=== PATIENT | male | born 1975 | race Caucasian/White ===

== ENCOUNTER 2021-11-17 19:32 | Emergency (ER) | payer OTHER, SELFPAY ==
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
[2021-11-17 20:00] VITALS: BP 148/87; PULSE 96; RESP 14; TEMP 37.1; O2SAT 97
--- NOTE | 2021-11-17 20:17 | ED.WOUNDLAC ---
HPI - Wound/Laceration General Chief Complaint: Wound/Laceration Stated Complaint: left leg wound Time Seen by Provider: 11/17/21 20:17 History of Present Illness HPI narrative: Patient is a 46-year-old male presenting with concern for wound infection. Patient states that he was playing kickball the other day when he slid into one of the bases. He sustained a large abrasion to the lateral aspect of his left calf. States he is also had some knee pain. Patient states that he has been applying antibiotic ointment to the abrasion but today he developed pain surrounding the abrasion and he felt generally unwell. He is concerned that he is developing an infection. He denies fevers, nausea or vomiting, spreading redness. He denies further complaints or injuries. He is unsure when his last tetanus shot was. Related Data Allergies Allergy/AdvReac Type Severity Reaction Status Date / Time No Known Allergies Allergy Unknown Verified 11/17/21 20:19 Review of Systems Review of Systems: All systems reviewed & are unremarkable except as noted in HPI and below PMFSH Family History Family History Mother Hypertension Other Diabetes mellitus Social History Social History Smoking status: Never smoker Alcohol intake: never Exam Narrative: GENERAL: Well-appearing, well-nourished, and in no acute distress. HEAD: Normocephalic, atraumatic. EYES: PERRLA and EOMI. ENT: Nares clear, no rhinorrhea or epistaxis. Mucous membranes moist. NECK: Supple. CHEST: Clear to auscultation. No respiratory distress. HEART: Regular rate and rhythm. No murmur heard. Normal peripheral pulses. ABDOMEN: Soft, nontender, nondistended, normal active bowel sounds. EXTREMITIES: Normal range of motion. large abrasion to lateral aspect of left lower extremity with small amount of surrounding erythema and warm, no purulence or fluctuance, no crepitus SKIN: Warm, dry, no rash. NEURO: No focal deficits. Alert and oriented x3. PSYCH: Normal mood and affect. Course Course Emergency Course: Patient is a 46-year-old male presenting with concerns for a wound infection of a large abrasion on his left leg. Patient is hypertensive, otherwise vitals are within normal limits. Patient is nontoxic and in no acute distress. Exam is remarkable for the above. We will obtain an x-ray of the left knee and will start antibiotic therapy at this time. X-ray shows no acute osseous abnormalities. Patient received tetanus shot and a dose of antibiotics. Discussed appropriate wound care as well as return precautions. Patient voiced understanding and is agreeable with plan. Discharged in stable condition. Vital Signs Vital signs: Vital Signs Temperature 98.8 F 11/17/21 20:00 Pulse Rate 96 11/17/21 20:00 Respiratory Rate 14 11/17/21 20:00 Blood Pressure 148/87 H 11/17/21 20:00 Pulse Oximetry 97 11/17/21 20:00 Oxygen Delivery Room Air 11/17/21 20:00 Temperature 98.8 F 11/17/21 20:00 Pulse Rate 96 11/17/21 20:00 Respiratory Rate 14 11/17/21 20:00 Blood Pressure 148/87 H 11/17/21 20:00 Pulse Oximetry 97 11/17/21 20:00 Oxygen Delivery Room Air 11/17/21 20:00 Critical Care Time Critical Care Time Critical Care Time: No Discharge Plan Discharge Clinical Impression: Abrasion, Cellulitis Patient Disposition: Home, Self-Care Condition: Stable Instructions: Antibiotic Form, Cellulitis (ED), Abrasion (ED) Additional Instructions: If your symptoms do not improve, redness continues to spread, you develop fevers or vomiting, or other concerning symptoms arise, please return to the ER. Please follow-up with your PCP. Prescriptions: New cephalexin 500 mg capsule 500 mg PO Q6H 7 Days Qty: 28 0RF sulfamethoxazole-trimethoprim [Bactrim DS] 800-160 mg tablet 1 tablet PO Q12H 7 Days Qty: 14 0RF Foll
[2021-11-17] MEDS: SULFAMETHOXAZOLE/TRIMETHOPRIM 800/160 MG DS TABLET 1 TAB PO (21:19)
[2021-11-17] MEDS: CEPHALEXIN 500 MG CAPSULE PO (21:19)
[2021-11-17] MEDS: TETANUS,DIPHTHERIA,AC PERTUSSIS ADULT (0.5 ML) BOOSTRIX IM (21:22)
== END 2021-11-17 21:53 | disposition home or self-care (01) ==
PROVIDERS: Emergency Provider Emergency Medicine; PCP Family Medicine
DX: L03.116 Cellulitis of left lower limb (principal); S80.812A Abrasion, left lower leg, initial encounter; Z23 Encounter for immunization; Y93.6A Activity, physical games generally associated with school recess, summer camp and children; W21.89XA Striking against or struck by other sports equipment, initial encounter
CPT/HCPCS: 73564; 90471; 90715; 99283; A9270

== ENCOUNTER 2023-08-10 03:10 | Emergency (ER) | payer OTHER, SELFPAY ==
[2023-08-10 03:17] VITALS: BP 135/99; PULSE 86; RESP 18; TEMP 37.1; O2SAT 97
--- NOTE | 2023-08-10 04:44 | ED.GENADULT ---
HPI - General Adult General Chief complaint: Unspecified Stated complaint: I dont feel right, I'm all over the place Time Seen by Provider: 08/10/23 03:16 Source: patient Limitations: no limitations History of Present Illness HPI narrative: Patient is a 47-year-old male presents to the emergency department complaining of difficulty sleeping. Patient states 2 days ago he had the same issue and then last night he was able to sleep and then tonight he is not able to sleep. Patient notes that it seems like maximum were refilled again about to fall asleep and then he does not, notes he has a history of sleep apnea has been wearing a CPAP for the most part. Patient admits to being stressed lately with his going through a lot of medical issues. Patient denies any caffeine use outside of his typical. Patient admits to 2 nights ago taking a Sudafed but did not take anything tonight. Patient denies any regular medication use or any recent [id number] supplements. Patient denies chest pain, difficulty breathing, fever, palpitations, diarrhea, vomiting, nausea. Patient denies depression, suicidal ideations, hypersexuality, irritability. Patient admits to history of the past 1 year ago when he was out camping and he saw his primary care physician who told him that he had anxiety. Related Data Allergies Allergy/AdvReac Type Severity Reaction Status Date / Time No Known Allergies Allergy Unknown Verified 11/17/21 20:19 Review of Systems Review of Systems: A 10 system review of systems was completed on the patient and is negative except for what is stated in the HPI. Nursing and ancillary documentation was reviewed. [facility] Family History Family History Mother Hypertension Other Diabetes mellitus Social History Social History Smoking status: Never smoker Alcohol intake: never Comments At time of signature, I have reviewed and agree with nursing past medical, surgical, social and family history unless otherwise noted. Please see the nursing chart for further information. There is no relevant family history pertinent to the presenting complaint. Exam Narrative: CONST: No acute distress. Well nourished. HENMT: Head is normocephalic and atraumatic. Moist mucous membranes. No posterior oropharynx erythema. EYES: No conjunctival icterus, injection, or pallor. PERRL. NECK: No meningeal signs. No palpable thyroid tenderness to palpation or thyromegaly. RESP: Able to speak in full sentences. Normal respiratory effort. CTAB. CARDIO: Regular rate. Regular rhythm. 2+ DP and radial pulses bilaterally. GI: Nondistended. No tenderness to palpation. Soft. : No CVA tenderness to palpation. SKIN: No rashes or lesions noted on exposed skin. NEURO: Oriented x3. Moves all extremities. EXTREM/MSK/BACK: No pedal edema. PSYCH: Normal affect. Course Vital Signs Vital signs: Vital Signs Temperature 98.7 F 08/10/23 03:17 Pulse Rate 86 08/10/23 03:17 Respiratory Rate 18 08/10/23 03:17 Blood Pressure 135/99 H 08/10/23 03:17 Pulse Oximetry 97 08/10/23 03:17 Oxygen Delivery Room Air 08/10/23 03:17 Temperature 98.7 F 08/10/23 03:17 Pulse Rate 86 08/10/23 03:17 Respiratory Rate 18 08/10/23 03:17 Blood Pressure 135/99 H 08/10/23 03:17 Pulse Oximetry 97 08/10/23 03:17 Oxygen Delivery Room Air 08/10/23 03:17 Medical Decision Making MDM Narrative Medical decision making narrative: Patient presents with the above complaint. Initial vitals are remarkable for no significant abnormalities. Physical examination as noted above. Differential diagnosis includes was not limited to: Adverse reaction to testosterone supplementation, anxiety, poor sleep hygiene. Plan discussed: Administer Ativan 1 mg p.o. and provided prescription for 2 more doses to be taken over the next 2
[2023-08-10 05:06] VITALS: BP 123/97; PULSE 87; RESP 14; O2SAT 97
[2023-08-10] MEDS: diphenhydrAMINE HCl CAP 25 MG CAPSULE PO (05:06)
[2023-08-10] MEDS: LORazepam (*CRX) 0.5 MG TABLET PO (05:06)
== END 2023-08-10 05:38 | disposition home or self-care (01) ==
PROVIDERS: Emergency Provider Student in an Organized Health Care Education/Training Program; PCP Family Medicine
DX: G47.00 Insomnia, unspecified (principal)
CPT/HCPCS: 99283; A9270

== ENCOUNTER 2024-08-19 16:18 | Emergency (ER) | payer OTHER, SELFPAY ==
[2024-08-19] VITALS (17 sets, daily range): BP systolic 135–167; BP diastolic 87–99; PULSE 84–92; RESP 15–22; TEMP 36.4–37.2; O2SAT 95–100
--- NOTE | ~2024-08-19 | XR_ITS ---
EXAMINATION: XR chest 2V Exam Date/Time: 08/19/2024 7:55 CDT HISTORY: upper abdominal pain Comparison: None. RESULT: Lines, tubes, and devices: None. Lungs and pleura: Clear. Cardiomediastinal silhouette: Unremarkable. Other: No acute osseous or upper abdominal finding. IMPRESSION: No acute cardiopulmonary process. Reviewed, dictated and finalized at location K.
--- NOTE | ~2024-08-19 | CT_ITS ---
EXAMINATION: CT abdomen pelvis w con DATE: 08/19/2024 18:19 INDICATION: RUQ abd pain TECHNIQUE: Computed tomography (CT) of the abdomen and pelvis was performed with 100 mL Omnipaque-350 intravenous contrast. Automated exposure control and iterative reconstruction technique were employe d. The dose-length product was 1392.78 mGy-cm. COMPARISON: X-ray chest, same date. FINDINGS: Lower thorax: Unremarkable Liver: Normal. Biliary/Gallbladder: Gallbladder is normal. No bile duct dilation. Pancreas: Mild stranding about the pancreatic head. Spleen: Scattered hypodensities, likely representing cysts or hemangiomas. Adrenals:No mass. Kidneys: No suspicious mass, obstructing stone, or hydronephrosis. Subcentimeter hypodensities, too s mall to characterize but most likely represent cysts GI tract: No small or large bowel dilation. Normal appendix. Diverticulosis without diverticulitis. Mesentery/Peritoneum: No ascites, mass, or free air. Mild central mesenteric stranding, with fat halo s surrounding several prominent mesenteric lymph nodes. Retroperitoneum: No mass. Pelvis: Empty urinary bladder. Mild prostatomegaly. Soft Tissues: Small uncomplicated fat-containing umbilical and bilateral inguinal hernias. Bones: No acute osseous finding. IMPRESSION: Mesenteric panniculitis. Mild inflammatory change at the pancreatic head, may represent mild bronchitis versus extension of th e mesenteric panniculitis. Reviewed, dictated and finalized at location K. IMPRESSION: Mesenteric panniculitis. Mild inflammatory change at the pancreatic head, may represent mild bronchitis versus extension of the mesenteric panniculitis.
--- OUTSIDE RECORDS SUMMARY | 2024-08-19 16:21 | XMS_ITS | Clinical Summary ---
Author Organization [facility] [place] [place] Address [address] [place] [address] Phone Care Team Providers Care Button Breaker Name Role Phone Devyn Coronado APRN, CNP Primary Care Pr ovider Medications No known medications Active Problems No known active problems Family History Medical History Relation Name Comments Diabetes Father Asthma Mother Cancer Mother Diabetes Mother Relation Name Status Comments Father Alive Mother Alive Social History Tobacco Use Types Packs/Day Years Used Date Smoking Tobacco: Never Smokeless Tobacco: Never Alcohol Use Standard Drinks/Week Comments Never 0 (1 standard drink = 0.6 oz pur e alcohol) Sex and Gender Information Value Date Recorded Sex Assigned at Not on file Legal Sex Male 3:27 PM CDT Gender Identity Not on file Sexual Orientation Not on file Last Filed Vital Signs Vital Sign Reading Time Taken Comments Blood Pressure 120/88 07/12/2022 2:16 PM CDT Pulse 81 07/12/2022 2:16 PM CDT Temperature 36.7 C (98.1 F) 07/12/2022 2:16 PM CDT Respiratory Rate 18 07/12/2022 2:16 PM CDT Oxygen Saturation 96% 07/12/2022 2:16 PM CDT Inhaled Oxygen Concentration - - Weight 109.4 kg (241 lb 3.2 oz) 07/12/2022 2:16 PM CDT Height 182.9 cm (6') 07/12/2022 2:16 PM CDT Body Mass Index 32.71 07/12/2022 2:16 PM CDT Plan of Treatment Health Maintenance Due Date Last Done Comments Hepatitis C Virus (HCV) Screening 1975 Hepatitis B Immunization (1 of 3 - 19+ 3-dose series) 1992 Cologuard 2018 Colonoscopy 2018 Colorectal Cancer Screening 2018 Immunochemical Fecal Occult Blood 2018 SARS-COV-2 Immunization (3 - 2023- season) 2023 07/20/2020, 06/22/2020 Pneumococcal Immunization (5 0+ years) (1 of 1 - PCV) 10/16/2023 Zoster Immunization (1 of 2) 10/16/2023 Influenza Immunization (#1) 2024 Respiratory Syncytial Virus (RSV) Immunization (Adult) (1 - 1-dose 75+ series) 2048 DTaP/Tdap/Td Immunization Discontinued 11/17/2021 TdaP Immunization Completed 11/17/2021 Human Papillomavirus (HPV) Immunization Aged Out No longer eligible based on patient's age to complete this topic Meningococcal Immunization (ACWY) Aged Out No longer eligible based on patient's age to complete this topic Rotavirus Immunization Aged Out No lo nger eligible based on patient's age to complete this topic Insurance Care Teams Button Breaker Relationship Specialty Start Date End Date Devyn Coronado, CARDIOVASCULAR INVASIVE SPECIALIST, MEDICAL SECRETARY #[address] [address] PCP - General Advanced Practice Nurse 07/12/22
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
--- OUTSIDE RECORDS SUMMARY | 2024-08-19 16:21 | XMS_ITS | Data Portability ---
Author Organization ID - [facility] Patients Know Best [facility] Address [address] [place] [address] Assessment No assessment recorded. Plan of Treatment Reminders Order Date Submit Date Provider Last Modified By Organization Details Last Modified Time Details Appointments None recorded. Lab None recorded. Referral None recorded. Procedures None recorded. Surgeries None recorded. Imaging None recorded. Medication Orders prednisone 10 mg tablet 2024 [employer] [employer] #[id number], [address], [place], [id number], 12:23:26 benzonatate 100 mg capsule 2024 025 [employer] #[id number], [address], [place], [id number], 16:58:56 Patient TargetsNo targets recorded. Patient Instructions Encounter Date Encounter Id Patient Instructions Last Modified By Organization Details Last Modified Time 07/08/2024 [id number] bronchitis: care instructions [email or web address] Not available 07/08/2024 12:23:13 Summary of Today 's Visit: You reached out to us because of a dry, non-productive cough and a little bit of a runny nose, which began after a viral illness about a week and a half ago. You've tried using cough drops, Sudafed, and allergy medication, but symptoms have persisted. We discussed that these symptoms might be due to bronchitis from inflammation following the viral infection. Treatment Plan for Cough and Symptoms: To help manage your symptoms, we'll start you on a prednisone taper pack for five days, which will reduce inflammation. Alongside, we'll prescribe Tessalon pearls to ease your cough. It's important to continue using your allergy medication and to start using nasal sprays to alleviate the runny nose, which could be contributing to the cough as well. Home Care Advice: Please keep drinking warm fluids such as tea, soups, or broths to soothe your throat and support recovery. These simple measures, in combination with the prescribed medications, should help clear up your symptoms. Important Precautions: You should seek immediate medical attention if you experience concerning symptoms like difficulty breathing, coughing up blood, or if your fingertips or lips turn blue. Should your symptoms not improve, or if they persist, a follow-up in-person visit will be necessary to have your lungs checked thoroughly. Medication Pickup: I've sent your prescriptions to the [facility] on [facility] in [place]. You can pick them up there at your convenience. If you have any issues with obtaining the medication, please don't hesitate to reach out for assistance. Not available 07/08/2024 12:23:12 Reason for Referral None Reported. Medical Equipment None Reported. Allergies No known drug allergies Medications Name Sig Start Date Stop Date Status Note LastModified by Organization Details LastModified Time prednisone 10 mg tablet 5 tabs po on day 1, 4 tabs po on day 2, 3 tabs po on day 3, 2 tabs po on day 4, 1 tab po on day 5. 2024 active Not Available Not Available Not Avai lable benzonatate 100 mg capsule Take 1 capsule 3 times a day by oral route as needed, for cough. Maximum 6 capsules in 24 hours.. 2024 active Not Available Not Available Not Avai lable Vitals None Recorded Social History None recorded. Functional Status None recorded. Mental Status None recorded. Family History Nothing Reported. Medical History No medical history recorded. Past Encounters Encounter ID Performer Location Encounter Start Date Encounter Closed Date Diagnosis/Indication Diagnosis SNOMED-CT Code Diagnosis ICD10 Code Diagnosis Note [id number] WYATT Miller [facility] [address] [place] [address] 07/08/2024 12:15:35 07/08/2024 12:26:07 Bronchitis 23098211 J40 Acute bronchitis - supported by the patient's symptoms of a dry cough, runny nose, and the recent viral illness, indicating inflammati on often seen after such illnesses. - Prescribed a prednisone taper pack for five days.- Prescribed Tessalon Perles for cough.- Advised the patient to try nasal sprays, continue allergy medication s, and drink warm fluids like tea, soups, and broths.- Instructed the patient to go to the ER if experienci ng difficulty breathing, coughing up blood, or if fingertips or lips turn blue.- Recommende d follow-up care in person if symptoms do not improve or continue to linger. Health Concerns Section Related Observation LastModified by Organization Detai ls LastModified Time None Recorded Concern Status LastModified by Organization Details LastModified Time None Recorded Advance Directives Directive None Recorded Payers Insurance Date Sequence Insurance Name Policy Number Policy Mojica Covered Member ID Mojica Member ID Guarantor Name 07/08/2024 [facility] Robert Carter [id number] Robert Carter 08/19/2024 1 [employer] - Robert Carter [id number] Robert Carter 07/08/2024 2 *SELF PAY* Robert Carter [id number] Robert Carter 07/08/2024 1 *SELF PAY* Dylan Carter Notes Date Note Type Note Provider Name and Address Organization Details Recorded Time 5 text/html Patient name , location, and phone number confirmed. Limitations of telemedicine evaluations reviewed, all questions answered, and verbal consent obtained to treat via secure video telemedicine interaction.Clinician attests that the clinician is physically located in the following state at the time of the visit: [place] current location is: (home address) [place]Patient consent to AI scribe use CC: Persistent cough HPI: The patient reports experiencing a cough that began over the past day, following an earlier episode of what seemed to be a viral illness experienced about one to ytl-usr-s-half weeks ago. Initially, they reported symptoms resembling the flu, which improved over several days ( to Monday). The cough reappeared yesterday, accompanied by a minor runny nose and slight nasal congestion.Patient has taken cough drops, sudafed, allergy medication Fever > 100.4 (Tmax): NoChills: NoNight Sweats: NoMyalgias: NoFatigue: NoNasal congestion: MildNasal discharge: YesSneezing: NoSinus pressure: NoEye redness/discharge:NoEar pain/pressure: NoSore throat: NoDifficulty swallowing: NoPost nasal drip: NoCough: Yes, dry, non productiveShortness of breath: NoWheezing: NoChest Pain/tightness: NoHeadache: NoDiarrhea: NoNausea/Vomiting: No ( - ) Worsening symptoms after initial improvement of viral symptoms 3 -4 days in duration (double sickness)( - ) Duration of symptoms 10 days without evidence of clinical improvement(- ) Severe symptoms 3- 4 days consecutively, severe symptoms defined as fever >102 F or purulent nasal discharge or severe facial pain WYATT Miller [address] [place] [address] [address] [place], [phone], [facility] 07/08/2024 16:59:45
--- OUTSIDE RECORDS SUMMARY | 2024-08-19 16:21 | XMS_ITS | Referral Summary ---
Author Organization [facility] Address [address] [place] [address] Care Team Providers Care Supervisor Shuttle Fitting Name Role Phone Heena Durant OT Unavailable [phone] Allergies No known active allergies Medications testosterone cypionate (DEPO-TESTOTERO NE) 100 mg/mL injection Inject 1 mL (100 mg total) into the muscle as instructed every 14 (fourteen) days 100mg/0.5ml Active Active Problems Problem Noted Date Diagnosed Date Special screening for malignant neoplasms, colon 05/10/2022 Overview (05/10/2022): Added automatically from request for surgery [id number] Blood clot of left ear 05/04/2022 Psychophysiological [...] 11/17/2021,08/26/2008,08/20/2008 Typhoid Inactivated 02/14/2013,04/03/2001 Yellow Fever 07/24/2013,10/17/2001 Social History Tobacco Use Types Packs/Day Years [...] 05/01/2024 3:04 PM CDT Plan of Treatment Not on file Procedures Procedure Name Priority Date/Time Associated Diagnosis [...] Costa Perkins, - 09/22/2022 7:24 AM CDT [facility] Patient Name: Robert Carter Procedure Date: 09/22/2022 7:24 AM Date of : 1975 Admit Type: Outpatient Age: 46 Gender: Male Attending MD: Costa Perkins D.O. Room: [facility] END[facility] ROOM 05 Note Status: Finalized Procedure: [...] data last revised 21. Testing performed by: [facility], [address] [place] [address]., [id number] Blood 05/16/2022 7:49 AM CDT 05/16/2022 9:52 AM CDT Costa Perkins DO LAB BLOOD ORDERABLES Fin al Result MIKEY JIN [address] [facility] Department [place] [address] from Last 3 Months or Most Recently Relevant to Health Maintenance Insurance [facility] Care Teams Supervisor Shuttle Fitting Relationship Specialty Start Date End Date Heena Durant OT [address] [address] Occupational Therapist Occupational Therapy 07/14/17
--- OUTSIDE RECORDS SUMMARY | 2024-08-19 16:21 | XMS_ITS | Continuity of Care Document ---
Author Name [facility] Organization [facility] Care Team Providers Care Manager Alliance Name Role Phone DOD-[facility] Unavailable Unavailable Problems Combined list of problems from Department of Defense and Veterans Affairs facilities. It does not include entries that were removed or entered in error. Problem Status Onset Date Problem Type Date of Resolution Comments Source Obstructive sleep apnea of adult Active Condition [facility] ANKLE SPRAIN LEFT Active Condition DoD Need For Prophylactic Measure Inactive Condition DoD visit for: services physical pre-deployment Active Condition DoD UPPER RESPIRATORY INFECTION Inactive Condition DoD MAJOR DEPRESSION, SINGLE EPISODE Active Condition DoD Other Physical Therapy Active Condition DoD ANKLE SPRAIN Inactive Condition DoD visit for: routine adult H&P Inactive Condition DoD joint pain, localized in the right shoulder Active Condition DoD KNEE SPRAIN MEDIAL COLLATERAL LIGAMENT RIGHT Inactive Condition [facility] visit for: administrative purpose Inactive Condition DoD visit for: screening exam Active Condition DoD SKIN DISORDER EXANTHEM Active Condition DoD visit for: laboratory Active Condition [facility] Patient Education - Alcohol Active Condition DoD Anticipatory Guidance: Inadequate Physical Activity Active Condition DoD Patient Education - Injury Prevention Active Condition [facility] visit for: services physical Inactive Condition DoD Food Sources For Nutrients Active Condition DoD Tetanus toxoid - need for vaccination Active Condition [facility] visit for: issue medical certificate Inactive Condition [facility] visit for: screening exam pulmonary tuberculosis Active Condition DoD Need For Vaccination Hepatitis B Active Condition [facility] visit for: issue medical certificate fitness Active Condition DoD PHARYNGITIS ACUTE Active Condition pt has infection with tender n[place] parotid and angle of mandible. this could daniel viral infection / paroditis or a bacterial infection. since son with recent strep will ttreat pt with AB and moist heatt to area with instruction to return not improved in 48 hours DoD OTITIS MEDIA ACUTE NONSUPPURATIVE Inactive Condition DoD BENIGN SKIN NEOPLASM Active Condition pt has a few benign appearing lesions, some may be simple subcutaneous fibromas. none have suspicious appearance. I reviewed the ABCDE of skn cancer with pt and advised him to return if any questionable lesions DoD OVERWEIGHT Active Condition diet, exe rcise, smaller portions. DoD BACKACHE Inactive Condition r/o nephrolithiasis , pleuresy. [facility] Patient Education Active Condition [facility] Serum Total Cholesterol Was Elevated Active Condition Pt denies tob, is not >45, has no fhx of CAD, no hx of HTN so LDL goal is <160. no meds indicated at this time. Diet and exercise counselling provided. Healthy diet handout given. [facility] ACUTE LYMPHADENITIS Inactive Condition Motrin or Tylenol OTC for pain PRN. [facility] HAND SPRAIN Inactive Condition No evide nce of fracture on film./ Recommend R.I.C.E. Motrin for pain. RTC in one week if still painful. [facility] PSYCHIATRIC DIAGNOSIS OR CONDITION DEFERRED ON AXIS I Active Condition [facility] Diagnosis: ICD-10-CM M25.572 Pain in left ankle and joints of left foot Active Diagnosis [facility] Diagnosis: ICD-10-CM Z71.9 Counseling, unspecified Active Diagnosis [facility] Diagnosis: ICD-10-CM R20.2 Paresthesia of skin Active Diagnosis [facility] Medications Combined list of outpatient medications from Department of [facility] and [facility] Affairs facilities.Medications provided include 1) outpatient medications from the last 15 months, and 2) patient-reported medications. Medication Details Route Status Patient Instructions Prescription Expires Prescription Number Last Dispense Date Ordering Provider Order Date Order Qty Source DEHYDROEPIA NDROSTERONE (DHEA) CAP/TAB TAKE 1 CAP/TAB BY MOUTH ORAL ACTIVE Rohit GIBBS 2023 [facility] MELATONIN 3MG CAP/TAB TAKE ONE CAP/TAB BY MOUTH AT BEDTIME FOR SLEEP ORAL DISCONT INUED BY PROVIDE R 08/16/2024 [id number] MIMSCHRISTIANO KAYLEE R 2023 60 [facility] TESTOSTERON E CYPIONATE (PA-F) INJ,SOLN INJECT DEEP INTRAMUS CULARLY INTRAM USCULA R ACTIVE ME SHERRI TTISA 2023 [facility] TRAZODONE HCL 100MG TAB TAKE ONE-HALF TABLET BY MOUTH AT BEDTIME FOR INSOMNIA ORAL 11/15/2023 [id number] PRASANNACHRISTIANO KAYLEE R 2023 45 [facility] Allergies, Adverse Reactions, Alerts Combined list of allergies from Department of Defense and Veterans Affairs facilities. It does not include entries that were removed or entered in error. Substance Category Reaction Severity Reaction type Status Date Reported Comments Source NO OUTPUT FOR NCID [id number] Drug allergy (disorder) active 09/24/2007 [facility] Immunizations Combined list of available immunizations from the Department of Defense and Veterans Affairs facilities. Immunization Series Date Given Administered By Site Reaction Lot Number CVX Code Drug Scrap Dealer Status Comments Source TDAP 1 2021 115 complet ed HISTORICA L INFORMATI ON - FROM OTHER [facility] COVID-19 (MODERNA), MRNA, LNP-S, PF, 100 MCG/0.5ML DOSE OR 50 MCG/0.25ML DOSE 2 2020 207 complet ed HISTORICA L INFORMATI ON - [facility] Vaccine Moderna 2020 207 complet ed COVID Vaccine Moderna 07/19/20 Given Ambulat ory Pharmac y COVID-19, mRNA, LNP-S, PF, 100 mcg or 50 mcg dose 2020 [employer] (MOD) Not Given COVID-19, mRNA, LNP-S, PF, 100 mcg or 50 mcg dose DoD COVID Vaccine Moderna 2020 207 complet ed COVID Vaccine Moderna 06/22/20 Given Ambulat ory Pharmac y COVID-19 (MODERNA), MRNA, LNP-S, PF, 100 MCG/0.5ML DOSE OR 50 MCG/0.25ML DOSE 1 2020 207 complet ed HISTORICA L INFORMATI ON - FROM OTHER [facility] COVID-19, mRNA, LNP-S, PF, 100 mcg or 50 mcg dose 2020 [employer] (MOD) Not Given COVID-19, mRNA, LNP-S, PF, 100 mcg or 50 mcg dose DoD influenza, injectable, quadrivalent- pf 2018 [id number] 150 Seqirus complet ed influenza , injectabl e, quadrival ent-pf 01/24/19 Given Ambulat ory Pharmac y tetanus-dipht h toxoids (Td) adult/adol 2018 [id number] sanofi pasteur complet ed tetanus-d iphth toxoids (Td) adult/ado l 01/24/19 Given Ambulat ory Pharmac y tetanus and diphtheria toxoids, adsorbed, preservative free, for adult use (2 Lf of tetanus toxoid and 2 Lf of diphtheria toxoid) 4 2018 [id number] 09 Sanofi Pasteur (PMC) complet ed tetanus and diphtheri a toxoids, adsorbed, preservat meghna free, for adult use (2 Lf of tetanus toxoid and 2 Lf of diphtheri a toxoid) DoD Influenza, injectable, quadrivalent, preservative free 22 2018 [id number] 150 Seqirus (SEQ) complet ed Influenza , injectabl e, quadrival ent, preservat meghna free DoD influenza, injectable, quadrivalent- pf 2017 [id number] 150 Seqirus complet ed influenza , injectabl e, quadrival ent-pf 12/01/17 Given Ambulat ory Pharmac y Influenza, injectable, quadrivalent, preservative free 21 2017 [id number] 150 Seqirus (SEQ) comple t ed Influenza , injectabl e, quadrival ent, preservat meghna free DoD influenza virus vaccine, unspecified 2017 TRANSCR IBED 88 complet ed influenza virus vaccine, unspecifi ed 02/10/17 Given Ambulat ory Pharmac y influenza virus vaccine, unspecified formulation 1 2017 88 Transcribed (TRS) complet ed influenza virus vaccine, unspecifi ed formulati on DoD influenza, seasonal, injectable-pf 2015 [id number] 140 Seqirus complet ed influenza , seasonal, injectabl e-pf 12/22/15 Given Ambulat ory Pharmac y anthrax vaccine 2015 [id number] 24 Emergent Biosolutions complet ed anthrax vaccine 12/22/15 Given Ambulat ory Pharmac y anthrax vaccine 6 2015 [id number] 24 [employer] [place] (MIP) complet ed anthrax vaccine DoD Influenza, seasonal, injectable, preservative free 19 2015 [id number] 140 Seqirus (SEQ) comple t ed Influenza , seasonal, injectabl e, preservat meghna free DoD influenza, live, intranasal,qu adrivalent 2014 [id number] 149 Medimmune Inc comple t ed influenza , live, intranasa l,quadriv alent 12/18/14 Given Ambulat ory Pharmac y influenza, live, intranasal, quadrivalent 18 2014 [id number] 149 MedImmune, Inc. (MED) complet ed influenza , live, intranasa l, quadrival ent DoD influenza, live, intranasal,qu adrivalent 2014 [id number] 149 Medimmune Inc comple t ed influenza , live, intranasa l,quadriv alent 03/05/14 Given Ambulat ory Pharmac y influenza, live, intranasal, quadrivalent 17 2014 [id number] 149 MedImmune, Inc. (MED) complet ed influenza , live, intranasa l, quadrival ent DoD poliovirus vaccine, inactivated 2013 [id number] 10 sanofi pasteur complet ed polioviru s vaccine, inactivat ed 09/17/13 Given Ambulat ory Pharmac y poliovirus vaccine, inactivated 2 2013 [id number] 10 Sanofi Pasteur (PMC) complet ed polioviru s vaccine, inactivat ed DoD yellow fever vaccine 2013 [id number] 37 sanofi pasteur complet ed yellow fever vaccine 07/24/13 Given Ambulat ory Pharmac y yellow fever vaccine 2 2013 [id number] 37 Sanofi Pasteur (PMC) complet ed yellow fever vaccine DoD meningococcal A,C,Y,W-135 (MCV4P) 2013 [id number] 114 sanofi pasteur complet ed meningoco ccal A,C,Y,W-1 35 (MCV4P) 07/19/13 Given Ambulat ory Pharmac y meningococcal polysaccharid e (groups A, C, Y and W-135) diphtheria toxoid conjugate vaccine (MCV4P) 2 2013 [id number] 114 Sanofi Pasteur (PMC) complet ed meningoco ccal polysacch aride (groups A, C, Y and W-135) diphtheri a toxoid conjugate vaccine (MCV4P) DoD vaccinia (smallpox) vaccine 2013 VV04-00 3A 75 [employer] complet ed vaccinia (smallpox ) vaccine 03/05/13 Given Ambulat ory Pharmac y vaccinia (smallpox) vaccine 2 2013 VV04-00 3A 75 [facility]) complet ed vaccinia (smallpox ) vaccine DoD typhoid Vi capsular polysaccharid e vac 2013 [id number] 101 sanofi pasteur complet ed typhoid Vi capsular polysacch aride vac 02/14/13 Given Ambulat ory Pharmac y vaccinia (smallpox) vaccine 2013 VV04-00 3A 75 [employer] complet ed vaccinia (smallpox ) vaccine 02/14/13 Given Ambulat ory Pharmac y anthrax vaccine 2013 [id number] 24 [employer] complet ed anthrax vaccine 02/14/13 Given Ambulat ory Pharmac y measles/mumps /rubella virus vaccine 2013 [id number] 03 [employer] complet ed measles/m umps/rube lla virus vaccine 02/14/13 Given Ambulat ory Pharmac y measles, mumps and rubella virus vaccine 2 2013 [id number] 03 [employer] (MSD) complet ed measles, mumps and rubella virus vaccine DoD anthrax vaccine 5 2013 [id number] 24 [employer] [place] ([facility]) complet ed anthrax vaccine DoD vaccinia (smallpox) vaccine 1 2013 VV04-00 3A 75 [facility] ([facility]) complet ed vaccinia (smallpox ) vaccine DoD typhoid Vi capsular polysaccharid e vaccine 2 2013 [id number] 101 Sanofi Pasteur ([facility]) complet ed typhoid Vi capsular polysacch aride vaccine DoD influenza, live, intranasal,qu adrivalent 2012 [id number] 149 Medimmune Inc comple t ed influenza , live, intranasa l,quadriv alent 11/28/12 Given Ambulat ory Pharmac y influenza, live, intranasal, quadrivalent 16 2012 [id number] 149 [employer] Inc. (MED) complet ed influenza , live, intranasa l, quadrival ent DoD influenza, seasonal, injectable 2011 [id number] 141 sanofi pasteur complet ed influenza , seasonal, injectabl e 11/10/11 Given Ambulat ory Pharmac y Influenza, seasonal, injectable 1 2011 [id number] 141 Sanofi Pasteur (PMC) complet ed Influenza , seasonal, injectabl e DoD influenza, seasonal, injectable-pf 2010 [id number] 140 sanofi pasteur complet ed influenza , seasonal, injectabl e-pf 11/04/10 Given Ambulat ory Pharmac y Influenza, seasonal, injectable, preservative free 14 2010 [id number] 140 Sanofi Pasteur ([facility]) complet ed Influenza , seasonal, injectabl e, preservat meghna free DoD influenza virus vaccine, live 2009 [id number] 111 [employer] Inc comple t ed influenza virus vaccine, live 12/10/09 Given Ambulat ory Pharmac y influenza virus vaccine, live, attenuated, for intranasal use 1 2009 [id number] 111 [employer]St[employer], Inc. (MED) complet ed influenza virus vaccine, live, attenuate d, for intranasa l use DoD Novel influenza-H1N 1-09, injectable 2009 [id number] 1 127 Novartis Pharmaceutica ls complet ed Novel influenza -U5D7-75, injectabl e 02/26/09 Given Ambulat ory Pharmac y Novel influenza-H1N 1-09, injectable 1 2009 [id number] 1 127 Novartis BrandConttica l Haley. (NOV) complet ed Novel influenza -N2Y0-27, injectabl e DoD HepB, Adult 2009 [id number] 2AA 43 GlaxoSmithKli ne complet ed HepB, Adult 02/16/09 Given Ambulat ory Pharmac y hepatitis B vaccine, adult dosage 3 2009 [id number] 2AA 43 [facility] (SKB) complet ed hepatitis B vaccine, adult dosage DoD influenza virus vaccine, live 2008 [id number] 111 [employer] Inc comple t ed influenza virus vaccine, live 11/11/08 Given Ambulat ory Pharmac y influenza virus vaccine, live, attenuated, for intranasal use 1 2008 [id number] 111 [employer], Inc. (MED) complet ed influenza virus vaccine, live, attenuate d, for intranasa l use DoD tetanus, diphtheria, acellular pertu is 2008 Body, whole TRANSCR IBED 115 complet ed tetanus, diphtheri a, acellular pertussis 08/26/08 Given Ambulat ory Pharmac y HepB, Adult 2008 Body, whole TRANSCR IBED 43 complet ed HepB, Adult 08/26/08 Given Ambulat ory Pharmac y hepatitis B vaccine, adult dosage 1 2008 43 Transcribed (TRS) complet ed hepatitis B vaccine, adult dosage DoD tetanus toxoid, reduced diphtheria toxoid, and acellular pertu is vaccine, adsorbed 1 2008 115 Transcribed (TRS) complet ed tetanus toxoid, reduced diphtheri a toxoid, and acellular pertussis vaccine, adsorbed DoD tetanus, diphtheria, acellular pertu is 2008 115 complet ed tetanus, diphtheri a, acellular pertussis 08/20/08 Given Ambulat ory Pharmac y HepB, Adult 2008 43 complet ed HepB, Adult 08/20/08 Given Ambulat ory Pharmac y hepatitis B vaccine, adult dosage 1 2008 43 () complet ed hepatitis B vaccine, adult dosage DoD tetanus toxoid, reduced diphtheria toxoid, and acellular pertu is vaccine, adsorbed 2 2008 115 () complet ed tetanus toxoid, reduced diphtheri a toxoid, and acellular pertussis vaccine, adsorbed DoD tuberculin purified protein derivative 2008 96 sanofi pasteur complet ed Patient Tolerance : Negative Ambulat ory Pharmac y HepB, Adult 2008 43 GlaxoSmithKli ne complet ed HepB, Adult 06/03/08 Given Ambulat ory Pharmac y hepatitis B vaccine, adult dosage 0 2008 43 SmithKline (SKB) complet ed hepatitis B vaccine, adult dosage DoD tuberculin skin test; purified protein derivative solution, intradermal 3 2008 Unknown, Provider 96 Sanofi Pasteur (PMC) complet ed tuberculi n skin test; purified protein derivativ e solution, intraderm al DoD influenza virus vaccine, unspecified 2007 zPeter cazares Arm [id number] 88 Isoflux Inc complet ed influenza virus vaccine, unspecifi ed 01/30/08 Given Ambulat ory Pharmac y influenza virus vaccine, unspecified formulation 1 2007 BARRINGTON GOODMAN [id number] 88 NetStreams, Inc. (MED) complet ed influenza virus vaccine, unspecifi ed formulati on DoD influenza virus vaccine,split 2007 [id number] 15 sanofi pasteur complet ed influenza virus vaccine,s plit 01/21/08 Given Ambulat ory Pharmac y influenza virus vaccine, split virus (incl. purified surface antigen)-reti red CODE 0 2007 [id number] 15 Sanofi Pasteur ([facility]) complet ed influenza virus vaccine, split virus (incl. purified surface antigen)- retired CODE DoD influenza virus vaccine, live 2006 [id number] 111 Isoflux Inc comple t ed influenza virus vaccine, live 12/04/06 Given Ambulat ory Pharmac y influenza virus vaccine, live, attenuated, for intranasal use 0 2006 [id number] 111 [employer], [employer]. (MED) complet ed influenza virus vaccine, live, attenuate d, for intranasa l use DoD varicella virus vaccine 0 2006 21 () Not Given varicella virus vaccine DoD measles/mumps /rubella virus vaccine 2006 [id number] 03 [employer] complet ed measles/m umps/rube lla virus vaccine 09/19/06 Given Ambulat ory Pharmac y measles, mumps and rubella virus vaccine 1 2006 [id number] 03 Merck (MSD) complet ed measles, mumps and rubella virus vaccine DoD influenza virus vaccine, live 2005 [id number] 111 I[employer] Inc comple t ed influenza virus vaccine, live 11/25/05 Given Ambulat ory Pharmac y influenza virus vaccine, live, attenuated, for intranasal use 1 2005 [id number] 111 Moped. (MED) complet ed influenza virus vaccine, live, attenuate d, for intranasa l use [facility] influenza virus vaccine, whole virus 2004 [id number] 16 sanofi pasteur complet ed influenza virus vaccine, whole virus 12/14/04 Given Ambulat ory Pharmac y influenza virus vaccine,split 2004 [id number] 15 sanofi pasteur complet ed influenza virus vaccine,s plit 12/14/04 Given Ambulat ory Pharmac y influenza virus vaccine, split virus (incl. purified surface antigen)-reti red CODE 1 2004 [id number] 15 Sanofi Pasteur ([facility]) complet ed influenza virus vaccine, split virus (incl. purified surface antigen)- retired CODE DoD influenza virus vaccine, whole virus 1 2004 [id number] 16 Sanofi Pasteur ([facility]) complet ed influenza virus vaccine, whole virus DoD influenza virus vaccine, live 2004 [id number] 111 I[employer] Inc comple t ed influenza virus vaccine, live 03/08/04 Given Ambulat ory Pharmac y influenza virus vaccine, live, attenuated, for intranasal use 0 2004 [id number] 111 [employer]Streams, Inc. (MED) complet ed influenza virus vaccine, live, attenuate d, for intranasa l use DoD tuberculin purified protein derivative 2003 zzLef t Arm [id number] 96 sanofi pasteur complet ed Patient Tolerance : Negative Ambulat ory Pharmac y tuberculin skin test; purified protein derivative solution, intradermal 1 2003 Unknown, Provider [id number] 96 Sanofi Pasteur (PMC) complet ed tuberculi n skin test; purified protein derivativ e solution, intraderm al DoD tuberculin purified protein derivative 2003 [id number] 96 sanofi pasteur complet ed tuberculi n purified protein derivativ e 04/08/03 Given Ambulat ory Pharmac y anthrax vaccine 2003 [id number] 24 [employer] complet ed anthrax vaccine 04/08/03 Given Ambulat ory Pharmac y anthrax vaccine 5 2003 [id number] 24 [employer] [place] ([facility]) complet ed anthrax vaccine DoD influenza virus vaccine, whole virus 2002 [id number] 16 Novartis Pharmaceutica ls complet ed influenza virus vaccine, whole virus 11/28/02 Given Ambulat ory Pharmac y influenza virus vaccine, whole virus 0 2002 [id number] 16 PowderJect Pharmaceutica ls (PWJ) complet ed influenza virus vaccine, whole virus DoD anthrax vaccine 2002 [id number] 24 [employer] complet ed anthrax vaccine 07/22/02 Given Ambulat ory Pharmac y anthrax vaccine 4 2002 [id number] 24 [employer] [place] (MIP) complet ed anthrax vaccine DoD anthrax vaccine 2001 [id number] 24 [employer] complet ed anthrax vaccine 12/26/01 Given Ambulat ory Pharmac y anthrax vaccine 3 2001 [id number] 24 [employer] Ailin (MIP) complet ed anthrax vaccine DoD anthrax vaccine 2001 [id number] 24 [employer] complet ed anthrax vaccine 12/12/01 Given Ambulat ory Pharmac y anthrax vaccine 2 2001 [id number] 24 [employer] ([facility]) complet ed anthrax vaccine DoD anthrax vaccine 2001 [id number] 24 [employer] complet ed anthrax vaccine 11/28/01 Given Ambulat ory Pharmac y anthrax vaccine 1 2001 [id number] 24 [employer] ([facility]) complet ed anthrax vaccine DoD influenza virus vaccine, whole virus 2001 [id number] 16 sanofi pasteur complet ed influenza virus vaccine, whole virus 11/16/01 Given Ambulat ory Pharmac y influenza virus vaccine, whole virus 0 2001 [id number] 16 Sanofi Pasteur (PMC) complet ed influenza virus vaccine, whole virus DoD yellow fever vaccine 2001 [id number] 37 GlaxoSmithKli ne complet ed yellow fever vaccine 10/17/01 Given Ambulat ory Pharmac y yellow fever vaccine 0 2001 [id number] 37 Spherixine (SKB) complet ed yellow fever vaccine DoD typhoid Vi capsular polysaccharid e vac 2001 [id number] 101 sanofi pasteur complet ed typhoid Vi capsular polysacch aride vac 04/03/01 Given Ambulat ory Pharmac y tuberculin purified protein derivative 2001 zzLef t Arm [id number] 96 sanofi pasteur complet ed Patient Tolerance : Negative Ambulat ory Pharmac y tuberculin skin test; purified protein derivative solution, intradermal 1 2001 Unknown, Provider [id number] 96 Sanofi Pasteur (PMC) complet ed tuberculi n skin test; purified protein derivativ e solution, intraderm al DoD typhoid Vi capsular polysaccharid e vaccine 0 2001 [id number] 101 Sanofi Pasteur (PMC) complet ed typhoid Vi capsular polysacch aride vaccine DoD influenza virus vaccine, whole virus 2000 [id number] 16 sanofi pasteur complet ed influenza virus vaccine, whole virus 11/27/00 Given Ambulat ory Pharmac y influenza virus vaccine, whole virus 0 2000 [id number] 16 Sanofi Pasteur (PMC) complet ed influenza virus vaccine, whole virus DoD hepatitis A adult vaccine 2000 [id number] 52 Merck & Company Inc complet ed hepatitis A adult vaccine 04/05/00 Given Ambulat ory Pharmac y hepatitis A vaccine, adult dosage 2 2000 [id number] 52 Merck (MSD) complet ed hepatitis A vaccine, adult dosage DoD influenza virus vaccine, whole virus 1999 [id number] 16 [facility] complet ed influenza virus vaccine, whole virus 01/30/00 Given Ambulat ory Pharmac y influenza virus vaccine, whole virus 0 1999 [id number] 16 [facility] ([facility]) complet ed influenza virus vaccine, whole virus DoD influenza virus vaccine, whole virus [id number] 16 [facility] complet ed influenza virus vaccine, whole virus 12/03/98 Given Ambulat ory Pharmac y influenza virus vaccine, whole virus 0 19982398 [id number] 16 [facility] ([facility]) complet ed influenza virus vaccine, whole virus DoD hepatitis A adult vaccine 1998 [id number] 52 [employer] complet ed hepatitis A adult vaccine 07/24/98 Given Ambulat ory Pharmac y poliovirus vaccine, live, oral 1998 [id number] 02 [facility] complet ed polioviru s vaccine, live, oral 07/24/98 Given Ambulat ory Pharmac y trivalent poliovirus vaccine, live, oral 0 1998 [id number] 02 [facility] ([facility]) comple t ed trivalent polioviru s vaccine, live, oral DoD hepatitis A vaccine, adult dosage 1 1998 [id number] 52 Merck (MSD) complet ed hepatitis A vaccine, adult dosage DoD meningococcal polysaccharid e (MPSV4) [id number] 32 [facility] complet ed meningoco ccal polysacch aride (MPSV4) 07/17/98 Given Ambulat ory Pharmac y influenza virus vaccine, whole virus [id number] 16 [facility] complet ed influenza virus vaccine, whole virus 07/17/98 Given Ambulat ory Pharmac y tetanus-dipht h toxoids (Td) adult/adol 1998 [id number] 09 [facility] complet ed tetanus-d iphth toxoids (Td) adult/ado l 07/17/98 Given Ambulat ory Pharmac y tetanus and diphtheria toxoids, adsorbed, preservative free, for adult use (2 Lf of tetanus toxoid and 2 Lf of diphtheria toxoid) 0 1998 [id number] 09 [place] (CON) complet ed tetanus and diphtheri a toxoids, adsorbed, preservat meghna free, for adult use (2 Lf of tetanus toxoid and 2 Lf of diphtheri a toxoid) DoD influenza virus vaccine, whole virus 0 [id number] 16 [employer] (WAL) complet ed influenza virus vaccine, whole virus DoD meningococcal polysaccharid e vaccine (MPSV4) 0 [id number] [id number] [place] (CON) complet ed meningoco ccal polysacch aride vaccine (MPSV4) DoD Results Combined list of recent chemistry, hematology and other laboratory results from Department of Defense and Veterans Affairs, ranging from 15 months to all on record, depending upon the facility. Order Name Results Value Reference Range Date Interpretation Specimen Comments Source COMPREHENS MEGHNA METABOLIC PANEL CREATININE [MASS/VOLUM E] IN SERUM OR PLASMA 1.15 mg/dL 0.7 - 1.3 06/29 Specimen Type: PLASMA Comment: No hemolysis noted. Ordering Provider: KENNETH POLANCO SA Report Released Date/Time: June 30, 2023 01:01 PM Reporting Lab: [facility] [address] [place] [phone] Performing Lab: [facility] [address] [place] [phone] [facility] COMPREHENS MEGHNA METABOLIC PANEL UREA NITROGEN [MASS/VOLUM E] IN SERUM OR PLASMA 18.0 mg/dL 9.0 - 25.0 06/29 Specimen Type: PLASMA Comment: No hemolysis noted. Ordering Provider: KENNETH POLANCO SA Report Released Date/Time: June 30, 2023 01:01 PM Reporting Lab: [facility] [address] [place] [phone] Performing Lab: [facility] [address] [place] [phone] [facility] COMPREHENS MEGHNA METABOLIC PANEL GLUCOSE [MASS/VOLUM E] IN SERUM OR PLASMA 81 mg/dL 72 - 99 06/29 Specimen Type: PLASMA Comment: No hemolysis noted. Ordering Provider: KENNETH POLANCO SA Report Released Date/Time: June 30, 2023 01:01 PM Reporting Lab: [facility] [address] [facility] [phone] Performing Lab: [facility] [address] [facility] [address] [facility] COMPREHENS MEGHNA METABOLIC PANEL SODIUM [MOLES/VOLU ME] IN SERUM OR PLASMA 138 meq/L 136 - 145 06/29 Specimen Type: PLASMA Comment: No hemolysis noted. Ordering Provider: KENNETH POLANCO SA Report Released Date/Time: June 30, 2023 01:01 PM Reporting Lab: [facility] [address] [facility] [address] Performing Lab: [facility] [address] [facility] [address] [facility] COMPREHENS MEGHNA METABOLIC PANEL POTASSIUM [MOLES/VOLU ME] IN SERUM OR PLASMA 3.9 meq/L 3.5 - 5 06/29 Specimen Type: PLASMA Comment: No hemolysis noted. Ordering Provider: KENNETH POLANCO SA Report Released Date/Time: June 30, 2023 01:01 PM Reporting Lab: [facility] [address] [facility] [address] Performing Lab: [facility] [address] [facility] [address] [facility] COMPREHENS MEGHNA METABOLIC PANEL CHLORIDE [MOLES/VOLU ME] IN SERUM OR PLASMA 103 meq/L 98 - 107 06/29 Specimen Type: PLASMA Comment: No hemolysis noted. Ordering Provider: KENNETH POLANCO SA Report Released Date/Time: June 30, 2023 01:01 PM Reporting Lab: [facility] [address] [facility] [address] Performing Lab: [facility] [address] [facility] [address] [facility] COMPREHENS MEGHNA METABOLIC PANEL CARBON DIOXIDE, TOTAL [MOLES/VOLU ME] IN SERUM OR PLASMA 25 meq/L 22 - 31 06/29 Specimen Type: PLASMA Comment: No hemolysis noted. Ordering Provider: KENNETH POLANCO SA Report Released Date/Time: June 30, 2023 01:01 PM Reporting Lab: [facility] [address] [facility] [address] Performing Lab: [facility] [address] [facility] [address] [facility] COMPREHENS MEGHNA METABOLIC PANEL CALCIUM [MASS/VOLUM E] IN SERUM OR PLASMA 9.1 mg/dL 8.4 - 10.4 06/29 Specimen Type: PLASMA Comment: No hemolysis noted. Ordering Provider: KENNETH POLANCO SA Report Released Date/Time: June 30, 2023 01:01 PM Reporting Lab: [facility] [address] [facility] [address] Performing Lab: [facility] [address] [facility] [address] [facility] COMPREHENS MEGHNA METABOLIC PANEL PROTEIN [MASS/VOLUM E] IN SERUM OR PLASMA 7.4 g/dL 6 - 8.6 06/29 Specimen Type: PLASMA Comment: No hemolysis noted. Ordering Provider: KENNETH POLANCO SA Report Released Date/Time: June 30, 2023 01:01 PM Reporting Lab: [facility] [address] [facility] [address] Performing Lab: [facility] [address] [place] [phone] [facility] COMPREHENS MEGHNA METABOLIC PANEL ALBUMIN [MASS/VOLUM E] IN SERUM OR PLASMA 4.4 g/dL 3.4 - 5 06/29 Specimen Type: PLASMA Comment: No hemolysis noted. Ordering Provider: KENNETH POLANCO SA Report Released Date/Time: June 30, 2023 01:01 PM Reporting Lab: [facility] [address] [facility] [address] Performing Lab: [facility] [address] [place] [phone] [facility] COMPREHENS MEGHNA METABOLIC PANEL BILIRUBIN.T OTAL [MASS/VOLUM E] IN SERUM OR PLASMA 0.5 mg/dL 0.2 - 1.2 06/29 Specimen Type: PLASMA Comment: No hemolysis noted. Ordering Provider: KENNETH POLANCO SA Report Released Date/Time: June 30, 2023 01:01 PM Reporting Lab: [place] [address] Performing Lab: [address] [phone] COMPREHENS MEGHNA METABOLIC PANEL ALKALINE PHOSPHATASE [ENZYMATIC ACTIVITY/VO LUME] IN SERUM OR PLASMA 75 U/L 40 - 150 06/29 Specimen Type: PLASMA Comment: No hemolysis noted. Ordering Provider: KENNETH POLANCO SA Report Released Date/Time: June 30, 2023 01:01 PM Reporting Lab: [address] [address] Performing Lab: [address] [phone] [place] [address] COMPREHENS MEGHNA METABOLIC PANEL ASPARTATE AMINOTRANSF ERASE [ENZYMATIC ACTIVITY/VO LUME] IN SERUM OR PLASMA 34 U/L 5 - 34 06/29 Specimen Type: PLASMA Comment: No hemolysis noted. Ordering Provider: KENNETH POLANCO SA Report Released Date/Time: June 30, 2023 01:01 PM Reporting Lab: [address] [address] Performing Lab: [address] [phone] [place] [address] COMPREHENS MEGHNA METABOLIC PANEL ALANINE AMINOTRANSF ERASE [ENZYMATIC ACTIVITY/VO LUME] IN SERUM OR PLASMA 41 U/L 8 - 40 06/29 H Specimen Type: PLASMA Comment: No hemolysis noted. Ordering Provider: KENNETH POLANCO SA Report Released Date/Time: June 30, 2023 01:01 PM Reporting Lab: [facility] [address] [place] [phone] Performing Lab: [facility] [address] [facility] [address] [facility] COMPREHENS MEGHNA METABOLIC PANEL GLOMERULAR FILTRATION RATE/1.73 SQ M.PREDICTED [VOLUME RATE/AREA] IN SERUM, PLASMA OR BLOOD BY CREATININE- BASED FORMULA (CKD-EPI 2020) 78.0 60 06/29 Specimen Type: PLASMA Comment: No hemolysis noted. Ordering Provider: KENNETH POLANCO SA Report Released Date/Time: June 30, 2023 01:01 PM Reporting Lab: [facility] [address] [facility] [address] Performing Lab: [facility] [address] [facility] [address] [facility] LIPID PANEL (STL) CHOLESTEROL [MASS/VOLUM E] IN SERUM OR PLASMA 211 mg/dL 0 - 200 06/29 H Specimen Type: PLASMA Comment: No hemolysis noted. Ordering Provider: KENNETH POLANCO SA Report Released Date/Time: June 30, 2023 01:01 PM Reporting Lab: [facility] [address] [facility] [phone] Performing Lab: [facility] [address] [facility] [address] [facility] LIPID PANEL (STL) TRIGLYCERID E [MASS/VOLUM E] IN SERUM OR PLASMA 192 mg/dL 0 - 150 06/29 H Specimen Type: PLASMA Comment: No hemolysis noted. Ordering Provider: KENNETH POLANCO SA Report Released Date/Time: June 30, 2023 01:01 PM Reporting Lab: [facility] [address] [facility] [address] Performing Lab: [facility] [address] [place] [phone] [facility] LIPID PANEL (STL) CHOLESTEROL IN LDL [MASS/VOLUM E] IN SERUM OR PLASMA BY CALCULATION 135 mg/dL 06/29 Specimen Type: PLASMA Comment: No hemolysis noted. Ordering Provider: KENNETH POLANCO SA Report Released Date/Time: June 30, 2023 01:01 PM Reporting Lab: [address] [address] Performing Lab: [address] [address] [facility] LIPID PANEL (STL) CHOLESTEROL IN HDL [MASS/VOLUM E] IN SERUM OR PLASMA 38 mg/dL 40 06/29 L Specimen Type: PLASMA Comment: No hemolysis noted. Ordering Provider: KENNETH POLANCO SA Report Released Date/Time: June 30, 2023 01:01 PM Reporting Lab: [address] [address] Performing Lab: [address] [phone] [place] [address] CBC LEUKOCYTES [#/VOLUME] IN BLOOD BY AUTOMATED COUNT 8.0 10*3/u L 3.6 - 11.2 06/29 Specimen Type: BLOOD No comment entered. Ordering Provider: KENNETH POLANCO SA Report Released Date/Time: June 30, 2023 01:01 PM Reporting Lab: [address] [address] Performing Lab: [address] [phone] [place] [address] CBC ERYTHROCYTE S [#/VOLUME] IN BLOOD BY AUTOMATED COUNT 5.74 10*6/u L 4.10 - 5.70 06/29 H Specimen Type: BLOOD No comment entered. Ordering Provider: KENNETH POLANCO SA Report Released Date/Time: June 30, 2023 01:01 PM Reporting Lab: [address] [address] Performing Lab: [address] [address] [facility] CBC HEMOGLOBIN [MASS/VOLUM E] IN BLOOD 17.5 g/dL 13.1 - 16.8 06/29 H Specimen Type: BLOOD No comment entered. Ordering Provider: KENNETH POLANCO SA Report Released Date/Time: June 30, 2023 01:01 PM Reporting Lab: [facility] [address] [place] [phone] Performing Lab: [facility] [address] [place] [phone] [place] [address] CBC HEMATOCRIT [VOLUME FRACTION] OF BLOOD 50.2 38.2 - 48.4 06/29 H Specimen Type: BLOOD No comment entered. Ordering Provider: KENNETH POLANCO SA Report Released Date/Time: June 30, 2023 01:01 PM Reporting Lab: [place] [phone] Performing Lab: [place] [phone] CBC MCV [ENTITIC VOLUME] BY AUTOMATED COUNT 87.5 fL 80.0 - 100.0 06/29 Specimen Type: BLOOD No comment entered. Ordering Provider: KENNETH POLANCO SA Report Released Date/Time: June 30, 2023 01:01 PM Reporting Lab: [facility] [address] [place] [phone] Performing Lab: [address] [phone] [place] [address] CBC MCH [ENTITIC MASS] BY AUTOMATED COUNT 30.5 pg 27.0 - 34.0 06/29 Specimen Type: BLOOD No comment entered. Ordering Provider: KENNETH POLANCO SA Report Released Date/Time: June 30, 2023 01:01 PM Reporting Lab: [facility] [address] [place] [phone] Performing Lab: [facility] [address] [place] [address] [phone] CBC MCHC [MASS/VOLUM E] BY AUTOMATED COUNT 34.9 g/dL 33.0 - 36.0 06/29 Specimen Type: BLOOD No comment entered. Ordering Provider: KENNETH POLANCO SA Report Released Date/Time: June 30, 2023 01:01 PM Reporting Lab: [facility] [address] [facility] [address] Performing Lab: [facility] [address] [facility] [address] [facility] CBC PLATELETS [#/VOLUME] IN BLOOD BY AUTOMATED COUNT 221 10*3/u L 150 - 400 06/29 Specimen Type: BLOOD No comment entered. Ordering Provider: KENNETH POLANCO SA Report Released Date/Time: June 30, 2023 01:01 PM Reporting Lab: [facility] [address] Performing Lab: [facility] [phone] [place] [address] CBC PLATELET MEAN VOLUME [ENTITIC VOLUME] IN BLOOD BY AUTOMATED COUNT 9.6 fL 7.5 - 11.2 06/29 Specimen Type: BLOOD No comment entered. Ordering Provider: KENNETH POLANCO SA Report Released Date/Time: June 30, 2023 01:01 PM Reporting Lab: [facility] [address] Performing Lab: [facility] [address] [facility] [phone] [place] [address] CBC ERYTHROCYTE DISTRIBUTIO N WIDTH [RATIO] BY AUTOMATED COUNT 11.9 11.8 - 15.1 06/29 Specimen Type: BLOOD No comment entered. Ordering Provider: KENNETH POLANCO SA Report Released Date/Time: June 30, 2023 01:01 PM Reporting Lab: [facility] [address] [facility] [facility] [address] Performing Lab: [facility] [address] [place] [phone] [facility] CBC LYMPHOCYTES /100 LEUKOCYTES IN BLOOD BY AUTOMATED COUNT 26 06/29 Specimen Type: BLOOD No comment entered. Ordering Provider: KENNETH POLANCO SA Report Released Date/Time: June 30, 2023 01:01 PM Reporting Lab: [facility] [address] [facility] [address] Performing Lab: [facility] [address] [facility] [address] [facility] CBC MONOCYTES/1 00 LEUKOCYTES IN BLOOD BY AUTOMATED COUNT 8 06/29 Specimen Type: BLOOD No comment entered. Ordering Provider: KENNETH POLANCO SA Report Released Date/Time: June 30, 2023 01:01 PM Reporting Lab: [facility] [address] [facility] [address] Performing Lab: [facility] [address] [facility] [address] [facility] CBC NEUTROPHILS /100 LEUKOCYTES IN BLOOD BY AUTOMATED COUNT 65 06/29 Specimen Type: BLOOD No comment entered. Ordering Provider: KENNETH POLANCO SA Report Released Date/Time: June 30, 2023 01:01 PM Reporting Lab: [facility] [address] [facility] [address] Performing Lab: [facility] [address] [facility] [address] [facility] CBC EOSINOPHILS /100 LEUKOCYTES IN BLOOD BY AUTOMATED COUNT 1 06/29 Specimen Type: BLOOD No comment entered. Ordering Provider: KENNETH POLANCO SA Report Released Date/Time: June 30, 2023 01:01 PM Reporting Lab: [facility] [address] [facility] [address] Performing Lab: [facility] [address] [facility] [address] [facility] CBC BASOPHILS/1 00 LEUKOCYTES IN BLOOD BY AUTOMATED COUNT 0 06/29 Specimen Type: BLOOD No comment entered. Ordering Provider: KENNETH POLANCO SA Report Released Date/Time: June 30, 2023 01:01 PM Reporting Lab: [facility] [address] [facility] [address] Performing Lab: [facility] [address] [facility] [phone] [place] [address] CBC LYMPHOCYTES [#/VOLUME] IN BLOOD BY AUTOMATED COUNT 2.06 10*3/u L 0.77 - 4.50 06/29 Specimen Type: BLOOD No comment entered. Ordering Provider: KENNETH POLANCO SA Report Released Date/Time: June 30, 2023 01:01 PM Reporting Lab: [address] [address] Performing Lab: [address] [phone] CBC MONOCYTES [#/VOLUME] IN BLOOD BY AUTOMATED COUNT 0.66 10*3/u L 0.19 - 0.80 06/29 Specimen Type: BLOOD No comment entered. Ordering Provider: KENNETH POLANCO SA Report Released Date/Time: June 30, 2023 01:01 PM Reporting Lab: [address] [phone] Performing Lab: [address] [phone] [place] [address] CBC NEUTROPHILS [#/VOLUME] IN BLOOD BY AUTOMATED COUNT 5.16 10*3/u L 2.10 - 8.00 06/29 Specimen Type: BLOOD No comment entered. Ordering Provider: KENNETH POLANCO SA Report Released Date/Time: June 30, 2023 01:01 PM Reporting Lab: [address] [address] Performing Lab: [address] [address] [facility] CBC EOSINOPHILS [#/VOLUME] IN BLOOD BY AUTOMATED COUNT 0.06 10*3/u L 0.00 - 0.60 06/29 Specimen Type: BLOOD No comment entered. Ordering Provider: KENNETH POLANCO SA Report Released Date/Time: June 30, 2023 01:01 PM Reporting Lab: [address] [phone] Performing Lab: [facility] [address] [place] [phone] [facility] CBC BASOPHILS [#/VOLUME] IN BLOOD BY AUTOMATED COUNT 0.03 10*3/u L 0.00 - 0.20 06/29 Specimen Type: BLOOD No comment entered. Ordering Provider: KENNETH POLANCO SA Report Released Date/Time: June 30, 2023 01:01 PM Reporting Lab: [address] [phone] Performing Lab: [address] [phone] HGA1C HEMOGLOBIN A1C/HEMOGLO BIN.TOTAL IN BLOOD 5.2 4.0 - 6.0 06/29 Specimen Type: BLOOD No comment entered. Ordering Provider: KENNETH POLANCO SA Report Released Date/Time: June 30, 2023 01:01 PM Reporting Lab: [address] [address] Performing Lab: [address] [phone] [place] [address] PROST. SPECIFIC AG.(PB-STL ) PROSTATE SPECIFIC AG [MASS/VOLUM E] IN SERUM OR PLASMA 1.799 ng/mL 0 - 4 06/29 Specimen Type: SERUM Comment: The listed sex of this patient may not be a typical indication for this test. Therefore, reference ranges or interpretive criteria listed may not be valid. Clinical correlation suggested. Ordering Provider: KENNETH POLANCO SA Report Released Date/Time: June 30, 2023 01:01 PM Reporting Lab: [address] [address] Performing Lab: [address] [phone] [place] [address] Vital Signs Combined list of inpatient and outpatient Vital Signs from Department of Defense and Veterans Affairs, ranging from 12 months to all on record, depending upon the facility. Vital Sign Value Date Comments Source SYSTOLIC BLOOD PRESSURE 119 11/01/2023 12:41:17 [facility] AM[facility] DIASTOLIC BLOOD PRESSURE 82 11/01/2023 12:41:17 [facility] [place] [facility] PULSE OXIMETRY 97 11/01/2023 12:41:17 S Sebastian [facility] WEIGHT 247.6 11/01/2023 12:41:17 STDulce LOPEZ [facility] BMI 35 kg/m2 11/01/2023 12:41:17 [facility] Jose L[facility] PAIN 0 11/01/2023 12:41:17 [facility] C CHARLESR [facility] HEIGHT 71 11/01/2023 12:41:17 [facility] Jose L[facility] TEMPERATURE 98.3 11/01/2023 12:41:17 STDulce BOGGS [facility] PULSE 76 11/01/2023 12:41:17 [facility] RESPIRATION 18 11/01/2023 12:41:17 STDulce [facility] Encounters Combined list of: 1) Encounters from Department of Veterans Affairs facilities going backup to the last 18 months, not all VA inpatient encounters are included; 2) Encounters from the Department of Defense facilities going backup to 280 months. Location Location Details Encounter Type Encounter Number Reason For Visit Attending Provider ADM Date DC Date Status Disposition Source EV [facility] Mental Health ([facility]) ) OUTPATIENT [id number] HARINDER AUSTIN 05/27 Released w/o Limitations [facility] [place]([facility] EV Morse([facility] Primary Care ([facility]) ) OUTPATIENT [id number] rolled 4-wheel er hand is swollen now CINDY BEAN 06/05 Released w/o Limitations [facility] [place] ([facility]) ) OUTPATIENT [id number] painful nodule in neck--w YORDAN Lau 06/14 Released w/o Limitations [place]ip[place] Ray [place]([employer] [facility] ([facility] [place] [address]([facility] [employer], [employer] (inactive )) OUTPATIENT [id number] f/u cholest MARCELA Larsen 12/28 Released w/o Limitations [employer] [place] [address]([facility], [employer] (inacti ve)) [place] [address]([facility] linical [facility] OUTPATIENT [id number] HLINGRID SINGH 07/06 Released w/o Limitations [place] [address]([facility]) [place] [address]([facility] [employer], [employer] (inactive )) OUTPATIENT [id number] Pt c/o persist ant cough x 4-5 weeks MARILYN DUMONT 04/10 [facility]ased w/o Limitations [facility] [place] [address] [employer] (inacti ve)) [facility]) OUTPATIENT [id number] skin issue ISABELL SLATER 07/23 Released w/o Limitations [facility]) [facility]) OUTPATIENT [id number] throat, ear issue, and the side of his face is sore. ISABELL SLATER 09/23 Sick at Home/Quarter s [employer]([facility]) [employer]([facility]) OUTPATIENT [id number] [place] [employer] medical record review BLUE CAMERON 05/30 Released w/o Limitations [facility]) [facility]) OUTPATIENT [id number] Annual PHA BLUE CAMERON 05/30 Released w/o Limitations [facility]) [facility] Immunizat ions [facility]) OUTPATIENT [id number] B, PPD BAILEE VÁSQUEZ *INACTIVE* 06/03 Released w/o Limitations [employer]([facility]) [employer]([facility] OUTPATIENT [id number] PRP determi ROEL Ramirez 08/20 Released w/o Limitations [employer] [employer]([facility]) OUTPATIENT [id number] tdap b NASIM ANGELES JR. 08/25 Released w/o Limitations [employer]([facility]) [employer]([facility]) OUTPATIENT [id number] PHA BELINDA BERRIOS JR 06/25 Released w/o Limitations [employer](F amily Practic e) [facility]) TELE CONSULT [id number] ROBERT Sampson 07/02 Referred for Appointment [facility] am[facility] Practic e) [facility]) OUTPATIENT [id number] MARIXA JOVEL 10/30 Released w/o Limitations [employer]([facility]) [facility]) OUTPATIENT [id number] SUSAN HINTON 03/16 Released w/o Limitations [facility]) [facility]) OUTPATIENT [id number] walk-in /pre deploym ent STEPHANIE YAÑEZ R 03/16 Released w/o Limitations [facility] Practic e) [facility] [place]) OUTPATIENT [id number] LATE ENTRY: Attende d [facility] [place] [facility] brief on Jul 17 ANATOLIY RIVERA 07/16 Released w/o Limitations [employer] [place] ([facility] [employer]) [facility] [place] ([facility] [place]) TELE CONSULT [id number] AD Pt. would like acute, no acutes - [facility] - [phone] - st. [employer] [facility] TAN SHORE 09/07 [facility] [place] [facility]S cott [facility] Fam Res [place]m [place]) [facility] [place] [facility]Sco tt [facility] Fam Res Tm Green) OUTPATIENT [id number] f/u knee pain CATHERINE WRIGHT 09/09 Released with Work/Duty Limitations [address] [place] [address] [place] ([facility]S cott OF Fam Res Tm Green) [address] [place] [address] [place] ([facility]Sco tt [facility] Fam Res Tm Green) TELE CONSULT [id number] Anderso n ER F/U - Lorna - [phone] - tsg GEORGEOLU 01/[address] [place] [address] [place] [facility]S cott [facility] Fam Res Tm Green) [address] [place] [address] [place] [facility]Sco tt [facility] Fam Res Tm Green) OUTPATIENT [id number] shouldf er pain--f /u shoulde SHITAL Bradshaw 01/24 Released w/o Limitations [address] [place] [address] [place] [facility]S cott [facility] Fam Res Tm Green) [address] [place] [address] [place] [facility]co tt [facility] Fam Res Tm Green) OUTPATIENT [id number] Jose/CECILIO CUEVAS 03/21 Released w/o Limitations [address] [place] [address] [place] ([facility]S cott [facility] Fam Res Tm Green) [address] [place] [address] [place] ([facility]Sco tt [facility] Fam Res Tm Green) TELE CONSULT [id number] Notes Entered by: MATHEW CORREA 23 Mar 2012 0855 ------- ------- ------- ------- -- [facility]/CECILIO CUEVAS 03/[address] [place] [address] Group [place] ([facility]S cott [facility] Fam Res Tm Green) [address] [place] [address] [place] [facility]co tt [facility] Fam Res Tm Green) OUTPATIENT [id number] 3 yr face to face appt [id number] DENYS JURADO 04/02 Released w/o Limitations [address] [place] [address] [place] ([facility]S cott [facility] Fam Res Tm Green) [address] [place] [address] [place] [facility])(Sco tt [facility] Fam Res Tm Green) OUTPATIENT [id number] rolled left ankle while playing soccer last night [id number] YOUNG WILKINSONPENNY Munoz 06/28 Released w/o Limitations [address] [place] [address] [place] [facility]S cott [facility] Res Tm Green) [address] [place] [address] William HERIBERTO [facility])(Phy sical Therapy) OUTPATIENT [id number] ANKLE SPRAIN ALPESH RIVERA 07/12 Released w/o Limitations [address] [place] [address] William RIRICarlos Alberto [facility])(P hysical Therapy ) [address] [place] [address] William RIRICarlos Alberto [facility])(Phy sical Therapy) OUTPATIENT [id number] ankle ELBA NIX 07/24 Released w/o Limitations [address] [place] [address] William RIRICarlos Alberto [facility])(P hysical Therapy ) [address] [place] [address] William RIRICarlos Alberto [facility])(Phy sical Therapy) OUTPATIENT [id number] ankle ELBA NIX 08/01 Released w/o Limitations [address] [place] [address] William RIRICarlos Alberto [facility])(P hysical Therapy ) [address] [place] [address] [facility])(Sco tt [facility] Res Tm Green) OUTPATIENT [id number] fever congest ion cough OSCAR WILKINSON Tammy 12/26 Released w/o Limitations [address] [place] [address] [place] [facility])(S [facility] Res Tm Green) [address] [place] [address] [facility])([facility] Health Assessmen ts) OUTPATIENT [id number] predep KATIA TSANG 02/13 Released w/o Limitations [address] [place] [address] William RIRICarlos Alberto [facility])(D eploe Health Assessm ents) [address] [place] [address] William RIRICarlos Alberto [facility])(Sco tt [facility] Res Tm Green) TELE CONSULT [id number] Notes Entered by: Carlos Alberto YAÑEZ 16 Feb 2013 0050 ------- ------- ------- ------- -- Jose/CECILIO CUEVAS 02/16[facility] William RIRICarlos Alberto [facility])(S cott [facility] Fam Res Tm Green) [address] [place] [address] William [facility])([facility] Health Assessmen ts) OUTPATIENT [id number] Notes Entered by: HELEN IRVINQUEZADA LANE Vasquez 21 Feb 2013 1142 ------- ------- ------- ------- -- smallpo x KATIA TSANG 02/21 Released w/o Limitations [address] [place] [address] William [facility])(D eployme nt Health Assessm ents) [address] [place] [address] William [facility])(Dep [facility] Health Assessmen ts) OUTPATIENT [id number] pre deploym ent SHARAN KATIA S 03/05 Released w/o Limitations [address] [place] [address] William [facility] ([facility])(D eployme nt Health Assessm ents) [address] [place] [address])(Sco tt [facility] Fam Res Tm Red) OUTPATIENT [id number] Left ankle pain- hurt while doing PT this morning - [phone] VIKAS VAN 03/08 Released w/o Limitations [address] [place] [address] William [facility])(S cott [facility] Fam Res Tm Red) [address] [place] [address] William [facility])(Sco tt [facility] Fam Res Tm Red) TELE CONSULT [id number] Notes Entered by: SHITAL HESTER 03 Apr 2013 1022 ------- ------- ------- ------- -- Profile extensi on/Ranjeet s/256.5 064 or ELIZABETH PRESCOTT 04/[address] [place] [address] William [facility])(S cott [facility] Fam Res Tm Red) [address] [place] [address] William [facility])(Dep [facility] Health Assessmen ts) TELE CONSULT [id number] Notes Entered by: Clary TSANG 03 Apr 2013 1432 ------- ------- ------- ------- -- BW/CW. 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 KATIA TSANG 04/[address] [place] [address] William [facility])(D eployme nt Health Assessm ents) [address] [place] [address] William [facility])(Oho [facility] Fam Res Tm Red) OUTPATIENT [id number] f/u left ankle sprain: profile extenst CECILIO Barnes Clary 04/05 Released w/o Limitations [address] [place] [address] [place] [facility])(S [facility] Fam Res Tm Red) [address] [place] [address] William [facility])([facility] Fam Res Tm Red) TELE CONSULT [id number] Notes Entered by: Jojo REYNOLDS 05 Apr 2013 1256 ------- ------- ------- ------- -- Profile Lorna CECILIO ENG 04/[address] [place] [address] William [facility])(S [facility] Fam Res Tm Red) [address] [place] [address])([facility] Fam Res Tm Red) TELE CONSULT [id number] Notes Entered by: Jose REYNOLDS 24 May 2013 0828 ------- ------- ------- ------- -- Sx Pain from popped right elbow/G ibbs/61 [phone] BRAYAN HENDRICKS 05/[address] [place] [address])(S [facility] Fam Res Tm Red) [address] [place] [address] William [facility])([facility] Fam Res Tm Gold) OUTPATIENT [id number] elbow pain in PT test. CLAUDIA SARGENT 05/24 Released w/o Limitations [address] [place] [address] William [facility])(S [facility] Fam Res Tm Gold) [address] [place] [address] William [facility])(Dep loyment Health Assessmen ts) OUTPATIENT [id number] EVELIO1 KATIA TSANG 08/06 Released w/o Limitations [address] [place] [address] William [facility])(Jaqueline elena Health Assessm ents) [address] [place] [address] William [facility])(Dep loyment Health Assessmen ts) OUTPATIENT [id number] [facility] MELI HILL 07/17 Released w/o Limitations [facility])(D eployme nt Health Assessm ents) [address] [place] [address])(Oho tt [facility] Fam Res Tm Red) TELE CONSULT [id number] Notes Entered by: CARLOS SALEH 24 Jul 2014 0915 ------- ------- ------- ------- -- [facility]/CECILIO CUEVAS 07/[address] [place] [address])([facility] Fam Res Tm Red) [address] [place] [address])([facility] Assess[facility]ol hospital) OUTPATIENT [id number] Notes Entered by: IZABELA LEACH 12 Aug 2015 0848 ------- ------- ------- ------- -- Member Andre LYN #4 Appoint MEL Seo 08/11 Released w/o Limitations [address] [place] [address])(D eployme nt Health Assessm ents) [address] [place] [address])(Bas e Operation al Medicine Clin) OUTPATIENT [id number] Notes Entered by: CHARLOTTE RAINEY V 02 Oct 2015 0850 ------- ------- ------- ------- -- [facility] CHARLOTTE BALDWIN V 10/01 Released w/o Limitations [address] [place] [address])(B ase Operati onal Medicin e Clin) [address] [place] [address])(Sco [facility] Fam Res Tm Red) OUTPATIENT [id number] left ankle pain AMAIRANI THOMASON 11/01 Released w/o Limitations [address] [place] [address])([facility] Fam Res Tm Red) [address] [place] [address])([facility] ts) OUTPATIENT [id number] Notes Entered by: RONY CORNELIUS 25 Nov 2015 1031 ------- ------- ------- ------- -- EBONI#5 APPOINT MENT DECLINE MEAGHAN JOSUE 11/24 Released w/o Limitations [address] [place] [address] William [facility])(Jaqueline eploymjs nt Health Assess ents) [address] [place] [address])(Oho tt [facility] Fam Res Tm Red) OUTPATIENT [id number] L Heel issues, R Arm Skin issues [id number] REJI WILKINS 04/04 Released w/o Limitations [address] [place] [address] William [facility])(S [facility] Fam Res Tm Red) [address] [place] [address])([facility] Fam Res Tm Red) TELE CONSULT [id number] Notes Entered by: SALLY TORRES RET 29 Apr 2016 1437 ------- ------- ------- ------- -- Biopsy Results /John/ ELIZABETH Rich 04/[address] [place] [address])(S [facility] Fam Res Tm Red) [address] [place] [address])(Phy sical Therapy) OUTPATIENT [id number] Plantar fascial fibroma JONAH Young 05/11 Released w/o Limitations [address] [place] [address])(P hysical Therapy ) [address] [place] [address])([facility] Fam Res Tm Red) OUTPATIENT [id number] Mole removal per Mayra n/40min REJI WILKINS 05/16 Released w/o Limitations [address] [place] [address])(S [facility] Fam Res Tm Red) [address] [place] [address])([facility] Fam Res Tm Red) TELE CONSULT [id number] Notes Entered by: Jose OLVERA 26 May 2016 1608 ------- ------- ------- ------- -- Patholo gy results for review. REJI WILKINS 05/[address] [place] [address])([facility] Fam Res Tm Red) [address] [place] [address])(Phy sical Therapy) OUTPATIENT [id number] left heel BRAYAN LIRIANOCOLM 05/30 Released w/o Limitations [address] [place] [address] Group William MENEZESB ([facility])(P hysical Therapy ) [address] [place] [address] William MENEZESB ([facility])(Phy sical Therapy) OUTPATIENT [id number] left heel BRAYAN LIRIANO 06/06 Released w/o Limitations [address] [place] [address] Group William MENE[facility]ESB ([facility])(P hysical Therapy ) [address] [place] [address] William [facility] ([facility])(Phy sical Therapy) OUTPATIENT [id number] left heel BRAYAN LIRIANO 06/13 Released w/o Limitations [address] [place] [address] Group William [place] ([facility])(P hysical Therapy ) [address] [place] [address] William [place] ([facility])(Phy sical Therapy) OUTPATIENT [id number] heel BRAYAN LIRIANO 06/27 Released w/o Limitations [address] [place] [address] Group William [facility] ([facility])(P hysical Therapy ) [address] [place] [address] William MENE[place]ESB ([facility])(Sco tt [facility] FAMRES Tm Blue) TELE CONSULT [id number] Notes Entered by: Jaqueline YANES 28 Jun 2016 0843 ------- ------- ------- ------- -- Network results Dermato logy 7 DB CINDY BLANCO 06/[address] [place] [address] William RIRIB ([facility]S cott [facility] FAMRES Tm Blue) [address] [place] [address] William R[facility]IB ([facility])(Phy sical Therapy) OUTPATIENT [id number] heel LAURIJONAH 06/29 Released w/o Limitations [address] [place] [address] Group William RIRIB ([facility])(P hysical Therapy ) [address] [place] [address] William RIRIB ([facility])(Bas e Operation al Medicine Clin) TELE CONSULT [id number] Notes Entered by: WARD SENA 06 Jul 2016 0948 ------- ------- ------- ------- -- Xray results JONAH CARREON 07/[address] [place] [address] [place] [facility] [facility])(B ase Operati onal Medicin e Clin) [address] [place] [address] William MENEZESB [facility])(Sco tt [facility] FAMRES Tm Blue) OUTPATIENT [id number] left plantar fasciit is/prof capri request / SAUL ZAYAS 09/21 Released w/o Limitations [address] [place] [address] William MENEZESB [facility])(S cott [facility] FAMRES Tm Blue) [address] [place] [address] [place] [facility])(Sco tt [facility] Fam Res Tm Green) OUTPATIENT [id number] stomach pain - [id number] IVANA ALVARADO 09/27 Released with Work/Duty Limitations [address] [place] [address] [place] [facility])(S cott [facility] Fam Res Tm Green) [address] [place] [address] [place] [facility] [facility])(Sco tt [facility] Res Tm Green) TELE CONSULT [id number] Notes Entered by: JORDAN APPIAH 28 Sep 2016 1231 ------- ------- ------- ------- -- Gely/ claudine Blanco - - tsg IVANA ALVARADO 09/28 Released to Self Care [address] [place] [address] [place] [facility] [facility])(S cott [facility] Fam Res Tm Green) [address] [place] [address] [place] [facility])(Bas e Operation al Medicine Clin) OUTPATIENT [id number] Notes Entered by: Otto ALDANA 07 Oct 2016 1050 ------- ------- ------- ------- -- TRI SERVICE CINDY CAT 10/07 Released w/o Limitations [address] [place] [address] William HERIBERTO [facility])(B ase Operati onal Medicin e Clin) [address] [place] [address] William RIRIB [facility])(Bas e Operation al Medicine Clin) TELE CONSULT [id number] Notes Entered by: RONY MCCARTHY 09 Dec 2016 0730 ------- ------- ------- ------- -- ELIJAH Bravo 12/09 Other Not Elsewhere Classified [address] [place] [address] [employer] [facility])(B ase Operati onal Medicin e Clin) [address] [place] [address] William MENEZESB [facility])(Sco tt [facility] Fam Res Tm Green) OUTPATIENT [id number] Left knee / ankle pain [id number] / [id number] JENNIFER FORMAN 05/31 Released w/o Limitations [address] [place] [address] William MENEZESB [facility])(S cott [facility] Fam Res Tm Green) [address] [place] [address] William MENEZESB [facility])(Phy sical Therapy) OUTPATIENT [id number] Pain in left ankle and joints of left foot COLLETTE ALBRECHT 06/14 Released w/o Limitations [address] [place] [address] William MENEZESB [facility])(P hysical Therapy ) [address] [place] [address] William MENEZESB [facility])(Phy sical Therapy) OUTPATIENT [id number] ankle AMBROSIO ROMAHERIBERTO GAGNON 06/20 Released w/o Limitations [address] [place] [address] William MENEZESB [facility])(P hysical Therapy ) [address] [place] [address] William MENEZESB [facility])(Phy sical Therapy) OUTPATIENT [id number] L) ankle SILVERIO, CHINA Js 06/27 Released w/o Limitations [address] [place] [address] William MENEZESB [facility])(P hysical Therapy ) [address] [place] [address] William MENEEZSB [facility])(Phy sical Therapy) OUTPATIENT [id number] L) ankle AMBROSIO ROMAKATHERINEAMANDA KALIN 06/29 Released w/o Limitations [address] [place] [address] William MENEZESB [facility])(P hysical Therapy ) [address] [place] [address] William MENEZESB [facility])(Sco tt [facility] Fam Res Tm Green) TELE CONSULT [id number] Notes Entered by: MONALISA BALES 04 Jul 2017 0840 ------- ------- ------- ------- -- STAT Angelita munoz Request / ER F/Evonne / John / - sgj JENNIFER COSTA 07/[address] [place] [address] [employer] [facility]S cott [facility] Fam Res Tm Green) [address] [place] [address] [employer] [facility])(Sco tt [facility] Fam Res Tm Green) OUTPATIENT [id number] chest pain - 2 months - [id number] YOEL CROW 11/10 Released w/o Limitations [address] [place] [address])(S cott [facility] Fam Res Tm Green) [address] [place] [address])(Opt ometry) OUTPATIENT [id number] Routine Eye Exam, ISABELL MORALES 11/22 Released w/o Limitations [address] [place] [address] William [facility])(O ptometr y) [address] [place] [address] William [facility])(Sco tt [facility] Res Tm Green) TELE CONSULT [id number] Notes Entered by: DAVE GORE 22 Dec 2017 0733 ------- ------- ------- ------- -- Emergen cy room update/ referra l request /john/ ELIZABETH Barron 12/22 Referred for Appointment [address] [place] [address])(S cott [facility] Fam Res Tm Green) [address] [place] [address])(Sco tt [facility] Res Tm Green) TELE CONSULT [id number] Notes Entered by: SHREYA FRITZ 25 Dec 2017 1453 ------- ------- ------- ------- -- F/u after special ist (referr al request )/John / ELIZABETH PRESCOTT 12/25 Referred for Appointment [address] [place] [address] William [facility])(S cott [facility] Res Tm Green) [address] [place] [address] William [facility])(Sco tt [employer] Tm) TELE CONSULT [id number] Notes Entered by: IZABELA LEACH 09 Jan 2018 1440 ------- ------- ------- ------- -- MEL HIGGINS 01/[address] [place] [address] William [facility])(S cott [facility]m) [address] [place] [address] William [facility])(Bas e Operation al Medicine Clin) OUTPATIENT [id number] Notes Entered by: Js SOLANO 23 Mar 2018 1120 ------- ------- ------- ------- -- JENNIFER FLORENTINO 03/23 Released w/o Limitations [address] [place] [address])(B ase Operati onal Medicin e Clin) [address] [place] [address])(Sco tt [facility] FAMRES Tm Blue) OUTPATIENT [id number] 2 x/b - L ear pain, cough, [phone] PEPE PAT 05/25 Released w/o Limitations [address] [place] [address])(S cott [facility] FAMRES Tm Blue) [address] [place] [address])(Sco tt [facility] Fam Res Tm Green) TELE CONSULT [id number] Notes Entered by: MEHDI CRISOSTOMO 06 Jun 2018 1132 ------- ------- ------- ------- -- Network Results SURG 8 JENNIFER COSTA 06/[address] [place] [address])(S cott [facility] Fam Res Tm Green) [address] [place] [address])(Sco tt [facility] Fam Res Tm Green) OUTPATIENT [id number] 3 family adoptio n paperwo rk to adopt new member [phone] CINDY BLANCO 06/07 Released w/o Limitations [address] [place] [address] William [facility])(S cott [facility] Fam Res Tm Green) [address] [place] [address])(Sco tt [facility] Fam Res Tm Green) OUTPATIENT [id number] right knee pain ISAIAH SPARKS 06/25 Released with Work/Duty Limitations [address] [place] [address] William [facility])(S cott [facility] Fam Res Tm Green) [address] [place] [address])(Sco tt [facility] Fam Res Tm Green) TELE CONSULT [id number] Notes Entered by: JEANE HERNÁNDEZ 26 Jun 2018 1237 ------- ------- ------- ------- -- Profile Not In System/ John/6 [phone]. [phone]/cl ELIZABETH Mason 06/26 Referred for Appointment [address] [place] [address] William RIRIB [facility])(S cott [facility] Fam Res Tm Green) [address] [place] [address] William [facility])(Sco tt [facility] Fam Res Tm Green) TELE CONSULT [id number] Notes Entered by: JORDAN APPIAH 03 Jul 2018 0740 ------- ------- ------- ------- -- Profile status - John - - [facility] [place] ELIZABETH PRESCOTT 07/03 Referred for Appointment [address] [place] [address] William [facility])(S cott [facility] Fam Res Tm Green) [address] [place] [address] William [facility])(Sco tt [facility] [place] Fam Res Tm Green) TELE CONSULT [id number] Notes Entered by: Bere NOONAN 18 Jul 2018 1322 ------- ------- ------- ------- -- Network results OT 018 CINDY GOULD 07/[address] [place] [address] William B [facility]S cott [facility] [place] Fam Res Tm Green) [address] [place] [address] William B [facility])(Sco tt [facility] [place] Fam Res Tm Green) OUTPATIENT [id number] 6 Snoring ESCOBAR AMAYA 08/02 Released w/o Limitations [address] [place] [address] William MENEZESB [facility])(S cott [facility] [place]am Res Tm Green) [address] [place] [address] [employer] [facility]Sco tt [facility] [place] Fam Res Tm Green) OUTPATIENT [id number] 2 Concern of bumps on both hands [id number] / [id number] BRAYAN SPRAGUE 10/09 Released w/o Limitations [address] [place] [address] [employer] [facility]S cott [facility] [place] Fam Res Tm Green) [address] [place] [address] [facility]co tt [facility] [place] Fam Res Tm Green) OUTPATIENT [id number] Hearing issues [id number] / [id number] ESCOBAR AMAYA 10/19 Released w/o Limitations [address] [place] [address] [facility]S cott [facility] [place] Fam Res Tm Green) [address] [place] [address] [facility]Oho tt [facility] [place] Fam Res Tm Green) OUTPATIENT [id number] 1 low back pain x 1 wk (was TDY) -- KELLY CASTRO 12/27 Released w/o Limitations [address] [place] [address] [facility]S cott [facility] [place] Fam Res Tm Green) [address] [place] [address] [facility]Oho tt [facility] [place] Fam Res Tm Green) OUTPATIENT [id number] 9 Bumps on hand, Derm check on back, CHRISTIANOJESUSTOYA [facility] 02/20 Released w/o Limitations [address] [place] [address] William HERIBERTO [facility]S [facility] Fam Res Tm Green) [address] [place] [address] [facility]Oho tt [employer] [facility] ) TELE CONSULT [id number] Notes Entered by: MEL DE LUNA 12 Mar 2019 1146 ------- ------- ------- ------- -- Pedro - MEL SAENZ 03/[address] [place] [address] [facility]S [facility] Tm) [address] [place] [address] William RIRICarlos Alberto [facility])(Oho tt [facility] [place] Fam Res Tm Green) OUTPATIENT [id number] 8 f/u hand CHRISTIANOJESUSTOYA [facility] 03/13 Released w/o Limitations [address] [place] [address] William RIRICarlos Alberto [facility])(S [facility] Fam Res Tm Green) [address] [place] [address] William RIRICarlos Alberto [facility])(Bas e Operation al Medicine Clin) OUTPATIENT [id number] Notes Entered by: BRAYAN LITTLE 18 Mar 2019 1551 ------- ------- ------- ------- -- CINDY SANDERS 03/18 Released w/o Limitations [address] [place] [address] William [facility])(B ase Operati onal Medicin e Clin) [address] [place] [address])(Sco tt [facility] [place] FAMRES Tm Blue) OUTPATIENT [id number] 1 X/B - Upper back pain [id number] / [id number] ISABELL SUAREZ 03/27 Released w/o Limitations [address] [place] [address])(S cott [facility] FAMRES Tm Blue) [address] [place] [address])(Nixon matology) OUTPATIENT [id number] 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 dagmar. MANPREET SHETH 06/12 Released w/o Limitations [address] [place] [address])(D ermatol ogy) [address] [place] [address])(War rior Op Med Cln Tm A Ad) OUTPATIENT [id number] [facility] [id number] CARISA PARTIDA 06/19 Released w/o Limitations [address] [place] [address])(W arrior Op Med Cln Tm A Ad) [address] [place] [address])(Nixon matology) OUTPATIENT [id number] Notes Entered by: LISSA MAZA 21 Jun 2019 1154 ------- ------- ------- ------- -- Suture removal MANPREET SHEHT 06/20 Released w/o Limitations [address] [place] [address])(D ermatol ogy) [address] [place] [address])(Nixon matology) TELE CONSULT [id number] 9 Notes Entered by: HANNAH SHETH 24 Jun 2019 1527 ------- ------- ------- ------- -- Culture result MANPREET SHETH 06/[address] [place] [address])(D ermatol ogy) [address] [place] [address])(War rior Op Med Cln Tm A Ad) TELE CONSULT [id number] 7 Notes Entered by: NATHAN HARP 31 Jul 2019 1018 ------- ------- ------- ------- -- Referra tammy kinney/ [id number] JEANETTE MARTINEZ 07/30 Immediate Referral [address] [place] [address])(W arrior Op Med Cln Tm A Ad) [address] [place] [address])(War rior Op Med Cln Tm A Ad) TELE CONSULT [id number] 0 Notes Entered by: JORDAN APPIAH 23 Aug 2019 0749 ------- ------- ------- ------- -- Possibl e KELLY Devriesur e [facility] JEANETTE MARTINEZ 08/22 Released to Self Care [address] [place] [address])(W arrior Op Med Cln Tm A Ad) [address] [place] [address])(War rior Op Med Cln Tm A Ad) TELE CONSULT [id number] Notes Entered by: Clary GAGNON 30 Aug 2019 1453 ------- ------- ------- ------- -- Retro Referra l needed from PCM team, retro date 2 019 JEANETTE MARTINEZ 08/29 Immediate Referral [address] [place] [address])(W arrior Op Med Cln Tm A Ad) [facility] Outpatient Encounter [id number] 06/29 [facility] Outpatient Encounter [id number] NISSA TAFOYA JANET Munoz 06/29 [facility] OFFICE O/P NEW MOD 45 MIN [id number] Diagnos is: ICD-10- CM R20.2 Paresth esia of skin MET UNA POLANCO 06/29 [facility] HC PRO PHONE CALL 5-10 MIN [id number] Diagnos is: ICD-10- CM Z71.9 Fleet Coordinator ing, unspeci fiJAYESH Walker 07/09 [facility] Outpatient Encounter [id number] 08/15 [facility] Outpatient Encounter [id number] AZIZA JUAREZ 08/15 [facility] Outpatient Encounter [id number] AZIZA JUAREZ 08/16 [facility] Outpatient Encounter [id number] AZIZA JUAREZ 08/17 [facility] N [facility] Outpatient Encounter [id number] 08/28 [facility] No Facility Access History [id number] 09/20 No Facilit y Access Ambulator y [facility] [id number] 09/20 Ambulat ory Pharmac y [facility] OFFICE O/P EST LOW 20 MIN [id number] Diagnos is: ICD-10- CM M25.572 Pain in left ankle and joints of left foot ADITYA GIBBS 10/31 [facility] Outpatient Encounter [id number] 11/03 [facility] Outpatient Encounter [id number] 06/25 [facility] Outpatient Encounter [id number] 07/02 [facility] INCLUD[facility] THE [facility] N Procedures Combined list of: 1) Procedures from Department of Veterans Affairs facilities going back up to thelast 18 months, not all [place] non-surgical procedures are included; 2) All procedures from the Department of Defense facilities. Procedure Procedure Type Code Date Perfomer Comments Sourc e No data available for this section Ambulatory Pharmacy TETANUS, DIPHTHERIA TOXOIDS AND ACELLULAR PERTUSSIS VACCINE (TDAP), WHEN ADMINISTERED TO INDIVIDUALS 7 YEARS OR OLDER, FOR INTRAMUSCULAR USE 2008 DoD SKIN TEST; TUBERCULOSIS, INTRADERMAL 2008 DoD PSYCHIATRIC EVALUATION OF HOSPITAL RECORDS, OTHER PSYCHIATRIC REPORTS, PSYCHOMETRIC AND/OR PROJECTIVE TESTS, AND OTHER ACCUMULATED DATA FOR MEDICALDIAGNOSTIC PURPOSES 2010 DoD PSYCHIATRIC EVALUATION OF HOSPITAL RECORDS, OTHER PSYCHIATRIC REPORTS, PSYCHOMETRIC AND/OR PROJECTIVE TESTS, AND OTHER ACCUMULATED DATA FOR MEDICALDIAGNOSTIC PURPOSES 2010 DoD TELE ASSESS & MGT SRV PROV QUAL NONPHYS HLTH CARE PRO TO EST PAT,PARENT,GUARD NOT ORIG REL ASSESS & MGT SRV PROV W/IN PREV 7 DAYS NOR LEAD ASSESS & MGT SRV/PX W/IN NXT 24 HR/SOON APT;5-10 MIN MED DIS 2019 DoD BRIEF COMM TECH-BASE SERV,E.G. VIRT CHK-IN,BY PHYS/OTH QUAL HCP,RPT E&M SERV,PROV TO EST PT,NOT ORIG FRM REL E/M SERV PROV W/IN PREV 7DAY NOR LEAD TO E/M SRV/PX W/IN NEXT 24HR/SOON DAGMAR; 5-10 MIN DISC 2019 DoD PUNCH BIOPSY OF SKIN (INCLUDING SIMPLE CLOSURE, WHEN PERFORMED); SINGLE LESION 2019 DoD DESTRUCTION (EG, LASER SURGERY, ELECTROSURGERY, CRYOSURGERY, CHEMOSURGERY, SURGICAL CURETTEMENT), PREMALIGNANT LESIONS (EG, ACTINIC KERATOSES); FIRST LESION 2019 DoD OSTEOPATHIC MANIPULATIVE TREATMENT (OMT); 3-4 BODY REGIONS INVOLVED 2019 DoD ADMINISTRATION OF PATIENT-FOCUSED HEALTH RISK ASSESSMENT INSTRUMENT (EG, HEALTH HAZARD APPRAISAL) WITH SCORING AND DOCUMENTATION, PER STANDARDIZED INSTRUMENT 2019 DoD ONLINE ASSESS &MANAG SERV PROVIDE,A QUAL NONPHYS HCP TO AN ESTABLISHED PAT/GUARDIAN,NOT ORIGINAT FRM RELAT ASSESS &MANAG SERV PROVIDE W/IN THE PREV 7 DAYS,USE THE [employer] NETWORK 2019 DoD ARTHROCENTESIS, ASPIRATION AND/OR INJECTION, SMALL JOINT OR BURSA (EG, FINGERS, TOES); WITHOUT ULTRASOUND GUIDANCE 2019 DoD REMOVAL IMPACTED CERUMEN USING IRRIGATION/LAVAGE, UNILATERAL 2018 DoD ADMINISTRATION OF PATIENT-FOCUSED HEALTH RISK ASSESSMENT INSTRUMENT (EG, HEALTH HAZARD APPRAISAL) WITH SCORING AND DOCUMENTATION, PER STANDARDIZED INSTRUMENT 2018 DoD ONLINE ASSESS &MANAG SERV PROVIDE,A QUAL NONPHYS HCP TO AN ESTABLISHED PAT/GUARDIAN,NOT ORIGINAT FRM RELAT ASSESS &MANAG SERV PROVIDE W/IN THE PREV 7 DAYS,USE THE [employer] NETWORK 2017 DoD FITTING OF SPECTACLES, EXCEPT FOR APHAKIA; BIFOCAL 2017 DoD ELECTROCARDIOGRAM, ROUTINE ECG WITH AT LEAST 12 LEADS; WITH INTERPRETATION AND REPORT 2017 DoD TELE ASSESS & MGT SRV PROV QUAL NONPHYS HLTH CARE PRO TO EST PAT,PARENT,GUARD NOT ORIG REL ASSESS & MGT SRV PROV W/IN PREV 7 DAYS NOR LEAD ASSESS & MGT SRV/PX W/IN NXT 24H/SOON APT; 21-30 MIN MED DIS 2017 DoD MANUAL THERAPY TECHNIQUES (EG, MOBILIZATION/ MANIPULATION, MANUAL LYMPHATIC DRAINAGE, MANUAL TRACTION), 1 OR MORE REGIONS, EACH 15 MINUTES 2017 DoD MANUAL THERAPY TECHNIQUES (EG, MOBILIZATION/ MANIPULATION, MANUAL LYMPHATIC DRAINAGE, MANUAL TRACTION), 1 OR MORE REGIONS, EACH 15 MINUTES 2017 DoD MANUAL THERAPY TECHNIQUES (EG, MOBILIZATION/ MANIPULATION, MANUAL LYMPHATIC DRAINAGE, MANUAL TRACTION), 1 OR MORE REGIONS, EACH 15 MINUTES 2017 DoD THERAPEUTIC PROCEDURE, 1 OR MORE AREAS, EACH 15 MINUTES; THERAPEUTIC EXERCISES TO DEVELOP STRENGTH AND ENDURANCE, RANGE OF MOTION AND FLEXIBILITY 2017 DoD RE-EVAL,PHYSICAL THERAPY EST PLAN OF CARE,REQ:EXAM,REV,HX & USE,STAND TESTS &GUS REQ;REV PLAN OF CARE USING STAND PAT ASSESS INSTR &/GUS ASSESS FUNC OUTCOME TYP,20 MIN SPENT [id number] W PAT&/FAM 2016 DoD MANUAL THERAPY TECHNIQUES (EG, MOBILIZATION/ MANIPULATION, MANUAL LYMPHATIC DRAINAGE, MANUAL TRACTION), 1 OR MORE REGIONS, EACH 15 MINUTES 2016 DoD APPLICATION OF A MODALITY TO 1 OR MORE AREAS; ULTRASOUND, EACH 15 MINUTES 2016 DoD APPLICATION OF A MODALITY TO 1 OR MORE AREAS; ULTRASOUND, EACH 15 MINUTES 2016 DoD APPLICATION OF A MODALITY TO 1 OR MORE AREAS; ULTRASOUND, EACH 15 MINUTES 2016 DoD BIOPSY OF SKIN, SUBCUTANEOUS TISSUE AND/OR MUCOUS MEMBRANE (INCLUDING SIMPLE CLOSURE), UNLESS OTHERWISE LISTED; SINGLE LESION 2016 DoD THERAPEUTIC PROCEDURE, 1 OR MORE AREAS, EACH 15 MINUTES; THERAPEUTIC EXERCISES TO DEVELOP STRENGTH AND ENDURANCE, RANGE OF MOTION AND FLEXIBILITY 2016 DoD TELE ASSESS & MGT SRV PROV QUAL NONPHYS HLTH CARE PRO TO EST PAT,PARENT,GUARD NOT ORIG REL ASSESS & MGT SRV PROV W/IN PREV 7 DAYS NOR LEAD ASSESS & MGT SRV/PX W/IN NXT 24 HR/SOON APT;5-10 MIN MED DIS 2016 DoD SHAVING OF EPIDERMAL OR DERMAL LESION, SINGLE LESION, TRUNK, ARMS OR LEGS; LESION DIAMETER 0.5 CM OR LESS 2016 DoD PSYCHIATRIC EVALUATION OF HOSPITAL RECORDS, OTHER PSYCHIATRIC REPORTS, PSYCHOMETRIC AND/OR PROJECTIVE TESTS, AND OTHER ACCUMULATED DATA FOR MEDICALDIAGNOSTIC PURPOSES 2013 DoD TELE ASSESS & MGT SRV PROV QUAL NONPHYS HLTH CARE PRO TO EST PAT,PARENT,GUARD NOT ORIG REL ASSESS & MGT SRV PROV W/IN PREV 7 DAYS NOR LEAD ASSESS & MGT SRV/PX W/IN NXT 24 HR/SOON APT;5-10 MIN MED DIS 2013 DoD NEUROPSYCHOLOGICAL TESTING (EG, [place] CARD SORTING TEST), ADMINISTERED BY A COMPUTER, WITH QUALIFIED HEALTH TICKER MAINTAINER INTERPRETATION AND REPORT 2013 [facility] MANUAL THERAPY TECHNIQUES (EG, MOBILIZATION/ MANIPULATION, MANUAL LYMPHATIC DRAINAGE, MANUAL TRACTION), 1 OR MORE REGIONS, EACH 15 MINUTES 2012 [facility] APPLICATION OF A MODALITY TO 1 OR MORE AREAS; VASOPNEUMATIC DEVICES 2012 DoD PSYCHOTHERAPY, 60 MINUTES WITH PATIENT 2012 [facility] CANE, INCLUDES CANES OF ALL MATERIALS, ADJUSTABLE OR FIXED, WITH TIP 2012 DoD PSYCHIATRIC DIAGNOSTIC EVALUATION 2012 DoD TELE ASSESS & MGT SRV PROV QUAL NONPHYS HLTH CARE PRO TO EST PAT,PARENT,GUARD NOT ORIG REL ASSESS & MGT SRV PROV W/IN PREV 7 DAYS NOR LEAD ASSESS & MGT SRV/PX W/IN NXT 24 HR/SOON APT;5-10 MIN MED DIS 2010 DoD TELE ASSESS & MGT SRV PROV QUAL NONPHYS HLTH CARE PRO TO EST PAT,PARENT,GUARD NOT ORIG REL ASSESS & MGT SRV PROV W/IN PREV 7 DAYS NOR LEAD ASSESS & MGT SRV/PX W/IN NXT 24 HR/SOON APT;5-10 MIN MED DIS 2010 DoD PSYCHIATRIC DIAGNOSTIC INTERVIEW EXAMINATION 2004 [facility] PSYCHIATRIC DIAGNOSTIC INTERVIEW EXAMINATION 2004 [facility] AVULSION OF NAIL PLATE, PARTIAL OR COMPLETE, SIMPLE; SINGLE 2003 [facility] OPHTHALMOLOGICAL SERVICES: MEDICAL EXAMINATION AND EVALUATION, WITH INITIATION OR CONTINUATION OF DIAGNOSTIC AND TREATMENT PROGRAM; COMPREHENSIVE, ESTABLISHED PATIENT, 1 OR MORE VISITS 2002 [facility] Cerumen Removal Left Ear Irrigation Cerumen Removal Left Ear Irrigation 06353 2018 PEPE PAT DoD Internet Med Svc Qual Nonphys Healthcare Prof Estab Patient Internet Med Svc Qual Nonphys Healthcare Prof Estab Patient [id number] 2017 FELTON SIMPSON [facility] Spectacles Services Fitting Bifocals (Not For Aphakia) [employer] Fitting Bifocals (Not For Aphakia) 09988 2017 ISABELL MORALES [facility] Determination Of Refractive State Determination Of Refractive State 95380 2017 ISABELL MORALES [facility] Ophthalmological New Patient Start Comprehensive Care Ophthalmological New Patient Start Comprehensive Care 13387 2017 ISABELL MORALES [facility] Non-Physician Phone Call To Pt/Provider Lengthy (21-30 min) Non-Physician Phone Call To Pt/Provider Lengthy (21-30 min) 97722 2017 KIMBERLY JR Clary [facility] Physical Therapy Mobilization Joint Physical Therapy Mobilization Joint 89956 2017 SHADIA VALENTE [facility] Physical Therapy Neuromuscular Re-education Physical Therapy Neuromuscular Re-education 36712 2017 SHADIA VALENTE [facility] Physical Therapy: ___ Se ion Segments, 15 Minutes Each Physical Therapy: ___ Session Segments, 15 Minutes Each 79057 2017 SHADIA VALENTE [facility] Physical Therapy Mobilization Joint Physical Therapy Mobilization Joint 68097 2017 SILVERIO [facility] Physical Therapy Neuromuscular Re-education Physical Therapy Neuromuscular Re-education 42306 2017 SILVERIO [facility] Physical Therapy: ___ Se ion Segments, 15 Minutes Each Physical Therapy: ___ Session Segments, 15 Minutes Each 75875 2017 SILVERIO [facility] Physical Therapy Mobilization Joint Physical Therapy Mobilization Joint 08846 2017 SHADIA VALENTE [facility] Physical Therapy Neuromuscular Re-education Physical Therapy Neuromuscular Re-education 89779 2017 SHADIA VALENTE [facility] Physical Therapy: ___ Se ion Segments, 15 Minutes Each Physical Therapy: ___ Session Segments, 15 Minutes Each 83818 2017 SHADIA VALENTE [facility] Physical Therapy: ___ Se ion Segments, 15 Minutes Each Physical Therapy: ___ Session Segments, 15 Minutes Each 72121 2017 COLLETTE ALBRECHT [facility] Physical Medicine Physical Therapy Re-Evaluation Physical Medicine Physical Therapy Re-Evaluation 60371 2016 JONAH CARREON [facility] Mobilization Soft Ti ue Mobilization Soft Tissue 14856 2016 BRAYAN LIRIANO [facility] Physical Therapy: ___ Se ion Segments, 15 Minutes Each Physical Therapy: ___ Session Segments, 15 Minutes Each 90560 2016 BRAYAN LIRIANO [facility] Modalities Ultrasound Modalities Ultrasound 90373 2016 BRAYAN LIRIANOLM [facility] Mobilization Soft Ti ue Mobilization Soft Tissue 74005 2016 BRAYAN LIRIANOLUIS [place] Physical Therapy: ___ Se ion Segments, 15 Minutes Each Physical Therapy: ___ Session Segments, 15 Minutes Each 60158 2016 BRAYAN LIRIANOLUIS [place] Mobilization Soft Ti ue Mobilization Soft Tissue 43550 2016 BRAYAN LIRIANOLM [facility] Modalities Ultrasound Modalities Ultrasound 82651 2016 BRAYAN LIRIANOLUIS [place] Physical Therapy: ___ Se ion Segments, 15 Minutes Each Physical Therapy: ___ Session Segments, 15 Minutes Each 17663 2016 BRAYAN LIRIANOLM [facility] Modalities Ultrasound Modalities Ultrasound 85096 2016 BRAYAN LIRIANOFREDY [place] Mobilization Soft Ti ue Mobilization Soft Tissue 05008 2016 BRAYAN LIRIANOLUIS [place] Physical Therapy: ___ Se ion Segments, 15 Minutes Each Physical Therapy: ___ Session Segments, 15 Minutes Each 44569 2016 BRAYAN LIRIANOLM [facility] Biopsy Skin Biopsy Skin 67055 2016 REJI WILKINS [facility] Exercises A isted Exercises For ROM Exercises Assisted Exercises For ROM 28413 2016 JONAH CARREON [facility] Non-Physician Phone Call To Patient/Provider Brief (5-10min) Non-Physician Phone Call To Patient/Provider Brief (5-10min) 42336 2016 ELIZABETH PRESCOTT [facility] Shaving Of Lesion Forearms Up To .5cm Shaving Of Lesion Forearms Up To .5cm 13206 2016 REJI WILKINS [facility] Psychiatric Evaluation Review of Records and Reports Psychiatric Evaluation Review of Records and Reports 24663 2013 NASIM ASH [facility] Non-Physician Phone Call To Patient/Provider Brief (5-10min) Non-Physician Phone Call To Patient/Provider Brief (5-10min) 17703 2013 ELIZABETH PRESCOTT Psychometric Neuropsych Testing Battery Admin By Computer Psychometric Neuropsych Testing Battery Admin By Computer 84929 2013 MONCHO MONTAÑO [facility] Physical Therapy Mobilization Joint Physical Therapy Mobilization Joint 06353 2012 ELBA NIX [facility] Physical Therapy Gait Training Physical Therapy Gait Training 00599 2012 ELBA NIX [facility] Physical Therapy: ___ Se ion Segments, 15 Minutes Each Physical Therapy: ___ Session Segments, 15 Minutes Each 48141 2012 ELBA NIX [facility] Modalities Vasopneumatic Device Modalities Vasopneumatic Device 79991 2012 ELBA NIX [facility] Physical Therapy Gait Training Physical Therapy Gait Training 52090 2012 ELBA NIX [facility] Modalities Cryotherapy Cold Packs Modalities Cryotherapy Cold Packs 99499 2012 ELBA NIX [facility] Physical Therapy Mobilization Joint Physical Therapy Mobilization Joint 91482 2012 ELBA NIX [facility] Physical Therapy: ___ Se ion Segments, 15 Minutes Each Physical Therapy: ___ Session Segments, 15 Minutes Each 34866 2012 ELBA NIX [facility] Cane, includes canes of all materials, adjustable or fixed, with tip 2012 ALPESH RIVERA [facility] Orthopedic Strapping Ankle Orthopedic Strapping Ankle 46753 2012 ALPESH RIVERA [facility] Modalities Vasopneumatic Device Modalities Vasopneumatic Device 95182 2012 ALPESH RIVERA [facility] Exercises A isted Exercises For ROM Exercises Assisted Exercises For ROM 39663 2012 ALPESH RIVERA [facility] Physical Medicine Physical Therapy Evaluation Physical Medicine Physical Therapy Evaluation 47472 2012 ALPESH RIVERA [facility] Psychiatric Evaluation Comprehensive Examination Psychiatric Evaluation Comprehensive Examination 73796 2012 DIANA CUADRA [facility] Non-Physician Phone Call To Patient/Provider Brief (5-10min) Non-Physician Phone Call To Patient/Provider Brief (5-10min) 66102 2010 OLU GEORGE [facility] Non-Physician Phone Call To Patient/Provider Brief (5-10min) Non-Physician Phone Call To Patient/Provider Brief (5-10min) 15459 2010 TAN SHORE [facility] Psychiatric Evaluation Review of Records and Reports Psychiatric Evaluation Review of Records and Reports 39829 2010 PEPE VALENTIN [facility] Psychiatric Evaluation Review of Records and Reports Psychiatric Evaluation Review of Records and Reports 88313 2010 DIMITRIS ANDINO [facility] Tdap Vaccine Tdap Vaccine 46071 2008 NASIM ANGELES JR. [facility] Immunization Administration Each Additional Vaccine 2008 NASIM ANGELES JR. [facility] Hepatitis B Vaccine (Active); 20 Years and Above 2008 NASIM ANGELES JR. [facility] Immunization Administration One Vaccine Immunization Administration One Vaccine 79420 2008 NASIM ANGELES JR. [facility] Skin Test Anergy tuberculin Skin Test Anergy tuberculin 66618 2008 BAILEE VÁSQUEZ *INACTIVE* Ivon Hepatitis B Vaccine (Active); 20 Years and Above 2008 BAILEE VÁSQUEZ *INACTIVE* [facility]von Immunization Administration One Vaccine Immunization Administration One Vaccine 88201 2008 BAILEE VÁSQUEZ *INACTIVE* [facility] Health And Behav Intervention, Each 15 Min Grp (2 Or More) Health And Behav Intervention, Each 15 Min Grp (2 Or More) 41604 2005 DONELL CAMERON [facility] Psychiatric Evaluation Comprehensive Examination Psychiatric Evaluation Comprehensive Examination [id number] 2004 HARINDER AUSTIN [facility] Injection, triamcinolone acetonide, preservative free, 1 mg IVANA ALVARADO [facility] Corticosteroids Inj Right Fourth Carpometacarpal Joint Corticosteroids Inj Right Fourth Carpometacarpal Joint [id number] IVANA ALVARADO [facility] Internet Med Svc Qual Nonphys Healthcare Prof Estab Patient Internet Med Sv Qual Nonphys Healthcare Prof Estab Patient [id number] MEL DE LUNA [facility] Osteopathic Manip Treatment (OMT) 3-4 Body Regions Involved Osteopathic Manip Treatment (OMT) 3-4 Body Regions Involved [id number] ISABELL SUAREZ [facility] Destruction Of Premalignant Lesion By Any Method One Lesion Destruction Of Premalignant Lesion By Any Method One Lesion [id number] MANPREET SHETH [facility] Brief communication technology-based service, e.g. virtual check-in, by a physician or other qualified health care profjs doan who can report evaluation and management services, provided to an established patient, not originating from a related E/M service provided within the previous 7 days nor leading to an E/M service or procedure within the next 24 hours or soonest available appointment; 5-10 minutes of medical discu ion TULIO PARTIDA [facility] Non-Physician Phone Call To Patient/Provider Brief (5-10min) Non-Physician Phone Call To Patient/Provider Brief (5-10min) [id number] JEANETTE MARTINEZ [facility] Social History Combined list of available smoking, tobacco, and other social history from [facility] of Defense and Veterans Affairs facilities. Social History Type Response Date Comment Sourc e Tobacco smoking status NHIS VA-TOBACCO NEVER USED CIGARETTES 06/25/2024 [facility] History of tobacco use VA-TOBACCO NEVER USED OTHER TYPE 06/25/2024 [facility] History of tobacco use VA-TOBACCO NEVER USED 06/30/2023 [facility] This section is an empty social history section. [facility] Assessment and Plan Combined list of future care activities from Department of Defense and Veterans Affairs facilities (e.g., assessment and plan notes, appointments, orders, and referrals). Additional future care activities may be listed in the Plan of Care section. Result Assessment and Plan Date Source Assessment and Plan No data available for this section 08/19/2024 Ambulatory Pharmacy Functional Status Combined list of recent functional and cognitive assessments recorded at [facility] ([place] Functional [place]oun Measurement (FIM) Scale: 1 = Total Assistance (Subject = 0% +), 2 = Maximal Assistance (Subject = 25% +), 3 = Moderate Assistance (Subject = 50% +), 4 = Minimal Assistance (Subject = 75% +), 5 = Supervision, 6 = Modified Calhoun (Device), 7 = Complete Calhoun (Timely, Safely). Assessment Date/Time Source Assessment Type Assessment Skill Assessment Score Assessment Details No data available for this section
--- OUTSIDE RECORDS SUMMARY | 2024-08-19 16:21 | XMS_ITS | Encounter Summary ---
Author Organization [facility] Address [facility] [place] [address] Care Team Providers Care Seismic Survey Assistant Name Role Phone Deuce Cole DO Primary Care Provider [phone] Encounter Details Date Type Department Care Team (Latest Contact Info) Description 08/18/2024 Results Follow-Up [facility] Family Medicine - [place] [address] [place] [address] Deuce Cole DO [address] [place] [id number] CBC W/AUTO DIFF, COMPREHENSIVE METABOLIC PANEL, TESTOSTERONE, FREE & TOTAL, PSA, TOTAL AND FREE Social History Tobacco Use Types Packs/Day Years Used Date Smoking Tobacco: Never Passive Smoke Exposure: Past Smokeless Tobacco: Never Alcohol Use Standard Drinks/Week Comments Never 0 (1 standard drink = 0.6 oz pur e alcohol) PHQ-2 Answer Date Recorded Patient Health Questionnaire-2 Score 0 01/15/2024 Sex and Gender Information Value Date Recorded Sex Assigned at Not on file Legal Sex Male 4:43 PM CDT Gender Identity Not on file Sexual Orientation Not on file documented as of this encounter Progress Notes * Deuce Cole DO - 08/18/2024 6:37 AM CDTAddended by: DEUCE COLE on: 08/18/2024 06:37 AM Modules accepted: Orders documented in this encounter Plan of Treatment Upcoming Encounters Date Type Department Care Team (Late st Contact Info) Description 01/15/2025 3:20 PM 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 Office Visit [facility] Family Medicine - [place] [address] [facility] [place] [address] Deuce Cole DO [address] [place] [address] Scheduled Orders Name Type Priority Associated Diagnoses Orde r Schedule CBC W/DIFF AUTOMATED Lab Routine Hypogonadism in male Expected: 11/18/2024, Expires: 08/18/2025 PSA, TOTAL AND FREE Lab Routine Hypogonadism in male Expected: 11/18/2024, Expires: 08/18/2025 COMPREHENSIVE METABOLIC PANEL Lab Routine Hypogonadism in male Expected: 11/18/2024, Expires: 08/18/2025 TESTOSTERONE, FREE & TOTAL Lab Routine Hypogonadism in male Expected: 11/18/2024, Expires: 08/18/2025 documented as of this encounter Visit Diagnoses Diagnosis Hypogonadism in male- Primary documented in this encounter Additional Health Concerns Assessment Noted Time PHQ-9 Depression Total Score: 0 01/15/20 10:48 AM 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 documented as of this encounter Care Teams Seismic Survey Assistant Relationship Specialty Start Date [place] [address] PCP - General FAMILY PRACTICE 11/22/23 documented as of this encounter
--- OUTSIDE RECORDS SUMMARY | 2024-08-19 16:21 | XMS_ITS | Clinical Summary ---
Author Organization [facility] Address [address] [place] [address] Care Team Providers Care Transportation Inspector Name Role Phone Hank Hernandez DO Primary Care Provider Allergies No known active allergies Medications Multiple Vitamin (MULTIVITAMIN OR) Active testosterone cypionate (DEPO TESTOSTERONE) 200 MG/ML injectionIndica tions:Hypogonad ism in male Inject 0.5 mLs (100 mg total) into the muscle once a week. Active testosterone cypionate (DEPO TESTOSTERONE) 200 MG/ML injectionIndica tions:Hypogonad ism in male Inject 1 mL (200 mg total) into the muscle once a week. 10 mL 1 5 08/19/19 Discontinu ed(Reorder ) Active Problems Problem Noted Date Diagnosed Date Long-term current use of testosterone replacemen t therapy 03/02/2024 APOLLO (obstructive sleep apnea) 01/15/2024 Pain in left ankle and joints of left foot 01/14 Hypogonadism in male 01/15/2024 Erectile dysfunction of organic origin Class 2 obesity due to exces s calories without serious comorbidity with body mass index (BMI) of 35.0 to 35.9 in adult 04/29/2020 Overview (01/15/2024): diet, exercise, smaller portions. Resolved Problems Problem Noted Date Diagnosed Date Resolved Date Major depression, single episode 01/15/2024 01/15/2024 Periodic limb movement 04/29/2020 12/09 /2024 Psychophysiological insomnia 04/29/2020 01/15/2024 Encounters Date Type Department Care Team Description 08/18/2024 Results Follow-Up [facility] [address] [place] [phone] Hank Hernandez, DO CBC W/AUTO DIFF, COMPREHENSIVE METABOLIC PANEL, TESTOSTERONE, FREE & TOTAL, PSA, TOTAL AND FREE 08/08/2024 Orders Only [address] [address] Hank Hernandez, DO 07/02/2024 Scan [facility] SRVCS Scanned, [facility] 05/24/2024 Scan [facility] INFO SRVCS Scanned, [facility] from Last 3 Months Immunizations Immunization Administration Dates Next Due Anthrax Vaccine 12/22/2015, 4,04/08/2003,07/22/2002,1 02/25/2001,12/12/2001,11/28/2001 H1N1 Injectable 2009 Influenza 02/26/2009 Hepatitis A (Havrix [address]) 04/05/2000,1998 Hepatitis B (Generic: Adult) 02/16/2009,08/27/19 09,08/20/2008,06/03/2008 Influenza (FluMist) 12/18/2014, 5,11/28/2012,12/10/2009,1 ,12/04/2006,11/25/2005,03/08/2004 Influenza (Generic) 02/10/2017, 6,11/10/2011,11/04/2010,1 04/01/2007,01/21/2008,12/14/2004,11/28/2002,,11/27/2000,01/30/2000,12/03/1998,12/1998 Influenza Adult (Generic) 01/24/2019,12/01/2017 MMR (MMRII) 02/14/2013,09/19/2006 Meningococcal (Menactra) 07/19/2013 Meningococcal (Menomune) 07/17/1998 Polio IPV (Ipol) 09/17/2013 Polio Opv (Generic) 07/24/1998 Small Pox 03/05/2013,02/14/2013 Td (TDVAX) 01/24/2019,07/17/1998 Tdap (Generic) 11/17/2021,08/26/2008,08/20/2008 Typhoid (Typhim ) 02/14/2013,04/03/2001 Yellow Fever (YF- Vax) 07/24/2013,10/17/2001 Family History Medical History Relation Comments Cancer Maternal Uncle Liver cancer Cancer Mother Breast cancer Relation Status Comments Father Alive Maternal Grandfather Maternal Grandmother Maternal Uncle Mother Alive Paternal Grandfather Paternal Grandmother Son 1 Alive Son 2 Alive Son 3 Alive Son 4 Alive Social History Tobacco Use Types Packs/Day Years Used Date Smoking Tobacco: Never Passive Smoke Exposure: Past Smokeless Tobacco: Never Tobacco Cessation:Counseling Given: No Alcohol Use Standard Drinks/Week Comments Never 0 [...] Sign Reading Time Taken Comments Blood Pressure 128/88 05/17/2024 1:50 PM CDT man ual Pulse 80 05/17/2024 1:47 PM CDT Temperature 36.6 C (97.8 F) 05/17/2024 1:47 PM CDT Respiratory Rate - - Oxygen Saturation 96% 05/17/2024 1:47 PM CDT Inhaled Oxygen Concentration - - Weight 115.5 kg (254 lb 9.6 oz) 05/17/2024 1:47 PM CDT Height 178.4 cm (5' 10.25) 05/17/2024 1:47 PM C DT Body Mass Index 36.27 05/17/2024 1:47 PM CDT Plan of Treatment Upcoming Encounters Date Type Department Care Team (Late st Contact Info) Description 01/15/2025 3:20 PM HEAD OF HUMAN [employer]OURCES Office Visit [facility] Family Medicine - [address] [address] Hank Hernandez DO [address] [place] [address] Health Maintenance Due Date Last Done Comments Colorectal Cancer Screening Colonoscopy (10 Years) 1973 Annual Physical 1976 COVID-19 Vaccine (3 - 2023- season) 2023 07/20/2020, 06/22/2020 Pneumococcal Vaccine: 50+ Years (1 of 1 - PCV) 10/16/2023 Zoster Vaccines (1 of 2) 10/16/2023 PHQ-2 (Physician Elem) 02/07/2024 01/15/2024 DTaP, Tdap and Td Vaccines (5 - Td or Tdap) 11/18/2031 11/17/2021, 01/24/2019, 08/26/2008, Additional history exists Hepatitis B Vaccines Completed 02/16/2009, 08/26/2008, 08/20/2008, Additional history exists Meningococcal Vaccine Aged Out 07/19/2013, 999 No longer eligible based on patient's age to complete this topic Hepatitis C Completed 02/06/2024 Meningococcal B Vaccine Aged Out No l onger eligible based on patient's age to complete this topic RSV Immunizations Under 20 Months Aged Out No longer eligible based on patient's age to complete this topic Procedures Procedure Name Priority Date/Time Associated Diagnosis Comments PSA, TOTAL AND FREE 08/08/2024 9 :24 AM CDT TESTOSTERONE, FREE & TOTAL 08/08/2024 9:24 AM CDT COMPREHENSIVE METABOLIC PANEL 08/08/2024 9:24 AM CDT CBC W/AUTO DIFF 08/08/2024 9:24 AM CDT HEPATITIS C ANTIBODY W/RFX TO HCV RNA 02/06/2024 8:20 AM [employer] from Last 3 Months or Most Recently Relevant to Health Maintenance Results * (ABNORMAL) CBC W/AUTO DIFF (08/08/2024 9:24 AM CDT) WBC 6.8 3.4 - 10.8 x10E3/uL [facility] RBC 5.93(H) 4.14 - 5.80 x10E6/uL [facility] 1 HGB 18.3(H) 13.0 - 17.7 g/dL [facility] 1 HCT 54.3(H) 37.5 - 51.0 % [facility] 1 MCV 92 79 - 97 fL [facility] 1 MCH 30.9 26.6 - 33.0 pg [facility] 1 MCHC 33.7 31.5 - 35.7 g/dL [facility] 1 RDW 13.1 11.6 - 15.4 % [facility] 1 PLATELET COUNT 205 150 - 450 x10E3/uL [facility] 1 NEUTROPHILS % 68 Not Estab. % [facility] 1 LYMPHOCYTES % 22 Not Estab. % [facility] 1 MONOCYTES % 8 Not Estab. % [facility] 1 EOSINOPHILS % 1 Not Estab. % [facility] 1 BASOPHILS % 0 Not Estab. % [facility] 1 ABS. NEUTROPHILS 4.6 1.4 - 7.0 x10E3/uL [facility] 1 ABS. LYMPHOCYTES 1.5 0.7 - 3.1 x10E3/uL [facility] 1 MONOCYTES 0.6 0.1 - 0.9 x10E3/uL [facility] 1 ABS. EOSINOPHILS 0.1 0.0 - 0.4 x10E3/uL [facility] 1 ABS. BASOPHILS 0.0 0.0 - 0.2 x10E3/uL [facility] 1 ABS. IMMATURE GRANULOCYTES 1 Not Estab. % [facility] 1 ABS. IMMATURE GRANULOCYTES 0.1 0.0 - 0.1 x10E3/uL [facility] 1 Comment: A hand-written panel/profile was received from your office. In accordance with the [facility] Ambiguous Test Code Policy dated August 2002, we have assigned CBC with Differential/Platelet, Test Code #442536 to this request. If this is not the testing you wished to receive on this specimen, please contact the [facility] Client Inquiry/ Technical Services Department to clarify the test order. We appreciate your business. 08/08/2024 9:24 AM CDT 08/08/2024 Narrative [facility] - 08/11/2024 2:08 PM CDT Performed at: 01 - [facility] [id number] Insurance Follow Up Rep: Everett Hernandez PhD, Phone: [phone] Hank Hernandez DO LABORATORY Final Resul t Performing Organization Address [facility] de Phone Number [facility] [address] [place] [address] [facility] 1 * (ABNORMAL) TESTOSTERONE, FREE & TOTAL (08/08/2024 9:24 AM CDT) TESTOSTERONE 1,340(H) 264 - 916 ng/dL [facility] 1 Comment: Adult male reference interval is based on a population of healthy nonobese males (BMI <30) between 19 and 39 years old. joni Ulrich.al. JCEM 2017,102;7249-9828. PMID: [id number]. TESTOSTERONE FREE 27.5(H) 7.2 - 24.0 pg/mL [facility] 2 08/08/2024 9:24 AM CDT 08/08/2024 Narrative [facility] - 08/11/2024 2:08 PM CDT Performed at: - [address] [id number] Insurance Follow Up Rep: Everett Hernandez PhD, Phone: [phone] Performed at: - [address] [id number] Insurance Follow Up Rep: Fanta Garcia MD, Phone: [phone] Hank Hernandez DO LABORATORY Final Resul t Performing Organization Address [facility] Co de Phone Number [facility] [address] [place] [address] [facility] 1 [facility] 2 * COMPREHENSIVE METABOLIC PANEL (08/08/2024 9:24 AM CDT) GLUCOSE 86 70 - 99 mg/dL [facility] 1 BUN 18 6 - 24 mg/dL [facility] 1 CREATININE S/P/B 1.24 0.76 - 1.27 mg/dL [facility] 1 GFR ESTIMATE 71 >59 mL/min/1.7 3 [facility] 1 BUN CREATININE RATIO 15 9 - 20 [facility] 1 SODIUM S/P/B 138 134 - 144 mmol/L [facility] 1 POTASSIUM S/P/B 4.5 3.5 - 5.2 mmol/L [facility] 1 CHLORIDE S/P/B 100 96 - 106 mmol/L [facility] 1 CO2 24 20 - 29 mmol/L [facility] 1 CALCIUM S/P/B 8.8 8.7 - 10.2 mg/dL [facility] 1 TOTAL PROTEIN S/P/B 6.5 6.0 - 8.5 g/dL [facility] 1 ALBUMIN S/P/B 4.3 4.1 - 5.1 g/dL [facility] 1 GLOBULIN 2.2 1.5 - 4.5 g/dL [facility] 1 BILIRUBIN TOTAL S/P/B 0.6 0.0 - 1.2 mg/dL [facility] 1 ALKALINE PHOSPHATASE S/P/B 70 44 - 121 IU/L [facility] 1 AST 24 0 - 40 IU/L [facility] 1 ALT 27 0 - 44 IU/L [facility] 1 08/08/2024 9:24 AM CDT 08/08/2024 Narrative [facility] - 08/11/2024 2:08 PM CDT Performed at: [address] [id number] Insurance Follow Up Rep: Everett Hernandez PhD, Phone: [phone] us Hank Hernandez DO LABORATORY Final Resul t [facility] [address] [place] [address] [facility] 1 * PSA, TOTAL AND FREE (08/08/2024 9:24 AM CDT) Pathologist [facility] PSA 1.8 0.0 - 4.0 ng/mL [facility] 1 Comment: Mandeep ECLIA methodology. According to the [place] [employer], Serum PSA should decrease and remain at undetectable levels after radical prostatectomy. The AUA defines biochemical recurrence as an initial PSA value 0.2 ng/mL or greater followed by a subsequent confirmatory PSA value 0.2 ng/mL or greater. Values obtained with different assay methods or kits cannot be used interchangeably. Results cannot be interpreted as absolute evidence of the presence or absence of malignant disease. REFLEX ADDED Comment [facility] 1 Comment: The percent free PSA is performed on a reflex basis only when the total PSA is between 4.0 and 10.0 ng/mL. 08/08/2024 9:24 AM CDT 08/08/2024 Narrative [facility] - 08/11/2024 2:08 PM CDT Performed at: [facility] [address] [id number] Insurance Follow Up Rep: Everett Hernandez PhD, Phone: [phone] Hank Hernandez DO LABORATORY Final Resul t Performing Organization Address [facility] de Phone Number [facility] [address] [place] [address] [facility] 1 * HEPATITIS C ANTIBODY W/RFX TO HCV RNA (02/06/2024 8:20 AM [employer]) HEPATITIS C AB Non Reactive Non Reacti [facility] 1 INTERPRETATION Comment [facility] 1 Comment: Not infected with HCV unless early or acute infection is suspected (which may be delayed in an immunocompromised individual), or other evidence exists to indicate HCV infection. 02/06/2024 8:20 AM [employer] 02/06/2024 Narrative [facility] - 02/10/2024 4:07 AM [employer] Performed at: [facility] [address] [id number] Insurance Follow Up Rep: Everett Hernandez PhD, Phone: [phone] Hank Hernandez DO LABORATORY Final Resul t Performing Organization Address [facility] Co de Phone Number [facility] [address] [place] [address] [facility] 1 from Last 3 Months or Most Recently Relevant to Health Maintenance Insurance Care Teams Transportation Inspector Relationship Specialty Start Date End Date Hank Hernandez DO [address] [place] [address] PCP - General FAMILY PRACTICE 11/22/23
--- OUTSIDE RECORDS SUMMARY | 2024-08-19 16:21 | XMS_ITS | Clinical Summary ---
Author Organization [facility] Address [address] [place] [address] Care Team Providers Care Ophthalmic Lens Inspector Name Role Phone Unavailable Primary Care Provider Unavailabl e Source Comments [facility],non-owned Affiliates and Associated Physician Practices is amultiple site organization consisting of ambulatory clinics and hospital sitesin [place], [place], [place] and [place]. This disclosure is being madepursuant to the Care Everywhere program and may not contain all information available regarding this patient. Last updated 17.[facility] Social History Tobacco Use Types Packs/Day Years Used Date Smoking Tobacco: Never Assessed Sex and Gender Information Value Date Recorded Sex Assigned at Not on file Legal Sex Male 4:36 PM CDT Gender Identity Not on file Sexual Orientation Not on file Plan of Treatment Health Maintenance Due Date Last Done Comments COLOGUARD (AGES 45-75) - COL ON CA SCREENING 1973 COLON MONITORING 1973 COLONOSCOPY - COLON CA SCREENING 1973 CT COLONOGRAPHY - COLON CA SCREENING 1973 Colorectal Cancer Screening 1973 FIT - COLON CA SCREENING 1973 FLEX SIG - COLON CA SCREENING 1973 LIPID TESTING 1973 HIV SCREENING 1988 HEPATITIS C SCREENING 10/11/1991 DTAP/TDAP/TD VACCINES (1 - Tdap) 1992 HEPATITIS B VACCINE (1 of 3 - 19+ 3-dose series) 1992 COVID-19 VACCINE ( - 2023-2 5 season) 2023 PNEUMOCOCCAL VACCINE 50+ (1 of 1 - PCV) 10/16/2023 ZOSTER VACCINE (1 of 2) 10/16/2023 DEPRESSION SCREENING 02/07/2024 INFLUENZA VACCINE (#1) 2024 HIB VACCINE Aged Out No longer eligi ble based on patient's age to complete this topic HPV VACCINE Aged Out No longer eligi ble based on patient's age to complete this topic MENINGOCOCCAL (Group B) VACC INE SHARED DECISION-MAKING Aged Out No longer eligibl e based on patient's age to complete this topic MENINGOCOCCAL GROUPS A/C/Y/W VACCINE Aged Out No longer eligible b ased on patient's age to complete this topic Insurance
--- OUTSIDE RECORDS SUMMARY | 2024-08-19 16:21 | XMS_ITS ---
Author Name [facility] [place] [facility] [place] Address [address] [place] [address] Care Team Providers Care Charter Pilot Name Role Phone EDITH GIBBS Primary Care Provider Unavailab le Insurance Providers: All historical and current Section Date Range: From patient's date of to the date document was created. This section includes the names of all active insurance providers for the patient. Insurance Provider Type of Coverage Plan Name Start of Policy Coverage End of Policy Coverage Group Number Member ID Insurance Provider's Telephone Number Policy Mojica's Name Patient's Relationship to Policy Mojica [facility] 2024 [facility] Feb 07, 2024 [facility] [id number] [place] PATIENT Selected Encounter This section includes the information on record at [place] for the Encounter. Date/Time Encounter Type Encounter Description Reason Provider Source Nov 01, 2023 12:30 PM OFFICE O/P EST LOW 20 MIN PRIMARY CARE/MEDICINE ICD-10-CM M25.572 Pain in left ankle and joints of left foot EDITH GIBBS Js Encounter Template Text not used by [place] Assessments - Encounter Diagnoses This section includes the primary and secondary diagnoses documented for the Encounter. Date/Time Primary/Secondary Diagnosis Diagnosis Name Provider Source Nov 01, 2023 01:45 PM PRIMARY Pain in left ankle and joints of left foot EDITH GIBBS [facility] Nov 01, 2023 01:45 PM SECONDARY Ingrowing nail EDITH GIBBS [facility] Nov 01, 2023 01:45 PM SECONDARY Obstructive sleep apnea (adult) (pediatric) EDITH GIBBS [facility] Nov 01, 2023 01:45 PM SECONDARY Pain in right ankle and joints of right foot EDITH GIBBS [facility] Vital Signs: All taken on the encounter date This section contains inpatient and outpatient Vital Signs collected on the date of the Encounter. Date/Time Temperature Pulse Blood Pressure Respiratory Rate SP02 Pain Height Weight Body Mass Index Source Nov 01, 2023 12:41 PM 98.3 76 119/82 18 97 0 71 247.6 35 [facility] Social History: Smoking Status (Most current) and Tobacco Use (All prior to encounter date) This section includes the most current, and the historical, smoking and tobacco- related health factors from the [place] facility where the Encounter took place. Current Smoking Status This section includes the most current smoking, or tobacco-related health factor, from the [place] facility where the Encounter took place. Date/Time Current Smoking Status Comment Facil ity June 30, 2023 12:30 PM VA-TOBACCO NEVER USED [facility] Encounter Notes: All associated encounter notes This section contains the clinical notes associated to the Encounter. Date/Time Encounter Note(s) Provider Source Nov 01, 2023 01:15 PM PRIMARY CARE NOTE: LOCAL TITLE: PRIMARY CARE PROVIDER ESTABLISHED VISIT [facility] STANDARD TITLE: PRIMARY CARE NOTE DATE OF NOTE: NOV 01, 2023@13:15 ENTRY DATE: NOV 01, 2023@13:15:09 AUTHOR: EDITH GIBBS EXP COSIGNER: URGENCY: STATUS: COMPLETED ESTABLISHED PATIENT [id number]: REASON FOR VISIT/CHIEF COMPLAINT: 48yo male here for foot exam, last visit June 2023 for new patient visit. non [facility] pcp: Gregorio ([facility]) Sleep med: [place]. HPI: He has a hx of plantar fasciitis, mainly on the left. He also has had bilateral ankle injuries. He reports pain mainly with prolonged walking more than 5k steps per day. He reports pain in the left heel (bottom) and lateral ankles. He has not tried custom inserts or shoes. He reports a concern with his left great toenail. He reports that it will recurrently get black, fall off, and then as it grows back with ingrowing nail issues. He reports it will get back generally due to various activities such as running, jumping, or other minor traumas. WHAT IS YOUR GOAL FOR TODAY? SOURCE(S) OF HISTORY: Patient PAST MEDICAL HISTORY: APOLLO testosterone deficiency FAMILY HISTORY: Reviewed and unchanged. SOCIAL HISTORY: NICOTINE: never ILLICIT DRUGS: none ALCOHOL: none EXERCISE/DIET: not currently MARITAL STATUS: , 2 sons living in home ALLERGIES: Patient has answered NKA ALLERGY REVIEW: Allergy list reviewed and remains current. MEDICATIONS: Active and Recently Outpatient Medications (excluding Supplies): Active Outpatient Medications Status 1) TRAZODONE HCL 100MG TAB TAKE ONE-HALF TABLET BY MOUTH ACTIVE AT BEDTIME FOR INSOMNIA Active Non-VA Medications Status 1) Non-VA TESTOSTERONE CYPIONATE (PA-F) INJ,SOLN DEEP ACTIVE INTRAMUSCULARLY 2 Total Medications MEDICATION RECONCILIATION: I have reviewed the patient's medication list with the patient and/or his/her care-home care giver. Handwritten corrections, additions and/or deletions were made to the list. Corrected Outpatient Medication List was provided to the patient/caregiver. REVIEW OF SYSTEMS: Neg other than as noted in HPI PHYSICAL EXAMINATION: VITALS (most recent, as listed in the electronic record): Temperature: 98.3 F [36.8 C] (11/01/2023 12:41) BP: 119/82 (11/01/2023 12:41) Pulse: 76 (11/01/2023 12:41) Resp: 18 (11/01/2023 12:41) PulsOx: 97% (11/01/2023 12:41) Pain: 0 (11/01/2023 12:41) Weight: Measurement DT WEIGHT LB(KG)[BMI] 11/01/2023 12:41 247.6(112.31)[35*] 06/30/2023 12:33 245(111.13)[34*] Gen: NAD EYE: PERRLA Extremities: adequate ROM, no edema FEET: Left: 1st nail is currently black and thickened, with minor erythema at the base of the nail as well as ingrowing medial nail edge. --left heel and lateral ankle tender --no pes planus Right: mild heel and lateral ankle tenderness, otherwise normal Psych: mood and affect appropriate Neuro: Alert and oriented, CN2-12 grossly intact Skin: Clear and intact DATA REVIEW: HGA1C 5.2 % 06/30/2023 17:22 Lipid Panel: TRIGLYCERIDE 192 H mg/dL 06/30/2023 17:22 CHOLESTEROL 211 H mg/dL 06/30/2023 17:22 HDL(New) 38 L mg/dL 06/30/2023 17:22 CALCULATED LDL 135 mg/dL 06/30/2023 17:22 CMP: SODIUM 138 mEq/L 06/30/2023 17:22 POTASSIUM 3.9 mEq/L 06/30/2023 17:22 CHLORIDE 103 mEq/L 06/30/2023 17:22 UREA NITROGEN 18.0 mg/dL 06/30/2023 17:22 CREATININE 1.15 mg/dL 06/30/2023 17:22 CALCIUM 9.1 mg/dL 06/30/2023 17:22 PROTEIN 7.4 g/dL 06/30/2023 17:22 ALBUMIN 4.4 g/dL 06/30/2023 17:22 ALKALINE PHOSPHATASE 75 U/L 06/30/2023 17:22 ALT/SGPT 41 H U/L 06/30/2023 17:22 AST/SGOT 34 U/L 06/30/2023 17:22 TOTAL BILIRUBIN 0.5 mg/dL 06/30/2023 17:22 CARBON DIOXIDE 25 mEq/L 06/30/2023 17:22 GLUCOSE 81 mg/dL 06/30/2023 17:22 EGFR (CKD-EPI 2020) 78.0 06/30/2023 17:22 CBC: WBC 8.0 10*3/uL 06/30/2023 17:22 RBC 5.74 H 10*6/uL 06/30/2023 17:22 HGB 17.5 H g/dL 06/30/2023 17:22 HCT 50.2 H % 06/30/2023 17:22 MCV 87.5 fL 06/30/2023 17:22 MCH 30.5 pg 06/30/2023 17:22 MCHC 34.9 g/dL 06/30/2023 17:22 RDW 11.9 % 06/30/2023 17:22 PLT 221 10*3/uL 06/30/2023 17:22 MPV 9.6 fL 06/30/2023 17:22 NEUTROPHILS, AUTO % 65 % 06/30/2023 17:22 LYMPHOCYTES, AUTO % 26 % 06/30/2023 17:22 MONOCYTES, AUTO % 8 % 06/30/2023 17:22 EOSINOPHILS, AUTO % 1 % 06/30/2023 17:22 BASOPHILS, AUTO % 0 % 06/30/2023 17:22 NEUTROPHILS, ABSOLUTE 5.16 10*3/uL 06/30/2023 17:22 LYMPHOCYTES, ABSOLUTE 2.06 10*3/uL 06/30/2023 17:22 MONOCYTES, ABSOLUTE 0.66 10*3/uL 06/30/2023 17:22 EOSINOPHILS, ABSOLUTE 0.06 10*3/uL 06/30/2023 17:22 BASOPHILS, ABSOLUTE 0.03 10*3/uL 06/30/2023 17:22 PROST. SPECIFIC AG.(PB-STL) 1.799 ng/mL 06/30/2023 17:22 TSH: No TSH (1YR) EO data found No VITAMIN D EO data found INR: No INR EO data found UA: No URINALYSIS EO data found IM - IMMUNIZATIONS ADMINISTERED Immunization Series Date Facility Reaction Info COVID-19 (MODERNA), MRNA, LNP-S,* 2 07/20/2020 [facility] COVID-19 (MODERNA), MRNA, LNP-S,* 1 06/22/2020 [facility] TDAP 1 11/17/2021 [facility] CONTRAINDICATED No data available REFUSED ======= Immunization Date Facility Info COVID-19 (MODERNA), MRNA, LNP-S,* 06/30/2023 [facility] <I> COVID-19 ([facility]), MRNA, LNP-S, * 11/01/2023 [facility] <I> COVID-19 ([facility]), MRNA, LNP-S, * 06/30/2023 [facility] <I> INFLUENZA, UNSPECIFIED FORMULATI* 11/01/2023 [facility] <I> ZOSTER RECOMBINANT 11/01/2023 [facility] <I> ASSESSMENT/PLAN: 1) Foot pain: Hx of plantar fasciitis, worse on the left, as well as bilateral lateral ankle pain. --also with left great nail that recurrent turns black and may fall off due to minor trauma, which causes pain around the nail and ingrowing of the nail. --would like consult with podiatry regarding foot pain and nail issue. Ultimately would like left great toenail removed and something applied to prevent nail regrowth. --Will get xrays of the feet. Once complete will place consult with podiatry. 2) APOLLO: reports nightly use of CPAP. --reports insomnia has improved with decrease in use of DHEA. RETURN TO CLINIC: as scheduled SUMMARY STATEMENT: Plan of care has been discussed with including expected therapeutic benefits and potential side effects of prescribed medication and treatments. verbalizes understanding and is in agreement with the plan of care. Patient was instructed to keep all scheduled appointments and contact ion implant machine operator for any additional problems. PREVENTION & SCREENING: ALCOHOL: Clinical Reminder not due now or within a month COLORECTAL CANCER: Clinical Reminder not due now or within a month BLOOD PRESSURE: Clinical Reminder not due now or within a month HEMOGLOBIN A1C: Clinical Reminder not due now or within a month /meg/ EDITH GIBBS Staff Physician Signed: 11/01/2023 13:46 [facility] 01, [facility]23 12[facility]42 PM NURSING NOTE: LOCAL TITLE: V15 PACT FACE TO FACE NOTE [facility] STANDARD TITLE: NURSING NOTE DATE OF NOTE: NOV 01, 2023@12:42 ENTRY DATE: NOV 01, 2023@12:42:22 AUTHOR: DEB HAQUE COSIGNER: URGENCY: STATUS: COMPLETED Provider Visit: Patient Identifiers : Full Name Date of Reason for visit: Other: pt has left great toenail that he wants removed Mode of Arrival: Ambulatory Allergy Review: Patient has answered NKA Allergy list reviewed and remains current. Recent Vital Signs: Temperature: 98.3 F [36.8 C] (11/01/2023 12:41) Pulse: 76 (11/01/2023 12:41) Respiration: 18 (11/01/2023 12:41) B/P: 119/82 (11/01/2023 12:41) Pain: 0 (11/01/2023 12:41) Wt: 247.6 lb [112.31 kg] (11/01/2023 12:41) Ht: 71 in [180.3 cm] (11/01/2023 12:41) BMI: 34.6 POX: 97% (11/01/2023 12:41) Would you like to discuss any personal problem, family problem, alcohol use, drug use, or a mental or emotional illness? No Contact provided Primary Care phone number and encouraged to call if any questions or concerns. Review that after hours nurse line ext.[phone] and emergency room are available 29/08 for patient use. Contact verbalized good understanding. COVID-19 Immunization: Refused Pfizer Monovalent COVID-19 vaccine Immunization: COVID-19 (PFIZER), MRNA, LNP-S, PF, BANDAR-SUCROSE, 30 MCG/0.3 ML (AGES 12+ YEARS) Refusal Reason: PATIENT DECISION Patient refuses all immunization(s) in the COVID-19 group Date Documented: 11/01/23 12:44 Influenza Immunization: Deferral / Refusal The patient declines to receive the recommended dose of seasonal influenza vaccine. Immunization: INFLUENZA, UNSPECIFIED FORMULATION Refusal Reason: PATIENT DECISION Patient refuses all immunization(s) in the FLU group Date Documented: 11/01/23 12:45 Herpes Zoster (Shingles) Vaccine: The patient declines to receive the recommended dose of zoster (shingles) vaccine. Immunization: ZOSTER RECOMBINANT Refusal Reason: PATIENT DECISION Patient refuses all immunization(s) in the ZOSTER group Date Documented: 11/01/23 12:46 /meg/ DEB HAQUE LPN LICENSED PRACTIAL NURSE Signed: 11/01/2023 12:46 [facility]
--- OUTSIDE RECORDS SUMMARY | 2024-08-19 16:21 | XMS_ITS | Encounter Summary ---
Author Organization [facility] Address [address] [place] [address] Care Team Providers Care Civil Transportation Engineer Name Role Phone Unavailable Primary Care Provider Unavailabl e Encounter Details Date Type Department Care Team (Late st Contact Info) Description 08/03/2022 Lab Requisition [facility] - DermPath Lab [address] [place] [id number] Emelia Dee MD [address] [place] [address] [address] [place] [id number] Other follicular cysts of the skin and subcutaneous tissue; Other disturbances of skin sensation Social History Tobacco Use Types Packs/Day Years Used Date Smoking Tobacco: Never Assessed Sex and Gender Information Value Date Recorded Sex Assigned at Not on file Legal Sex Male 4:36 PM CDT Gender Identity Not on file Sexual Orientation Not on file documented as of this encounter Plan of Treatment Not on file documented as of this encounter Procedures Procedure Name Priority Date/Time Associated Diagnosis Comments DERMATOPATHOLOGY Routine 08/03/2022 12:0 0 AM CDT Other follicular cysts of the skin and subcutaneous tissue [ICD-10-CM] Other disturbances of skin sensation [ICD-10-CM] documented in this encounter Results * DERMATOPATHOLOGY (08/03/2022 12:00 AM CDT) Case Report Dermatopathology Report Case: [id number] Authorizing Provider: Emelia Dee MD Collected: 08/03/2022 12:00 AM Ordering Location: [facility] DermPath Lab Received: 08/04/2022 04:00 PM Pathologist: María Elena De Leon MD Specimen: Skin, posterior neck 1:44 PM CDT DERMATOPATHOLOGY LABORATORY Final Diagnosis Specimen A. SKIN, posterior neck: EPIDERMOID CYST WITH EVIDENCE OF RUPTURE (L72.0) PRESENT AT MARGIN 1:44 PM CDT DERMATOPATHOLOGY LABORATORY at 1344 CDT Clinical History Cyst 1:44 PM CDT DERMATOPATHOLOGY LABORATORY Gross Description Specimen A: Received is one formalin filled container labeled with the patient's name and designated posterior neck. The specimen consists of a non-oriented ellipse of skin measuring [id number] mm. The epidermal surface is unremarkable. The margin is inked green. The 12 o'clock and 6 o'clock tips are submitted in cassette 1. The remainder of the ellipse is serially sectioned and submitted in cassette 2-3. Jar 0. 1:44 PM CDT DERMATOPATHOLOGY LABORATORY Microscopic Description Specimen A. SKIN, posterior neck: Within the dermis, there is a space lined by epithelium that resembles normal epidermis and the infundibular portion of the hair follicle. Surrounding this is an infiltrate with neutrophils, histiocytes, and multinucleated giant cells. This lesion is present at the base of the specimen in blocks 2 and 3. 1:44 PM CDT DERMATOPATHOLOGY LABORATORY Disclaimer An external and internal positive and negative controls are appropriate for the histochemical, immunohistochemical and immunofluorescence stain(s) in this case (if any), except where stated explicitly. The performance characteristics of the stain(s) cited in this report were developed and its performance characteristic determined by the Dermatopathology Laboratory at [facility], directed by Dr. Terence Hurtado. These tests need not be, and therefore are not, approved by the [place] Food and Drug Administration. The tests are used for clinical purposes. Billing Codes Specimen Charges Stain Charges 18020 1 1:44 PM CDT DERMATOPATHOLOGY LABORATORY Embedded Images 1:44 PM CDT DERMATOPATHOLOGY LABORATORY Pathology/Cytolog y TISSUE SPECIMEN FROM SKIN / Unknown 08/03/2022 08/04/2022 4:00 PM CDT us Emelia Dee MD LAB - PATHOLOGY/CYTOLOGY ORDERAB LES Final Result DERMATOPATHOLOGY LABORATORY [facility] - Department of Dermatology [facility] [phone] documented in this encounter Visit Diagnoses Diagnosis Other follicular cysts of the skin and subcutaneous tissue Other disturbances of skin sensation documented in this encounter
--- NOTE | 2024-08-19 17:44 | ECG_ITS ---
Test Date: 2024-08-19 17:53:20 Measurements Intervals Allen Rate: 81 P: 49 GA: 146 QRS: 51 QRSD: 90 T: 4 QT: 328 QTc: 383 Interpretive Statements SINUS RHYTHM POSSIBLE LEFT ATRIAL ENLARGEMENT [-0.1mV P-WAVE IN V1/V2] BORDERLINE ECG No previous ECG available for comparison Electronically Signed On 08-20-2024 10:05:49 CDT by Denny Rodriguez M.D.
--- NOTE | 2024-08-19 17:57 | ED_ITS ---
HPI - Abdominal Pain General Chief Complaint: Abdominal Pain Stated Complaint: abd pain Time Seen by Provider: 08/19/24 17:44 History of Present Illness HPI narrative: 48-year-old male with no past medical history presents to emergency department with at bedside for upper abdominal pain since this morning. Patient states the pain is diffusely throughout his upper abdomen. He describes the pain as a pressure with intermittent sharp pains. He cannot identify any aggravating or alleviating factors. He had eggs and sausage for breakfast this morning and crackers and Sprite later today without change in symptoms. He took Tums without improvement in his symptoms. He reports associated nausea with no emesis. Last bowel movement was today at 3:00 p.m. and normal. Denies diarrhea, fevers, chest pain or shortness of breath, melena or hematochezia. He does state yesterday he was having some pain to his left scapula region he described as a muscle spasm but that resolved yesterday. Denies injury or trauma. Related Data Allergies Allergy/AdvReac Type Severity Reaction Status Date / Time No Known Allergies Allergy Unknown Verified 08/19/24 16:22 Review of Systems 2 Review of Systems: All systems reviewed & are unremarkable except as noted in HPI and below PMFSH Family History Family History Mother Hypertension Other Diabetes mellitus Social History Social History Smoking status: Never smoker Alcohol intake: never Exam 2 Narrative: GENERAL: Well-appearing, well-nourished, and in no acute distress. HEAD: Normocephalic, atraumatic. EYES: PERRLA and EOMI. ENT: Nares clear, no rhinorrhea or epistaxis. Mucous membranes moist. NECK: Supple. CHEST: Clear to auscultation. No respiratory distress. HEART: Regular rate and rhythm. No murmur heard. Normal peripheral pulses. ABDOMEN: Normoactive bowel sounds. Abdomen soft with tenderness to the RUQ, LUQ and epigastrium. No rebound, guarding or rigidity. No CVA tenderness EXTREMITIES: Normal range of motion. No edema. SKIN: Warm, dry, no rash. NEURO: No focal deficits. Alert and oriented x3 Course Vital Signs Vital signs: Vital Signs Temperature 97.6 F 08/19/24 16:21 Pulse Rate 89 08/19/24 16:21 Respiratory Rate 20 08/19/24 16:21 Blood Pressure 156/99 H 08/19/24 16:21 Pulse Oximetry 98 08/19/24 16:21 Temperature 99.0 F 08/19/24 17:52 Pulse Rate 88 08/19/24 19:15 Respiratory Rate 15 08/19/24 19:15 Blood Pressure 149/94 H 08/19/24 19:01 Pulse Oximetry 96 08/19/24 19:15 Oxygen Delivery Room Air 08/19/24 17:52 MDM - Abdominal Pain MDM Narrative Medical decision making narrative: 48-year-old male with no past medical history presents to the emergency department for upper abdominal pain that started today with associated nausea. See HPI for further history. Vitals with elevated blood pressure, otherwise unremarkable. Patient is afebrile and nontoxic appearing and resting comfortably in exam bed. Exam is notable for the above. CBC with mild leukocytosis of 12.8. Patient is hemoconcentrated with a hemoglobin of 18.6. Fluids provided. Chemistries are unremarkable with normal LFTs and normal lipase. Her urinalysis with trace leuk esterase, otherwise unremarkable. EKG shows normal sinus rhythm with rate of 81 ppm, normal NJ interval, normal QRS duration, QTC, no ischemic changes. Troponin is undetectable. Chest x-ray shows no acute cardiopulmonary findings. 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 There is mild inflammatory change in the pancreatic head versus extension of mesenteric panniculitis. Patient updated on results. He received IV fluids, GI cocktail, Pepcid, Zofran, Toradol. Low suspicion for pancreatitis given normal lipase and liver enzymes. Discussed possibility of gastritis vs mesenteric panniculitis. Will send famotidine and Tylenol to the pharmacy. Advised bland diet, increase fluid intake, refraining from NSAIDs and alcohol and follow-up with GI. Discussed strict ED return precautions. He is agreeable with the plan verbalized understanding. Discharged in stable condition. Lab Data 08/19/24 18:00 08/19/24 18:11 Labs: Lab Results 08/19/24 08/19/24 Range/Units 18:00 18:11 WBC 12.8 H (4.5-10.0) K/mm3 RBC 6.15 (4.6-6.20) M/mm3 Hgb 18.6 H (14.0-18.0) g/dL Hct 53.5 H (42.0-52.0) % MCV 87.0 (80-100) fl MCH 30.2 (26-34) pg MCHC 34.8 (32-36) g/dl RDW 12.5 (11.5-14.5) % Plt Count 201 (150-375) k/mm3 MPV 9.1 (7.4-10.4) fl Immature Gran % (Auto) 0.5 (0-0.5) % Neut % (Auto) 79.3 H (45.5-73.1) % Lymph % (Auto) 12.4 L (18.3-44.2) % Bibb % (Auto) 7.3 (2.6-8.5) % Eos % (Auto) 0.3 (0-4.4) % Baso % (Auto) 0.2 (0.2-1.2) % Lymph # (Auto) 1.59 (0.9-3.2) K/mm3 Bibb # (Auto) 0.9 H (0.1-0.6) K/mm3 Eos # (Auto) 0.0 (0-0.3) K/mm3 Baso # (Auto) 0.0 (0.0-0.1) K/mm3 Abs Immat Gran (auto) 0.07 H (0.00-0.031) K/mm3 Absolute Neuts (auto) 10.2 H (1.3-6.7) K/mm3 Absolute Nucleated RBC 0.000 (0.0-0.012) K/mm3 Nucleated RBC % 0.0 (0.0-0.2) % PT 13.6 (11.1-14.7) Seconds INR 1.0 APTT 29.2 (22.3-36.8) Seconds Sodium 138 (137-145) mmol/L Potassium 4.2 (3.4-5.0) mmol/L Chloride 100 (98-107) mmol/L Carbon Dioxide 29 (22-30) mmol/L Anion Gap 9 (4-12) mmol/L BUN 17 (9-20) mg/dL Creatinine 1.20 1.30 (0.7-1.3) mg/dL Estim Creat Clear Calc 87 80 ml/min Estimated GFR > 60 58 L (59 - ) Glucose 104 (65-110) mg/dL Calcium 10.0 (8.4-10.2) mg/dL Total Bilirubin 0.6 (0.2-1.3) mg/dL AST 38 (17-59) U/L ALT 35 (6-50) U/L Alkaline Phosphatase 59 (38-126) U/L Troponin I < 0.012 (0.000-0.034) ng/mL Total Protein 8.0 (6.3-8.2) g/dL Albumin 4.6 (3.5-5.1) g/dL Lipase 114 (23-300) U/L Urine Color Yellow (Yellow) Urine Appearance Clear (Clear) Urine pH 6.5 (5.0-9.0) Ur Specific [place] 1.019 (1.001-1.035) Urine Protein Negative (Negative) mg/dL Urine Glucose (UA) Negative (Negative) mg/dL Urine Ketones Negative (Negative) mg/dL Ur Blood (Man) Negative (Negative) Urine Nitrate Negative (Negative) Urine Bilirubin Negative (Negative) Urine Urobilinogen 0.2 (<2.0) mg/dL Leukocyte Esterase Rfl Trace H (Negative) GLENN/UL Urine RBC 0-2 (0-2) /hpf Urine WBC 0-5 (0-3) /hpf Ur Squamous Epith Cells None seen (Few) /hpf Urine Bacteria None seen /hpf Urine Casts 0-2 Imaging Data Radiologist's impression: ITS Impressions Chest X-Ray 08/19/24 18:08 IMPRESSION: No acute cardiopulmonary process. Abdomen/Pelvis CT 08/19/24 18:25 IMPRESSION: Mesenteric panniculitis. Mild inflammatory change at the pancreatic head, may represent mild bronchitis versus extension of the mesenteric panniculitis. Discharge Plan Discharge Clinical Impression: Abdominal pain, epigastric, Mesenteric panniculitis Patient Disposition: Home Condition: Stable Instructions: Antibiotic Form, Diet for Stomach Ulcers and Gastritis (ED), Epigastric Pain (ED) Additional Instructions: Please take the medications as directed. Drink plenty fluids. Refrain from spicy foods, fatty foods, NSAIDs such as ibuprofen/Advil/Motrin, Aleve/naproxen. Follow-up closely with the GI physician I have referred you to in addition to your PCP. Return to the emergency department if you develop worsening pain, fever, you are unable to tolerate food or fluids, or other concerning symptoms. Patient Language: Vietnamese Prescriptions: New ondansetron 4 mg tablet,disintegrating 4 mg PO Q8H Qty: 14 0RF famotidine 20 mg tablet 20 mg PO DAILY Qty: 14 0RF acetaminophen 500 mg capsule 500 mg PO Q6H PRN (Reason: pain) Qty: 14 0RF No Action lorazepam [Ativan] 0.5 mg tablet 0.5 mg PO HS PRN (Reason: sleep) 2 Days Qty: 2 0RF cephalexin 500 mg capsule 500 mg PO Q6H 7 Days Qty: 28 0RF sulfamethoxazole-trimethoprim [Bactrim DS] 800-160 mg tablet 1 tablet PO Q12H 7 Days Qty: 14 0RF Follow-up/Referrals: Gregorio,Costa Das MD [Non-Staff] - Otoniel Vela MD [Physician] -
[2024-08-19 18:08] LABS: Hematocrit 53.5 % (42.0-52.0); Hemoglobin 18.6 g/dL (14.0-18.0); Immature Granulocyte Percent A 0.5 % (0-0.5); Lymphocytes Absolute Auto 1.59 K/mm3 (0.9-3.2); Mean Corpuscular HGB Conc 34.8 g/dl (32-36); Mean Corpuscular Hemoglobin 30.2 pg (26-34); Mean Corpuscular Volume 87.0 fl (80-100); Nucleated Red Blood Cells Absolute Auto 0.000 K/mm3 (0.0-0.012); Nucleated Red Blood Cells Perc 0.0 % (0.0-0.2); Platelet Count Result 201 k/mm3 (150-375); Red Blood Count 6.15 M/mm3 (4.6-6.20); White Blood Count 12.8 K/mm3 (4.5-10.0)
[2024-08-19 18:13] LABS: Estimated CRCL calculation 80 ml/min; Estimated Glomerular Filt Rate 58
[2024-08-19 18:14] LABS: Add Urine Microscopic? YES; Appearance Urine Clear (Clear); Glucose Urine UA Negative (Negative); Leukocyte Esterase Ur Trace LEU/UL (Negative); Nitrate Urine Negative (Negative); Non Pathogenic Casts 0-2; Specific Grav Ur 1.019 (1.001-1.035)
--- OUTSIDE RECORDS SUMMARY | 2024-08-19 18:14 | XMS_ITS | Clinical Summary ---
Author Organization [facility] Address [address] [place] [address] Care Team Providers Care Hospital Account Liaison Name Role Phone Unavailable Primary Care Provider Unavailabl e Source Comments [facility],non-owned Affiliates and Associated Physician Practices is amultiple site organization consisting of ambulatory clinics and hospital sitesin [place], [place], [place] and [place]. This disclosure is being madepursuant to the Care Everywhere program and may not contain all information available regarding this patient. Last updated 17.[facility] Social History Tobacco Use Types Packs/Day Years [...]
--- OUTSIDE RECORDS SUMMARY | 2024-08-19 18:14 | XMS_ITS | Encounter Summary ---
Author Organization [facility] Address [address] [place] [address] Care Team Providers Care Finish Remover Name Role Phone Unavailable Primary Care Provider Unavailabl e Encounter Details Date Type Department Care Team (Late st Contact Info) Description 08/03/2022 Lab Requisition [facility] - DermPath Lab [address] [place] [id number] Emelia Dee MD [address] [place] [address] [place] [id number] Other follicular cysts of the skin and [...] AM CDT) Case Report Dermatopathology Report Case: [id number] Authorizing Provider: Emelia Dee MD Collected: 08/03/2022 12:00 AM Ordering Location: [facility] [place] [facility] DermPath Lab Received: 08/04/2022 04:00 PM Pathologist: [...] of a non-oriented ellipse of skin measuring [id number] mm. The epidermal surface is unremarkable. The [...] characteristic determined by the Dermatopathology Laboratory at [facility], directed by Dr. Terence Hurtado. These tests need not be, and therefore are not, approved by the [place] Food and Drug Administration. The tests are used for clinical purposes. Billing Codes Specimen Charges Stain Charges 21351 1 1:44 PM CDT DERMATOPATHOLOGY LABORATORY Embedded Images 1:44 PM CDT DERMATOPATHOLOGY LABORATORY Pathology/Cytolog y TISSUE SPECIMEN FROM SKIN / Unknown 08/03/2022 08/04/2022 4:00 PM CDT us Emelia Dee MD LAB - PATHOLOGY/CYTOLOGY ORDERAB LES Final Result DERMATOPATHOLOGY LABORATORY [facility] - Department of Dermatology [facility] Medicine [facility] [facility], 3rd Floor [address] [phone] documented in this encounter Visit Diagnoses Diagnosis Other follicular cysts of the skin and subcutaneous tissue Other disturbances of skin sensation documented in this encounter
--- OUTSIDE RECORDS SUMMARY | 2024-08-19 18:14 | XMS_ITS | Encounter Summary ---
Author Organization [facility] Address [facility] [place] [address] Care Team Providers Care Nutrition Instructor Name Role Phone Deuce Cole DO Primary Care Provider [phone] Encounter Details Date Type Department Care Team (Latest Contact Info) Description 08/18/2024 Results Follow-Up [facility] Family Medicine - [place] [address] [place] [address] Deuce Cole DO [address] [place] [address] CBC W/AUTO DIFF, COMPREHENSIVE METABOLIC PANEL, TESTOSTERONE, [...] st Contact Info) Description 01/15/2025 3:20 PM CRAYON SORTING MACHINE FEEDER Office Visit [facility] Family Medicine - [place] [address] [facility] [place] [address] Deuce Cole DO [address] [place] [address] Scheduled Orders Name Type Priority Associated Diagnoses [...] Depression Total Score: 0 01/15/20 10:48 AM CRAYON SORTING MACHINE FEEDER documented as of this encounter Care Teams Nutrition Instructor Relationship Specialty Start Date End Date [place] [address] PCP - General FAMILY PRACTICE 11/22/23 documented as of this encounter
--- OUTSIDE RECORDS SUMMARY | 2024-08-19 18:14 | XMS_ITS | Clinical Summary ---
Author Organization [facility] Address [address] [place] [address] Care Team Providers Care Music Coordinator Name Role Phone Hank Hernandez DO Primary Care Provider [phone] Allergies No known active allergies Medications Multiple [...] Department Care Team Description 08/18/2024 Results Follow-Up [facility] [address] [place] [phone] Hank Hernandez, DO CBC W/AUTO DIFF, COMPREHENSIVE METABOLIC PANEL, TESTOSTERONE, FREE & TOTAL, PSA, TOTAL AND FREE 08/08/2024 Orders Only [address] [address] Hank Hernandez, DO 07/02/2024 Scan [...] st Contact Info) Description 01/15/2025 3:20 PM LONGWALL HEADGATE OPERATOR Office Visit [facility] Family Medicine - [address] [address] Hank Hernandez DO [address] [place] [address] Health Maintenance Due Date Last Done Comments Colorectal Cancer Screening Colonoscopy (10 Years) 1975 Annual Physical 1976 COVID-19 Vaccine (3 - 2023- season) 2023 07/20/2020, 06/22/2020 Pneumococcal Vaccine: 50+ Years (1 of 1 - PCV) 10/16/2023 Zoster Vaccines (1 of 2) 10/16/2023 PHQ-2 (Physician [place]) 02/07/2024 01/15/2024 DTaP, Tdap and Td Vaccines [...] W/RFX TO HCV RNA 02/06/2024 8:20 AM LONGWALL HEADGATE OPERATOR from Last 3 Months or Most Recently [...] have assigned CBC with Differential/Platelet, Test Code #[id number] to this request. If this is not the testing you wished to receive on this specimen, please contact the [facility] Client Inquiry/ Technical Services Department to clarify the test order. We appreciate your business. 08/08/2024 9:24 AM CDT 08/08/2024 Narrative [facility] - 08/11/2024 2:08 PM CDT Performed at: 01 - [facility] [id number] Professor Of Anthropology: Everett Hernandez PhD, Phone: [phone] Hank Hernandez DO LABORATORY Final Resul t Performing Organization Address [facility] de Phone Number [facility] [address] [place] [address] [facility] 1 * (ABNORMAL) TESTOSTERONE, FREE & TOTAL (08/08/2024 9:24 AM CDT) TESTOSTERONE 1,340(H) 264 - 916 ng/dL [facility] 1 Comment: Adult male reference interval is based on a population of healthy nonobese males (BMI <30) between 19 and 39 years old. joni Ulrich.al. JCEM 2017,102;9800-9588. PMID: [id number]. TESTOSTERONE FREE 27.5(H) 7.2 - 24.0 pg/mL [facility] 2 08/08/2024 9:24 AM CDT 08/08/2024 Narrative [facility] - 08/11/2024 2:08 PM CDT Performed at: - [address] [id number] Professor Of Anthropology: Everett Hernandez PhD, Phone: [phone] Performed at: - [facility] [id number] Professor Of Anthropology: Fanta Garcia MD, Phone: [phone] Hnak Hernandez DO LABORATORY Final Resul t Performing Organization Address [facility] Co de Phone Number [facility] [address] [place] [address] [facility] 1 [facility] 2 * COMPREHENSIVE METABOLIC [...] 08/11/2024 2:08 PM CDT Performed at: [address] [id number] Professor Of Anthropology: Everett Hernandez PhD, Phone: [phone] us Hank Hernandez DO LABORATORY Final Resul t [facility] [address] [place] [address] [facility] 1 * PSA, TOTAL AND FREE (08/08/2024 9:24 AM CDT) Pathologist [facility] PSA 1.8 0.0 - 4.0 ng/mL [facility] 1 Comment: Mandeep ECLIA methodology. According to the [place] [employer], Serum PSA should decrease and [...] - 08/11/2024 2:08 PM CDT Performed at: [facility] [id number] Professor Of Anthropology: Everett Hernandez PhD, Phone: [phone] Hank Hernandez DO LABORATORY Final Resul t Performing Organization Address [facility] de Phone Number [facility] [address] [place] [address] [facility] 1 * HEPATITIS C ANTIBODY W/RFX TO HCV RNA (02/06/2024 8:20 AM LONGWALL HEADGATE OPERATOR) HEPATITIS C AB Non Reactive Non Reacti [facility] 1 INTERPRETATION Comment [facility] 1 Comment: Not infected with HCV unless early or acute infection is suspected (which may be delayed in an immunocompromised individual), or other evidence exists to indicate HCV infection. 02/06/2024 8:20 AM LONGWALL HEADGATE OPERATOR 02/06/2024 Narrative [facility] - 02/10/2024 4:07 AM LONGWALL HEADGATE OPERATOR Performed at: [facility] [address] [id number] Professor Of Anthropology: Everett Hernandez PhD, Phone: [phone] Hank Hernandez DO LABORATORY Final Resul t Performing Organization Address [facility] Co de Phone Number [facility] [address] [place] [address] [facility] 1 from Last 3 Months or Most Recently Relevant to Health Maintenance Insurance Care Teams Music Coordinator Relationship Specialty Start Date End Date Hank Hernandez DO [address] [place] [address] PCP - General FAMILY PRACTICE 11/22/23
--- OUTSIDE RECORDS SUMMARY | 2024-08-19 18:15 | XMS_ITS | Referral Summary ---
Author Organization [facility] Address [address] [place] [address] Care Team Providers Care Pressure Washer Name Role Phone Heena Durant OT Unavailable [phone] Allergies No known active allergies Medications testosterone cypionate (DEPO-TESTOTERO NE) 100 mg/mL injection Inject 1 mL (100 mg total) into the muscle as instructed every 14 (fourteen) days 100mg/0.5ml Active Active Problems Problem Noted Date Diagnosed Date Special screening for malignant neoplasms, colon 05/10/2022 Overview (05/10/2022): Added automatically from request for surgery [id number] Blood clot of left ear 05/04/2022 Psychophysiological [...] Perkins, - 09/22/2022 7:24 AM CDT [facility] Patient Name: Robert Carter Procedure Date: 09/22/2022 7:24 AM Date of : 1975 Admit Type: Outpatient Age: 46 Gender: Male Attending MD: Costa Perkins D.O. Room: [facility] ENDOSCOPY ROOM 05 Note Status: Finalized [...] On: 09/22/2022 7:24 AM Recognized by the [employer] for promoting quality [...] last revised 21. Testing performed by: [facility], [address] [place] [address]., [address] Blood 05/16/2022 7:49 AM CDT 05/16/2022 9:52 AM CDT Costa Perkins DO LAB BLOOD ORDERABLES Fin al Result [facility] JIN [address] [facility] Department [place] [address] from Last 3 Months or Most Recently Relevant to Health Maintenance Insurance [facility] Care Teams Pressure Washer Relationship Specialty Start Date End Date Heena Durant OT [address] [address] Occupational Therapist Occupational Therapy 07/14/17
--- OUTSIDE RECORDS SUMMARY | 2024-08-19 18:15 | XMS_ITS | Clinical Summary ---
Author Organization [facility] Address [facility] [place] [address] Care Team Providers Care Residential Interior Designer Name Role Phone Heena Durant OT Unavailable [phone] Allergies No known active allergies Medications testosterone cypionate (DEPO-TESTOTERO NE) 100 mg/mL injection Inject 1 mL (100 mg total) into the muscle as instructed every 14 (fourteen) days 100mg/0.5ml Active Active Problems Problem Noted Date Diagnosed Date Special screening for malignant neoplasms, colon 05/10/2022 Overview (05/10/2022): Added automatically from request for surgery [id number] Blood clot of left ear 05/04/2022 Psychophysiological [...] Costa Perkins, - 09/22/2022 7:24 AM CDT [facility] Patient Name: Robert Carter Procedure Date: 09/22/2022 7:24 AM Date of : 1975 Admit Type: Outpatient Age: 46 Gender: Male Attending MD: Costa Perkins ,Jaqueline.O. Room: [facility] ENDOSCOPY ROOM 05 Note Status: Finalized Procedure: [...] On: 09/22/2022 7:24 AM Recognized by the [employer]intestinal [employer]oscopy for promoting quality [...] data last revised 21. Testing performed by: [facility], [address] [place] [address]., [address] Blood 05/16/2022 7:49 AM CDT 05/16/2022 9:52 AM CDT Costa Perkins DO LAB BLOOD ORDERABLES Fin al Result Performing Organization Address City/State/[facility] Co de Phone Number MIKEY [address] [facility] [place] [address] from Last 3 Months or Most Recently Relevant to Health Maintenance Insurance [employer] [facility] Care Teams Residential Interior Designer Relationship Specialty Start Date End Date Heena Durant OT [address] [address] Occupational Therapist Occupational Therapy 07/14/17
--- OUTSIDE RECORDS SUMMARY | 2024-08-19 18:15 | XMS_ITS | Continuity of Care Document ---
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 It does not include entries that were removed or entered in error. Problem Status Onset Date Problem Type Date of Resolution Comments Source Obstructive sleep apnea of adult Active Condition [facility] ANKLE SPRAIN LEFT Active Condition DoD [...] SPRAIN MEDIAL COLLATERAL LIGAMENT RIGHT Inactive Condition [facility] visit for: administrative purpose Inactive Condition DoD visit for: screening exam Active Condition DoD SKIN DISORDER EXANTHEM Active Condition DoD visit for: laboratory Active Condition [facility] Patient Education - Alcohol Active Condition DoD Anticipatory Guidance: Inadequate Physical Activity Active Condition DoD Patient Education - Injury Prevention Active Condition [facility] visit for: services physical Inactive Condition DoD Food Sources For Nutrients Active Condition DoD Tetanus toxoid - need for vaccination Active Condition [facility] visit for: issue medical certificate Inactive Condition [facility] visit for: screening exam pulmonary tuberculosis Active Condition DoD Need For Vaccination Hepatitis B Active Condition [facility] visit for: issue medical certificate fitness Active [...] BACKACHE Inactive Condition r/o nephrolithiasis , pleuresy. [facility] Patient Education Active Condition [facility] Serum Total Cholesterol Was Elevated Active Condition Pt denies tob, is not >45, has no fhx of CAD, no hx of HTN so LDL goal is <160. no meds indicated at this time. Diet and exercise counselling provided. Healthy diet handout given. [facility] ACUTE LYMPHADENITIS Inactive Condition Motrin or Tylenol OTC for pain PRN. [facility] HAND SPRAIN Inactive Condition No evide nce of fracture on film./ Recommend R.I.C.E. Motrin for pain. RTC in one week if still painful. [facility] PSYCHIATRIC DIAGNOSIS OR CONDITION DEFERRED ON AXIS I Active Condition [facility] Diagnosis: ICD-10-CM M25.572 Pain in left ankle and joints of left foot Active Diagnosis [facility] Diagnosis: ICD-10-CM Z71.9 Counseling, unspecified Active Diagnosis [facility] Diagnosis: ICD-10-CM R20.2 Paresthesia of skin Active Diagnosis [facility] Medications Combined list of outpatient medications from Department of [facility] and [facility] Affairs facilities.Medications provided include 1) outpatient medications from the last 15 months, and 2) patient-reported medications. Medication Details Route Status Patient Instructions Prescription Expires Prescription Number Last Dispense Date Ordering Provider Order Date Order Qty Source DEHYDROEPIA NDROSTERONE (DHEA) CAP/TAB TAKE 1 CAP/TAB BY MOUTH ORAL ACTIVE Rohit GIBBS 2023 [facility] MELATONIN 3MG CAP/TAB TAKE ONE CAP/TAB BY MOUTH AT BEDTIME FOR SLEEP ORAL DISCONT INUED BY PROVIDE R 08/16/2024 [id number] MIMSCHRISTIANO KAYLEE R 2023 60 [facility] TESTOSTERON E CYPIONATE (PA-F) INJ,SOLN INJECT DEEP INTRAMUS CULARLY INTRAM USCULA R ACTIVE ME SHERRI TTISA 2023 [facility] TRAZODONE HCL 100MG TAB TAKE ONE-HALF TABLET BY MOUTH AT BEDTIME FOR INSOMNIA ORAL 11/15/2023 [id number] PRASANNACHRISTIANO KAYLEE R 2023 45 [facility] Allergies, Adverse Reactions, Alerts Combined list of allergies from Department of Defense and Veterans Affairs facilities. It does not include entries that were removed or entered in error. Substance Category Reaction Severity Reaction type Status Date Reported Comments Source NO OUTPUT FOR NCID [id number] Drug allergy (disorder) active 09/24/2007 [facility] [place] Immunizations Combined list of available immunizations from the Department of Defense and Veterans Affairs facilities. Immunization Series Date Given Administered By Site Reaction Lot Number CVX Code Drug Provider Scribe Status Comments Source TDAP 1 2021 115 complet ed HISTORICA L INFORMATI ON - [facility] COVID-19 (MODERNA), MRNA, LNP-S, PF, 100 MCG/0.5ML DOSE OR 50 MCG/0.25ML DOSE 2 2020 207 complet ed HISTORICA L INFORMATI ON - [facility] COVID Vaccine Moderna 2020 207 complet ed COVID Vaccine Moderna 07/19/20 Given Ambulat ory Pharmac y COVID-19, mRNA, LNP-S, PF, 100 mcg or 50 mcg dose 2020 [employer] (MOD) Not Given COVID-19, mRNA, LNP-S, PF, 100 mcg or 50 mcg dose DoD COVID Vaccine Moderna 2020 207 complet ed COVID Vaccine Moderna 06/22/20 Given Ambulat ory Pharmac y COVID-19 (MODERNA), MRNA, LNP-S, PF, 100 MCG/0.5ML DOSE OR 50 MCG/0.25ML DOSE 1 2020 207 complet ed HISTORICA L INFORMATI ON - FROM [facility] COVID-19, mRNA, LNP-S, PF, 100 mcg or 50 mcg dose 2020 [employer] (MOD) Not Given COVID-19, mRNA, LNP-S, PF, 100 mcg or 50 mcg dose DoD influenza, injectable, quadrivalent- pf 2018 [id number] 150 Se[employer]irus complet ed influenza , injectabl e, quadrival ent-pf 01/24/19 Given Ambulat ory Pharmac y tetanus-dipht h toxoids (Td) adult/adol 2018 [id number] 09 sanofi pasteur complet ed tetanus-d iphth toxoids (Td) adult/ado l 01/24/19 Given Ambulat ory Pharmac y tetanus and diphtheria toxoids, adsorbed, preservative free, for adult use (2 Lf of tetanus toxoid and 2 Lf of diphtheria toxoid) 4 2018 [id number] Sanofi Pasteur (PMC) complet ed tetanus and diphtheri a toxoids, adsorbed, preservat meghna free, for adult use (2 Lf of tetanus toxoid and 2 Lf of diphtheri a toxoid) DoD Influenza, injectable, quadrivalent, preservative free 22 2018 [id number] 150 Seqirus (SEQ) complet ed Influenza , injectabl e, quadrival ent, preservat meghna free DoD influenza, injectable, quadrivalent- pf 2017 [id number] 150 Se[employer] complet ed influenza , injectabl e, quadrival ent-pf 12/01/17 Given Ambulat ory Pharmac y Influenza, injectable, quadrivalent, preservative free 21 2017 [id number] 150 Se[employer]irus (SEQ) comple t ed Influenza , injectabl e, quadrival ent, preservat meghna free DoD influenza virus vaccine, unspecified 2017 [id number] 88 complet ed influenza virus vaccine, unspecifi ed 02/10/17 Given Ambulat ory Pharmac y influenza virus vaccine, unspecified formulation 1 2017 88 Transcribed (TRS) complet ed influenza virus vaccine, unspecifi ed formulati on DoD influenza, seasonal, injectable-pf 2015 [id number] 140 Se[employer]irus complet ed influenza , seasonal, injectabl e-pf 12/22/15 Given Ambulat ory Pharmac y anthrax vaccine 2015 [id number] 24 [employer] complet ed anthrax vaccine 12/22/15 Given Ambulat ory Pharmac y anthrax vaccine 6 2015 [id number] 24 [employer] Armstrong (MIP) complet ed anthrax vaccine DoD Influenza, seasonal, injectable, preservative free 19 2015 [id number] 140 Seqirus (SEQ) comple t ed Influenza , seasonal, injectabl e, preservat meghna free DoD influenza, live, intranasal,qu adrivalent 2014 [id number] 149 Medimmune Inc comple t ed influenza , live, intranasa l,quadriv alent 12/18/14 Given Ambulat ory Pharmac y influenza, live, intranasal, quadrivalent 18 2014 [id number] 149 MedImmune, Inc. (MED) complet ed influenza , live, intranasa l, quadrival ent DoD influenza, live, intranasal,qu adrivalent 2014 [id number] 149 Medimmune Inc comple t ed influenza , live, intranasa l,quadriv alent 03/05/14 Given Ambulat ory Pharmac y influenza, live, intranasal, quadrivalent 17 2014 [id number] 149 MedImmune, Inc. (MED) complet ed influenza , live, intranasa l, quadrival ent DoD poliovirus vaccine, inactivated 2013 [id number] 10 sanofi pasteur complet ed polioviru s vaccine, inactivat ed 09/17/13 Given Ambulat ory Pharmac y poliovirus vaccine, inactivated 2 2013 [id number] 10 Sanofi Pasteur (PMC) complet ed polioviru s vaccine, inactivat ed DoD yellow fever vaccine 2013 [id number] 37 sanofi pasteur complet ed yellow fever vaccine 07/24/13 Given Ambulat ory Pharmac y yellow fever vaccine 2 2013 [id number] 37 Sanofi Pasteur (PMC) complet ed yellow fever vaccine DoD meningococcal A,C,Y,W-135 (MCV4P) 2013 [id number] 114 sanofi pasteur complet ed meningoco ccal A,C,Y,W-1 35 (MCV4P) 07/19/13 Given Ambulat ory Pharmac y meningococcal polysaccharid e (groups A, C, Y and W-135) diphtheria toxoid conjugate vaccine (MCV4P) 2 2013 [id number] 114 Sanofi Pasteur (PMC) complet ed meningoco ccal polysacch aride (groups A, C, Y and W-135) diphtheri a toxoid conjugate vaccine (MCV4P) DoD vaccinia (smallpox) vaccine 2013 VV04-00 3A 75 [employer] complet ed vaccinia (smallpox ) vaccine 03/05/13 Given Ambulat ory Pharmac y vaccinia (smallpox) vaccine 2 2013 VV04-00 3A 75 [facility] complet ed vaccinia (smallpox ) vaccine DoD typhoid Vi capsular polysaccharid e vac 2013 [id number] 101 sanofi pasteur complet ed typhoid Vi capsular polysacch aride vac 02/14/13 Given Ambulat ory Pharmac y vaccinia (smallpox) vaccine 2013 VV04-00 3A 75 [employer] complet ed vaccinia (smallpox ) vaccine 02/14/13 Given Ambulat ory Pharmac y anthrax vaccine 2013 [id number] 24 [employer] complet ed anthrax vaccine 02/14/13 Given Ambulat ory Pharmac y measles/mumps /rubella virus vaccine 2013 [id number] 03 [employer] complet ed measles/m umps/rube lla virus vaccine 02/14/13 Given Ambulat ory Pharmac y measles, mumps and rubella virus vaccine 2 2013 [id number] 03 [employer] (MSD) complet ed measles, mumps and rubella virus vaccine DoD anthrax vaccine 5 2013 [id number] 24 [employer] Armstrong ([facility]) complet ed anthrax vaccine DoD vaccinia (smallpox) vaccine 1 2013 VV04-00 3A 75 [facility]) complet ed vaccinia (smallpox ) vaccine DoD typhoid Vi capsular polysaccharid e vaccine 2 2013 [id number] 101 Sanofi Pasteur ([facility]) complet ed typhoid Vi capsular polysacch aride vaccine DoD influenza, live, intranasal,qu adrivalent 2012 [id number] 149 Medimmune Inc comple t ed influenza , live, intranasa l,quadriv alent 11/28/12 Given Ambulat ory Pharmac y influenza, live, intranasal, quadrivalent 16 2012 [id number] 149 [employer] (MED) complet ed influenza , live, intranasa l, quadrival ent DoD influenza, seasonal, injectable 2011 [id number] 141 sanofi pasteur complet ed influenza , seasonal, injectabl e 11/10/11 Given Ambulat ory Pharmac y Influenza, seasonal, injectable 1 2011 [id number] 141 Sanofi Pasteur (PMC) complet ed Influenza , seasonal, injectabl e DoD influenza, seasonal, injectable-pf 2010 [id number] 140 sanofi pasteur complet ed influenza , seasonal, injectabl e-pf 11/04/10 Given Ambulat ory Pharmac y Influenza, seasonal, injectable, preservative free 14 2010 [id number] 140 Sanofi Pasteur ([facility]) complet ed Influenza , seasonal, injectabl e, preservat meghna free DoD influenza virus vaccine, live 2009 [id number] 111 [employer] comple t ed influenza virus vaccine, live 12/10/09 Given Ambulat ory Pharmac y influenza virus vaccine, live, attenuated, for intranasal use 1 2009 [id number] 111 [employer] (MED) complet ed influenza virus vaccine, live, attenuate d, for intranasa l use DoD Novel influenza-H1N 1-09, injectable 2009 [id number] 1 127 Novartis Pharmaceutica ls complet ed Novel influenza -T7C9-49, injectabl e 02/26/09 Given Ambulat ory Pharmac y Novel influenza-H1N 1-09, injectable 1 2009 [id number] 1 127 Novartis Cloud [employer] Haley. (NOV) complet ed Novel influenza -[id number], injectabl e DoD HepB, Adult 2009 [id number] 2AA 43 GlaxoSmithKli ne complet ed HepB, Adult 02/16/09 Given Ambulat ory Pharmac y hepatitis B vaccine, adult dosage 3 2009 [id number] 2AA 43 [facility] (SKB) complet ed hepatitis B vaccine, adult dosage DoD influenza virus vaccine, live 2008 [id number] 111 [employer] comple t ed influenza virus vaccine, live 11/11/08 Given Ambulat ory Pharmac y influenza virus vaccine, live, attenuated, for intranasal use 1 2008 [id number] 111 [employer] Inc. (MED) complet ed influenza virus vaccine, [...] virus vaccine, unspecified 2007 zPeter cazares Arm [id number] 88 [employer] complet ed influenza virus vaccine, unspecifi ed 01/30/08 Given Ambulat ory Pharmac y influenza virus vaccine, unspecified formulation 1 2007 BARRINGTON GOODMAN [id number] 88 [employer] Inc[employer] (MED) complet ed influenza virus vaccine, unspecifi ed formulati on DoD influenza virus vaccine,split 2007 [id number] 15 sanofi pasteur complet ed influenza virus vaccine,s plit 01/21/08 Given Ambulat ory Pharmac y influenza virus vaccine, split virus (incl. purified surface antigen)-reti red CODE 0 2007 [id number] 15 Sanofi Pasteur ([facility]) complet ed influenza virus vaccine, split virus (incl. purified surface antigen)- retired CODE DoD influenza virus vaccine, live 2006 [id number] 111 [employer] comple t ed influenza virus vaccine, live 12/04/06 Given Ambulat ory Pharmac y influenza virus vaccine, live, attenuated, for intranasal use 0 2006 [id number] 111 [employer] Partners, M_SOLUTION. (MED) complet ed influenza virus vaccine, live, attenuate d, for intranasa l use DoD varicella virus vaccine 0 2006 21 () Not Given varicella virus vaccine DoD measles/mumps /rubella virus vaccine 2006 [id number] 03 [employer] complet ed measles/m umps/rube lla virus vaccine 09/19/06 Given Ambulat ory Pharmac y measles, mumps and rubella virus vaccine 1 2006 [id number] 03 Merck (MSD) complet ed measles, mumps and rubella virus vaccine DoD influenza virus vaccine, live 2005 [id number] 111 [employer] comple t ed influenza virus vaccine, live 11/25/05 Given Ambulat ory Pharmac y influenza virus vaccine, live, attenuated, for intranasal use 1 2005 [id number] 111 [employer]. (MED) complet ed influenza virus vaccine, live, attenuate d, for intranasa l use [facility] influenza virus vaccine, whole virus 2004 [id number] 16 sanofi pasteur complet ed influenza virus vaccine, whole virus 12/14/04 Given Ambulat ory Pharmac y influenza virus vaccine,split 2004 [id number] 15 sanofi pasteur complet ed influenza virus vaccine,s plit 12/14/04 Given Ambulat ory Pharmac y influenza virus vaccine, split virus (incl. purified surface antigen)-reti red CODE 1 2004 [id number] 15 Sanofi Pasteur ([facility]) complet ed influenza virus vaccine, split virus (incl. purified surface antigen)- retired CODE DoD influenza virus vaccine, whole virus 1 2004 [id number] 16 Sanofi Pasteur ([facility]) complet ed influenza virus vaccine, whole virus DoD influenza virus vaccine, live 2004 [id number] 111 [employer] comple t ed influenza virus vaccine, live 03/08/04 Given Ambulat ory Pharmac y influenza virus vaccine, live, attenuated, for intranasal use 0 2004 [id number] 111 [employer] (MED) complet ed influenza virus vaccine, live, attenuate d, for intranasa l use DoD tuberculin purified protein derivative 2003 zzLef t Arm [id number] 96 sanofi pasteur complet ed Patient Tolerance : Negative Ambulat ory Pharmac y tuberculin skin test; purified protein derivative solution, intradermal 1 2003 Unknown, Provider [id number] 96 Sanofi Pasteur (PMC) complet ed tuberculi n skin test; purified protein derivativ e solution, intraderm al DoD tuberculin purified protein derivative 2003 [id number] 96 sanofi pasteur complet ed tuberculi n purified protein derivativ e 04/08/03 Given Ambulat ory Pharmac y anthrax vaccine 2003 [id number] 24 [employer] complet ed anthrax vaccine 04/08/03 Given Ambulat ory Pharmac y anthrax vaccine 5 2003 [id number] 24 [employer] ([facility]) complet ed anthrax vaccine DoD influenza virus vaccine, whole virus 2002 [id number] 16 Novartis Pharmaceutica ls complet ed influenza virus vaccine, whole virus 11/28/02 Given Ambulat ory Pharmac y influenza virus vaccine, whole virus 0 2002 [id number] 16 [employer] (PWJ) complet ed influenza virus vaccine, whole virus DoD anthrax vaccine 2002 [id number] 24 [employer] complet ed anthrax vaccine 07/22/02 Given Ambulat ory Pharmac y anthrax vaccine 4 2002 [id number] 24 [employer] Armstrong (MIP) complet ed anthrax vaccine DoD anthrax vaccine 2001 [id number] 24 [employer] complet ed anthrax vaccine 12/26/01 Given Ambulat ory Pharmac y anthrax vaccine 3 2001 [id number] 24 [employer] (MIP) complet ed anthrax vaccine DoD anthrax vaccine 2001 [id number] 24 [employer] complet ed anthrax vaccine 12/12/01 Given Ambulat ory Pharmac y anthrax vaccine 2 2001 [id number] 24 [employer] ([facility]) complet ed anthrax vaccine DoD anthrax vaccine 2001 [id number] 24 [employer] complet ed anthrax vaccine 11/28/01 Given Ambulat ory Pharmac y anthrax vaccine 1 2001 [id number] 24 [employer] ([facility]) complet ed anthrax vaccine DoD influenza virus vaccine, whole virus 2001 [id number] 16 sanofi pasteur complet ed influenza virus vaccine, whole virus 11/16/01 Given Ambulat ory Pharmac y influenza virus vaccine, whole virus 0 2001 [id number] 16 Sanofi Pasteur (PMC) complet ed influenza virus vaccine, whole virus DoD yellow fever vaccine 2001 [id number] 37 GlaxoSmithKli ne complet ed yellow fever vaccine 10/17/01 Given Ambulat ory Pharmac y yellow fever vaccine 0 2001 [id number] 37 [place] [employer] (SKB) complet ed yellow fever vaccine DoD typhoid Vi capsular polysaccharid e vac 2001 [id number] 101 sanofi pasteur complet ed typhoid Vi capsular polysacch aride vac 04/03/01 Given Ambulat ory Pharmac y tuberculin purified protein derivative 2001 zzLef t Arm [id number] 96 sanofi pasteur complet ed Patient Tolerance : Negative Ambulat ory Pharmac y tuberculin skin test; purified protein derivative solution, intradermal 1 2001 Unknown, Provider [id number] 96 Sanofi Pasteur (PMC) complet ed tuberculi n skin test; purified protein derivativ e solution, intraderm al DoD typhoid Vi capsular polysaccharid e vaccine 0 2001 [id number] 101 Sanofi Pasteur (PMC) complet ed typhoid Vi capsular polysacch aride vaccine DoD influenza virus vaccine, whole virus 2000 [id number] 16 sanofi pasteur complet ed influenza virus vaccine, whole virus 11/27/00 Given Ambulat ory Pharmac y influenza virus vaccine, whole virus 0 2000 [id number] 16 Sanofi Pasteur (PMC) complet ed influenza virus vaccine, whole virus DoD hepatitis A adult vaccine 2000 [id number] 52 Merck & Company Inc complet ed hepatitis A adult vaccine 04/05/00 Given Ambulat ory Pharmac y hepatitis A vaccine, adult dosage 2 2000 [id number] 52 Merck (MSD) complet ed hepatitis A vaccine, adult dosage DoD influenza virus vaccine, whole virus 1999 [id number] 16 [facility] complet ed influenza virus vaccine, whole virus 01/30/00 Given Ambulat ory Pharmac y influenza virus vaccine, whole virus 0 1999 [id number] 16 [facility] ([facility]) complet ed influenza virus vaccine, whole virus DoD influenza virus vaccine, whole virus [id number] 16 [facility] complet ed influenza virus vaccine, whole virus 12/03/98 Given Ambulat ory Pharmac y influenza virus vaccine, whole virus 0 19987784 [id number] 16 [facility] ([facility]) complet ed influenza virus vaccine, whole virus DoD hepatitis A adult vaccine 1998 [id number] 52 [employer] complet ed hepatitis A adult vaccine 07/24/98 Given Ambulat ory Pharmac y poliovirus vaccine, live, oral 1998 [id number] 02 [facility] complet ed polioviru s vaccine, live, oral 07/24/98 Given Ambulat ory Pharmac y trivalent poliovirus vaccine, live, oral 0 1998 [id number] 02 [facility] ([facility]) comple t ed trivalent polioviru s vaccine, live, oral DoD hepatitis A vaccine, adult dosage 1 1998 [id number] 52 Merck (MSD) complet ed hepatitis A vaccine, adult dosage DoD meningococcal polysaccharid e (MPSV4) 19989072 [id number] 32 [facility] complet ed meningoco ccal polysacch aride (MPSV4) 07/17/98 Given Ambulat ory Pharmac y influenza virus vaccine, whole virus 19986848 [id number] 16 [facility] complet ed influenza virus vaccine, whole virus 07/17/98 Given Ambulat ory Pharmac y tetanus-dipht h toxoids (Td) adult/adol 1998 [id number] 09 [facility] complet ed tetanus-d iphth toxoids (Td) adult/ado [...] DoD influenza virus vaccine, whole virus 0 19981555 [id number] 16 [employer] (WAL) complet ed influenza virus vaccine, whole virus DoD meningococcal polysaccharid e vaccine (MPSV4) 0 [id number] [id number] 32 [place] (CON) complet ed meningoco ccal polysacch aride vaccine (MPSV4) DoD Results Combined list of recent chemistry, hematology and other laboratory results from Department of Defense and Veterans Affairs, ranging from 15 months to all on record, depending upon the facility. Order Name Results Value Reference Range Date Interpretation Specimen Comments Source CBC LEUKOCYTES [#/VOLUME] IN BLOOD BY AUTOMATED COUNT 8.0 10*3/u L 3.6 - 11.2 06/29 Specimen Type: BLOOD No comment entered. Ordering Provider: KENNETH POLANCO SA Report Released Date/Time: June 30, 2023 01:01 PM Reporting Lab: [facility] [address] [place] [address] Performing Lab: [facility] [address] [place] [address] CBC ERYTHROCYTE S [#/VOLUME] IN BLOOD BY AUTOMATED COUNT 5.74 10*6/u L 4.10 - 5.70 06/29 H Specimen Type: BLOOD No comment entered. Ordering Provider: KENNETH POLANCO SA Report Released Date/Time: June 30, 2023 01:01 PM Reporting Lab: [facility] [address] [place] [address] Performing Lab: [facility] [address] [place] [address] CBC HEMOGLOBIN [MASS/VOLUM E] IN BLOOD 17.5 g/dL 13.1 - 16.8 06/29 H Specimen Type: BLOOD No comment entered. Ordering Provider: KENNETH POLANCO SA Report Released Date/Time: June 30, 2023 01:01 PM Reporting Lab: [facility] [address] [place] [phone] Performing Lab: [facility] [address] [place] [phone] [place] [address] CBC HEMATOCRIT [VOLUME FRACTION] OF BLOOD 50.2 38.2 - 48.4 06/29 H Specimen Type: BLOOD No comment entered. Ordering Provider: KENNETH POLANCO SA Report Released Date/Time: June 30, 2023 01:01 PM Reporting Lab: [address] [phone] Performing Lab: [place] [phone] CBC MCV [ENTITIC VOLUME] BY AUTOMATED COUNT 87.5 fL 80.0 - 100.0 06/29 Specimen Type: BLOOD No comment entered. Ordering Provider: KENNETH POLANCO SA Report Released Date/Time: June 30, 2023 01:01 PM Reporting Lab: [facility] [address] [place] [phone] Performing Lab: [facility] [address] [place] [address] [phone] CBC MCH [ENTITIC MASS] BY AUTOMATED COUNT 30.5 pg 27.0 - 34.0 06/29 Specimen Type: BLOOD No comment entered. Ordering Provider: KENNETH POLANCO SA Report Released Date/Time: June 30, 2023 01:01 PM Reporting Lab: [facility] [address] [place] [phone] Performing Lab: [address] [phone] CBC MCHC [MASS/VOLUM E] BY AUTOMATED COUNT 34.9 g/dL 33.0 - 36.0 06/29 Specimen Type: BLOOD No comment entered. Ordering Provider: KENNETH POLANCO SA Report Released Date/Time: June 30, 2023 01:01 PM Reporting Lab: [facility] [address] [facility] [address] Performing Lab: [facility] [address] [place] [address] [facility] CBC PLATELETS [#/VOLUME] IN BLOOD BY AUTOMATED COUNT 221 10*3/u L 150 - 400 06/29 Specimen Type: BLOOD No comment entered. Ordering Provider: KENNETH POLANCO SA Report Released Date/Time: June 30, 2023 01:01 PM Reporting Lab: [facility] [address] [facility] [address] Performing Lab: [facility] [address] [place] [address] [facility] CBC PLATELET MEAN VOLUME [ENTITIC VOLUME] IN BLOOD BY AUTOMATED COUNT 9.6 fL 7.5 - 11.2 06/29 Specimen Type: BLOOD No comment entered. Ordering Provider: KENNETH POLANCO SA Report Released Date/Time: June 30, 2023 01:01 PM Reporting Lab: [facility] [address] [facility] [address] Performing Lab: [facility] [address] [place] [address] [facility] CBC ERYTHROCYTE DISTRIBUTIO N WIDTH [RATIO] BY AUTOMATED COUNT 11.9 11.8 - 15.1 06/29 Specimen Type: BLOOD No comment entered. Ordering Provider: KENNETH POLANCO SA Report Released Date/Time: June 30, 2023 01:01 PM Reporting Lab: [facility] [address] [facility] [address] Performing Lab: [facility] [address] [place] [address] [facility] CBC LYMPHOCYTES /100 LEUKOCYTES IN BLOOD BY AUTOMATED COUNT 26 06/29 Specimen Type: BLOOD No comment entered. Ordering Provider: KENNETH POLANCO SA Report Released Date/Time: June 30, 2023 01:01 PM Reporting Lab: [facility] [address] [facility] [address] Performing Lab: [facility] [address] [facility] [address] [facility] CBC MONOCYTES/1 00 LEUKOCYTES IN BLOOD BY AUTOMATED COUNT 8 06/29 Specimen Type: BLOOD No comment entered. Ordering Provider: KENNETH POLANCO SA Report Released Date/Time: June 30, 2023 01:01 PM Reporting Lab: [facility] [address] [facility] [address] Performing Lab: [facility] [address] [facility] [address] [facility] CBC NEUTROPHILS /100 LEUKOCYTES IN BLOOD BY AUTOMATED COUNT 65 06/29 Specimen Type: BLOOD No comment entered. Ordering Provider: KENNETH POLANCO SA Report Released Date/Time: June 30, 2023 01:01 PM Reporting Lab: [facility] [address] [facility] [address] Performing Lab: [facility] [address] [facility] [address] [facility] CBC EOSINOPHILS /100 LEUKOCYTES IN BLOOD BY AUTOMATED COUNT 1 06/29 Specimen Type: BLOOD No comment entered. Ordering Provider: KENNETH POLANCO SA Report Released Date/Time: June 30, 2023 01:01 PM Reporting Lab: [facility] [address] [facility] [address] Performing Lab: [facility] [address] [facility] [address] [facility] CBC BASOPHILS/1 00 LEUKOCYTES IN BLOOD BY AUTOMATED COUNT 0 06/29 Specimen Type: BLOOD No comment entered. Ordering Provider: KENNETH POLANCO SA Report Released Date/Time: June 30, 2023 01:01 PM Reporting Lab: [facility] [address] [facility] [address] Performing Lab: [facility] [address] [facility] [address] [facility] CBC LYMPHOCYTES [#/VOLUME] IN BLOOD BY AUTOMATED COUNT 2.06 10*3/u L 0.77 - 4.50 06/29 Specimen Type: BLOOD No comment entered. Ordering Provider: KENNETH POLANCO SA Report Released Date/Time: June 30, 2023 01:01 PM Reporting Lab: [address] [address] Performing Lab: [phone] [place] [address] CBC MONOCYTES [#/VOLUME] IN BLOOD BY AUTOMATED COUNT 0.66 10*3/u L 0.19 - 0.80 06/29 Specimen Type: BLOOD No comment entered. Ordering Provider: KENNETH POLANCO SA Report Released Date/Time: June 30, 2023 01:01 PM Reporting Lab: [address] [address] Performing Lab: [address] [address] [facility] CBC NEUTROPHILS [#/VOLUME] IN BLOOD BY AUTOMATED COUNT 5.16 10*3/u L 2.10 - 8.00 06/29 Specimen Type: BLOOD No comment entered. Ordering Provider: KENNETH POLANCO SA Report Released Date/Time: June 30, 2023 01:01 PM Reporting Lab: [address] [address] Performing Lab: [address] [address] [facility] CBC EOSINOPHILS [#/VOLUME] IN BLOOD BY AUTOMATED COUNT 0.06 10*3/u L 0.00 - 0.60 06/29 Specimen Type: BLOOD No comment entered. Ordering Provider: KENNETH POLANCO SA Report Released Date/Time: June 30, 2023 01:01 PM Reporting Lab: [address] [address] Performing Lab: [address] [place] [address] [facility] CBC BASOPHILS [#/VOLUME] IN BLOOD BY AUTOMATED COUNT 0.03 10*3/u L 0.00 - 0.20 06/29 Specimen Type: BLOOD No comment entered. Ordering Provider: KENNETH POLANCO SA Report Released Date/Time: June 30, 2023 01:01 PM Reporting Lab: [address] [address] Performing Lab: [address] [address] [facility] COMPREHENS MEGHNA METABOLIC PANEL CREATININE [MASS/VOLUM E] IN SERUM OR PLASMA 1.15 mg/dL 0.7 - 1.3 06/29 Specimen Type: PLASMA Comment: No hemolysis noted. Ordering Provider: KENNETH POLANCO SA Report Released Date/Time: June 30, 2023 01:01 PM Reporting Lab: [address] [address] Performing Lab: [place] [address] [facility] [address] [facility] COMPREHENS [place]GH[place] METABOLIC PANEL UREA NITROGEN [MASS/VOLUM E] IN SERUM OR PLASMA 18.0 mg/dL 9.0 - 25.0 06/29 Specimen Type: PLASMA Comment: No hemolysis noted. Ordering Provider: KENNETH POLANCO SA Report Released Date/Time: June 30, 2023 01:01 PM Reporting Lab: [facility] [address] Performing Lab: [address] [address] [facility] COMPREHENS MEGH[place] METABOLIC PANEL GLUCOSE [MASS/VOLUM E] IN SERUM OR PLASMA 81 mg/dL 72 - 99 06/29 Specimen Type: PLASMA Comment: No hemolysis noted. Ordering Provider: KENNETH POLANCO SA Report Released Date/Time: June 30, 2023 01:01 PM Reporting Lab: [facility] [address] [facility] [address] Performing Lab: [facility] [address] [facility] [address] [facility] COMPREHENS MEGHNA METABOLIC PANEL SODIUM [MOLES/VOLU ME] IN SERUM OR PLASMA 138 meq/L 136 - 145 06/29 Specimen Type: PLASMA Comment: No hemolysis noted. Ordering Provider: KENNETH POLANCO SA Report Released Date/Time: June 30, 2023 01:01 PM Reporting Lab: [facility] [address] [facility] [address] Performing Lab: [facility] [address] [facility] [address] [facility] COMPREHENS MEGHNA METABOLIC PANEL POTASSIUM [MOLES/VOLU ME] IN SERUM OR PLASMA 3.9 meq/L 3.5 - 5 06/29 Specimen Type: PLASMA Comment: No hemolysis noted. Ordering Provider: KENNETH POLANCO SA Report Released Date/Time: June 30, 2023 01:01 PM Reporting Lab: [facility] [address] [facility] [address] Performing Lab: [facility] [address] [facility] [address] [facility] COMPREHENS MEGHNA METABOLIC PANEL CHLORIDE [MOLES/VOLU ME] IN SERUM OR PLASMA 103 meq/L 98 - 107 06/29 Specimen Type: PLASMA Comment: No hemolysis noted. Ordering Provider: KENNETH POLANCO SA Report Released Date/Time: June 30, 2023 01:01 PM Reporting Lab: [facility] [address] [facility] [address] Performing Lab: [facility] [address] [facility] [address] [facility] COMPREHENS MEGHNA METABOLIC PANEL CARBON DIOXIDE, TOTAL [MOLES/VOLU ME] IN SERUM OR PLASMA 25 meq/L 22 - 31 06/29 Specimen Type: PLASMA Comment: No hemolysis noted. Ordering Provider: KENNETH POLANCO SA Report Released Date/Time: June 30, 2023 01:01 PM Reporting Lab: [facility] [address] [facility] [address] Performing Lab: [facility] [address] [facility] [address] [facility] COMPREHENS MEGHNA METABOLIC PANEL CALCIUM [MASS/VOLUM E] IN SERUM OR PLASMA 9.1 mg/dL 8.4 - 10.4 06/29 Specimen Type: PLASMA Comment: No hemolysis noted. Ordering Provider: KENNETH POLANCO SA Report Released Date/Time: June 30, 2023 01:01 PM Reporting Lab: [place] [address] [facility] [address] Performing Lab: [place] [address] [facility] [address] [facility] COMPREHENS MEGHNA METABOLIC PANEL PROTEIN [MASS/VOLUM E] IN SERUM OR PLASMA 7.4 g/dL 6 - 8.6 06/29 Specimen Type: PLASMA Comment: No hemolysis noted. Ordering Provider: KENNETH POLANCO SA Report Released Date/Time: June 30, 2023 01:01 PM Reporting Lab: [place] [address] [facility] [address] Performing Lab: [place] [address] [facility] [address] [facility] COMPREHENS MEGNHA METABOLIC PANEL ALBUMIN [MASS/VOLUM E] IN SERUM OR PLASMA 4.4 g/dL 3.4 - 5 06/29 Specimen Type: PLASMA Comment: No hemolysis noted. Ordering Provider: KENNETH POLANCO SA Report Released Date/Time: June 30, 2023 01:01 PM Reporting Lab: [place] [address] [facility] [address] Performing Lab: [place] [address] [facility] [address] [facility] COMPREHENS MEGHNA METABOLIC PANEL BILIRUBIN.T OTAL [MASS/VOLUM E] IN SERUM OR PLASMA 0.5 mg/dL 0.2 - 1.2 06/29 Specimen Type: PLASMA Comment: No hemolysis noted. Ordering Provider: KENNETH POLANCO SA Report Released Date/Time: June 30, 2023 01:01 PM Reporting Lab: [facility] [address] [facility] [address] Performing Lab: [facility] [address] [facility] [address] [facility] COMPREHENS MEGHNA METABOLIC PANEL ALKALINE PHOSPHATASE [ENZYMATIC ACTIVITY/VO LUME] IN SERUM OR PLASMA 75 U/L 40 - 150 06/29 Specimen Type: PLASMA Comment: No hemolysis noted. Ordering Provider: KENNETH POLANCO SA Report Released Date/Time: June 30, 2023 01:01 PM Reporting Lab: [facility] [address] [place] [address] Performing Lab: [facility] [address] [place] [address] [facility] COMPREHENS MEGHNA METABOLIC PANEL ASPARTATE AMINOTRANSF ERASE [ENZYMATIC ACTIVITY/VO LUME] IN SERUM OR PLASMA 34 U/L 5 - 34 06/29 Specimen Type: PLASMA Comment: No hemolysis noted. Ordering Provider: KENNETH POLANCO SA Report Released Date/Time: June 30, 2023 01:01 PM Reporting Lab: [facility] [address] [place] [address] Performing Lab: [facility] [address] [place] [address] [facility] COMPREHENS MEGHNA METABOLIC PANEL ALANINE AMINOTRANSF ERASE [ENZYMATIC ACTIVITY/VO LUME] IN SERUM OR PLASMA 41 U/L 8 - 40 06/29 H Specimen Type: PLASMA Comment: No hemolysis noted. Ordering Provider: KENNETH POLANCO SA Report Released Date/Time: June 30, 2023 01:01 PM Reporting Lab: [facility] [address] [facility] [address] Performing Lab: [facility] [address] [place] [address] [facility] COMPREHENS MEGHNA METABOLIC PANEL GLOMERULAR FILTRATION RATE/1.73 SQ M.PREDICTED [VOLUME RATE/AREA] IN SERUM, PLASMA OR BLOOD BY CREATININE- BASED FORMULA (CKD-EPI 2020) 78.0 60 06/29 Specimen Type: PLASMA Comment: No hemolysis noted. Ordering Provider: KENNETH POLANCO SA Report Released Date/Time: June 30, 2023 01:01 PM Reporting Lab: [facility] [address] [facility] [address] Performing Lab: [facility] [address] [facility] [address] [facility] HGA1C HEMOGLOBIN A1C/HEMOGLO BIN.TOTAL IN BLOOD 5.2 4.0 - 6.0 06/29 Specimen Type: BLOOD No comment entered. Ordering Provider: KENNETH POLANCO SA Report Released Date/Time: June 30, 2023 01:01 PM Reporting Lab: [address] [address] Performing Lab: [facility] [address] [facility] [address] [facility] LIPID PANEL (STL) CHOLESTEROL [MASS/VOLUM E] IN SERUM OR PLASMA 211 mg/dL 0 - 200 06/29 H Specimen Type: PLASMA Comment: No hemolysis noted. Ordering Provider: KENNETH POLANCO SA Report Released Date/Time: June 30, 2023 01:01 PM Reporting Lab: [facility] [address] [facility] [address] Performing Lab: [facility] [address] [facility] [address] [facility] LIPID PANEL (STL) TRIGLYCERID E [MASS/VOLUM E] IN SERUM OR PLASMA 192 mg/dL 0 - 150 06/29 H Specimen Type: PLASMA Comment: No hemolysis noted. Ordering Provider: KENNETH POLANCO SA Report Released Date/Time: June 30, 2023 01:01 PM Reporting Lab: [facility] [address] [facility] [address] Performing Lab: [facility] [address] [place] [address] [facility] LIPID PANEL (STL) CHOLESTEROL IN LDL [MASS/VOLUM E] IN SERUM OR PLASMA BY CALCULATION 135 mg/dL 06/29 Specimen Type: PLASMA Comment: No hemolysis noted. Ordering Provider: KENNETH POLANCO SA Report Released Date/Time: June 30, 2023 01:01 PM Reporting Lab: [address] [address] Performing Lab: [address] [address] [place] [address] LIPID PANEL (STL) CHOLESTEROL IN HDL [MASS/VOLUM E] IN SERUM OR PLASMA 38 mg/dL 40 06/29 L Specimen Type: PLASMA Comment: No hemolysis noted. Ordering Provider: KENNETH POLANCO SA Report Released Date/Time: June 30, 2023 01:01 PM Reporting Lab: [address] [address] Performing Lab: [address] [address] [facility] PROST. SPECIFIC AG.(PB-STL ) PROSTATE SPECIFIC AG [...] June 30, 2023 01:01 PM Reporting Lab: [address] [address] Performing Lab: [address] [address] [place] [address] Vital Signs Combined list of inpatient and outpatient Vital Signs from Department of Defense and Veterans Affairs, ranging from 12 months to all on record, depending upon the facility. Vital Sign Value Date Comments Source SYSTOLIC BLOOD PRESSURE 119 11/01/2023 12:41:17 [facility] DIASTOLIC BLOOD PRESSURE 82 11/01/2023 12:41:17 [place] [facility] PULSE OXIMETRY 97 11/01/2023 12:41:17 S Sebastian BOGGS [facility] WEIGHT 247.6 11/01/2023 12:41:17 STDulce LOPEZ [facility] BMI 35 kg/m2 11/01/2023 12:41:17 ST[address] Jose LOPEZ [facility] PAIN 0 11/01/2023 12:41:17 ST[address] C CHARLESR [facility] HEIGHT 71 11/01/2023 12:41:17 ST[address] Jose LOPEZ [facility] TEMPERATURE 98.3 11/01/2023 12:41:17 STDulce BOGGS [facility] PULSE 76 11/01/2023 12:41:17 [facility] RESPIRATION 18 11/01/2023 12:41:17 STDulce BOGGS [facility] Encounters Combined list of: 1) Encounters from Department of Veterans Affairs facilities going backup to the last 18 months, not all VA inpatient encounters are included; 2) Encounters from the Department of Defense facilities going backup to 280 months. Location Location Details Encounter Type Encounter Number Reason For Visit Attending Provider ADM Date DC Date Status Disposition Source [facility] Mental Health ([facility]) ) OUTPATIENT [id number] HARINDER AUSTIN 05/27 Released w/o Limitations [facility] [place]([facility] EV [facility] Primary Care ([facility]) ) OUTPATIENT [id number] rolled 4-wheel er hand is swollen now CINDY BEAN 06/05 Released w/o Limitations [facility] [place] ([facility]) ) OUTPATIENT [id number] painful nodule in neck--w YORDAN Lau 06/14 Released w/o Limitations [place]([employer] [facility] ([facility])) [place] [place] [address]([facility] [employer]o [employer], [employer] (inactive )) OUTPATIENT [id number] f/u cholest MARCELA Larsen 12/28 Released w/o Limitations [facility] [place] [address]([facility], [employer] (inacti ve)) [place] [place] [address]([facility] linical [facility] OUTPATIENT [id number] HLINGRID SINGH 07/06 Released w/o Limitations [facility] [address]([facility]) [place] [place] [address]([facility] [employer]usto [employer], [employer] (inactive )) OUTPATIENT [id number] Pt c/o persist ant cough x 4-5 weeks MARILYN DUMONT 04/10 [facility]ased w/o Limitations [facility] [place] [address]([facility], [employer] (inacti ve)) [facility] Medical Group([facility]) OUTPATIENT [id number] skin issue ISABELL SLATER 07/23 Released w/o Limitations [facility] Medical [facility]) [facility] Medical [facility]) OUTPATIENT [id number] throat, ear issue, and the side of his face is sore. ISABELL SLATER 09/23 Sick at Home/Quarter s [employer]([facility]) [employer]([facility]) OUTPATIENT [id number] [place] [employer] medical record review BLUE CAMERON 05/30 Released w/o Limitations [facility]) [facility] Medical [facility]) OUTPATIENT [id number] Annual PHA BLUE CAMERON 05/30 Released w/o Limitations [facility] Medical [facility]) [facility] Medical Group([facility] Immunizat ions [facility]) OUTPATIENT [id number] B, PPD BAILEE VÁSQUEZ *INACTIVE* 06/03 Released w/o Limitations [employer]([facility]) [employer]([facility] OUTPATIENT [id number] PRP determi ROEL Ramirez 08/20 Released w/o Limitations [employer]([facility]) [employer]([facility] Immunizat ions Clinic) OUTPATIENT [id number] tdap b NASIM ANGELES JR. 08/25 Released w/o Limitations [employer]([facility] ations [facility]) [employer]([facility][1]) OUTPATIENT [id number] PHA BELINDA BERRIOS JR 06/25 Released w/o Limitations [employer](F amily Practic e) [facility] Medical Group([facility][1]) TELE CONSULT [id number] ROBERT Sampson 07/02 Referred for Appointment [facility] Group(F amily Practic e) [facility] Medical Group([facility][1]) OUTPATIENT [id number] MARIXA JOVEL 10/30 Released w/o Limitations [employer](F amily Practic e) [facility] Medical Group([facility][1]) OUTPATIENT [id number] SUSAN HINTON 03/16 Released w/o Limitations [facility] Medical Group(F amily Practic e) [facility] Medical Group([facility][1]) OUTPATIENT [id number] walk-in /pre deploym ent STEPHANIE YAÑEZ R 03/16 Released w/o Limitations [facility] Medical Group(F amily Practic e) [facility] [place] [facility])(Hea lthcare Integrato rs) OUTPATIENT [id number] LATE ENTRY: Attende d cee cov[place] rs brief on Jul 17 ANATOLIY RIVERA 07/16 Released w/o Limitations [employer] [place] [facility])(H ealthca re Integra tors) [facility] [place] [facility])(Sco tt [facility] Res Tm Green) TELE CONSULT [id number] AD Pt. would like acute, no acutes - [facility] - [id number] - [facility] TAN SHORE 09/07 [facility] [place] [facility])(S cott [facility] Fam Res Tm Green) [facility] [place] [facility])(Sco tt [facility] Fam Res [place]m [place]) OUTPATIENT [id number] f/u knee pain CATHERINE WRIGHT 09/09 Released with Work/Duty Limitations [address] [place] [address] [place] [facility])(S cott OF Fam Res [employer]m [place]) [address] [place] [address] [place] [facility])(Sco tt [facility] Fam Res Tm Green) TELE CONSULT [id number] Anderso n ER F/U - Lorna - [phone] - tsg GEORGEOLU 01/[address] [place] [address] [place])(S cott [facility] Fam Res Tm Green) [address] [place] [address] [place] [facility])(Sco tt [facility] Fam Res [place]m [place]) OUTPATIENT [id number] shouldf er pain--f /u shoulde SHITAL Bradshaw 01/24 Released w/o Limitations [address] [place] [address] [place] [facility])(S cott [facility] Fam Res [employer]m [place]) [address] [place] [address] [place] [facility])(Sco tt [facility] Fam Res Tm Green) OUTPATIENT [id number] Jose/CECILIO CUEVAS 03/21 Released w/o Limitations [address] [place] [address] [place] [facility])(S cott [facility] Fam Res Tm Green) [address] [place] [address] [place] [facility])(Sco tt [facility] Fam Res Tm Green) TELE CONSULT [id number] Notes Entered by: MATHEW CORREA 23 Mar 2012 0855 ------- ------- ------- ------- -- [facility]/CECILIO CUEVAS 03/[address] [place] [address] Group [place] [facility])(S cott [facility] [facility] Fam Res Tm Green) [address] [place] [address] [place] [facility])(Sco tt [facility] Fam Res Tm [facility]) OUTPATIENT [id number] 3 yr face to face appt [id number] DENYS JURADO 04/02 Released w/o Limitations [address] [place] [address] [place] [facility])(S cott [facility] Fam Res [employer]) [address] [place] [address] [place] [facility])(Sco tt [facility] Fam Res Tm Green) OUTPATIENT [id number] rolled left ankle while playing soccer last night [id number] YOUNG WILKINSONPENNY Munoz 06/28 Released w/o Limitations [address] [place] [address] [place] [facility] [facility]S cott [facility] Res Tm Green) [address] [place] [address] William HERIBERTO [facility])(Phy sical Therapy) OUTPATIENT [id number] ANKLE SPRAIN ALPESH RIVERA 07/12 Released w/o Limitations [address] [place] [address] William RIRICarlos Alberto [facility]P hysical Therapy ) [address] [place] [address] William RIRICarlos Alberto [facility])(Phy sical Therapy) OUTPATIENT [id number] ankle ELBA NIX 07/24 Released w/o Limitations [address] [place] [address] William RIRICarlos Alberto [facility]P hysical Therapy ) [address] [place] [address] William RIRICarlos Alberto [facility])(Phy sical Therapy) OUTPATIENT [id number] ankle ELBA NIX 08/01 Released w/o Limitations [address] [place] [address] William RIRICarlos Alberto [facility]P hysical Therapy ) [address] [place] [address] [facility]Sco tt [facility] Res Tm Green) OUTPATIENT [id number] fever congest ion cough OSCAR WILKINSON Tammy 12/26 Released w/o Limitations [address] [place] [address] [place] [facility] [facility]S [facility] Res Tm Green) [address] [place] [address] [facility] Health Assessmen ts) OUTPATIENT [id number] predep KATIA TSANG 02/13 Released w/o Limitations [address] [place] [address] William RIRICarlos Alberto [facility]D eploe Health Assessm ents) [address] [place] [address] William RIRICarlos Alberto [facility]Sco tt [facility] Res Tm Green) TELE CONSULT [id number] Notes Entered by: Carlos Alberto YAÑEZ 16 Feb 2013 0050 ------- ------- ------- ------- -- Jose/CECILIO CUEVAS 02/16[facility] William RIRICarlos Alberto [facility]S cott [facility] Fam Res Tm Green) [address] [place] [address] [facility] Health Assessmen ts) OUTPATIENT [id number] Notes Entered by: HELEN IRVINQUEZADA LANE Vasquez 21 Feb 2013 1142 ------- ------- ------- ------- -- smallpo x KATIA TSANG 02/21 Released w/o Limitations [address] [place] [address] William [facility])(D eployme nt Health Assessm ents) [address] [place] [address] William [facility])([facility] OUTPATIENT [id number] pre deploym ent SHARAN KATIA S 03/05 Released w/o Limitations [address] [place] [address] William [facility] ([facility])(D eployme nt Health Assessm ents) [address] [place] [address])(Sco tt [facility] Fam Res Tm Red) OUTPATIENT [id number] Left ankle pain- hurt while doing PT this morning - [id number] VIKAS VAN 03/08 Released w/o Limitations [address] [place] [address] William [facility])(S cott [facility] Fam Res Tm Red) [address] [place] [address] William [facility])(Sco tt [facility] Fam Res Tm Red) TELE CONSULT [id number] Notes Entered by: SHITAL HESTER 03 Apr 2013 1022 ------- ------- ------- ------- -- Profile extensi on/Ranjeet s/256.5 064 or ELIZABETH PRESCOTT 04/[address] [place] [address] William [facility])(S cott [facility] Fam Res Tm Red) [address] [place] [address] William [facility])([facility]) TELE CONSULT [id number] Notes Entered by: Clary TSANG 03 Apr 2013 1432 ------- ------- ------- ------- -- BW/CW. 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 KATIA TSANG 04/[address] [place] [address] [facility]D eployme nt Health Assessm ents) [address] [place] [address] [facility]Tno [facility] Fam Res Tm Red) OUTPATIENT [id number] f/u left ankle sprain: profile extenst CECILIO Barnes Clary 04/05 Released w/o Limitations [address] [place] [address] William [facility] [facility]S [facility] Fam Res Tm Red) [address] [place] [address] William [facility])([facility] Fam Res Tm Red) TELE CONSULT [id number] Notes Entered by: Jojo REYNOLDS 05 Apr 2013 1256 ------- ------- ------- ------- -- Profile Lorna CECILIO ENG 04/[address] [place] [address] William [facility])(S [facility] Fam Res Tm Red) [address] [place] [address])([facility] Fam Res Tm Red) TELE CONSULT [id number] Notes Entered by: Jose REYNOLDS 24 May 2013 0828 ------- ------- ------- ------- -- Sx Pain from popped right elbow/G ibbs/61 [phone] BRAYAN HENDRICKS 05/[address] [place] [address])(S [facility] Fam Res Tm Red) [address] [place] [address] William [facility])([facility] Fam Res Tm Gold) OUTPATIENT [id number] elbow pain in PT test. CLAUDIA SARGENT 05/24 Released w/o Limitations [address] [place] [address] William [facility])(S [facility] Fam Res Tm Gold) [address] [place] [address] William [facility])(Dep loyment Health Assessmen ts) OUTPATIENT [id number] EVELIO1 KATIA TSANG 08/06 Released w/o Limitations [address] [place] [address] William [facility])(Jaqueline elena Health Assessm ents) [address] [place] [address] William [facility])(Dep loyment Health Assessmen ts) OUTPATIENT [id number] [facility] MELI HILL 07/17 Released w/o Limitations [facility])(D eployme nt Health Assessm ents) [address] [place] [address])(Tno tt [facility] Fam Res Tm Red) TELE CONSULT [id number] Notes Entered by: CARLOS SALEH 24 Jul 2014 0915 ------- ------- ------- ------- -- [facility]/CECILIO CUEVAS 07/[address] [place] [address])([facility] Fam Res Tm Red) [address] [place] [address])([facility] OUTPATIENT [id number] Notes Entered by: IZABELA LEACH 12 Aug 2015 0848 ------- ------- ------- ------- -- Member Andre LYN #4 Appoint MEL Seo 08/11 Released w/o Limitations [address] [place] [address])(D eployme nt Health Assessm ents) [address] [place] [address])(Bas e Operation al Medicine Clin) OUTPATIENT [id number] Notes Entered by: CHARLOTTE RAINEY V 02 Oct 2015 0850 ------- ------- ------- ------- -- [facility] CHARLOTTE BALDWIN V 10/01 Released w/o Limitations [address] [place] [address])(B ase Operati onal Medicin e Clin) [address] [place] [address])(Sco [facility] Fam Res Tm Red) OUTPATIENT [id number] left ankle pain AMAIRANI THOMASON 11/01 Released w/o Limitations [address] [place] [address])([facility] Fam Res Tm Red) [address] [place] [address])([facility]) OUTPATIENT [id number] Notes Entered by: RONY CORNELIUS 25 Nov 2015 1031 ------- ------- ------- ------- -- EBONI#5 APPOINT MENT DECLINE MEAGHAN JOSUE 11/24 Released w/o Limitations [address] [place] [address] William [facility])(Jaqueline eploymjs nt Health Assess ents) [address] [place] [address])(Tno tt [facility] Fam Res Tm Red) OUTPATIENT [id number] L Heel issues, R Arm Skin issues [id number] REJI WILKINS 04/04 Released w/o Limitations [address] [place] [address] William [facility])(S [facility] Fam Res Tm Red) [address] [place] [address])([facility] Fam Res Tm Red) TELE CONSULT [id number] Notes Entered by: SALLY TORRES RET 29 Apr 2016 1437 ------- ------- ------- ------- -- Biopsy Results /John/ ELIZABETH Rich 04/[address] [place] [address])(S [facility] Fam Res Tm Red) [address] [place] [address])(Phy sical Therapy) OUTPATIENT [id number] Plantar fascial fibroma JONAH Young 05/11 Released w/o Limitations [address] [place] [address])(P hysical Therapy ) [address] [place] [address])([facility] Fam Res Tm Red) OUTPATIENT [id number] Mole removal per Mayra n/40min REJI WILKINS 05/16 Released w/o Limitations [address] [place] [address])(S [facility] Fam Res Tm Red) [address] [place] [address])([facility] Fam Res Tm Red) TELE CONSULT [id number] Notes Entered by: Jose OLVERA 26 May 2016 1608 ------- ------- ------- ------- -- Patholo gy results for review. ERJI WILKINS 05/[address] [place] [address])([facility] Fam Res Tm Red) [address] [place] [address])(Phy sical Therapy) OUTPATIENT [id number] left heel BRAYAN LIRIANOCOLM 05/30 Released w/o Limitations [address] [place] [address] Group William [facility]ENEZESB ([facility])(P hysical Therapy ) [address] [place] [address] William [facility] ([facility])(Phy sical Therapy) OUTPATIENT [id number] left heel BRAYAN LIRIANO 06/06 Released w/o Limitations [address] [place] [address] Group William [facility])(P hysical Therapy ) [address] [place] [address] William [facility])(Phy sical Therapy) OUTPATIENT [id number] left heel BRAYAN LIRIANO 06/13 Released w/o Limitations [address] [place] [address] Group William [facility])(P hysical Therapy ) [address] [place] [address] William [facility])(Phy sical Therapy) OUTPATIENT [id number] heel BRAYAN LIRIANO 06/27 Released w/o Limitations [address] [place] [address] Group William [facility])(P hysical Therapy ) [address] [place] [address] William [facility])(Sco tt [facility] FAMRES Tm Blue) TELE CONSULT [id number] Notes Entered by: Jaqueline YANES 28 Jun 2016 0843 ------- ------- ------- ------- -- Network results Dermato logy 7 DB CINDY BLANCO 06/[address] [place] [address] William [facility] ([facility])(S cott [facility] FAM[facility] Tm Blue) [address] [place] [address] William [facility] ([facility])(Phy sical Therapy) OUTPATIENT [id number] heel LAURIJONAH 06/29 Released w/o Limitations [address] [place] [address] Group William [facility] ([facility])(P hysical Therapy ) [address] [place] [address] William [facility])(Bas e Operation al Medicine Clin) TELE CONSULT [id number] Notes Entered by: WARD SENA 06 Jul 2016 0948 ------- ------- ------- ------- -- Xray results JONAH CARREON 07/[address] [place] [address] [place] [facility] [facility]B ase Operati onal Medicin e Clin) [address] [place] [address] William MENEZESB [facility])(Sco tt [facility] FAM[facility] Tm Blue) OUTPATIENT [id number] left plantar fasciit is/prof capri request / SAUL ZAYAS 09/21 Released w/o Limitations [address] [place] [address] William MENEZESB [facility]S cott [facility] FAM[facility] Tm Blue) [address] [place] [address] William [facility] [facility])(Sco tt [facility] Fam Res Tm Green) OUTPATIENT [id number] stomach pain - [phone] IVANA ALVARADO 09/27 Released with Work/Duty Limitations [address] [place] [address] [place] [facility] [facility]S cott [facility] Fam Res Tm Green) [address] [place] [address] [place] [facility] [facility])(Sco tt [facility] Res Tm Green) TELE CONSULT [id number] Notes Entered by: JORDAN APPIAH 28 Sep 2016 1231 ------- ------- ------- ------- -- Gely/ claudine Blanco - - tsg IVANA ALVARADO 09/28 Released to Self Care [address] [place] [address] [place] [facility] [facility]S cott [facility] Fam Res Tm Green) [address] [place] [address] [place] [facility] [facility])(Bas e Operation al Medicine Clin) OUTPATIENT [id number] Notes Entered by: Otto ALDANA 07 Oct 2016 1050 ------- ------- ------- ------- -- TRI SERVICE CINDY CAT 10/07 Released w/o Limitations [address] [place] [address] William HERIBERTO [facility])(B ase Operati onal Medicin e Clin) [address] [place] [address] William RIRIB [facility])(Bas e Operation al Medicine Clin) TELE CONSULT [id number] Notes Entered by: RONY MCCARTHY 09 Dec 2016 0730 ------- ------- ------- ------- -- ELIJAH Bravo 12/09 Other Not Elsewhere Classified [address] [place] [address] [employer] [facility])(B ase Operati onal Medicin e Clin) [address] [place] [address] William MENEZESB [facility])(Sco tt [facility] Fam Res Tm Green) OUTPATIENT [id number] Left knee / ankle pain [id number] / [id number] JENNIFER FORMAN 05/31 Released w/o Limitations [address] [place] [address] William MENEZESB [facility])(S cott [facility] Fam Res Tm Green) [address] [place] [address] William MENEZESB [facility])(Phy sical Therapy) OUTPATIENT [id number] Pain in left ankle and joints of left foot COLLETTE ALBRECHT 06/14 Released w/o Limitations [address] [place] [address] William MENEZESB [facility])(P hysical Therapy ) [address] [place] [address] William MENEZESB [facility])(Phy sical Therapy) OUTPATIENT [id number] ankle AMBROSIO ROMAHERIBERTO GAGNON 06/20 Released w/o Limitations [address] [place] [address] William MENEZESB [facility])(P hysical Therapy ) [address] [place] [address] William MENEZESB [facility])(Phy sical Therapy) OUTPATIENT [id number] L) ankle SILVERIO, CHINA Js 06/27 Released w/o Limitations [address] [place] [address] William MENEZESB [facility])(P hysical Therapy ) [address] [place] [address] William MENEZESB [facility])(Phy sical Therapy) OUTPATIENT [id number] L) ankle AMBROSIO ROMAKATHERINEAMANDA KALIN 06/29 Released w/o Limitations [address] [place] [address] William MENEZESB [facility])(P hysical Therapy ) [address] [place] [address] William MENEZESB [facility])(Sco tt [facility] Fam Res Tm Green) TELE CONSULT [id number] Notes Entered by: MONALISA BALES 04 Jul 2017 0840 ------- ------- ------- ------- -- STAT Angelita munoz Request / ER F/Evonne / John / - sgj JENNIFER COSTA 07/[address] [place] [address] [employer] [facility]S cott [facility] Fam Res Tm Green) [address] [place] [address] [employer] [facility])(Sco tt [facility] Fam Res Tm Green) OUTPATIENT [id number] chest pain - 2 months - [phone] YOEL CROW 11/10 Released w/o Limitations [address] [place] [address])(S cott [facility] Fam Res Tm Green) [address] [place] [address])(Opt ometry) OUTPATIENT [id number] Routine Eye Exam, ISABELL MORALES 11/22 Released w/o Limitations [address] [place] [address] William [facility])(O ptometr y) [address] [place] [address] William [facility])(Sco tt [facility] Res Tm Green) TELE CONSULT [id number] Notes Entered by: DAVE GORE 22 Dec 2017 0733 ------- ------- ------- ------- -- Emergen cy room update/ referra l request /john/ ELIZABETH Barron 12/22 Referred for Appointment [address] [place] [address])(S cott [facility] Fam Res Tm Green) [address] [place] [address])(Sco tt [facility] Res Tm Green) TELE CONSULT [id number] Notes Entered by: SHREYA FRITZ 25 Dec 2017 1453 ------- ------- ------- ------- -- F/u after special ist (referr al request )/John / ELIZABETH PRESCOTT 12/25 Referred for Appointment [address] [place] [address] [facility]S cott [facility] Res Tm Green) [address] [place] [address] William [facility])(Sco tt [facility]) TELE CONSULT [id number] Notes Entered by: IZABELA LEACH 09 Jan 2018 1440 ------- ------- ------- ------- -- MEL HIGGINS 01/[address] [place] [address] [facility]S cott [facility]) [address] [place] [address] William [facility])(Bas e Operation al Medicine Clin) OUTPATIENT [id number] Notes Entered by: Js SLOANO 23 Mar 2018 1120 ------- ------- ------- ------- -- JENNIFER FLORENTINO 03/23 Released w/o Limitations [address] [place] [address])(B ase Operati onal Medicin e Clin) [address] [place] [address])(Sco tt [facility] FAM[facility] Tm Blue) OUTPATIENT [id number] 2 x/b - L ear pain, cough, [phone] .[phone] PEPE PAT 05/25 Released w/o Limitations [address] [place] [address])(S cott [facility] Tm Blue) [address] [place] [address])(Sco tt [facility] Fam Res Tm Green) TELE CONSULT [id number] Notes Entered by: MEHDI CRISOSTOMO 06 Jun 2018 1132 ------- ------- ------- ------- -- Network Results SURG 8 JENNIFER COSTA 06/[address] [place] [address])(S cott [facility] Fam Res Tm Green) [address] [place] [address])(Sco tt [facility] Fam Res Tm Green) OUTPATIENT [id number] 3 family adoptio n paperwo rk to adopt new member CINDY BLANCO 06/07 Released w/o Limitations [address] [place] [address] William [facility])(S cott [facility] Fam Res Tm Green) [address] [place] [address])(Sco tt [facility] Fam Res Tm Green) OUTPATIENT [id number] right knee pain [phone] ISAIAH SPARKS 06/25 Released with Work/Duty Limitations [address] [place] [address] William [facility])(S cott [facility] Fam Res Tm Green) [address] [place] [address])(Sco tt [facility] Fam Res Tm Green) TELE CONSULT [id number] Notes Entered by: JEANE HERNÁNDEZ 26 Jun 2018 1237 ------- ------- ------- ------- -- Profile Not In System/ John/6 15.715. 3306/cl ELIZABETH Mason 06/26 Referred for Appointment [address] [place] [address] William RIRIB [facility]S cott [facility] Fam Res Tm Green) [address] [place] [address] William [facility])(Sco tt [facility] Fam Res Tm Green) TELE CONSULT [id number] Notes Entered by: JORDAN APPIAH 03 Jul 2018 0740 ------- ------- ------- ------- -- Profile status - John - - [facility] ELIZABETH PRESCOTT 07/03 Referred for Appointment [address] [place] [address] William [facility])(S cott [facility] Fam Res Tm Green) [address] [place] [address] William [facility])(Sco tt [facility] Fam Res Tm Green) TELE CONSULT [id number] Notes Entered by: Bere NOONAN 18 Jul 2018 1322 ------- ------- ------- ------- -- Network results OT 018 CINDY GOULD 07/[address] [place] [address] William B [facility]S cott [facility] Fam Res Tm Green) [address] [place] [address] William B [facility])(Sco tt [facility] Fam Res Tm Green) OUTPATIENT [id number] Snoring ESCOBAR AMAYA 08/02 Released w/o Limitations [address] [place] [address] William MENEZESB [facility]S cott [facility] Fam Res Tm Green) [address] [place] [address] [employer] [facility])(Sco tt [facility] Fam Res Tm Green) OUTPATIENT [id number] 2 Concern of bumps on both hands [id number] / [id number] BRAYAN SPRAGUE 10/09 Released w/o Limitations [address] [place] [address] [employer] [facility]S cott [facility] Fam Res Tm Green) [address] [place] [address] [facility]Sco tt [facility] Fam Res Tm Green) OUTPATIENT [id number] 2 Hearing issues [id number] 306 / [id number] ESCOBAR AMAYA 10/19 Released w/o Limitations [address] [place] [address] [place] [facility]S cott [facility] Fam Res Tm Green) [address] [place] [address] [facility]Tno tt [facility] Fam Res Tm Green) OUTPATIENT [id number] 1 low back pain x 1 wk (was TDY) -- [phone] .1783 KELLY CASTRO 12/27 Released w/o Limitations [address] [place] [address] [place] [facility]S cott [facility] Fam Res Tm Green) [address] [place] [address] [place] [facility]Tno tt [facility] Fam Res Tm Green) OUTPATIENT [id number] 9 Bumps on hand, Derm check on back, CHRISTIANOJESUSTOYA [facility] 02/20 Released w/o Limitations [address] [place] [address] William HERIBERTO [facility]S [facility] Fam Res Tm Green) [address] [place] [address] [place] [facility] [facility])(Tno tt [facility] ) TELE CONSULT [id number] Notes Entered by: MEL DE LUNA 12 Mar 2019 1146 ------- ------- ------- ------- -- Pedro - MEL SAENZ 03/[address] [place] [address] [place] [facility]S [facility] Flight Medicin e Tm) [address] [place] [address] William RIRICarlos Alberto [facility])(Tno tt [facility] Fam Res Tm Green) OUTPATIENT [id number] 8 f/u hand CHRISTIANOJESUSTOYA [facility] 03/13 Released w/o Limitations 78 [place] [address] William RIRICarlos Alberto [facility] Tm Green) [address] [place] [address] William IRRICarlos Alberto [facility]Bas e Operation al Medicine Clin) OUTPATIENT [id number] Notes Entered by: BRAYAN LITTLE 18 Mar 2019 1551 ------- ------- ------- ------- -- CINDY SANDERS 03/18 Released w/o Limitations [address] [place] [address] William [facility])(B ase Operati onal Medicin e Clin) [address] [place] [address])(Sco tt [facility] Tm Blue) OUTPATIENT [id number] X/B - Upper back pain [id number] / [id number] ISABELL SUAREZ 03/27 Released w/o Limitations [address] [place] [address])(S cott [facility] Tm Blue) [address] [place] [address])(Nixon matology) OUTPATIENT [id number] 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 dagmar. MANPREET SHETH 06/12 Released w/o Limitations [address] [place] [address])(D ermatol ogy) [address] [place] [address])(War rior Op Med Cln Tm A Ad) OUTPATIENT [id number] [facility] [id number] CARISA PARTIDA 06/19 Released w/o Limitations [address] [place] [address])(W arrior Op Med Cln Tm A Ad) [address] [place] [address])(Nixon matology) OUTPATIENT [id number] Notes Entered by: LISSA MAZA 21 Jun 2019 1154 ------- ------- ------- ------- -- Suture removal MANPREET SHETH 06/20 Released w/o Limitations [address] [place] [address])(D ermatol ogy) [address] [place] [address])(Nixon matology) TELE CONSULT [id number] Notes Entered by: HANNAH SHETH 24 Jun 2019 1527 ------- ------- ------- ------- -- Culture result MANPREET SHETH 06/[address] [place] [address])(D ermatol ogy) [address] [place] [address])(War rior Op Med Cln Tm A Ad) TELE CONSULT [id number] Notes Entered by: NATHAN HARP 31 Jul 2019 1018 ------- ------- ------- ------- -- Referra tammy kinney/ [id number] JEANETTE MARTINEZ 07/30 Immediate Referral [address] [place] [address])(W arrior Op Med Cln Tm A Ad) [address] [place] [address])(War rior Op Med Cln Tm A Ad) TELE CONSULT [id number] Notes Entered by: JORDAN APPIAH 23 Aug 2019 0749 ------- ------- ------- ------- -- Possibl e KELLY Devriesur e - [facility] JEANETTE MARTINEZ 08/22 Released to Self Care [address] [place] [address])(W arrior Op Med Cln Tm A Ad) [address] [place] [address])(War rior Op Med Cln Tm A Ad) TELE CONSULT [id number] Notes Entered by: Clary GAGNON 30 Aug 2019 1453 ------- ------- ------- ------- -- Retro Referra l needed from PCM team, retro date 2 019 JEANETTE MARTINEZ 08/29 Immediate Referral [address] [place] [address])(W arrior Op Med Cln Tm A Ad) [facility] Outpatient Encounter [id number] 06/29 [facility] Outpatient Encounter [id number] NISSA TAFOYA JANET Munoz 06/29 [facility] OFFICE O/P NEW MOD 45 MIN [id number] Diagnos is: ICD-10- CM R20.2 Paresth esia of skin MET UNA POLANCO 06/29 [facility] HC PRO PHONE CALL 5-10 MIN [id number] Diagnos is: ICD-10- CM Z71.9 Beer Merchant ing, unspeci fiJAYESH Walker 07/09 [facility] Outpatient Encounter [id number] 08/15 [facility] Outpatient Encounter [id number] AZIZA JUAREZ 08/15 [facility] Outpatient Encounter [id number] AZIZA JUAREZ 08/16 [facility] N [facility] Outpatient Encounter [id number] AZIZA JUAREZ 08/17 [facility] N [facility] Outpatient Encounter [id number] 08/28 [facility] No Facility Access History [id number] 09/20 No Facilit y Access Ambulator y Pharmacy [facility] [id number] 09/20 Ambulat ory Pharmac y [facility] OFFICE O/P EST LOW 20 MIN [id number] Diagnos is: ICD-10- CM M25.572 Pain in left ankle and joints of left foot ADITYA GIBBS 10/31 [facility] Outpatient Encounter [id number] 11/03 [facility] Outpatient Encounter [id number] 06/25 [facility] Outpatient Encounter [id number] 07/02 [facility] Procedures Combined list of: 1) Procedures from Department of Veterans Affairs facilities going back up to thelast 18 months, not all [place] non-surgical procedures are included; 2) All procedures from the Department of Defense facilities. Procedure Procedure Type Code Date Perfomer Comments Sourc e TETANUS, DIPHTHERIA TOXOIDS AND ACELLULAR PERTUSSIS VACCINE (TDAP), WHEN ADMINISTERED TO INDIVIDUALS 7 YEARS OR OLDER, FOR INTRAMUSCULAR USE 2008 [facility] SKIN TEST; TUBERCULOSIS, INTRADERMAL 2008 [facility] PSYCHIATRIC EVALUATION OF HOSPITAL RECORDS, OTHER PSYCHIATRIC REPORTS, PSYCHOMETRIC AND/OR PROJECTIVE TESTS, AND OTHER ACCUMULATED DATA FOR MEDICALDIAGNOSTIC PURPOSES 2010 [facility] PSYCHIATRIC EVALUATION OF HOSPITAL RECORDS, OTHER PSYCHIATRIC [...] PROVIDE W/IN THE PREV 7 DAYS,USE THE [employer] NETWORK 2019 DoD ARTHROCENTESIS, ASPIRATION AND/OR INJECTION, [...] PROVIDE W/IN THE PREV 7 DAYS,USE THE [employer] NETWORK 2017 DoD FITTING OF SPECTACLES, EXCEPT [...] &/GUS ASSESS FUNC OUTCOME TYP,20 MIN SPENT DTMQ-LE-GZBR W PAT&/FAM 2016 DoD MANUAL THERAPY TECHNIQUES [...] ADMINISTERED BY A COMPUTER, WITH QUALIFIED HEALTH AEROSPACE MEDICINE PHYSICIAN INTERPRETATION AND REPORT 2013 [facility] MANUAL THERAPY TECHNIQUES (EG, MOBILIZATION/ MANIPULATION, MANUAL LYMPHATIC DRAINAGE, MANUAL TRACTION), 1 OR MORE REGIONS, EACH 15 MINUTES 2012 [facility] APPLICATION OF A MODALITY TO 1 OR MORE AREAS; VASOPNEUMATIC DEVICES 2012 [facility] PSYCHOTHERAPY, 60 MINUTES WITH PATIENT 2012 [facility] CANE, INCLUDES CANES OF ALL MATERIALS, ADJUSTABLE [...] 2010 DoD PSYCHIATRIC DIAGNOSTIC INTERVIEW EXAMINATION 2004 [facility] PSYCHIATRIC DIAGNOSTIC INTERVIEW EXAMINATION 2004 [facility] AVULSION OF NAIL PLATE, PARTIAL OR COMPLETE, SIMPLE; SINGLE 2003 [facility] OPHTHALMOLOGICAL SERVICES: MEDICAL EXAMINATION AND EVALUATION, WITH INITIATION OR CONTINUATION OF DIAGNOSTIC AND TREATMENT PROGRAM; COMPREHENSIVE, ESTABLISHED PATIENT, 1 OR MORE VISITS 2002 [facility] Cerumen Removal Left Ear Irrigation Cerumen Removal Left Ear Irrigation 96022 2018 PEPE PAT DoD Internet Med Svc Qual Nonphys Healthcare Prof Estab Patient Internet Med Svc Qual Nonphys Healthcare Prof Estab Patient [id number] 2017 FELTON SIMPSON [facility] Spectacles Services Fitting Bifocals (Not For Aphakia) Spectacles Services Fitting Bifocals (Not For Aphakia) 43238 2017 ISABELL MORALES [facility] Determination Of Refractive State Determination Of Refractive State 97063 2017 ISABELL MORALES [facility] Ophthalmological New Patient Start Comprehensive Care Ophthalmological New Patient Start Comprehensive Care 62860 2017 ISABELL MORALES [facility] Non-Physician Phone Call To Pt/Provider Lengthy (21-30 min) Non-Physician Phone Call To Pt/Provider Lengthy (21-30 min) [id number] 2017 JR HARRIS [facility] Physical Therapy Mobilization Joint Physical Therapy Mobilization Joint 70822 2017 SHADIA VALENTE [facility] Physical Therapy Neuromuscular Re-education Physical Therapy Neuromuscular Re-education 11540 2017 SHADIA VALENTE [facility] Physical Therapy: ___ Se ion Segments, 15 Minutes Each Physical Therapy: ___ Session Segments, 15 Minutes Each 97444 2017 SHADIA VALENTE [facility] Physical Therapy Mobilization Joint Physical Therapy Mobilization Joint 52444 2017 DEVAN SAWYER [facility] Physical Therapy Neuromuscular Re-education Physical Therapy Neuromuscular Re-education 44922 2017 SILVERIODEVAN [facility] Physical Therapy: ___ Se ion Segments, 15 Minutes Each Physical Therapy: ___ Session Segments, 15 Minutes Each 07608 2017 DEVAN SAWYER [facility] Physical Therapy Mobilization Joint Physical Therapy Mobilization Joint 24632 2017 SHADIA VALENTE [facility] Physical Therapy Neuromuscular Re-education Physical Therapy Neuromuscular Re-education 80290 2017 SHADIA VALENTE [facility] Physical Therapy: ___ Se ion Segments, 15 Minutes Each Physical Therapy: ___ Session Segments, 15 Minutes Each 42762 2017 SHADIA VALENTE [facility] Physical Therapy: ___ Se ion Segments, 15 Minutes Each Physical Therapy: ___ Session Segments, 15 Minutes Each 70508 2017 COLLETTE ALBRECHT [facility] Physical Medicine Physical Therapy Re-Evaluation Physical Medicine Physical Therapy Re-Evaluation 68611 2016 JONAH CARREON [facility] Mobilization Soft Ti ue Mobilization Soft Tissue 41097 2016 BRAYAN LIRIANO [facility] Physical Therapy: ___ Se ion Segments, 15 Minutes Each Physical Therapy: ___ Session Segments, 15 Minutes Each 58902 2016 BRAYAN LIRIANO [facility] Modalities Ultrasound Modalities Ultrasound 78459 2016 BRAYAN LIRIANO [facility] Mobilization Soft Ti ue Mobilization Soft Tissue 74406 2016 BRAYAN LIRIANO [facility] Physical Therapy: ___ Se ion Segments, 15 Minutes Each Physical Therapy: ___ Session Segments, 15 Minutes Each 49180 2016 BRAYAN LIRIANO [facility] Mobilization Soft Ti ue Mobilization Soft Tissue 53066 2016 BRAYAN LIRIANO [facility] Modalities Ultrasound Modalities Ultrasound 51127 2016 BRAYAN LIRIANO [facility] Physical Therapy: ___ Se ion Segments, 15 Minutes Each Physical Therapy: ___ Session Segments, 15 Minutes Each 90963 2016 BRAYAN LIRIANO [facility] Modalities Ultrasound Modalities Ultrasound 44342 2016 BRAYAN LIRIANO [facility] Mobilization Soft Ti ue Mobilization Soft Tissue 99245 2016 BRAYAN LIRIANO [facility] Physical Therapy: ___ Se ion Segments, 15 Minutes Each Physical Therapy: ___ Session Segments, 15 Minutes Each 36357 2016 BRAYAN LIRIANO [facility] Biopsy Skin Biopsy Skin 27402 2016 REJI WILKINS [facility] Exercises A isted Exercises For ROM Exercises Assisted Exercises For ROM 70262 2016 JONAH CARREON [facility] Non-Physician Phone Call To Patient/Provider Brief (5-10min) Non-Physician Phone Call To Patient/Provider Brief (5-10min) 26086 2016 ELIZABETH PRESCOTT Shaving Of Lesion Forearms Up To .5cm Shaving Of Lesion Forearms Up To .5cm 92633 2016 REJI WILKINS Psychiatric Evaluation Review of Records and Reports Psychiatric Evaluation Review of Records and Reports 90792 2013 NASIM ASH [facility] Non-Physician Phone Call To Patient/Provider Brief (5-10min) Non-Physician Phone Call To Patient/Provider Brief (5-10min) 65685 2013 ELIZABETH PRESCOTT Psychometric Neuropsych Testing Battery Admin By Computer Psychometric Neuropsych Testing Battery Admin By Computer 41600 2013 MONCHO MONTAÑO [facility] Physical Therapy Mobilization Joint Physical Therapy Mobilization Joint 88006 2012 ELBA NIX Physical Therapy Gait Training Physical Therapy Gait Training 91778 2012 ELBA NIX Physical Therapy: ___ Se ion Segments, 15 Minutes Each Physical Therapy: ___ Session Segments, 15 Minutes Each 60191 2012 ELBA NIX [facility] Modalities Vasopneumatic Device Modalities Vasopneumatic Device 28437 2012 BOYD PRESYBETERIAN [facility] Physical Therapy Gait Training Physical Therapy Gait Training 86073 2012 [facility] Modalities Cryotherapy Cold Packs Modalities Cryotherapy Cold Packs 73966 2012 ELBA NIX [facility] Physical Therapy Mobilization Joint Physical Therapy Mobilization Joint 15399 2012 ELBA NIX Physical Therapy: ___ Se ion Segments, 15 Minutes Each Physical Therapy: ___ Session Segments, 15 Minutes Each 01527 2012 ELBA NIX Cane, includes canes of all materials, adjustable or fixed, with tip 2012 ALPESH RIVERA [facility] Orthopedic Strapping Ankle Orthopedic Strapping Ankle 58942 2012 ALPESH RIVERA [facility] Modalities Vasopneumatic Device Modalities Vasopneumatic Device 57224 2012 ALPESH RIVERA [facility] Exercises A isted Exercises For ROM Exercises Assisted Exercises For ROM 95528 2012 ALPESH RIVERA [facility] Physical Medicine Physical Therapy Evaluation Physical Medicine Physical Therapy Evaluation 00539 2012 ALPESH RIVERA [facility] Psychiatric Evaluation Comprehensive Examination Psychiatric Evaluation Comprehensive Examination 37083 2012 DIANA CUADRA [facility] Non-Physician Phone Call To Patient/Provider Brief (5-10min) Non-Physician Phone Call To Patient/Provider Brief (5-10min) 48949 2010 OLU GEORGE [facility] Non-Physician Phone Call To Patient/Provider Brief (5-10min) Non-Physician Phone Call To Patient/Provider Brief (5-10min) 16468 2010 TAN SHORE [facility] Psychiatric Evaluation Review of Records and Reports Psychiatric Evaluation Review of Records and Reports 02583 2010 PEPE VALENTIN [facility] Psychiatric Evaluation Review of Records and Reports Psychiatric Evaluation Review of Records and Reports 32043 2010 DIMITRIS ANDINO [facility] Tdap Vaccine Tdap Vaccine 24061 2008 NASIM ANGELES JR. [facility] Immunization Administration Each Additional Vaccine 2008 NASIM ANGELES [facility] Hepatitis B Vaccine (Active); 20 Years and Above 2008 NASIM ANGELES [facility] Immunization Administration One Vaccine Immunization Administration One Vaccine 51961 2008 NASIM ANGELES JR. [facility] Skin Test Anergy tuberculin Skin Test Anergy tuberculin 08397 2008 BAILEE VÁSQUEZ *INACTIVE* [facility] Hepatitis B Vaccine (Active); 20 Years and Above 2008 BAILEE VÁSQUEZ *INACTIVE* [facility] Immunization Administration One Vaccine Immunization Administration One Vaccine 51833 2008 BAILEE VÁSQUEZ *INACTIVE* [facility] Health And Behav Intervention, Each 15 Min Grp (2 Or More) Health And Behav Intervention, Each 15 Min Grp (2 Or More) 57994 2005 DONELL CAMERON [facility] Psychiatric Evaluation Comprehensive Examination Psychiatric Evaluation Comprehensive Examination 91242 2004 HARINDER AUSTIN [facility] Injection, triamcinolone acetonide, preservative free, 1 mg IVANA ALVARADO Psychiatric Corticosteroids Inj Right Fourth Carpometacarpal Joint Corticosteroids Inj Right Fourth Carpometacarpal Joint 85645 IVANA ALVARADO Psychiatric Internet Med Svc Qual Nonphys Healthcare Prof Estab Patient Internet Med Svc Qual Nonphys Healthcare Prof Estab Patient 38399 MEL DE LUNA [facility] Osteopathic Manip Treatment (OMT) 3-4 Body Regions Involved Osteopathic Manip Treatment (OMT) 3-4 Body Regions Involved 71750 ISABELL SUAREZ [facility] Destruction Of Premalignant Lesion By Any Method One Lesion Destruction Of Premalignant Lesion By Any Method One Lesion 41409 MANPREET SHETH [facility] Brief communication technology-based service, e.g. virtual check-in, by a physician or other qualified health care profe franki who can report evaluation and management services, provided to an established patient, not originating from a related E/M service provided within the previous 7 days nor leading to an E/M service or procedure within the next 24 hours or soonest available appointment; 5-10 minutes of medical discu ion TULIO PARTIDA [facility] Non-Physician Phone Call To Patient/Provider Brief (5-10min) Non-Physician Phone Call To Patient/Provider Brief (5-10min) 32331 JEANETTE MARTINEZ [facility] No data available for this section Ambulatory Pharmacy Social History Combined list of available smoking, tobacco, and other social history from Department of Defense and Veterans Affairs facilities. Social History Type Response Date Comment Sourc e Tobacco smoking status NHIS VA-TOBACCO NEVER USED CIGARETTES 06/25/2024 [facility] History of tobacco use VA-TOBACCO NEVER USED OTHER TYPE 06/25/2024 [facility] History of tobacco use VA-TOBACCO NEVER USED 06/30/2023 [facility] This section is an empty social history section. DoD Assessment and Plan Combined list of future [...] at Department of Defense and Veterans Affairs [place] Functional [place] Measurement (FIM) Scale: 1 = Total Assistance (Subject = 0% +), 2 = Maximal Assistance (Subject = 25% +), 3 = Moderate Assistance (Subject = 50% +), 4 = Minimal Assistance (Subject = 75% +), 5 = Supervision, 6 = Modified [place] (Device), 7 = Complete [place] (Timely, Safely). Assessment Date/Time Source Assessment Type Assessment Skill Assessment Score Assessment Details No data available for this section
--- OUTSIDE RECORDS SUMMARY | 2024-08-19 18:15 | XMS_ITS | Clinical Summary ---
Author Organization [facility] Address [address] [place] [address] Phone Care Team Providers Care Physician Anesthesiologist Name Role Phone Devyn Coronado APRN, CNP [...] to complete this topic Insurance Care Teams Physician Anesthesiologist Relationship Specialty Start Date End Date Devyn Coronado, DIRECTOR OF HOUSING, GEOGRAPHIC INFORMATION SYSTEMS MANAGER #[address] [address] PCP - General Advanced Practice Nurse 07/12/22
[2024-08-19] MEDS: SODIUM CHLORIDE 0.9% IV 1,000 ML 999 ML IV CONT (18:19)
[2024-08-19] MEDS: ONDANSETRON INJ 4 MG/2 ML VIAL IV PUSH (18:20)
[2024-08-19] MEDS: FAMOTIDINE 20 MG/2 ML VIAL IV PUSH (18:22)
[2024-08-19] MEDS: BELLADONNA ALK/PHENOB ELIX 10 ML, MAG HYDROX/ALUMINUM HYD/SIMETH 30 ML, LIDOCAINE 2% VI... PO (18:24)
[2024-08-19 18:28] LABS: INR 1.0; Partial Thromboplastin Time 29.2 Seconds (22.3-36.8); Prothrombin Time 13.6 Seconds (11.1-14.7)
[2024-08-19 18:32] LABS: Troponin I < 0.012 ng/mL (0.000-0.034)
[2024-08-19 18:59] LABS: Alanine Aminotransferase 35 U/L (6-50); Albumin Level 4.6 g/dL (3.5-5.1); Alkaline Phosphatase 59 U/L (38-126); Anion Gap 9 mmol/L (4-12); Aspartate Amino Transferase 38 U/L (17-59); Bilirubin,Total 0.6 mg/dL (0.2-1.3); Blood Urea Nitrogen 17 mg/dL (9-20); Calcium 10.0 mg/dL (8.4-10.2); Carbon Dioxide 29 mmol/L (22-30); Chloride 100 mmol/L (98-107); Estimated CRCL calculation 87 ml/min; Estimated Glomerular Filt Rate > 60; Glucose 104 mg/dL (65-110); Lipase 114 U/L (23-300); Potassium 4.2 mmol/L (3.4-5.0); Sodium 138 mmol/L (137-145); Total Protein 8.0 g/dL (6.3-8.2)
[2024-08-19] MEDS: KETOROLAC 30 MG/ML VIAL (*BKC) IV PUSH (19:27)
== END 2024-08-19 20:13 | disposition home or self-care (01) ==
PROVIDERS: Emergency Provider Physician Assistant
DX: K65.4 Sclerosing mesenteritis (principal); R10.13 Epigastric pain; R94.31 Abnormal electrocardiogram [ECG] [EKG]
CPT/HCPCS: 36415; 71046; 74177; 80053; 81001; 83690; 84484; 85025; 85610; 85730; 93005; 96361; 96374; 96375; 99284; A9270; J1885; J2405; J7030; Q9967

== ENCOUNTER 2024-08-20 19:39 | Emergency (ER) | payer OTHER, SELFPAY ==
--- OUTSIDE RECORDS SUMMARY | 2024-08-20 19:42 | XMS_ITS | Encounter Summary ---
Author Organization [facility] Address [address] [place] [place] [address] Care Team Providers Care Food Cart Attendant Name Role Phone Unavailable Primary Care Provider Unavailabl e Encounter Details Date Type Department Care Team (Late st Contact Info) Description 08/03/2022 Lab Requisition [facility] - DermPath Lab [address] [place] [id number] Emelia Dee MD [address] [place] [address] [place] [id number] Other follicular cysts of the skin and [...] AM CDT) Case Report Dermatopathology Report Case: [id number] Authorizing Provider: Emelia Dee MD Collected: 08/03/2022 12:00 AM Ordering Location: [facility] DermPath Lab Received: 08/04/2022 04:00 PM [...] of a non-oriented ellipse of skin measuring [id number] mm. The epidermal surface is unremarkable. The [...] characteristic determined by the Dermatopathology Laboratory at [facility], directed by Dr. Terence Hurtado. These tests need not be, and therefore are not, approved by the [place] Food and Drug Administration. The tests are used for clinical purposes. Billing Codes Specimen Charges Stain Charges 68303 1 1:44 PM CDT DERMATOPATHOLOGY LABORATORY Embedded Images 1:44 PM CDT DERMATOPATHOLOGY LABORATORY Pathology/Cytolog y TISSUE SPECIMEN FROM SKIN / Unknown 08/03/2022 08/04/2022 4:00 PM CDT us Emelia Dee MD LAB - PATHOLOGY/CYTOLOGY ORDERAB LES Final Result DERMATOPATHOLOGY LABORATORY [facility] - Department of Dermatology [facility] Medicine [facility] [phone] documented in this encounter Visit Diagnoses Diagnosis Other follicular cysts of the skin and subcutaneous tissue Other disturbances of skin sensation documented in this encounter
--- OUTSIDE RECORDS SUMMARY | 2024-08-20 19:42 | XMS_ITS | Data Portability ---
Author Organization [place] - [facility] [employer] [facility] Address [address] [place] [address] Assessment No assessment recorded. Plan of Treatment Reminders Order Date Submit Date Provider Last Modified By Organization Details Last Modified Time Details Appointments None recorded. Lab None recorded. Referral None recorded. Procedures None recorded. Surgeries None recorded. Imaging None recorded. Medication Orders prednisone 10 mg tablet 2024 [facility] #[id number], [address], [place], [id number], 12:23:26 benzonatate 100 mg capsule 2024 025 [employer] #[id number], [address], [place], [id number], 16:58:56 Patient TargetsNo targets recorded. Patient Instructions Encounter Date Encounter Id Patient Instructions Last Modified By Organization Details Last Modified Time 07/08/2024 [id number] bronchitis: care instructions [email or web address] Not available 07/08/2024 12:23:13 Summary of Today [...] Pickup: I've sent your prescriptions to the [facility] on [facility] in [place]. You can pick them up there at your convenience. If you have any issues with obtaining the medication, please don't hesitate to reach out for assistance. [email or web address] Not available 07/08/2024 12:23:12 Reason for Referral [...] SNOMED-CT Code Diagnosis ICD10 Code Diagnosis Note [id number] WYATT Miller [facility] [address] [place] [address] 07/08/2024 12:15:35 07/08/2024 12:26:07 Bronchitis [id number] J40 Acute bronchitis - supported by the [...] ID Mojica Member ID Guarantor Name 07/08/2024 [facility] Robert Carter [id number] Robert Carter 08/19/2024 1 [facility] - Robert Carter [id number] Robert Carter 07/08/2024 2 *SELF PAY* Robert Carter [id number] Robert Carter 07/08/2024 1 *SELF PAY* Dylan [...] a viral illness experienced about one to cnt-apv-j-half weeks ago. Initially, they reported symptoms resembling [...] discharge or severe facial pain WYATT Miller [address] [place] [address] [address], [address], [facility] 07/08/2024 16:59:45
--- OUTSIDE RECORDS SUMMARY | 2024-08-20 19:42 | XMS_ITS | Clinical Summary ---
Author Organization [facility] Address [address] [place] [address] Care Team Providers Care Employment Security Officer Name Role Phone Hank Hernandez DO Primary Care Provider [phone] Allergies No known active allergies Medications Multiple Vitamin (MULTIVITAMIN OR) Ac tive testosterone cypionate (DEPO TESTOSTERONE) 200 MG/ML injectionIndicati ons:Hypogonadism in male Inject 0.5 mLs (100 mg total) into the muscle once a week. 10 mL 5 Active diclofenac EC (VOLTAREN) 75 MG tabletIndications :Mesenteric panniculitis (CMS/HCC HHS/HCC) Take 1 tablet (75 mg total) by mouth 2 (two) times daily for 14 days. 28 tablet 5 09/05/19 25 Active traMADol (ULTRAM) 50 MG tabletIndications :Acute Pain < 7 Day Supply Take 1 tablet (50 mg total) by mouth every 6 (six) hours as needed for Pain. Indications : Acute Pain < 7 Day Supply 20 tablet 5 Active testosterone cypionate (DEPO TESTOSTERONE) 200 MG/ML injectionIndicati ons:Hypogonadism in male Inject 1 mL (200 mg total) into the muscle once a week. 10 mL 1 5 08/19/19 25 Discontinu ed(Reorder ) testosterone cypionate (DEPO TESTOSTERONE) 200 MG/ML injectionIndicati ons:Hypogonadism in male Inject 0.5 mLs (100 mg total) into the muscle once a week. 5 08/21/19 25 Discontinu ed(Reorder ) Hospital, Clinic, or Other Facility Administered Medication Ordered Dose Route Frequency Start Date End Date Status ketorolac (TORADOL) injection 60 mgIndications:Mesenteric panniculitis (CMS/HCC HHS/HCC) 60 mg IM Once 08/20/2024 08/20/2024 Ended Active Problems Problem Noted Date Diagnosed Date [...] single episode 01/15/2024 01/15/2024 Periodic limb movement 04/29/202001/14 Psychophysiological insomnia 04/29/2020 01/15/2024 Encounters Date Type Department Care Team Description 08/20/2024 11:40 AM CDT Office Visit [facility] Family Medicine [address] [address] Hank Hernandez, ER F/U (C/O of a lot of abdominal pain ) 08/20/2024 Telephone [facility] Family Medicine [address] [address] Hank Hernandez, Advice (Nurse Triage - After Hours ([id number])/) 08/20/2024 Telephone [facility] Family & Internal Medicine [address] [address] Palmira Rdz APNP 08/20/2024 MyChart Message Enc [facility] Family [address] [address] Hank Hernandez, DO Follow up to 20 August appt 08/20/2024 Travel 08/18/2024 Results Follow-Up [facility] [address] [place] [phone] Hank Hernandez, DO CBC W/AUTO DIFF, COMPREHENSIVE METABOLIC PANEL, TESTOSTERONE, FREE & TOTAL, PSA, TOTAL AND FREE 08/08/2024 Orders Only [address] [address] Hank Hernandez, 07/02/2024 Scan [facility] Scanned, [...] Date Recorded Patient Health Questionnaire-2 Score 0 08/20/2024 Sex and Gender Information Value Date Recorded Sex Assigned at Not on file Legal Sex Male 4:43 PM CDT Gender Identity Not on file Sexual Orientation Not on file Last Filed Vital Signs Vital Sign Reading Time Taken Comments Blood Pressure 137/91 08/20/2024 11:51 AM CDT Pulse 83 08/20/2024 11:44 AM CDT Temperature 37 C (98.6 F) 08/20/2024 11:44 AM CDT Respiratory Rate - - Oxygen Saturation 96% 08/20/2024 11: 44 AM CDT Inhaled Oxygen Concentration - - Weight 114.9 kg (253 lb 6.4 oz) 025 11:44 AM CDT Height 178.4 cm (5' 10.25) 08/20/2024 11:44 AM CDT Body Mass Index 36.1 08/20/2024 11:44 AM CDT Plan of Treatment Upcoming Encounters Date Type Department Care Team (Late st Contact Info) Description 01/15/2025 3:20 PM INVESTMENT CONSULTANT Office Visit [facility] Family Medicine - [address] [phone] [place] [address] Health Maintenance Due Date Last Done Comments Colorectal Cancer Screening Colonoscopy (10 Years) 1973 Annual Physical 1976 COVID-19 Vaccine (3 - 2023- season) 2023 07/20/2020, 06/22/2020 Pneumococcal Vaccine: 50+ Years (1 of 1 - PCV) 10/16/2023 Zoster Vaccines (1 of 2) 10/16/2023 DTaP, Tdap and Td Vaccines (5 - Td or Tdap) 11/18/2031 11/17/2021, 01/24/2019, 08/26/2008, Additional history exists Hepatitis B Vaccines Completed 02/16/2009, 08/26/2008, 08/20/2008, Additional history exists Meningococcal Vaccine Aged Out 07/19/2013, 999 No longer eligible based on patient's age to complete this topic Hepatitis C Completed 02/06/2024 PHQ-2 (Physician [place]) Completed 08/20/2024 Meningococcal B Vaccine Aged Out No l [...] W/RFX TO HCV RNA 02/06/2024 8:20 AM INVESTMENT CONSULTANT from Last 3 Months or Most Recently [...] have assigned CBC with Differential/Platelet, Test Code #[id number] to this request. If this is not the testing you wished to receive on this specimen, please contact [facility] Technical Services Department to clarify the test order. We appreciate your business. 08/08/2024 9:24 AM CDT 08/08/2024 Narrative [facility] - 08/11/2024 2:08 PM CDT Performed at: [address] [place] [id number] [employer] Top: Everett Hernandez PhD, Phone: [phone] Hank Hernandez DO LABORATORY Final Resul t Performing Organization Address [facility] de Phone Number [facility] [address] [place] [address] [facility] 1 * (ABNORMAL) TESTOSTERONE, FREE & TOTAL (08/08/2024 9:24 AM CDT) TESTOSTERONE 1,340(H) 264 - 916 ng/dL [facility] 1 Comment: Adult male reference interval is based on a population of healthy nonobese males (BMI <30) between 19 and 39 years old. Serg et.al. JCEM 2017,102;0152-4434. PMID: [id number]. TESTOSTERONE FREE 27.5(H) 7.2 - 24.0 pg/mL [facility] 2 08/08/2024 9:24 AM CDT 08/08/2024 Narrative [facility] - 08/11/2024 2:08 PM CDT Performed at: 01 - [address] [id number] [employer]: Everett Hernandez PhD, Phone: [phone] Performed at: [address] [id number] [employer]: Fanta Garcia MD, Phone: [phone] Hank Hernandez DO LABORATORY Final Resul t Performing Organization Address [facility] de Phone Number [facility] [address] [place] [address] [facility] 1 [facility] 2 * COMPREHENSIVE METABOLIC [...] - 08/11/2024 2:08 PM CDT Performed at: [address] [place] [id number] [employer]: Everett Hernandez PhD, Phone: [phone] Hank Hernandez DO LABORATORY Final Resul t [facility] [address] [place] [address] [facility] 1 * PSA, TOTAL AND FREE (08/08/2024 9:24 AM CDT) Pathologist [facility] PSA 1.8 0.0 - 4.0 ng/mL [facility] 1 Comment: Mandeep ECLIA methodology. According to the [place] [employer], Serum PSA should decrease and [...] - 08/11/2024 2:08 PM CDT Performed at: [address] [place] [id number] [employer]: Everett Hernandez PhD, Phone: [phone] Hank Hernandez DO LABORATORY Final Resul t Performing Organization Address [facility] de Phone Number [facility] [address] [place] [address] [facility] 1 * HEPATITIS C ANTIBODY W/RFX TO HCV RNA (02/06/2024 8:20 AM INVESTMENT CONSULTANT) Pathologist [facility] HEPATITIS C AB Non Reactive Non Reacti [facility] 1 INTERPRETATION Comment [facility] 1 Comment: Not infected with HCV unless early or acute infection is suspected (which may be delayed in an immunocompromised individual), or other evidence exists to indicate HCV infection. 02/06/2024 8:20 AM INVESTMENT CONSULTANT 02/06/2024 Narrative [facility] - 02/10/2024 4:07 AM INVESTMENT CONSULTANT Performed at: [facility] [id number] [employer]: Everett Hernandez PhD, Phone: [phone] Hank Hernandez DO LABORATORY Final Resul t Performing Organization Address [facility] de Phone Number [facility] [address] [place], [place] [id number] [facility] 1 from Last 3 Months or Most Recently Relevant to Health Maintenance Insurance Member Subscriber Plan / Payer (Ef fective 2024-Present) Name:Robert Carter Relation to Subscriber:Self Name:Robert Carter Payer ID:[id number] (NAIC) Group ID:Not on file Type:Indemnity Address: [address] [place] [address] Care Teams Employment Security Officer Relationship Specialty Start Date End Date Hank [place] [address] [place] [address] PCP - General FAMILY PRACTICE 11/22/23
--- OUTSIDE RECORDS SUMMARY | 2024-08-20 19:42 | XMS_ITS | Encounter Summary ---
Author Organization [facility] Address [facility] [place] [address] Care Team Providers Care Heavy Cleaner Name Role Phone Hank Hernandez DO Primary Care Provider [phone] Encounter Details Date Type Department Care Team (Late st Contact Info) Description 08/20/2024 MyChart Message Enc [facility] Family Medicine [facility] [address] [place] [address] Hank Hernandez DO [address] [place] [address] Follow up to 20 August appt Social History Tobacco Use Types Packs/Day Years [...] on file documented as of this encounter Functional Status * Over the past 2 weeks, how often have you been bothered by any of the following problems? Question Answer Date of Assessment Author Status Little interest or pleasure in doing things Not at all 08/20/2024 11:48 AM MARBELLAT Bharat [place] MA Active Feeling down, depressed, or hopeless Not at all 08/20/2024 11:48 AM CDT Simón [place] MA Active Patient Health Questionnaire-2 Score 0 08/20/2024 11:48 AM CDT Tayla [place] MA Active documented as of this encounter Plan of Treatment Upcoming Encounters Date Type Department Care Team (Late st Contact Info) Description 01/15/2025 3:20 PM CEMENT BREAKER Office Visit [facility] Family Medicine [facility] [address] [facility] [place] [address] Hank Hernandez DO [address] [place] [address] documented as of this encounter Visit Diagnoses Not on filedocumented in this encounter Additional Health Concerns Assessment Noted Time PHQ-9 Depression Total Score: 0 01/15/20 10:48 AM CEMENT BREAKER documented as of this encounter Care Teams Heavy Cleaner Relationship Specialty Start Date End Date Hank Hernandez DO [address] [place] [address] PCP - General FAMILY PRACTICE 11/22/23 documented as of this encounter
--- OUTSIDE RECORDS SUMMARY | 2024-08-20 19:42 | XMS_ITS | Encounter Summary ---
Author Organization [facility] Address [address] [place] [address] Care Team Providers Care R D Internship Name Role Phone Deuce Hernandez DO Primary Care Provider [phone] Reason for Visit * Reason Comments ER F/U C/O of a lot of abdo safia pain Encounter Details Date Type Department Care Team (Late st Contact Info) Description 08/20/2024 11:40 AM CDT Office Visit [facility] Family Medicine [address] [phone] Deuce Hernandez DO [address] [place] [address] ER F/U (C/O of a lot of abdominal pain ) Social History Tobacco Use Types Packs/Day Years [...] on file documented as of this encounter Last Filed Vital Signs Vital Sign Reading [...] Mass Index 36.1 08/20/2024 11:44 AM CDT documented in this encounter Functional Status * Over the past 2 weeks, how often have you been bothered by any of the following problems? Question Answer Date of Assessment Author Status Little interest or pleasure in doing things Not at all 08/20/2024 11:48 AM CDT Bharat Fulton MA Active Feeling down, depressed, or hopeless Not at all 08/20/2024 11:48 AM CDT Simón Fulton MA Active Patient Health Questionnaire-2 Score 0 08/20/2024 11:48 AM CDT Tayla Fulton MA Active documented as of this encounter Patient Instructions * Patient Instructions* Deuce Hernandez DO - 08/20/2024 11:40 AM CDT Thank you for trusting your care with me today! If blood tests were ordered, please go to the lab at the [facility] or other location discussed. If labs were requested to go to [facility], then be sure to bring your paper lab order with you. If a referral was placed, please allow 1-2 weeks for this to be processed. A referral cash posting representative will reach out to schedule your appointment, so be on the lookout for this call. Ensure your voicemail is setup and not full. If youhave any questions, please contact our office at or reach out by [facility]. documented in this encounter Progress Notes * Deuce Hernandez DO - 08/20/2024 11:40 AM CDT Images from the original note were not included. GENERAL OFFICE VISIT Encounter Date: 08/20/2024 Chief Complaint: 48-year-old male presents for ER F/U (C/O of a lot of abdominal pain ) HPI: Robert presents for follow-up of ER visit last night at [facility]. Report of upper abdominal pain that started over the past 24 to 48 hours. Describes as sharp pain radiating outward across hisupper belly and a little to the right flank. States that he ate some yogurt in the morning which not sure if contributed to the problem. Denies any injection or recent infection or skin cut or alcohol use. Reviewed labs and imaging on his phone. Labs were remarkable for elevated WBC 12.3, normal lipase, metabolic panel, urine. 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 Review of Systems Constitutional: Negative for chills and fever. HENT: Negative for ear discharge and ear pain. Eyes: Negative for pain and redness. Respiratory: Negative for cough and shortness of breath. Cardiovascular: Negative for chest pain and leg swelling. Gastrointestinal: Positive for abdominal pain. Negative for constipation, diarrhea, nausea and vomiting. Genitourinary: Negative for difficulty urinating and dysuria. Musculoskeletal: Negative for arthralgias and back pain. Neurological: Negative for dizziness, light-headedness and headaches. Patient Active Problem List Diagnosis APOLLO (obstructive sleep apnea) Class 2 obesity due to excess calories without serious comorbidity with body mass index (BMI) of 35.0 to 35.9 in adult Pain in left ankle and joints of left foot Hypogonadism in male Erectile dysfunction of organic origin Long-term current use of testosterone replacement therapy Past Medical History[1] Past Surgical History[2] Family History[3] Social History Socioeconomic History Marital status: Spouse name: Not on file Number of children: Not on file Years of education: Not on file Highest education level: Not on file Occupational History Not on file Tobacco Use Smoking status: Never Passive exposure: Past Smokeless tobacco: Never Vaping Use Vaping status: Never Used Substance and Sexual Activity Alcohol use: Never Drug use: Never Sexual activity: Yes Partners: Female Other Topics Concern Not on file Social History Narrative Patient lives at home with his and 2 of his sons Social Drivers of Health Financial Resource Strain: Not on file Food Insecurity: Not on file Transportation Needs: Not on file Physical Activity: Not on file Stress: Not on file Social Connections: Not on file Intimate Partner Violence: Not on file Housing Stability: Not on file Immunization History Administered Date(s) Administered Anthrax Vaccine 11/28/2001, 12/12/2001, 12/26/2001, 07/22/2002, 04/08/2003, 02/14/2013, 12/22/2015 H1N1 Injectable 2009 Influenza 02/26/2009 Hepatitis A (Havrix [address]) 07/24/1998, 04/05/2000 Hepatitis B (Generic: Adult) 06/03/2008, 08/20/2008, 08/26/2008, 02/16/2009 Influenza (FluMist) 03/08/2004, 11/25/2005, 12/04/2006, 11/11/2008, 12/10/2009, 11/28/2012, 03/05/2014, 12/18/2014 Influenza (Generic) 07/17/1998, 12/03/1998, 01/30/2000, 11/27/2000, 11/16/2001, 11/28/2002, 12/14/2004, 01/21/2008, 01/30/2008, 11/04/2010, 11/10/2011, 12/22/2015, 02/10/2017 Influenza Adult (Generic) 12/01/2017, 01/24/2019 MMR (MMRII) 09/19/2006, 02/14/2013 MODERNA COVID-19 (12+) MRNA, LNP-S, PF, 100 MCG/ 0.5 ML DOSE 06/22/2020, 07/20/2020 Meningococcal (Menactra) 07/19/2013 Meningococcal (Menomune) 07/17/1998 Polio IPV (Ipol) 09/17/2013 Polio Opv (Generic) 07/24/1998 Protein Derivative (Purified) 04/03/2001, 04/10/2003, 06/03/2008 Small Pox 02/14/2013, 03/05/2013 Td (TDVAX) 07/17/1998, 01/24/2019 Tdap (Generic) 08/20/2008, 08/26/2008, 11/17/2021 Typhoid (Typhim ) 04/03/2001, 02/14/2013 Yellow Fever (YF- Vax) 10/17/2001, 07/24/2013 Current Outpatient Medications Medication Sig Dispense Refill [START ON 08/21/2024] diclofenac EC (VOLTAREN) 75 MG tablet Take 1 tablet (75 mg total) by mouth 2 (two) times daily for 14 days. 28 tablet 0 Multiple Vitamin (MULTIVITAMIN OR) testosterone cypionate (DEPO TESTOSTERONE) 200 MG/ML injection Inject 0.5 mLs (100 mg total) into the muscle once a week. 10 mL 0 traMADol (ULTRAM) 50 MG tablet Take 1 tablet (50 mg total) by mouth every 6 (six) hours as needed for Pain. Indications: Acute Pain < 7 Day Supply 20 tablet 0 No current facility-administered medications for this visit. Review of patient's allergies indicates: No Known Allergies Objective: Filed Vitals: 08/20/24 1144 08/20/24 1151 BP: (!) 153/90 (!) 137/91 Pulse: 83 Temp: 98.6 ??F (37 ??C) TempSrc: Temporal SpO2: 96% Weight: 114.9 kg (253 lb 6.4 oz) Height: 1.784 m (5' 10.25) Physical Exam Vitals reviewed. Constitutional: General: He is not in acute distress. Appearance: Normal appearance. He is obese. HENT: Head: Normocephalic and atraumatic. Right Ear: External ear normal. Left Ear: External ear normal. Nose: Nose normal. Mouth/Throat: Mouth: Mucous membranes are moist. Eyes: Conjunctiva/sclera: Conjunctivae normal. Cardiovascular: Rate and Rhythm: Normal rate and regular rhythm. Pulmonary: Effort: Pulmonary effort is normal. No respiratory distress. Breath sounds: Normal breath sounds. Musculoskeletal: General: Normal range of motion. Cervical back: Normal range of motion. Skin: General: Skin is warm and dry. Neurological: General: No focal deficit present. Mental Status: He is alert and oriented to person, place, and time. Mental status is at baseline. Assessment & Plan: Robert was seen today for er f/u. 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 - traMADol (ULTRAM) 50 MG tablet; Take 1 tablet (50 mg total) by mouth every 6 (six) hours as needed for Pain. Indications: Acute Pain < 7 Day Supply - ketorolac (TORADOL) injection 60 mg Hypogonadism in male - testosterone cypionate (DEPO TESTOSTERONE) 200 MG/ML injection; Inject 0.5 mLs (100 mg total) into the muscle once a week. 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 Will obtain records from [facility]. Uncertain etiology, but does not appear infectious. Possible correlation between his polycythemia which may be related to excessive testosterone which has recently been cut back. Will treat his inflammation with anti-inflammatories, pain control. Overall appears well and has not been favoring. Does have some inflammation based on his WBC, but not extensive which might indicate gross bacterial infection. Will closely monitor. If not improving in 1 to 2 weeks, directed to follow-up with me, will look at more extensive CT imaging with contrast, potential antibiotics, repeat labs, surgical consultation. Elevated blood pressure likely due to pain, to control and follow-up at future visits. We discussed decreasing his testosterone 200 mg weekly with repeat labs in 3 months. Time Spent: 20 minutes were spent in total for today's visit. This includes but is not limited to chart preparation, direct patient evaluation & consultation, patient counseling, and documentation. Please see Assessment & Plan for specific topics discussed during counseling and coordinationof care. Portions of the record may have been created with voice recognition software. Occasional wrong-wordor ???[id number]??? substitutions may have occurred due to the inherent limitations of voice recognition software. Read the chart carefully and recognize, using context, where substitutions have occurred. DEUCE HERNANDEZ DO [1] History reviewed. No pertinent past medical history. [2] History reviewed. No pertinent surgical history. 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 Hypogonadism in male Elevated blood pressure reading Elevated blood pressure reading without diagnosis of hypertension Polycythemia Polycythemia vera documented in this encounter Administered Medications Inactive Administered Medications - up to 3 most recent administrations Medication Order MAR Action Action Date Dose Rate Site ketorolac (TORADOL) injection 60 mg 60 mg, Intramuscular, Once, 1 dose, On Mon08/20/24 at 1230Indications:Mesenteric panniculitis (CMS/HCC HHS/HCC) Given 08/20/2024 12:14 PM CDT 60 mg Right Deltoid documented in this encounter Additional Health Concerns Assessment Noted Time PHQ-9 Depression Total Score: 0 01/15/20 10:48 AM BLOOD BANK ATTENDANT documented as of this encounter Care Teams R D Internship Relationship Specialty Start Date End Date Deuce Hernandez DO [address] [place] [address] PCP - General FAMILY PRACTICE 11/22/23 documented as of this encounter
--- OUTSIDE RECORDS SUMMARY | 2024-08-20 19:42 | XMS_ITS | Clinical Summary ---
Author Organization [facility] Address [address] [place] [address] Care Team Providers Care Subsorter Name Role Phone Unavailable Primary Care Provider Unavailabl e Source Comments [facility],non-owned Affiliates and Associated Physician Practices is amultiple site organization consisting of ambulatory clinics and hospital sitesin [place], [place], [place] and [place]. This disclosure is being madepursuant to the Care Everywhere program and may not contain all information available regarding this patient. Last updated 17.[facility] Social History Tobacco Use Types Packs/Day Years [...]
--- OUTSIDE RECORDS SUMMARY | 2024-08-20 19:42 | XMS_ITS | Encounter Summary ---
Author Organization [facility] Address [facility] [place] [address] Care Team Providers Care Digital Marketing Apprentice Name Role Phone Hank Hernandez Primary Care Provider [phone] Encounter Details Date Type Department Care Team (Latest Contact Info) Description 08/20/2024 Travel Social History Tobacco Use Types Packs/Day Years [...] things Not at all 08/20/2024 11:48 AM Bharat Herzog MA Active Feeling down, depressed, or hopeless Not at all 08/20/2024 11:48 AM CDT Simón Fulton MA Active Patient Health Questionnaire-2 Score 0 08/20/2024 11:48 AM MARBELLAT Tayla Fulton MA Active documented as of this encounter Plan of Treatment Upcoming Encounters Date Type Department Care Team (Late st Contact Info) Description 01/15/2025 3:20 PM FISHER TERRAPIN Office Visit [facility] Family Medicine - [address] [phone] Hank Hernandez DO [address] [place], [place] [phone] documented as of this encounter Visit Diagnoses Not on filedocumented in this encounter Additional Health Concerns Assessment Noted Time PHQ-9 Depression Total Score: 0 01/15/20 10:48 AM FISHER TERRAPIN documented as of this encounter Care Teams Digital Marketing Apprentice Relationship Specialty Start Date End Date Hank Hernandez DO [address] [place] [address] PCP - General FAMILY PRACTICE 11/22/23 documented as of this encounter
--- OUTSIDE RECORDS SUMMARY | 2024-08-20 19:43 | XMS_ITS | Encounter Summary ---
Author Organization [facility] Address [facility] [place] [address] Care Team Providers Care Brand Strategy Manager Name Role Phone Hank Hernandez DO Primary Care Provider [phone] Encounter Details Date Type Department Care Team (Late st Contact Info) Description 08/20/2024 Telephone [facility] Family & Internal Medicine [facility] [address] [place] [address] Palmira Rdz APNP [address] [place], [place] [id number] Social History Tobacco Use Types Packs/Day Years [...] MA Active documented as of this encounter Progress Notes * MAUREEN Liz - 08/20/2024 6:59 PM CDT Pt called in to after hours line, 99.6 temp and pain worsening even despite tramadol. He was concerned about this. Sent pt back to ER this evening for further eval. documented in this encounter Plan of Treatment Upcoming Encounters Date Type Department Care Team (Late st Contact Info) Description 01/15/2025 3:20 PM REVENUE INSPECTOR Office Visit [facility] Family Medicine - [address] [phone] Hank Hernandez DO [address] [place] [address] documented as of this encounter Visit Diagnoses Not on filedocumented in this encounter Additional Health Concerns Assessment Noted Time PHQ-9 Depression Total Score: 0 01/15/20 10:48 AM REVENUE INSPECTOR documented as of this encounter Care Teams Brand Strategy Manager Relationship Specialty Start Date End [place] [address] PCP - General FAMILY PRACTICE 11/22/23 documented as of this encounter
--- OUTSIDE RECORDS SUMMARY | 2024-08-20 19:43 | XMS_ITS | Clinical Summary ---
Author Organization [facility] Address [facility] [place] [address] Care Team Providers Care Weed Controller Name Role Phone Heena Durant OT Unavailable [phone] Allergies No known active allergies Medications testosterone cypionate (DEPO-TESTOTERO NE) 100 mg/mL injection Inject 1 mL (100 mg total) into the muscle as instructed every 14 (fourteen) days 100mg/0.5ml Active Active Problems Problem Noted Date Diagnosed Date Special screening for malignant neoplasms, colon 05/10/2022 Overview (05/10/2022): Added automatically from request for surgery [id number] Blood clot of left ear 05/04/2022 Psychophysiological [...] Costa Perkins, - 09/22/2022 7:24 AM CDT [facility] GI ENDOSCOPY Patient Name: Robert Carter Procedure Date: 09/22/2022 7:24 AM Date of : 1975 Admit Type: Outpatient Age: 46 Gender: Male Attending MD: Costa Perkins ,Jaqueline.O. Room: [facility] ENDOSCOPY ROOM 05 Note Status: [...] On: 09/22/2022 7:24 AM Recognized by the [employer] G[employer]intestinal Endoscopy for promoting quality [...] data last revised 21. Testing performed by: [facility], [address] [place] [address]., [id number] Blood 05/16/2022 7:49 AM CDT 05/16/2022 9:52 AM CDT Costa Perkins DO LAB BLOOD ORDERABLES Fin al Result Performing Organization Address City/State/[facility] Co de Phone Number MIKEY [address] [facility] [place] [address] from Last 3 Months or Most Recently Relevant to Health Maintenance Insurance [employer] [facility] Care Teams Weed Controller Relationship Specialty Start Date End Date Heena Durant OT [address] [address] Occupational Therapist Occupational Therapy 07/14/17
--- OUTSIDE RECORDS SUMMARY | 2024-08-20 19:43 | XMS_ITS | Referral Summary ---
Author Organization [facility] Address [address] [place] [address] Care Team Providers Care Purchasing Administrative Assistant Name Role Phone Heena Durant OT Unavailable [phone] Allergies No known active allergies Medications testosterone cypionate (DEPO-TESTOTERO NE) 100 mg/mL injection Inject 1 mL (100 mg total) into the muscle as instructed every 14 (fourteen) days 100mg/0.5ml Active Active Problems Problem Noted Date Diagnosed Date Special screening for malignant neoplasms, colon 05/10/2022 Overview (05/10/2022): Added automatically from request for surgery [id number] Blood clot of left ear 05/04/2022 Psychophysiological [...] Costa Perkins, - 09/22/2022 7:[address] [facility] ENDOSCOPY Patient Name: Robert Carter Procedure Date: 09/22/2022 7:24 AM Date of : 1975 Admit Type: Outpatient Age: 46 Gender: Male Attending MD: Costa Perkins D.O. Room: [facility] ENDOSCOPY ROOM 05 Note Status: Finalized [...] On: 09/22/2022 7:24 AM Recognized by the [employer] Gastrointestinal Endoscopy for promoting quality [...] revised 21. Testing performed by: [facility], [address] [place] [address]., [id number] Blood 05/16/2022 7:49 AM CDT 05/16/2022 9:52 AM CDT Costa Perkins DO LAB BLOOD ORDERABLES Fin al Result MIKEY JIN [address] [facility] Department [place] [address] from Last 3 Months or Most Recently Relevant to Health Maintenance Insurance [facility] Care Teams Purchasing Administrative Assistant Relationship Specialty Start Date End Date Heena Durant OT [address] [address] Occupational Therapist Occupational Therapy 07/14/17
--- OUTSIDE RECORDS SUMMARY | 2024-08-20 19:43 | XMS_ITS | Encounter Summary ---
Author Organization [facility] Address [facility] [place] [address] Care Team Providers Care Mottler Machine Feeder Name Role Phone Hank Hernandez DO Primary Care Provider [phone] Reason for Visit * Reason Onset Date Comments Advice 08/20/2024 Nurse Triage - A fter Hours ([id number]) Encounter Details Date Type Department Care Team (Late st Contact Info) Description 08/20/2024 Telephone [facility] Family Medicine [address] [phone] Hank Hernandez DO [address] [place] [address] Advice (Nurse Triage - After Hours ([id number])/) Social History Tobacco Use Types Packs/Day Years [...] as of this encounter Progress Notes * Sudha Wyman - 08/20/2024 7:13 PM CDT Nurse Triage - After Hours ([id number]) Comments Patient Is Having A. Fever With Chills. Assessment Notes Returned pt call. The patient presented to the emergency department yesterday and was diagnosed with panniculitis. This morning, the patient was evaluated by Dr. Hernandez due to ongoing pain. The patient was prescribed tramadol and diclofenac. Since then, the patient has developed a fever; the most recent recorded temperature was 99.6??F, though the patient is experiencing chills and anticipates afurther increase in temperature. The patient took tramadol at 6 p.m. but continues to report significant pain, rated at 7-8 out of 10. The on- call provider, Palmira Rdz, was contacted and advised that the patient return to the emergency department. Instructions were given to follow up with Dr. Armond ugalde in the morning.Pt went to ED yesterday. Pt was dx with Panniculitis. Saw Dr Hernandez this am, due to pain. Pt was given Tramadol and diclofenac. Pt has developed a fever. Pt's most recent temp was 99.6, but he has developed chills and expects his temp to increase. Pt took the tramadol at 6p. Ptis still experiencing pain of 7-8/10. Contacted on-call, Palmira Rdz on-call indicated to send ptto ED. On-call instructed to contact Dr Hernandez in am. CARE ADVICE given per Abdominal Pain, Upper (Adult) guideline. MS,RN documented in this encounter Plan of Treatment Upcoming Encounters Date Type Department Care Team (Late st Contact Info) Description 01/15/2025 3:20 PM AOC DIRECTOR COMBAT OPERATIONS OFFICER Office Visit [facility] Family Medicine - [address] [phone] Hank Hernandez DO [address] [place], [place] [phone] documented as of this encounter Visit Diagnoses Not on filedocumented in this encounter Additional Health Concerns Assessment Noted Time PHQ-9 Depression Total Score: 0 01/15/20 24 10:48 AM AOC DIRECTOR COMBAT OPERATIONS OFFICER documented as of this encounter Care Teams Mottler Machine Feeder Relationship Specialty Start Date End Date Hank Hernandez DO [address] [place] [address] PCP - General FAMILY PRACTICE 11/22/23 documented as of this encounter
--- OUTSIDE RECORDS SUMMARY | 2024-08-20 19:43 | XMS_ITS | Continuity of Care Document ---
Author Name [facility] Organization [facility] Care Team Providers Care Machine Silver Stripper Name Role Phone DOD-FL Unavailable Unavailable Problems Combined list of problems from Department of Defense and Veterans Affairs facilities. It does not include entries that were removed or entered in error. Problem Status Onset Date Problem Type Date of Resolution Comments Source Obstructive sleep apnea of adult Active Condition [facility] ANKLE SPRAIN LEFT Active Condition DoD [...] SPRAIN MEDIAL COLLATERAL LIGAMENT RIGHT Inactive Condition [facility] visit for: administrative purpose Inactive Condition DoD visit for: screening exam Active Condition DoD SKIN DISORDER EXANTHEM Active Condition DoD visit for: laboratory Active Condition [facility] Patient Education - Alcohol Active Condition DoD Anticipatory Guidance: Inadequate Physical Activity Active Condition DoD Patient Education - Injury Prevention Active Condition [facility] visit for: services physical Inactive Condition DoD Food Sources For Nutrients Active Condition DoD Tetanus toxoid - need for vaccination Active Condition [facility] visit for: issue medical certificate Inactive Condition [facility] visit for: screening exam pulmonary tuberculosis Active Condition DoD Need For Vaccination Hepatitis B Active Condition [facility] visit for: issue medical certificate fitness Active [...] BACKACHE Inactive Condition r/o nephrolithiasis , pleuresy. [facility] Patient Education Active Condition [facility] Serum Total Cholesterol Was Elevated Active Condition Pt denies tob, is not >45, has no fhx of CAD, no hx of HTN so LDL goal is <160. no meds indicated at this time. Diet and exercise counselling provided. Healthy diet handout given. [facility] ACUTE LYMPHADENITIS Inactive Condition Motrin or Tylenol OTC for pain PRN. [facility] HAND SPRAIN Inactive Condition No evide nce of fracture on film./ Recommend R.I.C.E. Motrin for pain. RTC in one week if still painful. [facility] PSYCHIATRIC DIAGNOSIS OR CONDITION DEFERRED ON AXIS I Active Condition [facility] Diagnosis: ICD-10-CM M25.572 Pain in left ankle and joints of left foot Active Diagnosis [facility] Diagnosis: ICD-10-CM Z71.9 Counseling, unspecified Active Diagnosis [facility] Diagnosis: ICD-10-CM R20.2 Paresthesia of skin Active Diagnosis [facility] Medications Combined list of outpatient medications from Department of [facility] and [facility] Affairs facilities.Medications provided include 1) outpatient medications from the last 15 months, and 2) patient-reported medications. Medication Details Route Status Patient Instructions Prescription Expires Prescription Number Last Dispense Date Ordering Provider Order Date Order Qty Source DEHYDROEPIA NDROSTERONE (DHEA) CAP/TAB TAKE 1 CAP/TAB BY MOUTH ORAL ACTIVE Rohit GIBBS 2023 [facility] MELATONIN 3MG CAP/TAB TAKE ONE CAP/TAB BY MOUTH AT BEDTIME FOR SLEEP ORAL DISCONT INUED BY PROVIDE R 08/16/2024 [id number] MIMSCHRISTIANO KAYLEE R 2023 60 [facility] TESTOSTERON E CYPIONATE (PA-F) INJ,SOLN INJECT DEEP INTRAMUS CULARLY INTRAM USCULA R ACTIVE ME SHERRI TTISA 2023 [facility] TRAZODONE HCL 100MG TAB TAKE ONE-HALF TABLET BY MOUTH AT BEDTIME FOR INSOMNIA ORAL 11/15/2023 [id number] PRASANNACHRISTIANO KAYLEE R 2023 45 [facility] Allergies, Adverse Reactions, Alerts Combined list of allergies from Department of Defense and Veterans Affairs facilities. It does not include entries that were removed or entered in error. Substance Category Reaction Severity Reaction type Status Date Reported Comments Source NO OUTPUT FOR NCID [id number] Drug allergy (disorder) active 09/24/2007 [facility] Immunizations Combined list of available immunizations from the Department of Defense and Veterans Affairs facilities. Immunization Series Date Given Administered By Site Reaction Lot Number CVX Code Drug Fibre Technologist Status Comments Source TDAP 1 2021 115 complet ed HISTORICA L INFORMATI ON - FROM OTHER [facility] COVID-19 (MODERNA), MRNA, LNP-S, PF, 100 MCG/0.5ML DOSE OR 50 MCG/0.25ML DOSE 2 2020 207 complet ed HISTORICA L INFORMATI ON - [facility] COVID Vaccine Moderna 2020 207 complet ed COVID Vaccine Moderna 07/19/20 Given Ambulat ory Pharmac y COVID-19, mRNA, LNP-S, PF, 100 mcg or 50 mcg dose 2020 [employer] (MOD) Not Given COVID-19, mRNA, LNP-S, PF, 100 mcg or 50 mcg dose DoD COVID Vaccine Moderna 2020 207 complet ed COVID Vaccine Moderna 06/22/20 Given Ambulat ory Pharmac y COVID-19 (MODERNA), MRNA, LNP-S, PF, 100 MCG/0.5ML DOSE OR 50 MCG/0.25ML DOSE 1 2020 207 complet ed HISTORICA L INFORMATI ON - FROM OTHER [facility] COVID-19, mRNA, LNP-S, PF, 100 mcg or 50 mcg dose 2020 [employer] (MOD) Not Given COVID-19, mRNA, LNP-S, PF, 100 mcg or 50 mcg dose DoD influenza, injectable, quadrivalent- pf 2018 [id number] 150 Seqirus complet ed influenza , injectabl e, quadrival ent-pf 01/24/19 Given Ambulat ory Pharmac y tetanus-dipht h toxoids (Td) adult/adol 2018 [id number] 09 sanofi pasteur complet ed tetanus-d iphth toxoids (Td) adult/ado l 01/24/19 Given Ambulat ory Pharmac y tetanus and diphtheria toxoids, adsorbed, preservative free, for adult use (2 Lf of tetanus toxoid and 2 Lf of diphtheria toxoid) 4 2018 [id number] 09 Sanofi Pasteur (PMC) complet ed tetanus and diphtheri a toxoids, adsorbed, preservat meghna free, for adult use (2 Lf of tetanus toxoid and 2 Lf of diphtheri a toxoid) DoD Influenza, injectable, quadrivalent, preservative free 22 2018 [id number] 150 Seqirus (SEQ) complet ed Influenza , injectabl e, quadrival ent, preservat meghna free DoD influenza, injectable, quadrivalent- pf 2017 [id number] 150 Seqirus complet ed influenza , injectabl e, quadrival ent-pf 12/01/17 Given Ambulat ory Pharmac y Influenza, injectable, quadrivalent, preservative free 21 2017 [id number] 150 Se[employer]irus (SEQ) comple t ed Influenza , injectabl e, quadrival ent, preservat meghna free DoD influenza virus vaccine, unspecified 2017 [id number] 88 complet ed influenza virus vaccine, unspecifi ed 02/10/17 Given Ambulat ory Pharmac y influenza virus vaccine, unspecified formulation 1 2017 88 Transcribed (TRS) complet ed influenza virus vaccine, unspecifi ed formulati on DoD influenza, seasonal, injectable-pf 2015 [id number] 140 Seqirus complet ed influenza , seasonal, injectabl e-pf 12/22/15 Given Ambulat ory Pharmac y anthrax vaccine 2015 [id number] 24 Emergent Biosolutions complet ed anthrax vaccine 12/22/15 Given Ambulat ory Pharmac y anthrax vaccine 6 2015 [id number] 24 [employer] [place] (MIP) complet ed anthrax vaccine DoD Influenza, seasonal, injectable, preservative free 19 2015 [id number] 140 Seqirus (SEQ) comple t ed Influenza , seasonal, injectabl e, preservat meghna free DoD influenza, live, intranasal,qu adrivalent 2014 [id number] 149 Medimmune Inc comple t ed influenza , live, intranasa l,quadriv alent 12/18/14 Given Ambulat ory Pharmac y influenza, live, intranasal, quadrivalent 18 2014 [id number] 149 MedImmune, Inc. (MED) complet ed influenza , live, intranasa l, quadrival ent DoD influenza, live, intranasal,qu adrivalent 2014 [id number] 149 Medimmune Inc comple t ed influenza , live, intranasa l,quadriv alent 03/05/14 Given Ambulat ory Pharmac y influenza, live, intranasal, quadrivalent 17 2014 [id number] 149 MedImmune, Inc. (MED) complet ed influenza , live, intranasa l, quadrival ent DoD poliovirus vaccine, inactivated 2013 [id number] 10 sanofi pasteur complet ed polioviru s vaccine, inactivat ed 09/17/13 Given Ambulat ory Pharmac y poliovirus vaccine, inactivated 2 2013 [id number] 10 Sanofi Pasteur (PMC) complet ed polioviru s vaccine, inactivat ed DoD yellow fever vaccine 2013 [id number] 37 sanofi pasteur complet ed yellow fever vaccine 07/24/13 Given Ambulat ory Pharmac y yellow fever vaccine 2 2013 [id number] 37 Sanofi Pasteur (PMC) complet ed yellow fever vaccine DoD meningococcal A,C,Y,W-135 (MCV4P) 2013 [id number] 114 sanofi pasteur complet ed meningoco ccal A,C,Y,W-1 35 (MCV4P) 07/19/13 Given Ambulat ory Pharmac y meningococcal polysaccharid e (groups A, C, Y and W-135) diphtheria toxoid conjugate vaccine (MCV4P) 2 2013 [id number] 114 Sanofi Pasteur (PMC) complet ed meningoco ccal polysacch aride (groups A, C, Y and W-135) diphtheri a toxoid conjugate vaccine (MCV4P) DoD vaccinia (smallpox) vaccine 2013 VV04-00 3A 75 Leaf complet ed vaccinia (smallpox ) vaccine 03/05/13 Given Ambulat ory Pharmac y vaccinia (smallpox) vaccine 2 2013 VV04-00 3A 75 [facility] ([facility]) complet ed vaccinia (smallpox ) vaccine DoD typhoid Vi capsular polysaccharid e vac 2013 [id number] 101 sanofi pasteur complet ed typhoid Vi capsular polysacch aride vac 02/14/13 Given Ambulat ory Pharmac y vaccinia (smallpox) vaccine 2013 VV04-00 3A 75 Leaf complet ed vaccinia (smallpox ) vaccine 02/14/13 Given Ambulat ory Pharmac y anthrax vaccine 2013 [id number] 24 Emergent [employer] complet ed anthrax vaccine 02/14/13 Given Ambulat ory Pharmac y measles/mumps /rubella virus vaccine 2013 [id number] 03 [employer] complet ed measles/m umps/rube lla virus vaccine 02/14/13 Given Ambulat ory Pharmac y measles, mumps and rubella virus vaccine 2 2013 [id number] 03 [employer] (MSD) complet ed measles, mumps and rubella virus vaccine DoD anthrax vaccine 5 2013 [id number] 24 [employer] ([facility]) complet ed anthrax vaccine DoD vaccinia (smallpox) vaccine 1 2013 VV04-00 3A 75 [facility] ([facility]) complet ed vaccinia (smallpox ) vaccine DoD typhoid Vi capsular polysaccharid e vaccine 2 2013 [id number] 101 Sanofi Pasteur ([facility]) complet ed typhoid Vi capsular polysacch aride vaccine DoD influenza, live, intranasal,qu adrivalent 2012 [id number] 149 Medimmune Inc comple t ed influenza , live, intranasa l,quadriv alent 11/28/12 Given Ambulat ory Pharmac y influenza, live, intranasal, quadrivalent 16 2012 [id number] 149 [employer]ocom [employer] Inc. (MED) complet ed influenza , live, intranasa l, quadrival ent DoD influenza, seasonal, injectable 2011 [id number] 141 sanofi pasteur complet ed influenza , seasonal, injectabl e 11/10/11 Given Ambulat ory Pharmac y Influenza, seasonal, injectable 1 2011 [id number] 141 Sanofi Pasteur (PMC) complet ed Influenza , seasonal, injectabl e DoD influenza, seasonal, injectable-pf 2010 [id number] 140 sanofi pasteur complet ed influenza , seasonal, injectabl e-pf 11/04/10 Given Ambulat ory Pharmac y Influenza, seasonal, injectable, preservative free 14 2010 [id number] 140 Sanofi Pasteur ([facility]) complet ed Influenza , seasonal, injectabl e, preservat meghna free DoD influenza virus vaccine, live 2009 [id number] 111 [employer] comple t ed influenza virus vaccine, live 12/10/09 Given Ambulat ory Pharmac y influenza virus vaccine, live, attenuated, for intranasal use 1 2009 [id number] 111 Sinocom Pharm[employer], Inc. (MED) complet ed influenza virus vaccine, live, attenuate d, for intranasa l use DoD Novel influenza-H1N 1-09, injectable 2009 [id number] 1 127 Novartis Pharmaceutica ls complet ed Novel influenza -V0J0-69, injectabl e 02/26/09 Given Ambulat ory Pharmac y Novel influenza-H1N 1-09, injectable 1 2009 [id number] 1 127 Novartis Well.catica l Haley. (NOV) complet ed Novel influenza -P1B9-41, injectabl e DoD HepB, Adult 2009 [id number] 2AA 43 GlaxoSmithKli ne complet ed HepB, Adult 02/16/09 Given Ambulat ory Pharmac y hepatitis B vaccine, adult dosage 3 2009 [id number] 2AA 43 [facility] (SKB) complet ed hepatitis B vaccine, adult dosage DoD influenza virus vaccine, live 2008 [id number] 111 [employer] comple t ed influenza virus vaccine, live 11/11/08 Given Ambulat ory Pharmac y influenza virus vaccine, live, attenuated, for intranasal use 1 2008 [id number] 111 Sinocom Pharmaceutical, Inc. (MED) complet ed influenza virus vaccine, [...] virus vaccine, unspecified 2007 zPeter cazares Arm [id number] 88 [employer] Inc complet ed influenza virus vaccine, unspecifi ed 01/30/08 Given Ambulat ory Pharmac y influenza virus vaccine, unspecified formulation 1 2007 BARRINGTON GOODMAN [id number] 88 [employer]ocom Pharm[employer], Inc. (MED) complet ed influenza virus vaccine, unspecifi ed formulati on DoD influenza virus vaccine,split 2007 [id number] 15 sanofi pasteur complet ed influenza virus vaccine,s plit 01/21/08 Given Ambulat ory Pharmac y influenza virus vaccine, split virus (incl. purified surface antigen)-reti red CODE 0 2007 [id number] 15 Sanofi Pasteur ([facility]) complet ed influenza virus vaccine, split virus (incl. purified surface antigen)- retired CODE DoD influenza virus vaccine, live 2006 [id number] 111 [employer] Inc comple t ed influenza virus vaccine, live 12/04/06 Given Ambulat ory Pharmac y influenza virus vaccine, live, attenuated, for intranasal use 0 2006 [id number] 111 Sinocom Pharmaceutical, [employer]. (MED) complet ed influenza virus vaccine, live, attenuate d, for intranasa l use DoD varicella virus vaccine 0 2006 21 () Not Given varicella virus vaccine DoD measles/mumps /rubella virus vaccine 2006 [id number] 03 [employer] & [employer] Inc complet ed measles/m umps/rube lla virus vaccine 09/19/06 Given Ambulat ory Pharmac y measles, mumps and rubella virus vaccine 1 2006 [id number] 03 Merck (MSD) complet ed measles, mumps and rubella virus vaccine DoD influenza virus vaccine, live 2005 [id number] 111 [employer] Inc comple t ed influenza virus vaccine, live 11/25/05 Given Ambulat ory Pharmac y influenza virus vaccine, live, attenuated, for intranasal use 1 2005 [id number] 111 [employer]. (MED) complet ed influenza virus vaccine, live, attenuate d, for intranasa l use [facility] influenza virus vaccine, whole virus 2004 [id number] 16 sanofi pasteur complet ed influenza virus vaccine, whole virus 12/14/04 Given Ambulat ory Pharmac y influenza virus vaccine,split 2004 [id number] 15 sanofi pasteur complet ed influenza virus vaccine,s plit 12/14/04 Given Ambulat ory Pharmac y influenza virus vaccine, split virus (incl. purified surface antigen)-reti red CODE 1 2004 [id number] 15 Sanofi Pasteur ([facility]) complet ed influenza virus vaccine, split virus (incl. purified surface antigen)- retired CODE DoD influenza virus vaccine, whole virus 1 2004 [id number] 16 Sanofi Pasteur ([facility]) complet ed influenza virus vaccine, whole virus DoD influenza virus vaccine, live 2004 [id number] 111 [employer] Inc comple t ed influenza virus vaccine, live 03/08/04 Given Ambulat ory Pharmac y influenza virus vaccine, live, attenuated, for intranasal use 0 2004 [id number] 111 Sinocom Pharmaceutical, Inc. (MED) complet ed influenza virus vaccine, live, attenuate d, for intranasa l use DoD tuberculin purified protein derivative 2003 zzLef t Arm [id number] 96 sanofi pasteur complet ed Patient Tolerance : Negative Ambulat ory Pharmac y tuberculin skin test; purified protein derivative solution, intradermal 1 2003 Unknown, Provider [id number] 96 Sanofi Pasteur (PMC) complet ed tuberculi n skin test; purified protein derivativ e solution, intraderm al DoD tuberculin purified protein derivative 2003 [id number] 96 sanofi pasteur complet ed tuberculi n purified protein derivativ e 04/08/03 Given Ambulat ory Pharmac y anthrax vaccine 2003 [id number] 24 [employer] complet ed anthrax vaccine 04/08/03 Given Ambulat ory Pharmac y anthrax vaccine 5 2003 [id number] 24 [employer] ([facility]) complet ed anthrax vaccine DoD influenza virus vaccine, whole virus 2002 [id number] 16 Novartis Pharmaceutica ls complet ed influenza virus vaccine, whole virus 11/28/02 Given Ambulat ory Pharmac y influenza virus vaccine, whole virus 0 2002 [id number] 16 [employer] ls (PWJ) complet ed influenza virus vaccine, whole virus DoD anthrax vaccine 2002 [id number] 24 [employer] complet ed anthrax vaccine 07/22/02 Given Ambulat ory Pharmac y anthrax vaccine 4 2002 [id number] 24 [employer] (MIP) complet ed anthrax vaccine DoD anthrax vaccine 2001 [id number] 24 [employer] complet ed anthrax vaccine 12/26/01 Given Ambulat ory Pharmac y anthrax vaccine 3 2001 [id number] 24 [employer] (MIP) complet ed anthrax vaccine DoD anthrax vaccine 2001 [id number] 24 [employer] complet ed anthrax vaccine 12/12/01 Given Ambulat ory Pharmac y anthrax vaccine 2 2001 [id number] 24 [employer] ([facility]) complet ed anthrax vaccine DoD anthrax vaccine 2001 [id number] 24 [employer] complet ed anthrax vaccine 11/28/01 Given Ambulat ory Pharmac y anthrax vaccine 1 2001 [id number] 24 [employer] ([facility]) complet ed anthrax vaccine DoD influenza virus vaccine, whole virus 2001 [id number] 16 sanofi pasteur complet ed influenza virus vaccine, whole virus 11/16/01 Given Ambulat ory Pharmac y influenza virus vaccine, whole virus 0 2001 [id number] 16 Sanofi Pasteur (PMC) complet ed influenza virus vaccine, whole virus DoD yellow fever vaccine 2001 [id number] 37 GlaxoSmithKli ne complet ed yellow fever vaccine 10/17/01 Given Ambulat ory Pharmac y yellow fever vaccine 0 2001 [id number] 37 [employer] (SKB) complet ed yellow fever vaccine DoD typhoid Vi capsular polysaccharid e vac 2001 [id number] 101 sanofi pasteur complet ed typhoid Vi capsular polysacch aride vac 04/03/01 Given Ambulat ory Pharmac y tuberculin purified protein derivative 2001 zzLef t Arm [id number] 96 sanofi pasteur complet ed Patient Tolerance : Negative Ambulat ory Pharmac y tuberculin skin test; purified protein derivative solution, intradermal 1 2001 Unknown, Provider [id number] 96 Sanofi Pasteur (PMC) complet ed tuberculi n skin test; purified protein derivativ e solution, intraderm al DoD typhoid Vi capsular polysaccharid e vaccine 0 2001 [id number] 101 Sanofi Pasteur (PMC) complet ed typhoid Vi capsular polysacch aride vaccine DoD influenza virus vaccine, whole virus 2000 [id number] 16 sanofi pasteur complet ed influenza virus vaccine, whole virus 11/27/00 Given Ambulat ory Pharmac y influenza virus vaccine, whole virus 0 2000 [id number] 16 Sanofi Pasteur (PMC) complet ed influenza virus vaccine, whole virus DoD hepatitis A adult vaccine 2000 [id number] 52 Merck & Company Inc complet ed hepatitis A adult vaccine 04/05/00 Given Ambulat ory Pharmac y hepatitis A vaccine, adult dosage 2 2000 [id number] 52 Merck (MSD) complet ed hepatitis A vaccine, adult dosage DoD influenza virus vaccine, whole virus 1999 [id number] 16 [facility] complet ed influenza virus vaccine, whole virus 01/30/00 Given Ambulat ory Pharmac y influenza virus vaccine, whole virus 0 1999 [id number] 16 [facility] ([facility]) complet ed influenza virus vaccine, whole virus DoD influenza virus vaccine, whole virus [id number] 16 [facility] complet ed influenza virus vaccine, whole virus 12/03/98 Given Ambulat ory Pharmac y influenza virus vaccine, whole virus 0 19983791 [id number] 16 [facility] ([facility]) complet ed influenza virus vaccine, whole virus DoD hepatitis A adult vaccine 1998 [id number] 52 [employer] complet ed hepatitis A adult vaccine 07/24/98 Given Ambulat ory Pharmac y poliovirus vaccine, live, oral 1998 [id number] 02 [facility] complet ed polioviru s vaccine, live, oral 07/24/98 Given Ambulat ory Pharmac y trivalent poliovirus vaccine, live, oral 0 1998 [id number] [address] [facility] ([facility]) comple t ed trivalent polioviru s vaccine, live, oral DoD hepatitis A vaccine, adult dosage 1 1998 [id number] 52 Merck (MSD) complet ed hepatitis A vaccine, adult dosage DoD meningococcal polysaccharid e (MPSV4) [id number] [id number] 32 [facility] complet ed meningoco ccal polysacch aride (MPSV4) 07/17/98 Given Ambulat ory Pharmac y influenza virus vaccine, whole virus 19984036 [id number] 16 [facility] complet ed influenza virus vaccine, whole virus 07/17/98 Given Ambulat ory Pharmac y tetanus-dipht h toxoids (Td) adult/adol 1998 [id number] 09 [facility] complet ed tetanus-d iphth toxoids (Td) adult/ado [...] DoD influenza virus vaccine, whole virus 0 [id number] [id number] 16 [employer] (WAL) complet ed influenza virus vaccine, whole virus DoD meningococcal polysaccharid e vaccine (MPSV4) 0 [id number] [id number] 32 [place] (CON) complet ed meningoco ccal [...] June 30, 2023 01:01 PM Reporting Lab: [facility] [address] [place] [phone] Performing Lab: [facility] [address] [place] [phone] [facility] COMPREHENS MEGHNA METABOLIC PANEL UREA NITROGEN [MASS/VOLUM E] IN SERUM OR PLASMA 18.0 mg/dL 9.0 - 25.0 06/29 Specimen Type: PLASMA Comment: No hemolysis noted. Ordering Provider: KENNETH POLANCO SA Report Released Date/Time: June 30, 2023 01:01 PM Reporting Lab: [facility] [address] [place] [phone] Performing Lab: [facility] [address] [place] [phone] [facility] COMPREHENS MEGHNA METABOLIC PANEL GLUCOSE [MASS/VOLUM E] IN SERUM OR PLASMA 81 mg/dL 72 - 99 06/29 Specimen Type: PLASMA Comment: No hemolysis noted. Ordering Provider: KENNETH POLANCO SA Report Released Date/Time: June 30, 2023 01:01 PM Reporting Lab: [facility] [address] [facility] [phone] Performing Lab: [facility] [address] [facility] [phone] [facility] COMPREHENS MEGHNA METABOLIC PANEL SODIUM [MOLES/VOLU ME] IN SERUM OR PLASMA 138 meq/L 136 - 145 06/29 Specimen Type: PLASMA Comment: No hemolysis noted. Ordering Provider: KENNETH POLANCO SA Report Released Date/Time: June 30, 2023 01:01 PM Reporting Lab: [facility] [address] [facility] [phone] Performing Lab: [facility] [address] [facility] [phone] [facility] COMPREHENS MEGHNA METABOLIC PANEL POTASSIUM [MOLES/VOLU ME] IN SERUM OR PLASMA 3.9 meq/L 3.5 - 5 06/29 Specimen Type: PLASMA Comment: No hemolysis noted. Ordering Provider: KENNETH POLANCO SA Report Released Date/Time: June 30, 2023 01:01 PM Reporting Lab: [facility] [address] [facility] [phone] Performing Lab: [facility] [address] [facility] [phone] [facility] COMPREHENS MEGHNA METABOLIC PANEL CHLORIDE [MOLES/VOLU ME] IN SERUM OR PLASMA 103 meq/L 98 - 107 06/29 Specimen Type: PLASMA Comment: No hemolysis noted. Ordering Provider: KENNETH POLANCO SA Report Released Date/Time: June 30, 2023 01:01 PM Reporting Lab: [facility] [address] [facility] [address] Performing Lab: [facility] [address] [facility] [phone] [facility] COMPREHENS MEGHNA METABOLIC PANEL CARBON DIOXIDE, TOTAL [MOLES/VOLU ME] IN SERUM OR PLASMA 25 meq/L 22 - 31 06/29 Specimen Type: PLASMA Comment: No hemolysis noted. Ordering Provider: KENNETH POLANCO SA Report Released Date/Time: June 30, 2023 01:01 PM Reporting Lab: [facility] [address] [facility] [address] Performing Lab: [facility] [address] [facility] [facility] [phone] [facility] COMPREHENS MEGHNA METABOLIC PANEL CALCIUM [MASS/VOLUM E] IN SERUM OR PLASMA 9.1 mg/dL 8.4 - 10.4 06/29 Specimen Type: PLASMA Comment: No hemolysis noted. Ordering Provider: KENNETH POLANCO SA Report Released Date/Time: June 30, 2023 01:01 PM Reporting Lab: [facility] [address] [facility] [facility] [address] Performing Lab: [facility] [address] [address] [facility] COMPREHENS MEGHNA METABOLIC PANEL PROTEIN [MASS/VOLUM E] IN SERUM OR PLASMA 7.4 g/dL 6 - 8.6 06/29 Specimen Type: PLASMA Comment: No hemolysis noted. Ordering Provider: KENNETH POLANCO SA Report Released Date/Time: June 30, 2023 01:01 PM Reporting Lab: [facility] [address] [facility] [address] Performing Lab: [facility] [address] [place] [phone] [facility] COMPREHENS [place] METABOLIC PANEL ALBUMIN [MASS/VOLUM E] IN SERUM OR PLASMA 4.4 g/dL 3.4 - 5 06/29 Specimen Type: PLASMA Comment: No hemolysis noted. Ordering Provider: KENNETH POLANCO SA Report Released Date/Time: June 30, 2023 01:01 PM Reporting Lab: [facility] [address] [facility] [address] Performing Lab: [facility] [address] [place] [phone] [facility] COMPREHENS [place] METABOLIC PANEL BILIRUBIN.T OTAL [MASS/VOLUM E] IN SERUM OR PLASMA 0.5 mg/dL 0.2 - 1.2 06/29 Specimen Type: PLASMA Comment: No hemolysis noted. Ordering Provider: KENNETH OPLANCO SA Report Released Date/Time: June 30, 2023 01:01 PM Reporting Lab: [place] [address] Performing Lab: [address] [phone] COMPREHENS [place] METABOLIC PANEL ALKALINE PHOSPHATASE [ENZYMATIC ACTIVITY/VO LUME] IN SERUM OR PLASMA 75 U/L 40 - 150 06/29 Specimen Type: PLASMA Comment: No hemolysis noted. Ordering Provider: KENNETH POLANCO SA Report Released Date/Time: June 30, 2023 01:01 PM Reporting Lab: [address] [address] Performing Lab: [address] [phone] [place] [address] COMPREHENS MEGHNA METABOLIC PANEL ASPARTATE AMINOTRANSF ERASE [ENZYMATIC ACTIVITY/VO LUME] IN SERUM OR PLASMA 34 U/L 5 - 34 06/29 Specimen Type: PLASMA Comment: No hemolysis noted. Ordering Provider: KENNETH POLANCO SA Report Released Date/Time: June 30, 2023 01:01 PM Reporting Lab: [address] [address] Performing Lab: [address] [phone] [place] [address] COMPREHENS MEGHNA METABOLIC PANEL ALANINE AMINOTRANSF ERASE [ENZYMATIC ACTIVITY/VO LUME] IN SERUM OR PLASMA 41 U/L 8 - 40 06/29 H Specimen Type: PLASMA Comment: No hemolysis noted. Ordering Provider: KENNETH POLANCO SA Report Released Date/Time: June 30, 2023 01:01 PM Reporting Lab: [facility] [address] [place] [phone] Performing Lab: [facility] [address] [facility] [address] [facility] COMPREHENS [place] METABOLIC PANEL GLOMERULAR FILTRATION RATE/1.73 SQ M.PREDICTED [VOLUME RATE/AREA] IN SERUM, PLASMA OR BLOOD BY CREATININE- BASED FORMULA (CKD-EPI 2020) 78.0 60 06/29 Specimen Type: PLASMA Comment: No hemolysis noted. Ordering Provider: KENNETH POLANCO SA Report Released Date/Time: June 30, 2023 01:01 PM Reporting Lab: [facility] [address] [facility] [address] Performing Lab: [facility] [address] [facility] [address] [facility] LIPID PANEL (STL) CHOLESTEROL [MASS/VOLUM E] IN SERUM OR PLASMA 211 mg/dL 0 - 200 06/29 H Specimen Type: PLASMA Comment: No hemolysis noted. Ordering Provider: KENNETH POLANCO SA Report Released Date/Time: June 30, 2023 01:01 PM Reporting Lab: [facility] [address] [facility] [address] Performing Lab: [facility] [address] [facility] [address] [facility] LIPID PANEL (STL) TRIGLYCERID E [MASS/VOLUM E] IN SERUM OR PLASMA 192 mg/dL 0 - 150 06/29 H Specimen Type: PLASMA Comment: No hemolysis noted. Ordering Provider: KENNETH POLANCO SA Report Released Date/Time: June 30, 2023 01:01 PM Reporting Lab: [facility] [address] [facility] [address] Performing Lab: [facility] [address] [place] [phone] [facility] LIPID PANEL (STL) CHOLESTEROL IN LDL [MASS/VOLUM E] IN SERUM OR PLASMA BY CALCULATION 135 mg/dL 06/29 Specimen Type: PLASMA Comment: No hemolysis noted. Ordering Provider: KENNETH POLANCO SA Report Released Date/Time: June 30, 2023 01:01 PM Reporting Lab: [address] [address] Performing Lab: [address] [address] [facility] LIPID PANEL (STL) CHOLESTEROL IN HDL [MASS/VOLUM E] IN SERUM OR PLASMA 38 mg/dL 40 06/29 L Specimen Type: PLASMA Comment: No hemolysis noted. Ordering Provider: KENNETH POLANCO SA Report Released Date/Time: June 30, 2023 01:01 PM Reporting Lab: [address] [address] Performing Lab: [address] [phone] [place] [address] CBC LEUKOCYTES [#/VOLUME] IN BLOOD BY AUTOMATED COUNT 8.0 10*3/u L 3.6 - 11.2 06/29 Specimen Type: BLOOD No comment entered. Ordering Provider: KENNETH POLANCO SA Report Released Date/Time: June 30, 2023 01:01 PM Reporting Lab: [address] [address] Performing Lab: [address] [phone] [place] [address] CBC ERYTHROCYTE S [#/VOLUME] IN BLOOD BY AUTOMATED COUNT 5.74 10*6/u L 4.10 - 5.70 06/29 H Specimen Type: BLOOD No comment entered. Ordering Provider: KENNETH POLANCO SA Report Released Date/Time: June 30, 2023 01:01 PM Reporting Lab: [address] [address] Performing Lab: [address] [address] [facility] CBC HEMOGLOBIN [MASS/VOLUM E] IN BLOOD 17.5 g/dL 13.1 - 16.8 06/29 H Specimen Type: BLOOD No comment entered. Ordering Provider: KENNETH POLANCO SA Report Released Date/Time: June 30, 2023 01:01 PM Reporting Lab: [facility] [address] [place] [phone] Performing Lab: [facility] [address] [place] [phone] [place] [address] CBC HEMATOCRIT [VOLUME FRACTION] OF BLOOD 50.2 38.2 - 48.4 06/29 H Specimen Type: BLOOD No comment entered. Ordering Provider: KENNETH POLANCO SA Report Released Date/Time: June 30, 2023 01:01 PM Reporting Lab: [place] [phone] Performing Lab: [place] [phone] CBC MCV [ENTITIC VOLUME] BY AUTOMATED COUNT 87.5 fL 80.0 - 100.0 06/29 Specimen Type: BLOOD No comment entered. Ordering Provider: KENNETH POLANCO SA Report Released Date/Time: June 30, 2023 01:01 PM Reporting Lab: [facility] [address] [place] [phone] Performing Lab: [address] [phone] [place] [address] CBC MCH [ENTITIC MASS] BY AUTOMATED COUNT 30.5 pg 27.0 - 34.0 06/29 Specimen Type: BLOOD No comment entered. Ordering Provider: KENNETH POLANCO SA Report Released Date/Time: June 30, 2023 01:01 PM Reporting Lab: [facility] [address] [place] [phone] Performing Lab: [facility] [address] [place] [phone] CBC MCHC [MASS/VOLUM E] BY AUTOMATED COUNT 34.9 g/dL 33.0 - 36.0 06/29 Specimen Type: BLOOD No comment entered. Ordering Provider: KENNETH POLANCO SA Report Released Date/Time: June 30, 2023 01:01 PM Reporting Lab: [facility] [address] [facility] [address] Performing Lab: [facility] [address] [facility] [address] [facility] CBC PLATELETS [#/VOLUME] IN BLOOD BY AUTOMATED COUNT 221 10*3/u L 150 - 400 06/29 Specimen Type: BLOOD No comment entered. Ordering Provider: KENNETH POLANCO SA Report Released Date/Time: June 30, 2023 01:01 PM Reporting Lab: [facility] [address] Performing Lab: [facility] [phone] [place] [address] CBC PLATELET MEAN VOLUME [ENTITIC VOLUME] IN BLOOD BY AUTOMATED COUNT 9.6 fL 7.5 - 11.2 06/29 Specimen Type: BLOOD No comment entered. Ordering Provider: KENNETH POLANCO SA Report Released Date/Time: June 30, 2023 01:01 PM Reporting Lab: [facility] [address] Performing Lab: [facility] [address] [facility] [phone] [place] [address] CBC ERYTHROCYTE DISTRIBUTIO N WIDTH [RATIO] BY AUTOMATED COUNT 11.9 11.8 - 15.1 06/29 Specimen Type: BLOOD No comment entered. Ordering Provider: KENNETH POLANCO SA Report Released Date/Time: June 30, 2023 01:01 PM Reporting Lab: [facility] [address] [facility] [address] Performing Lab: [facility] [address] [place] [phone] [facility] CBC LYMPHOCYTES /100 LEUKOCYTES IN BLOOD BY AUTOMATED COUNT 26 06/29 Specimen Type: BLOOD No comment entered. Ordering Provider: KENNETH POLANCO SA Report Released Date/Time: June 30, 2023 01:01 PM Reporting Lab: [facility] [address] [facility] [address] Performing Lab: [facility] [address] [facility] [address] [facility] CBC MONOCYTES/1 00 LEUKOCYTES IN BLOOD BY AUTOMATED COUNT 8 06/29 Specimen Type: BLOOD No comment entered. Ordering Provider: KENNETH POLANCO SA Report Released Date/Time: June 30, 2023 01:01 PM Reporting Lab: [facility] [address] [facility] [address] Performing Lab: [facility] [address] [facility] [phone] [facility] CBC NEUTROPHILS /100 LEUKOCYTES IN BLOOD BY AUTOMATED COUNT 65 06/29 Specimen Type: BLOOD No comment entered. Ordering Provider: KENNETH POLANCO SA Report Released Date/Time: June 30, 2023 01:01 PM Reporting Lab: [facility] [address] [facility] [address] Performing Lab: [facility] [address] [facility] [address] [facility] CBC EOSINOPHILS /100 LEUKOCYTES IN BLOOD BY AUTOMATED COUNT 1 06/29 Specimen Type: BLOOD No comment entered. Ordering Provider: KENNETH POLANCO SA Report Released Date/Time: June 30, 2023 01:01 PM Reporting Lab: [facility] [address] [facility] [address] Performing Lab: [facility] [address] [facility] [address] [facility] CBC BASOPHILS/1 00 LEUKOCYTES IN BLOOD BY AUTOMATED COUNT 0 06/29 Specimen Type: BLOOD No comment entered. Ordering Provider: KENNETH POLANCO SA Report Released Date/Time: June 30, 2023 01:01 PM Reporting Lab: [facility] [address] [facility] [address] Performing Lab: [facility] [address] [facility] [phone] [place] [address] CBC LYMPHOCYTES [#/VOLUME] IN BLOOD BY AUTOMATED COUNT 2.06 10*3/u L 0.77 - 4.50 06/29 Specimen Type: BLOOD No comment entered. Ordering Provider: KENNETH POLANCO SA Report Released Date/Time: June 30, 2023 01:01 PM Reporting Lab: [address] [address] Performing Lab: [address] [phone] CBC MONOCYTES [#/VOLUME] IN BLOOD BY AUTOMATED COUNT 0.66 10*3/u L 0.19 - 0.80 06/29 Specimen Type: BLOOD No comment entered. Ordering Provider: KENNETH POLANCO SA Report Released Date/Time: June 30, 2023 01:01 PM Reporting Lab: [address] [address] Performing Lab: [address] [phone] [place] [address] CBC NEUTROPHILS [#/VOLUME] IN BLOOD BY AUTOMATED COUNT 5.16 10*3/u L 2.10 - 8.00 06/29 Specimen Type: BLOOD No comment entered. Ordering Provider: KENNETH POLANCO SA Report Released Date/Time: June 30, 2023 01:01 PM Reporting Lab: [address] [address] Performing Lab: [address] [address] [facility] CBC EOSINOPHILS [#/VOLUME] IN BLOOD BY AUTOMATED COUNT 0.06 10*3/u L 0.00 - 0.60 06/29 Specimen Type: BLOOD No comment entered. Ordering Provider: KENNETH POLANCO SA Report Released Date/Time: June 30, 2023 01:01 PM Reporting Lab: [address] [address] Performing Lab: [facility] [address] [place] [phone] [facility] CBC BASOPHILS [#/VOLUME] IN BLOOD BY AUTOMATED COUNT 0.03 10*3/u L 0.00 - 0.20 06/29 Specimen Type: BLOOD No comment entered. Ordering Provider: KENNETH POLANCO SA Report Released Date/Time: June 30, 2023 01:01 PM Reporting Lab: [address] [address] Performing Lab: [address] [phone] HGA1C HEMOGLOBIN A1C/HEMOGLO BIN.TOTAL IN BLOOD 5.2 4.0 - 6.0 06/29 Specimen Type: BLOOD No comment entered. Ordering Provider: KENNETH POLANCO SA Report Released Date/Time: June 30, 2023 01:01 PM Reporting Lab: [address] [address] Performing Lab: [address] [phone] [place] [address] PROST. SPECIFIC AG.(PB-STL ) PROSTATE SPECIFIC AG [...] June 30, 2023 01:01 PM Reporting Lab: [address] [address] Performing Lab: [address] [phone] [place] [address] Vital Signs Combined list of inpatient and outpatient Vital Signs from Department of Defense and Veterans Affairs, ranging from 12 months to all on record, depending upon the facility. Vital Sign Value Date Comments Source SYSTOLIC BLOOD PRESSURE 119 11/01/2023 12:41:17 ST AMBROSE [facility] DIASTOLIC BLOOD PRESSURE 82 11/01/2023 12:41:17 [facility] PULSE OXIMETRY 97 11/01/2023 12:41:17 S Sebastian BOGGS [facility] WEIGHT 247.6 11/01/2023 12:41:17 STDulce LOPEZ [facility] BMI 35 kg/m2 11/01/2023 12:41:17 ST[address] Jsoe LOPEZ [facility] PAIN 0 11/01/2023 12:41:17 ST[facility] C CHARLESR [facility] HEIGHT 71 11/01/2023 12:41:17 ST[address] Jose LOPEZ [facility] TEMPERATURE 98.3 11/01/2023 12:41:17 STDulce BOGGS [facility] PULSE 76 11/01/2023 12:41:17 [facility] [facility] RESPIRATION 18 11/01/2023 12:41:17 STDulce BOGGS [facility] Encounters Combined list of: 1) Encounters from Department of Veterans Affairs facilities going backup to the last 18 months, not all VA inpatient encounters are included; 2) Encounters from the Department of Defense facilities going backup to 280 months. Location Location Details Encounter Type Encounter Number Reason For Visit Attending Provider ADM Date DC Date Status Disposition Source EV [facility] Mental Health ([facility]) ) OUTPATIENT [id number] HARINDER AUSTIN 05/27 Released w/o Limitations EV Matos([facility] EV Morse([facility] Primary Care ([facility]) ) OUTPATIENT [id number] rolled 4-wheel er hand is swollen now CINDY BEAN 06/05 Released w/o Limitations EV Matos([facility] ([facility]) ) OUTPATIENT [id number] painful nodule in neck--w YORDAN Lau 06/14 Released w/o Limitations [place]([employer] [facility] ([facility])) [place] [address]([facility] fausto [employer], [employer] (inactive )) OUTPATIENT [id number] f/u cholest MARCELA Larsen 12/28 Released w/o Limitations [place] [address]([facility], [employer] (inacti ve)) [place] [address]([facility] linical [facility] OUTPATIENT [id number] HLINGRID SINGH 07/06 Released w/o Limitations [place] [address]([facility]) [place] [address]([facility] fausto [employer], [employer] (inactive )) OUTPATIENT [id number] Pt c/o persist ant cough x 4-5 weeks MARILYN DUMONT 04/10 [facility]ased w/o Limitations [facility] [place] [address]([facility], [employer] (inacti ve)) [facility]) OUTPATIENT [id number] skin issue ISABELL SLATER 07/23 Released w/o Limitations [facility] Medical [facility]) [facility] Medical [facility]) OUTPATIENT [id number] throat, ear issue, and the side of his face is sore. ISABELL SLATER 09/23 Sick at Home/Quarter s [employer]([facility]) [employer]([facility]) OUTPATIENT [id number] [place] [employer] medical record review BLUE CAMERON 05/30 Released w/o Limitations [facility]) [facility]) OUTPATIENT [id number] Annual PHA BLUE CAMERON 05/30 Released w/o Limitations [facility] Medical [facility]) [facility] Immunizat ions [facility]) OUTPATIENT [id number] B, PPD BAILEE VÁSQUEZ *INACTIVE* 06/03 Released w/o Limitations [employer]([facility]) [employer]([facility] OUTPATIENT [id number] PRP determi ROEL Ramirez 08/20 Released w/o Limitations [employer] [employer]([facility] Immunizat ions Clinic) OUTPATIENT [id number] tdap b NASIM ANGELES JR. 08/25 Released w/o Limitations [employer]([facility]) [employer]([facility]) OUTPATIENT [id number] PHA BELINDA BERRIOS JR 06/25 Released w/o Limitations [employer](F amily Practic e) [facility]) TELE CONSULT [id number] ROBERT Sampson 07/02 Referred for Appointment [facility](F amily Practic e) [facility]) OUTPATIENT [id number] MARIXA JOVEL 10/30 Released w/o Limitations [employer](F amily Practic e) [facility]) OUTPATIENT [id number] SUSAN HINTON 03/16 Released w/o Limitations [facility](F amily Practic e) [facility]) OUTPATIENT [id number] walk-in /pre deploym ent STEPHANIE YAÑEZ R 03/16 Released w/o Limitations [facility](F amily Practic e) [facility] [place] ([facility]Hea lthcare Integrato rs) OUTPATIENT [id number] LATE ENTRY: Attende d cee cov[place] rs brief on Jul 17 ANATOLIY RIVERA 07/16 Released w/o Limitations [employer] [place] ([facility]H ealthca re Integra tors) [facility] [place] ([facility])(Sco tt [facility] Res [employer]m [place]) TELE CONSULT [id number] AD Pt. would like acute, no acutes - [facility] - [id number] [facility] TAN SHORE 09/07 [facility] [place] ([facility]S [facility] Fam Res [facility]) [facility] [place] [facility]Sco tt [facility] Fam Res [place]) OUTPATIENT [id number] f/u knee pain CATHERINE WRIGHT 09/09 Released with Work/Duty Limitations [address] [place] [address] [place] ([facility]S cott OF Fam Res [employer]m [place]) [address] [place] [address] [place] ([facility]Sco tt [facility] Fam Res [place]m [place]) TELE CONSULT [id number] Anderso n ER F/U - Lorna - [phone] - tsg GEORGEOLU 01/[address] [place] [address] [place] ([facility]S cott [facility] Fam Res [place]m [place]) [address] [place] [address] [place] [facility]Sco tt [facility] Fam Res [place]m [place]) OUTPATIENT [id number] shouldf er pain--f /u shoulde SHITAL Bradshaw 01/24 Released w/o Limitations [address] [place] [address] [place] ([facility]S cott [facility] Fam Res [place]m [place]) [address] [place] [address] [place] ([facility])(Sco tt [facility] Fam Res [place]m Green) OUTPATIENT [id number] Jose/CECILIO CUEVAS 03/21 Released w/o Limitations [address] [place] [address] [place] ([facility]S cott [facility] Fam Res [place]m [place]) [address] [place] [address] [place] ([facility]Sco tt [facility] Fam Res Tm Green) TELE CONSULT [id number] Notes Entered by: MATHEW CORREA 23 Mar 2012 0855 ------- ------- ------- ------- -- [facility]/CECILIO CUEVAS 03/[address] [place] [address] Group [place] ([facility]S cott [facility] Fam Res Tm Green) [address] [place] [address] [place] ([facility]co tt [facility] Fam Res [place]m Green) OUTPATIENT [id number] 3 yr face to face appt [id number] DENYS JURADO 04/02 Released w/o Limitations [address] [place] [address] [place] ([facility]S cott [facility] Fam Res Tm Green) [address] [place] [address] [place] [facility])(Sco tt [facility] Fam Res Tm Green) OUTPATIENT [id number] rolled left ankle while playing soccer last night [id number] YOUNG WILKINSONPENNY Munoz 06/28 Released w/o Limitations [address] [place] [address] [place] [facility]S cott [facility] Res Tm Green) [address] [place] [address] William HERIBERTO [facility])(Phy sical Therapy) OUTPATIENT [id number] ANKLE SPRAIN ALPESH RIVERA 07/12 Released w/o Limitations [address] [place] [address] William RIRICarlos Alberto [facility])(P hysical Therapy ) [address] [place] [address] [place] RIRICarlos Alberto [facility])(Phy sical Therapy) OUTPATIENT [id number] ankle ELBA NIX 07/24 Released w/o Limitations [address] [place] [address] [place] RIRICarlos Alberto [facility]P hysical Therapy ) [address] [place] [address] William RIRICarlos Alberto [facility]Phy sical Therapy) OUTPATIENT [id number] ankle LEBA NIX 08/01 Released w/o Limitations [address] [place] [address] William RIRICarlos Alberto [facility]P hysical Therapy ) [address] [place] [address] [facility] [place]) OUTPATIENT [id number] fever congest ion cough OSCAR WILKINSON Tammy 12/26 Released w/o Limitations [address] [place] [address] William [facility]S [facility] Res Tm Green) [address] [place] [address] [facility] ts) OUTPATIENT [id number] predep KATIA TSANG 02/13 Released w/o Limitations [address] [place] [address] William RIRICarlos Alberto [facility])(D eploe Health Assessm ents) [address] [place] [address] William RIRICarlos Alberto [facility])(Sco tt [facility] Res Tm Green) TELE CONSULT [id number] Notes Entered by: Carlos Alberto YAÑEZ 16 Feb 2013 0050 ------- ------- ------- ------- -- Jose/CECILIO CUEVAS 02/16[facility] William RIRICarlos Alberto [facility])(S cott [facility] Fam Res Tm Green) [address] [place] [address] [facility]) OUTPATIENT [id number] Notes Entered by: HELEN IRVINQUEZADA LANE Vasquez 21 Feb 2013 1142 ------- ------- ------- ------- -- smallpo x KATIA TSANG 02/21 Released w/o Limitations [address] [place] [address] William [facility])(D eployme nt Health Assessm ents) [address] [place] [address] William [facility])(Dep [facility] Health Assessmen ts) OUTPATIENT [id number] pre deploym ent SHARAN KATIA S 03/05 Released w/o Limitations [address] [place] [address] William [facility])(D eployme nt Health Assessm ents) [address] [place] [address])(Sco tt [facility] Fam Res Tm Red) OUTPATIENT [id number] Left ankle pain- hurt while doing PT this morning - [id number] VIKAS VAN 03/08 Released w/o Limitations [address] [place] [address] William [facility])(S cott [facility] Fam Res Tm Red) [address] [place] [address] William [facility])(Sco tt [facility] Fam Res Tm Red) TELE CONSULT [id number] Notes Entered by: SHITAL HESTER 03 Apr 2013 1022 ------- ------- ------- ------- -- Profile extensi on/Ranjeet s/256.5 064 or ELIZABETH PRESCOTT 04/[address] [place] [address] William [facility])(S cott [facility] Fam Res Tm Red) [address] [place] [address] William [facility])(Dep [facility] Health Assessmen ts) TELE CONSULT [id number] Notes Entered by: Clary TSANG 03 Apr 2013 1432 ------- ------- ------- ------- -- BW/CW. 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 Fam Res Tm Red) [address] [place] [address] William [facility])([facility] Fam Res Tm Red) TELE CONSULT [id number] Notes Entered by: Jojo REYNOLDS 05 Apr 2013 1256 ------- ------- ------- ------- -- Profile Lorna CECILIO ENG 04/[address] [place] [address] William [facility])(S [facility] Fam Res Tm Red) [address] [place] [address])([facility] Fam Res Tm Red) TELE CONSULT [id number] Notes Entered by: Jose REYNOLDS 24 May 2013 0828 ------- ------- ------- ------- -- Sx Pain from popped right elbow/G ibbs/61 5 600 0036 BRAYAN HENDRICKS 05/[address] [place] [address])(S [facility] Fam Res Tm Red) [address] [place] [address] William [facility])([facility] Fam Res Tm Gold) OUTPATIENT [id number] elbow pain in PT test. CLAUDIA SARGENT 05/24 Released w/o Limitations [address] [place] [address] William [facility])(S [facility] Fam Res Tm Gold) [address] [place] [address] William [facility])(Dep [facility] Health Assessmen ts) OUTPATIENT [id number] EVELIO1 KATIA TSANG 08/06 Released w/o Limitations [address] [place] [address] William [facility])(Jaqueline elena Health Assessm ents) [address] [place] [address] William [facility])(Dep l[facility] Health Assessmen ts) OUTPATIENT [id number] [facility] MELI HILL 07/17 Released w/o Limitations [facility])(D eployme nt Health Assessm ents) [address] [place] [address])(Kyo tt [facility] Fam Res Tm Red) TELE CONSULT [id number] Notes Entered by: CARLOS SALEH 24 Jul 2014 0915 ------- ------- ------- ------- -- [facility]/CECILIO CUEVAS 07/[address] [place] [address])([facility] Fam Res Tm Red) [address] [place] [address])([facility] OUTPATIENT [id number] Notes Entered by: IZABELA LEACH 12 Aug 2015 0848 ------- ------- ------- ------- -- Member Andre LYN #4 Appoint MEL Seo 08/11 Released w/o Limitations [address] [place] [address])(D eployme nt Health Assessm ents) [address] [place] [address])(Bas e Operation al Medicine Clin) OUTPATIENT [id number] Notes Entered by: CHARLOTTE RAINEY V 02 Oct 2015 0850 ------- ------- ------- ------- -- [facility] CHARLOTTE BALDWIN V 10/01 Released w/o Limitations [address] [place] [address])(B ase Operati onal Medicin e Clin) [address] [place] [address])(Sco [facility] Fam Res Tm Red) OUTPATIENT [id number] left ankle pain AMAIRANI THOMASON 11/01 Released w/o Limitations [address] [place] [address])([facility] Fam Res Tm Red) [address] [place] [address])([facility]) OUTPATIENT [id number] Notes Entered by: RONY CORNELIUS 25 Nov 2015 1031 ------- ------- ------- ------- -- EBONI#5 APPOINT MENT DECLINE MEAGHAN JOSUE 11/24 Released w/o Limitations [address] [place] [address] William [facility])(Jaqueline eploymjs nt Health Assess ents) [address] [place] [address])(Kyo tt [facility] Fam Res Tm Red) OUTPATIENT [id number] L Heel issues, R Arm Skin issues [id number] REJI WILKINS 04/04 Released w/o Limitations [address] [place] [address] William [facility])(S [facility] Fam Res Tm Red) [address] [place] [address])([facility] Fam Res Tm Red) TELE CONSULT [id number] Notes Entered by: SALLY TORRES RET 29 Apr 2016 1437 ------- ------- ------- ------- -- Biopsy Results /John/ ELIZABETH Rich 04/[address] [place] [address])(S [facility] Fam Res Tm Red) [address] [place] [address])(Phy sical Therapy) OUTPATIENT [id number] Plantar fascial fibroma JONAH Young 05/11 Released w/o Limitations [address] [place] [address])(P hysical Therapy ) [address] [place] [address])([facility] Fam Res Tm Red) OUTPATIENT [id number] Mole removal per Mayra n/40min REJI WILKINS 05/16 Released w/o Limitations [address] [place] [address])(S [facility] Fam Res Tm Red) [address] [place] [address])([facility] Fam Res Tm Red) TELE CONSULT [id number] Notes Entered by: Jose OLVERA 26 May 2016 1608 ------- ------- ------- ------- -- Patholo gy results for review. REJI WILKINS 05/[address] [place] [address])([facility] Fam Res Tm Red) [address] [place] [address])(Phy sical Therapy) OUTPATIENT [id number] left heel BRAYAN LIRIANOCOLM 05/30 Released w/o Limitations [address] [place] [address] Group William MENEZESB ([facility])(P hysical Therapy ) [address] [place] [address] William MENEZESB ([facility])(Phy sical Therapy) OUTPATIENT [id number] left heel BRAYAN LIRIANO 06/06 Released w/o Limitations [address] [place] [address] Group William MENEZESB ([facility])(P hysical Therapy ) [address] [place] [address] William MENEZESB ([facility])(Phy sical Therapy) OUTPATIENT [id number] left heel BRAYAN LIRIANO 06/13 Released w/o Limitations [address] [place] [address] Group William MENEZESB ([facility])(P hysical Therapy ) [address] [place] [address] William MENEZESB ([facility])(Phy sical Therapy) OUTPATIENT [id number] heel BRAYAN LIRIANO 06/27 Released w/o Limitations [address] [place] [address] Group William MENEZESB ([facility])(P hysical Therapy ) [address] [place] [address] William MENEZESB ([facility])(Sco tt [facility] FAMRES Tm Blue) TELE CONSULT [id number] Notes Entered by: Jaqueline YANES 28 Jun 2016 0843 ------- ------- ------- ------- -- Network results Dermato logy 7 DB CINDY BLANCO 06/[address] [place] [address] William RIRIB ([facility])(S cott [facility] FAMRES Tm Blue) [address] [place] [address] William RIRIB ([facility])(Phy sical Therapy) OUTPATIENT [id number] heel LAURIJONAH 06/29 Released w/o Limitations [address] [place] [address] Group William RIRIB ([facility])(P hysical Therapy ) [address] [place] [address] William RIRIB ([facility])(Bas e Operation al Medicine Clin) TELE CONSULT [id number] Notes Entered by: WARD SENA 06 Jul 2016 0948 ------- ------- ------- ------- -- Xray results JONAH CARREON 07/[address] [place] [address] William [facility])(B ase Operati onal Medicin e Clin) [address] [place] [address] William MENEZESB [facility])(Sco tt [facility] FAMRES Tm Blue) OUTPATIENT [id number] left plantar fasciit is/prof capri request / SAUL ZAYAS 09/21 Released w/o Limitations [address] [place] [address] William MENEZESB [facility])(S cott [facility] FAMRES Tm Blue) [address] [place] [address] William [facility])([facility]co tt [facility] Fam Res Tm Green) OUTPATIENT [id number] stomach pain - [id number] IVANA ALVARADO 09/27 Released with Work/Duty Limitations [address] [place] [address] William [facility])(S cott [facility] Fam Res Tm Green) [address] [place] [address] William [facility])(Sco tt [facility] Res Tm Green) TELE CONSULT [id number] Notes Entered by: JORDAN APPIAH 28 Sep 2016 1231 ------- ------- ------- ------- -- Gely/ claudine Blanco - - tsg IVANA ALVARADO 09/28 Released to Self Care [address] [place] [address] William [facility])(S cott [facility] Fam Res Tm Green) [address] [place] [address] William [facility])(Bas e Operation al Medicine Clin) OUTPATIENT [id number] Notes Entered by: Otto ALDANA 07 Oct 2016 1050 ------- ------- ------- ------- -- TRI SERVICE CINDY CAT 10/07 Released w/o Limitations [address] [place] [address] William HERIBERTO [facility])(B ase Operati onal Medicin e Clin) [address] [place] [address] William RIRIB [facility])(Bas e Operation al Medicine Clin) TELE CONSULT [id number] Notes Entered by: RONY MCCARTHY 09 Dec 2016 0730 ------- ------- ------- ------- -- ELIJAH Bravo 12/09 Other Not Elsewhere Classified [address] [place] [address] [place] [employer] [facility])(B ase Operati onal Medicin e Clin) [address] [place] [address] William MENEZESB [facility])(Sco tt [facility] Fam Res Tm Green) OUTPATIENT [id number] Left knee / ankle pain [id number] / [id number] JENNIFER FORMAN 05/31 Released w/o Limitations [address] [place] [address] William MENEZESB [facility])(S cott [facility] Fam Res Tm Green) [address] [place] [address] William MENEZESB [facility])(Phy sical Therapy) OUTPATIENT [id number] Pain in left ankle and joints of left foot COLLETTE ALBRECHT 06/14 Released w/o Limitations [address] [place] [address] William MENEZESB [facility])(P hysical Therapy ) [address] [place] [address] William MENEZESB [facility])(Phy sical Therapy) OUTPATIENT [id number] ankle AMBROSIO ROMAHERIBERTO GAGNON 06/20 Released w/o Limitations [address] [place] [address] William MENEZESB [facility])(P hysical Therapy ) [address] [place] [address] William MENEZESB [facility])(Phy sical Therapy) OUTPATIENT [id number] L) ankle SILVERIO, CHINA Js 06/27 Released w/o Limitations [address] [place] [address] William MENEZESB [facility])(P hysical Therapy ) [address] [place] [address] William MENEZESB [facility])(Phy sical Therapy) OUTPATIENT [id number] L) ankle AMBROSIO ROMAKATHERINEAMANDA KALIN 06/29 Released w/o Limitations [address] [place] [address] William MENEZESB [facility])(P hysical Therapy ) [address] [place] [address] William MENEZESB [facility])(Sco tt [facility] Fam Res Tm Green) TELE CONSULT [id number] Notes Entered by: MONALISA BALES 04 Jul 2017 0840 ------- ------- ------- ------- -- STAT Angelita munoz Request / ER F/Evonne / John / - sgj JENNIFER COSTA 07/[address] [place] [address] [place] [employer] [facility])(S cott [facility] Fam Res Tm Green) [address] [place] [address] [employer] [facility])(Sco tt [facility] Fam Res Tm Green) OUTPATIENT [id number] chest pain - 2 months - [id number] YOEL CROW 11/10 Released w/o Limitations [address] [place] [address])(S cott [facility] Fam Res Tm Green) [address] [place] [address])(Opt ometry) OUTPATIENT [id number] Routine Eye Exam, ISABELL MORALES 11/22 Released w/o Limitations [address] [place] [address] William [facility])(O ptometr y) [address] [place] [address] William [facility])(Sco tt [facility] Res Tm Green) TELE CONSULT [id number] Notes Entered by: DAVE GORE 22 Dec 2017 0733 ------- ------- ------- ------- -- Emergen cy room update/ referra l request /john/ ELIZABETH Barron 12/22 Referred for Appointment [address] [place] [address])(S cott [facility] Fam Res Tm Green) [address] [place] [address])(Sco tt [facility] Res Tm Green) TELE CONSULT [id number] Notes Entered by: SHREYA FRITZ 25 Dec 2017 1453 ------- ------- ------- ------- -- F/u after special ist (referr al request )/John / ELIZABETH PRESCOTT 12/25 Referred for Appointment [address] [place] [address] [facility]S cott [facility] Res Tm Green) [address] [place] [address] William [facility])(Sco tt [employer] [facility] Tm) TELE CONSULT [id number] Notes Entered by: IZABELA LEACH 09 Jan 2018 1440 ------- ------- ------- ------- -- MEL HIGGINS 01/[address] [place] [address] [facility]S cott [facility] Tm) [address] [place] [address] William [facility])(Bas e Operation al Medicine Clin) OUTPATIENT [id number] Notes Entered by: Js SOLANO 23 Mar 2018 1120 ------- ------- ------- ------- -- JENNIFER FLORENTINO 03/23 Released w/o Limitations [address] [place] [address])(B ase Operati onal Medicin e Clin) [address] [place] [address])(Sco tt [facility] FAMRES Tm Blue) OUTPATIENT [id number] 2 x/b - L ear pain, cough, PEPE PAT 05/25 Released w/o Limitations [address] [place] [address])(S cott [facility] FAMRES Tm Blue) [address] [place] [address])(Sco tt [facility] Fam Res Tm Green) TELE CONSULT [id number] Notes Entered by: MEHDI CRISOSTOMO 06 Jun 2018 1132 ------- ------- ------- ------- -- Network Results SURG 8 JENNIFER COSTA 06/[address] [place] [address])(S cott [facility] Fam Res Tm Green) [address] [place] [address])(Sco tt [facility] Fam Res Tm Green) OUTPATIENT [id number] 3 family adoptio n paperwo rk to adopt new member CINDY BLANCO 06/07 Released w/o Limitations [address] [place] [address] William [facility])(S cott [facility] Fam Res Tm Green) [address] [place] [address])(Sco tt [facility] Fam Res Tm Green) OUTPATIENT [id number] right knee pain ISAIAH SPARKS 06/25 Released with Work/Duty Limitations [address] [place] [address] William [facility])(S cott [facility] Fam Res Tm Green) [address] [place] [address])(Sco tt [facility] Fam Res Tm Green) TELE CONSULT [id number] Notes Entered by: JEANE HERNÁNDEZ 26 Jun 2018 1237 ------- ------- ------- ------- -- Profile Not In System/ John/6 15.715. 3306/cl ELIZABETH Mason 06/26 Referred for Appointment [address] [place] [address] William RIRIB [facility])(S cott [facility] Fam Res Tm Green) [address] [place] [address] William [facility])(Sco tt [facility] Fam Res Tm Green) TELE CONSULT [id number] Notes Entered by: JORADN APPIAH 03 Jul 2018 0740 ------- ------- ------- ------- -- Profile status - John - - [facility] ELIZABETH PRESCOTT 07/03 Referred for Appointment [address] [place] [address] William [facility])(S cott [facility] Fam Res Tm Green) [address] [place] [address] William [facility])(Sco tt [facility] Fam Res Tm Green) TELE CONSULT [id number] Notes Entered by: Bere NOONAN 18 Jul 2018 1322 ------- ------- ------- ------- -- Network results OT 018 CINDY GOULD 07/[address] [place] [address] William B [facility])(S cott [facility] Fam Res Tm Green) [address] [place] [address] William B [facility])(Sco tt [facility] Fam Res Tm Green) OUTPATIENT [id number] Snoring ESCOBAR AMAYA 08/02 Released w/o Limitations [address] [place] [address] William MENEZESB [facility])(S cott [facility] Fam Res Tm Green) [address] [place] [address] [employer] [facility])(Sco tt [facility] Fam Res Tm Green) OUTPATIENT [id number] Concern of bumps on both hands [id number] / [id number] BRAYAN SPRAGUE 10/09 Released w/o Limitations [address] [place] [address] [employer] [facility])(S cott [facility] Fam Res Tm Green) [address] [place] [address] William [facility])(Sco tt [facility] Fam Res Tm Green) OUTPATIENT [id number] Hearing issues [id number] 306 / [id number] ESCOBAR AMAYA 10/19 Released w/o Limitations [address] [place] [address] William [facility])(S cott [facility] Fam Res Tm Green) [address] [place] [address] [facility])(Kyo tt [facility] Fam Res Tm Green) OUTPATIENT [id number] low back pain x 1 wk (was TDY) -- 199.809 .5009 KELLY CASTRO 12/27 Released w/o Limitations [address] [place] [address] William [facility])(S cott [facility] Fam Res Tm Green) [address] [place] [address] William [facility])(Kyo tt [facility] Fam Res Tm Green) OUTPATIENT [id number] Bumps on hand, Derm check on back, CHRISTIANOJESUSTOYA [facility] 02/20 Released w/o Limitations [address] [place] [address] William HERIBERTO [facility])(S [facility] Fam Res Tm Green) [address] [place] [address] [facility])(Kyo tt [employer] [facility] ) TELE CONSULT [id number] Notes Entered by: MEL DE LUNA 12 Mar 2019 1146 ------- ------- ------- ------- -- Pedro - MEL SAENZ 03/[address] [place] [address] William [facility])(S [facility] Tm) [address] [place] [address] William RIRICarlos Alberto [facility])(Kyo tt [facility] Fam Res Tm Green) OUTPATIENT [id number] f/u hand CHRISTIANOJESUSTOYA [facility] 03/13 Released w/o Limitations [address] [place] [address] William RIRICarlos Alberto [facility])(S [facility] Fam Res Tm Green) [address] [place] [address] William RIRICarlos Alberto [facility])(Bas e Operation al Medicine Clin) OUTPATIENT [id number] Notes Entered by: BRAYAN LITTLE 18 Mar 2019 1551 ------- ------- ------- ------- -- CINDY SANDERS 03/18 Released w/o Limitations [address] [place] [address] William [facility])(B ase Operati onal Medicin e Clin) [address] [place] [address])(Sco tt [facility] FAMRES Tm Blue) OUTPATIENT [id number] 1 X/B - Upper back pain [id number] 306 / [id number] ISABELL SUAREZ 03/27 Released w/o Limitations [address] [place] [address])(S cott [facility] FAMRES Tm Blue) [address] [place] [address])([employer]) OUTPATIENT [id number] 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 dagmar. MANPREET SHETH 06/12 Released w/o Limitations [address] [place] [address])(D ermatol ogy) [address] [place] [address])(War rior Op Med Cln Tm A Ad) OUTPATIENT [id number] [facility] [id number] CARISA PARTIDA 06/19 Released w/o Limitations [address] [place] [address])(W arrior Op Med Cln Tm A Ad) [address] [place] [address])(Nixon matology) OUTPATIENT [id number] Notes Entered by: LISSA MAZA 21 Jun 2019 1154 ------- ------- ------- ------- -- Suture removal MANPREET SHETH 06/20 Released w/o Limitations [address] [place] [address])(D ermatol ogy) [address] [place] [address])(Nixon matology) TELE CONSULT [id number] Notes Entered by: HANNAH SHETH 24 Jun 2019 1527 ------- ------- ------- ------- -- Culture result MANPREET SHETH 06/[address] [place] [address])(D ermatol ogy) [address] [place] [address])(War rior Op Med Cln Tm A Ad) TELE CONSULT [id number] Notes Entered by: NATHAN HARP 31 Jul 2019 1018 ------- ------- ------- ------- -- Referra tammy kinney/ [id number] JEANETTE MARTINEZ 07/30 Immediate Referral [address] [place] [address])(W arrior Op Med Cln Tm A Ad) [address] [place] [address])(War rior Op Med Cln Tm A Ad) TELE CONSULT [id number] Notes Entered by: JORDAN APPIAH 23 Aug 2019 0749 ------- ------- ------- ------- -- Possibl e KELLY [facility] JEANETTE MARTINEZ 08/22 Released to Self Care [address] [place] [address])(W arrior Op Med Cln Tm A Ad) [address] [place] [address])(War rior Op Med Cln Tm A Ad) TELE CONSULT [id number] Notes Entered by: Clary GAGNON 30 Aug 2019 1453 ------- ------- ------- ------- -- Retro Referra l needed from PCM team, retro date 2 019 JEANETTE MARTINEZ 08/29 Immediate Referral [address] [place] [address])(W arrior Op Med Cln Tm A Ad) [facility] Outpatient Encounter [id number] 06/29 [facility] Outpatient Encounter [id number] NISSA TAFOYA JANET Munoz 06/29 [facility] OFFICE O/P NEW MOD 45 MIN [id number] Diagnos is: ICD-10- CM R20.2 Paresth esia of skin MET UNA POLANCO 06/29 [facility] HC PRO PHONE CALL 5-10 MIN [id number] Diagnos is: ICD-10- CM Z71.9 Unit Assembler ing, unspeci fiJAYESH Walker 07/09 [facility] Outpatient Encounter [id number] 08/15 [facility] Outpatient Encounter [id number] AZIZA JUAREZ 08/15 [facility] Outpatient Encounter [id number] AZIZA JUAREZ 08/16 [facility] N [facility] Outpatient Encounter [id number] AZIZA JUAREZ 08/17 [facility] N [facility] Outpatient Encounter [id number] 08/28 [facility] No Facility Access History [id number] 09/20 No Facilit y Access Ambulator y Pharmacy [facility] [id number] 09/20 Ambulat ory Pharmac y [facility] OFFICE O/P EST LOW 20 MIN [id number] Diagnos is: ICD-10- CM M25.572 Pain in left ankle and joints of left foot ADITYA GIBBS 10/31 [facility] Outpatient Encounter [id number] 11/03 [facility] Outpatient Encounter [id number] 06/25 [facility] Outpatient Encounter [id number] 07[facility]02 [facility] Procedures Combined list of: 1) Procedures from Department of Veterans Affairs facilities going back up to thelast 18 months, not all [place] non-surgical procedures are included; 2) All procedures from the Department of Defense facilities. Procedure Procedure Type Code Date Perfomer Comments Sourc e No data available for this section Ambulatory Pharmacy TETANUS, DIPHTHERIA TOXOIDS AND ACELLULAR PERTUSSIS VACCINE (TDAP), WHEN ADMINISTERED TO INDIVIDUALS 7 YEARS OR OLDER, FOR INTRAMUSCULAR USE 2008 [facility] SKIN TEST; TUBERCULOSIS, INTRADERMAL 2008 [facility] PSYCHIATRIC DIAGNOSTIC INTERVIEW EXAMINATION 2004 [facility] PSYCHIATRIC DIAGNOSTIC INTERVIEW EXAMINATION 2004 [facility] AVULSION OF NAIL PLATE, PARTIAL OR COMPLETE, SIMPLE; SINGLE 2003 [facility] OPHTHALMOLOGICAL SERVICES: MEDICAL EXAMINATION AND EVALUATION, WITH INITIATION OR CONTINUATION OF DIAGNOSTIC AND TREATMENT PROGRAM; COMPREHENSIVE, ESTABLISHED PATIENT, 1 OR MORE VISITS 2002 [facility] PSYCHIATRIC EVALUATION OF HOSPITAL RECORDS, OTHER PSYCHIATRIC REPORTS, PSYCHOMETRIC AND/OR PROJECTIVE TESTS, AND OTHER ACCUMULATED DATA FOR MEDICALDIAGNOSTIC PURPOSES 2010 [facility] PSYCHIATRIC EVALUATION OF HOSPITAL RECORDS, OTHER PSYCHIATRIC REPORTS, PSYCHOMETRIC AND/OR PROJECTIVE TESTS, AND OTHER ACCUMULATED DATA FOR MEDICALDIAGNOSTIC PURPOSES 2010 [facility] TELE ASSESS & MGT SRV PROV QUAL [...] PROVIDE W/IN THE PREV 7 DAYS,USE THE [employer] NETWORK 2019 DoD ARTHROCENTESIS, ASPIRATION AND/OR INJECTION, [...] PROVIDE W/IN THE PREV 7 DAYS,USE THE [employer] NETWORK 2017 DoD FITTING OF SPECTACLES, EXCEPT [...] &/GUS ASSESS FUNC OUTCOME TYP,20 MIN SPENT [id number] W PAT&/FAM 2016 [facility] MANUAL THERAPY TECHNIQUES [...] ADMINISTERED BY A COMPUTER, WITH QUALIFIED HEALTH RECOVERY AUDITOR INTERPRETATION AND REPORT 2013 [facility] MANUAL THERAPY TECHNIQUES (EG, MOBILIZATION/ MANIPULATION, MANUAL LYMPHATIC DRAINAGE, MANUAL TRACTION), 1 OR MORE REGIONS, EACH 15 MINUTES 2012 [facility] APPLICATION OF A MODALITY TO 1 OR MORE AREAS; VASOPNEUMATIC DEVICES 2012 [facility] PSYCHOTHERAPY, 60 MINUTES WITH PATIENT 2012 [facility] CANE, INCLUDES CANES OF ALL MATERIALS, ADJUSTABLE [...] HR/SOON APT;5-10 MIN MED DIS 2010 [facility]D Cerumen Removal Left Ear Irrigation Cerumen Removal Left Ear Irrigation 47324 2018 PEPE PAT [facility] Internet Med Svc Qual Nonphys Healthcare Prof Estab Patient Internet Med Svc Qual Nonphys Healthcare Prof Estab Patient [id number] 2017 FELTON SIMPSON [facility] Spectacles Services Fitting Bifocals (Not For Aphakia) [facility] Fitting Bifocals (Not For Aphakia) 47401 2017 ISABELL MORALES [facility] Determination Of Refractive State Determination Of Refractive State 90496 2017 ISABELL MORALES [facility] Ophthalmological New Patient Start Comprehensive Care Ophthalmological New Patient Start Comprehensive Care [id number] 2017 ISABELL MORALES [facility] Non-Physician Phone Call To Pt/Provider Lengthy (21-30 min) Non-Physician Phone Call To Pt/Provider Lengthy (21-30 min) 23209 2017 KIMBERLY JR Clary [facility] Physical Therapy Mobilization Joint Physical Therapy Mobilization Joint 87175 2017 SHADIA VALENTE [facility] Physical Therapy Neuromuscular Re-education Physical Therapy Neuromuscular Re-education 27664 2017 SHADIA VALENTE [facility] Physical Therapy: ___ Se ion Segments, 15 Minutes Each Physical Therapy: ___ Session Segments, 15 Minutes Each 60509 2017 SHADIA VALENTE [facility] Physical Therapy Mobilization Joint Physical Therapy Mobilization Joint 92131 2017 SILVERIO [facility] Physical Therapy Neuromuscular Re-education Physical Therapy Neuromuscular Re-education 84095 2017 SILVERIO [facility] Physical Therapy: ___ Se ion Segments, 15 Minutes Each Physical Therapy: ___ Session Segments, 15 Minutes Each 57496 2017 SILVERIO [facility] Physical Therapy Mobilization Joint Physical Therapy Mobilization Joint 46777 2017 SHADIA VALENTE [facility] Physical Therapy Neuromuscular Re-education Physical Therapy Neuromuscular Re-education 01998 2017 SHADIA VALENTE [facility] Physical Therapy: ___ Se ion Segments, 15 Minutes Each Physical Therapy: ___ Session Segments, 15 Minutes Each 08593 2017 SHADIA VALENTE [facility] Physical Therapy: ___ Se ion Segments, 15 Minutes Each Physical Therapy: ___ Session Segments, 15 Minutes Each 49681 2017 COLLETTE ALBRECHT [facility] Physical Medicine Physical Therapy Re-Evaluation Physical Medicine Physical Therapy Re-Evaluation 56138 2016 JONAH CARREON [facility] Mobilization Soft Ti ue Mobilization Soft Tissue 25015 2016 BRAYAN LIRIANO [facility] Physical Therapy: ___ Se ion Segments, 15 Minutes Each Physical Therapy: ___ Session Segments, 15 Minutes Each 36069 2016 BRAYAN LIRIANO [facility] Modalities Ultrasound Modalities Ultrasound 72839 2016 BRAYAN LIRIANOLM [facility] Mobilization Soft Ti ue Mobilization Soft Tissue 97227 2016 BRAYAN LIRIANOLUIS [facility] Physical Therapy: ___ Se ion Segments, 15 Minutes Each Physical Therapy: ___ Session Segments, 15 Minutes Each 51399 2016 BRAYAN LIRIANOLUIS [facility] Mobilization Soft Ti ue Mobilization Soft Tissue 89562 2016 BRAYAN LIRIANOLM [facility] Modalities Ultrasound Modalities Ultrasound 15686 2016 BRAYAN LIRIANOLUIS [place] [facility] Physical Therapy: ___ Se ion Segments, 15 Minutes Each Physical Therapy: ___ Session Segments, 15 Minutes Each 72067 2016 BRAYAN LIRIANOLM [facility] Modalities Ultrasound Modalities Ultrasound 00065 2016 BRAYAN LIRIANOFREDY [facility] Mobilization Soft Ti ue Mobilization Soft Tissue 06567 2016 BRAYAN LIRIANOLUIS [place] [facility] Physical Therapy: ___ Se ion Segments, 15 Minutes Each Physical Therapy: ___ Session Segments, 15 Minutes Each 68954 2016 BRAYAN LIRIANOLM [facility] Biopsy Skin Biopsy Skin 95661 2016 REJI WILKINS [facility] Exercises A isted Exercises For ROM Exercises Assisted Exercises For ROM 54284 2016 JONAH CARREON [facility] Non-Physician Phone Call To Patient/Provider Brief (5-10min) Non-Physician Phone Call To Patient/Provider Brief (5-10min) 34864 2016 ELIZABETH PRESCOTT [facility] Shaving Of Lesion Forearms Up To .5cm Shaving Of Lesion Forearms Up To .5cm 11133 2016 REJI WILKINS [facility] Psychiatric Evaluation Review of Records and Reports Psychiatric Evaluation Review of Records and Reports 04566 2013 NASIM ASH [facility] Non-Physician Phone Call To Patient/Provider Brief (5-10min) Non-Physician Phone Call To Patient/Provider Brief (5-10min) 76450 2013 ELIZABETH PRESCOTT Psychometric Neuropsych Testing Battery Admin By Computer Psychometric Neuropsych Testing Battery Admin By Computer 90156 2013 MONCHO MONTAÑO [facility] Physical Therapy Mobilization Joint Physical Therapy Mobilization Joint 74871 2012 ELBA NIX [facility] Physical Therapy Gait Training Physical Therapy Gait Training 30036 2012 ELBA NIX [facility] Physical Therapy: ___ Se ion Segments, 15 Minutes Each Physical Therapy: ___ Session Segments, 15 Minutes Each 70624 2012 ELBA NIX [facility] Modalities Vasopneumatic Device Modalities Vasopneumatic Device 24514 2012 ELBA NIX [facility] Physical Therapy Gait Training Physical Therapy Gait Training 94810 2012 ELBA NIX [facility] Modalities Cryotherapy Cold Packs Modalities Cryotherapy Cold Packs 04265 2012 ELBA NIX [facility] Physical Therapy Mobilization Joint Physical Therapy Mobilization Joint 88322 2012 ELBA NIX [facility] Physical Therapy: ___ Se ion Segments, 15 Minutes Each Physical Therapy: ___ Session Segments, 15 Minutes Each 19297 2012 ELBA NIX [facility] Cane, includes canes of all materials, adjustable or fixed, with tip 2012 ALPESH RIVERA [facility] Orthopedic Strapping Ankle Orthopedic Strapping Ankle 98515 2012 ALPESH RIVERA [facility] Modalities Vasopneumatic Device Modalities Vasopneumatic Device 88504 2012 ALPESH RIVERA [facility] Exercises A isted Exercises For ROM Exercises Assisted Exercises For ROM 83295 2012 ALPESH RIVERA [facility] Physical Medicine Physical Therapy Evaluation Physical Medicine Physical Therapy Evaluation 82523 2012 ALPESH RIVERA [facility] Psychiatric Evaluation Comprehensive Examination Psychiatric Evaluation Comprehensive Examination 32237 2012 DIANA CUADRA [facility] Non-Physician Phone Call To Patient/Provider Brief (5-10min) Non-Physician Phone Call To Patient/Provider Brief (5-10min) 25597 2010 OLU GEORGE [facility] Non-Physician Phone Call To Patient/Provider Brief (5-10min) Non-Physician Phone Call To Patient/Provider Brief (5-10min) 83539 2010 TAN SHORE [facility] Psychiatric Evaluation Review of Records and Reports Psychiatric Evaluation Review of Records and Reports 02734 2010 PEPE VALENTIN [facility] Psychiatric Evaluation Review of Records and Reports Psychiatric Evaluation Review of Records and Reports 95902 2010 DIMITRIS ANDINO [facility] Tdap Vaccine Tdap Vaccine 64596 2008 NASIM ANGELES JR. [facility] Immunization Administration Each Additional Vaccine 2008 NASIM ANGELES JR. [facility] Hepatitis B Vaccine (Active); 20 Years and Above 2008 NASIM ANGELES JR. [facility] Immunization Administration One Vaccine Immunization Administration One Vaccine 48060 2008 NASIM ANGELES JR. [facility] Skin Test Anergy tuberculin Skin Test Anergy tuberculin 82384 2008 BAILEE VÁSQUEZ *INACTIVE* Ivon Hepatitis B Vaccine (Active); 20 Years and Above 2008 BAILEE VÁSQUEZ *INACTIVE* Ivon Immunization Administration One Vaccine Immunization Administration One Vaccine 85794 2008 BAILEE VÁSQUEZ *INACTIVE* [facility] Health And Behav Intervention, Each 15 Min Grp (2 Or More) Health And Behav Intervention, Each 15 Min Grp (2 Or More) 15298 2005 DONELL CAMERON [facility] Psychiatric Evaluation Comprehensive Examination Psychiatric Evaluation Comprehensive Examination 35256 2004 HARINDER AUSTIN [facility] Injection, triamcinolone acetonide, preservative free, 1 mg IVANA ALVARADO [facility] Corticosteroids Inj Right Fourth Carpometacarpal Joint Corticosteroids Inj Right Fourth Carpometacarpal Joint 42994 IVANA ALVARADO [facility] Internet Med Svc Qual Nonphys Healthcare Prof Estab Patient Internet Med Sv Qual Nonphys Healthcare Prof Estab Patient [address]15 MEL DE LUNA [facility] Osteopathic Manip Treatment (OMT) 3-4 Body Regions Involved Osteopathic Manip Treatment (OMT) 3-4 Body Regions Involved 67267 ISABELL SUAREZ [facility] Destruction Of Premalignant Lesion By Any Method One Lesion Destruction Of Premalignant Lesion By Any Method One Lesion 35156 MANPREET SHETH [facility] Brief communication technology-based service, e.g. virtual check-in, [...] minutes of medical discu ion TULIO PARTIDA [facility] Non-Physician Phone Call To Patient/Provider Brief (5-10min) Non-Physician Phone Call To Patient/Provider Brief (5-10min) 12540 JEANETTE MARTINEZ [facility] Social History Combined list of available smoking, tobacco, and other social history from Department of Defense and Veterans Affairs facilities. Social History Type Response Date Comment Sourc e Tobacco smoking status NHIS VA-TOBACCO NEVER USED CIGARETTES 06/25/2024 [facility] History of tobacco use VA-TOBACCO NEVER USED OTHER TYPE 06/25/2024 [facility] History of tobacco use VA-TOBACCO NEVER USED 06/30/2023 [facility] This section is an empty social history section. [facility] Assessment and Plan Combined list of future care activities from Department of Defense and Veterans Affairs facilities (e.g., assessment and plan notes, appointments, orders, and referrals). Additional future care activities may be listed in the Plan of Care section. Result Assessment and Plan Date Source Assessment and Plan No data available for this section 08/21/2024 Ambulatory Pharmacy Functional Status Combined list of recent functional and cognitive assessments recorded at [facility] Defense and [facility] [place] Functional Willacy Measurement (FIM) Scale: 1 = Total Assistance (Subject = 0% +), 2 = Maximal Assistance (Subject = 25% +), 3 = Moderate Assistance (Subject = 50% +), 4 = Minimal Assistance (Subject = 75% +), 5 = Supervision, 6 = Modified Willacy (Device), 7 = Complete Willacy (Timely, Safely). Assessment Date/Time Source Assessment Type Assessment Skill Assessment Score Assessment Details No data available for this section
--- OUTSIDE RECORDS SUMMARY | 2024-08-20 19:43 | XMS_ITS | Clinical Summary ---
Author Organization [facility] Address [address] [place] [address] Phone Care Team Providers Care Airway Controller Name Role Phone Devyn Coronado APRN, CNP [...] to complete this topic Insurance Care Teams Airway Controller Relationship Specialty Start Date End Date Devyn Coronado, STEAMER BLOCKER, DELICATESSEN SLICER #[address] [address] PCP - General Advanced Practice Nurse 07/12/22
[2024-08-20 19:48] VITALS: BP 157/98; PULSE 94; RESP 18; TEMP 37.1; O2SAT 97
--- OUTSIDE RECORDS SUMMARY | 2024-08-20 20:05 | XMS_ITS | Clinical Summary ---
Author Organization [facility] Address [address] [place] [address] Phone Care Team Providers Care Licensed Occupational Therapist Name Role Phone Devyn Coronado APRN, CNP [...] to complete this topic Insurance Care Teams Licensed Occupational Therapist Relationship Specialty Start Date End Date Devyn Coronado, CENTERLESS GRINDER, PODIATRIC MEDICINE PROFESSOR #[address] [address] PCP - General Advanced Practice Nurse 07/12/22
--- OUTSIDE RECORDS SUMMARY | 2024-08-20 20:05 | XMS_ITS | Continuity of Care Document ---
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 It does not include entries that were removed or entered in error. Problem Status Onset Date Problem Type Date of Resolution Comments Source Obstructive sleep apnea of adult Active Condition [facility] ANKLE SPRAIN LEFT Active Condition DoD [...] SPRAIN MEDIAL COLLATERAL LIGAMENT RIGHT Inactive Condition [facility] visit for: administrative purpose Inactive Condition DoD visit for: screening exam Active Condition DoD SKIN DISORDER EXANTHEM Active Condition DoD visit for: laboratory Active Condition [facility] Patient Education - Alcohol Active Condition DoD Anticipatory Guidance: Inadequate Physical Activity Active Condition DoD Patient Education - Injury Prevention Active Condition [facility] visit for: services physical Inactive Condition DoD Food Sources For Nutrients Active Condition DoD Tetanus toxoid - need for vaccination Active Condition [facility] visit for: issue medical certificate Inactive Condition [facility] visit for: screening exam pulmonary tuberculosis Active Condition DoD Need For Vaccination Hepatitis B Active Condition [facility] visit for: issue medical certificate [...] BACKACHE Inactive Condition r/o nephrolithiasis , pleuresy. [facility] Patient Education Active Condition [facility] Serum Total Cholesterol Was Elevated Active Condition Pt denies tob, is not >45, has no fhx of CAD, no hx of HTN so LDL goal is <160. no meds indicated at this time. Diet and exercise counselling provided. Healthy diet handout given. [facility] ACUTE LYMPHADENITIS Inactive Condition Motrin or Tylenol OTC for pain PRN. [facility] HAND SPRAIN Inactive Condition No evide nce of fracture on film./ Recommend R.I.C.E. Motrin for pain. RTC in one week if still painful. [facility] PSYCHIATRIC DIAGNOSIS OR CONDITION DEFERRED ON AXIS I Active Condition [facility] Diagnosis: ICD-10-CM M25.572 Pain in left ankle and joints of left foot Active Diagnosis [facility] Diagnosis: ICD-10-CM Z71.9 Counseling, unspecified Active Diagnosis [facility] Diagnosis: ICD-10-CM R20.2 Paresthesia of skin Active Diagnosis [facility] Medications Combined list of outpatient medications from Department of [facility] and [facility] Affairs facilities.Medications provided include 1) outpatient medications from the last 15 months, and 2) patient-reported medications. Medication Details Route Status Patient Instructions Prescription Expires Prescription Number Last Dispense Date Ordering Provider Order Date Order Qty Source DEHYDROEPIA NDROSTERONE (DHEA) CAP/TAB TAKE 1 CAP/TAB BY MOUTH ORAL ACTIVE Rohit GIBBS 2023 [facility] MELATONIN 3MG CAP/TAB TAKE ONE CAP/TAB BY MOUTH AT BEDTIME FOR SLEEP ORAL DISCONT INUED BY PROVIDE R 08/16/2024 [id number] MIMSCHRISTIANO KAYLEE R 2023 60 [facility] TESTOSTERON E CYPIONATE (PA-F) INJ,SOLN INJECT DEEP INTRAMUS CULARLY INTRAM USCULA R ACTIVE ME SHERRI TTISA 2023 [facility] TRAZODONE HCL 100MG TAB TAKE ONE-HALF TABLET BY MOUTH AT BEDTIME FOR INSOMNIA ORAL 11/15/2023 [id number] PRASANNACHRISTIANO KAYLEE R 2023 45 [facility] Allergies, Adverse Reactions, Alerts Combined list of allergies from Department of Defense and Veterans Affairs facilities. It does not include entries that were removed or entered in error. Substance Category Reaction Severity Reaction type Status Date Reported Comments Source NO OUTPUT FOR NCID [id number] Drug allergy (disorder) active 09/24/2007 EV [place] Immunizations Combined list of available immunizations from the Department of Defense and Veterans Affairs facilities. Immunization Series Date Given Administered By Site Reaction Lot Number CVX Code Drug Logistician Status Comments Source TDAP 1 2021 115 complet ed HISTORICA L INFORMATI ON - FROM OTHER [facility] COVID-19 (MODERNA), MRNA, LNP-S, PF, 100 MCG/0.5ML DOSE OR 50 MCG/0.25ML DOSE 2 2020 207 complet ed HISTORICA L INFORMATI ON - [facility] COVID Vaccine Moderna 2020 207 complet ed COVID Vaccine Moderna 07/19/20 Given Ambulat ory Pharmac y COVID-19, mRNA, LNP-S, PF, 100 mcg or 50 mcg dose 2020 [employer] (MOD) Not Given COVID-19, mRNA, LNP-S, PF, 100 mcg or 50 mcg dose DoD COVID Vaccine Moderna 2020 207 complet ed COVID Vaccine Moderna 06/22/20 Given Ambulat ory Pharmac y COVID-19 (MODERNA), MRNA, LNP-S, PF, 100 MCG/0.5ML DOSE OR 50 MCG/0.25ML DOSE 1 2020 207 complet ed HISTORICA L INFORMATI ON - FROM OTHER [facility] COVID-19, mRNA, LNP-S, PF, 100 mcg or 50 mcg dose 2020 [employer] (MOD) Not Given COVID-19, mRNA, LNP-S, PF, 100 mcg or 50 mcg dose DoD influenza, injectable, quadrivalent- pf 2018 [id number] 150 Seqirus complet ed influenza , injectabl e, quadrival ent-pf 01/24/19 Given Ambulat ory Pharmac y tetanus-dipht h toxoids (Td) adult/adol 2018 [id number] 09 sanofi pasteur complet ed tetanus-d iphth toxoids (Td) adult/ado l 01/24/19 Given Ambulat ory Pharmac y tetanus and diphtheria toxoids, adsorbed, preservative free, for adult use (2 Lf of tetanus toxoid and 2 Lf of diphtheria toxoid) 4 2018 [id number] 09 Sanofi Pasteur (PMC) complet ed tetanus and diphtheri a toxoids, adsorbed, preservat meghna free, for adult use (2 Lf of tetanus toxoid and 2 Lf of diphtheri a toxoid) DoD Influenza, injectable, quadrivalent, preservative free 22 2018 [id number] 150 Seqirus (SEQ) complet ed Influenza , injectabl e, quadrival ent, preservat meghna free DoD influenza, injectable, quadrivalent- pf 2017 [id number] 150 Se[employer]irus complet ed influenza , injectabl e, quadrival ent-pf 12/01/17 Given Ambulat ory Pharmac y Influenza, injectable, quadrivalent, preservative free 21 2017 [id number] 150 Seqirus (SEQ) comple t ed Influenza , injectabl e, quadrival ent, preservat meghna free DoD influenza virus vaccine, unspecified 2017 TRANSCR IBED 88 complet ed influenza virus vaccine, unspecifi ed 02/10/17 Given Ambulat ory Pharmac y influenza virus vaccine, unspecified formulation 1 2017 88 Transcribed (TRS) complet ed influenza virus vaccine, unspecifi ed formulati on DoD influenza, seasonal, injectable-pf 2015 [id number] 140 Seqirus complet ed influenza , seasonal, injectabl e-pf 12/22/15 Given Ambulat ory Pharmac y anthrax vaccine 2015 [id number] 24 Emergent Biosolutions complet ed anthrax vaccine 12/22/15 Given Ambulat ory Pharmac y anthrax vaccine 6 2015 [id number] 24 [employer] [place] (MIP) complet ed anthrax vaccine DoD Influenza, seasonal, injectable, preservative free 19 2015 [id number] 140 Seqirus (SEQ) comple t ed Influenza , seasonal, injectabl e, preservat meghna free DoD influenza, live, intranasal,qu adrivalent 2014 [id number] 149 Medimmune Inc comple t ed influenza , live, intranasa l,quadriv alent 12/18/14 Given Ambulat ory Pharmac y influenza, live, intranasal, quadrivalent 18 2014 [id number] 149 MedImmune, Inc. (MED) complet ed influenza , live, intranasa l, quadrival ent DoD influenza, live, intranasal,qu adrivalent 2014 [id number] 149 Medimmune Inc comple t ed influenza , live, intranasa l,quadriv alent 03/05/14 Given Ambulat ory Pharmac y influenza, live, intranasal, quadrivalent 17 2014 [id number] 149 MedImmune, Inc. (MED) complet ed influenza , live, intranasa l, quadrival ent DoD poliovirus vaccine, inactivated 2013 K1330 10 sanofi pasteur complet ed polioviru s vaccine, inactivat ed 09/17/13 Given Ambulat ory Pharmac y poliovirus vaccine, inactivated 2 2013 [id number] 10 Sanofi Pasteur (PMC) complet ed polioviru s vaccine, inactivat ed DoD yellow fever vaccine 2013 [id number] 37 sanofi pasteur complet ed yellow fever vaccine 07/24/13 Given Ambulat ory Pharmac y yellow fever vaccine 2 2013 [id number] 37 Sanofi Pasteur (PMC) complet ed yellow fever vaccine DoD meningococcal A,C,Y,W-135 (MCV4P) 2013 [id number] 114 sanofi pasteur complet ed meningoco ccal A,C,Y,W-1 35 (MCV4P) 07/19/13 Given Ambulat ory Pharmac y meningococcal polysaccharid e (groups A, C, Y and W-135) diphtheria toxoid conjugate vaccine (MCV4P) 2 2013 [id number] 114 Sanofi Pasteur (PMC) complet ed meningoco ccal polysacch aride (groups A, C, Y and W-135) diphtheri a toxoid conjugate vaccine (MCV4P) DoD vaccinia (smallpox) vaccine 2013 VV04-00 3A 75 Sh[employer] complet ed vaccinia (smallpox ) vaccine 03/05/13 Given Ambulat ory Pharmac y vaccinia (smallpox) vaccine 2 2013 VV04-00 3A 75 [facility] complet ed vaccinia (smallpox ) vaccine DoD typhoid Vi capsular polysaccharid e vac 2013 [id number] 101 sanofi pasteur complet ed typhoid Vi capsular polysacch aride vac 02/14/13 Given Ambulat ory Pharmac y vaccinia (smallpox) vaccine 2013 VV04-00 3A 75 Sh[employer]ribe complet ed vaccinia (smallpox ) vaccine 02/14/13 Given Ambulat ory Pharmac y anthrax vaccine 2013 [id number] 24 Emergent Bios[employer] complet ed anthrax vaccine 02/14/13 Given Ambulat ory Pharmac y measles/mumps /rubella virus vaccine 2013 [id number] 03 [employer] complet ed measles/m umps/rube lla virus vaccine 02/14/13 Given Ambulat ory Pharmac y measles, mumps and rubella virus vaccine 2 2013 [id number] 03 Sequana Medical (MSD) complet ed measles, mumps and rubella virus vaccine DoD anthrax vaccine 5 2013 [id number] 24 [employer] [place] ([facility]) complet ed anthrax vaccine DoD vaccinia (smallpox) vaccine 1 2013 VV04-00 3A 75 [facility] complet ed vaccinia (smallpox ) vaccine DoD typhoid Vi capsular polysaccharid e vaccine 2 2013 [id number] 101 Sanofi Pasteur ([facility]) complet ed typhoid Vi capsular polysacch aride vaccine DoD influenza, live, intranasal,qu adrivalent 2012 [id number] 149 Medimmune Inc comple t ed influenza , live, intranasa l,quadriv alent 11/28/12 Given Ambulat ory Pharmac y influenza, live, intranasal, quadrivalent 16 2012 [id number] 149 L[employer], Inc, Inc. (MED) complet ed influenza , live, intranasa l, quadrival ent DoD influenza, seasonal, injectable 2011 [id number] 141 sanofi pasteur complet ed influenza , seasonal, injectabl e 11/10/11 Given Ambulat ory Pharmac y Influenza, seasonal, injectable 1 2011 [id number] 141 Sanofi Pasteur (PMC) complet ed Influenza , seasonal, injectabl e DoD influenza, seasonal, injectable-pf 2010 [id number] 140 sanofi pasteur complet ed influenza , seasonal, injectabl e-pf 11/04/10 Given Ambulat ory Pharmac y Influenza, seasonal, injectable, preservative free 14 2010 [id number] 140 Sanofi Pasteur ([facility]) complet ed Influenza , seasonal, injectabl e, preservat meghna free DoD influenza virus vaccine, live 2009 [id number] 111 [employer] Inc comple t ed influenza virus vaccine, live 12/10/09 Given Ambulat ory Pharmac y influenza virus vaccine, live, attenuated, for intranasal use 1 2009 [id number] 111 L[employer] Communications, Inc, Inc. (MED) complet ed influenza virus vaccine, live, attenuate d, for intranasa l use DoD Novel influenza-H1N 1-09, injectable 2009 [id number] 1 127 Novartis Pharmaceutica ls complet ed Novel influenza -Q6S1-24, injectabl e 02/26/09 Given Ambulat ory Pharmac y Novel influenza-H1N 1-09, injectable 1 2009 [id number] 1 127 Novartis Vocenttica l Haley. (NOV) complet ed Novel influenza -D0O6-58, injectabl e DoD HepB, Adult 2009 [id number] 2AA 43 GlaxoSmithKli ne complet ed HepB, Adult 02/16/09 Given Ambulat ory Pharmac y hepatitis B vaccine, adult dosage 3 2009 [id number] [id number] 43 [facility] (SKB) complet ed hepatitis B vaccine, adult dosage DoD influenza virus vaccine, live 2008 [id number] 111 MediUlaola[employer] Inc comple t ed influenza virus vaccine, live 11/11/08 Given Ambulat ory Pharmac y influenza virus vaccine, live, attenuated, for intranasal use 1 2008 [id number] 111 LFR Communications, Inc, Inc. (MED) complet ed influenza virus vaccine, [...] virus vaccine, unspecified 2007 zPeter cazares Arm [id number] 88 [employer] Inc complet ed influenza virus vaccine, unspecifi ed 01/30/08 Given Ambulat ory Pharmac y influenza virus vaccine, unspecified formulation 1 2007 BARRINGTON GOODMAN [id number] 88 L[employer] Communications, Inc, Inc. (MED) complet ed influenza virus vaccine, unspecifi ed formulati on DoD influenza virus vaccine,split 2007 [id number] 15 sanofi pasteur complet ed influenza virus vaccine,s plit 01/21/08 Given Ambulat ory Pharmac y influenza virus vaccine, split virus (incl. purified surface antigen)-reti red CODE 0 2007 [id number] 15 Sanofi Pasteur ([facility]) complet ed influenza virus vaccine, split virus (incl. purified surface antigen)- retired CODE DoD influenza virus vaccine, live 2006 [id number] 111 [employer] Inc comple t ed influenza virus vaccine, live 12/04/06 Given Ambulat ory Pharmac y influenza virus vaccine, live, attenuated, for intranasal use 0 2006 [id number] 111 LFR Communications, Inc, [employer]. (MED) complet ed influenza virus vaccine, live, attenuate d, for intranasa l use DoD varicella virus vaccine 0 2006 21 () Not Given varicella virus vaccine DoD measles/mumps /rubella virus vaccine 2006 [id number] 03 Sequana [employer] & [employer] Inc complet ed measles/m umps/rube lla virus vaccine 09/19/06 Given Ambulat ory Pharmac y measles, mumps and rubella virus vaccine 1 2006 [id number] 03 Merck (MSD) complet ed measles, mumps and rubella virus vaccine DoD influenza virus vaccine, live 2005 [id number] 111 [employer] Inc comple t ed influenza virus vaccine, live 11/25/05 Given Ambulat ory Pharmac y influenza virus vaccine, live, attenuated, for intranasal use 1 2005 [id number] 111 [employer]. (MED) complet ed influenza virus vaccine, live, attenuate d, for intranasa l use [facility] influenza virus vaccine, whole virus 2004 [id number] 16 sanofi pasteur complet ed influenza virus vaccine, whole virus 12/14/04 Given Ambulat ory Pharmac y influenza virus vaccine,split 2004 [id number] 15 sanofi pasteur complet ed influenza virus vaccine,s plit 12/14/04 Given Ambulat ory Pharmac y influenza virus vaccine, split virus (incl. purified surface antigen)-reti red CODE 1 2004 [id number] 15 Sanofi Pasteur ([facility]) complet ed influenza virus vaccine, split virus (incl. purified surface antigen)- retired CODE DoD influenza virus vaccine, whole virus 1 2004 [id number] 16 Sanofi Pasteur ([facility]) complet ed influenza virus vaccine, whole virus DoD influenza virus vaccine, live 2004 [id number] 111 [employer] Inc comple t ed influenza virus vaccine, live 03/08/04 Given Ambulat ory Pharmac y influenza virus vaccine, live, attenuated, for intranasal use 0 2004 [id number] 111 L[employer] Communications, Inc, Inc. (MED) complet ed influenza virus vaccine, live, attenuate d, for intranasa l use DoD tuberculin purified protein derivative 2003 zzLef t Arm [id number] 96 sanofi pasteur complet ed Patient Tolerance : Negative Ambulat ory Pharmac y tuberculin skin test; purified protein derivative solution, intradermal 1 2003 Unknown, Provider [id number] 96 Sanofi Pasteur (PMC) complet ed tuberculi n skin test; purified protein derivativ e solution, intraderm al DoD tuberculin purified protein derivative 2003 [id number] 96 sanofi pasteur complet ed tuberculi n purified protein derivativ e 04/08/03 Given Ambulat ory Pharmac y anthrax vaccine 2003 [id number] 24 Emer[employer] complet ed anthrax vaccine 04/08/03 Given Ambulat ory Pharmac y anthrax vaccine 5 2003 [id number] 24 [employer] ([facility]) complet ed anthrax vaccine DoD influenza virus vaccine, whole virus 2002 [id number] 16 Novartis Pharmaceutica ls complet ed influenza virus vaccine, whole virus 11/28/02 Given Ambulat ory Pharmac y influenza virus vaccine, whole virus 0 2002 [id number] 16 [employer] Pharm[employer] ls (PWJ) complet ed influenza virus vaccine, whole virus DoD anthrax vaccine 2002 [id number] 24 [employer] complet ed anthrax vaccine 07/22/02 Given Ambulat ory Pharmac y anthrax vaccine 4 2002 [id number] 24 [employer] [place] (MIP) complet ed anthrax vaccine DoD anthrax vaccine 2001 [id number] 24 [employer] complet ed anthrax vaccine 12/26/01 Given Ambulat ory Pharmac y anthrax vaccine 3 2001 [id number] 24 [employer] Ailin (MIP) complet ed anthrax vaccine DoD anthrax vaccine 2001 [id number] 24 [employer] complet ed anthrax vaccine 12/12/01 Given Ambulat ory Pharmac y anthrax vaccine 2 2001 [id number] 24 [employer] ([facility]) complet ed anthrax vaccine DoD anthrax vaccine 2001 [id number] 24 [employer] complet ed anthrax vaccine 11/28/01 Given Ambulat ory Pharmac y anthrax vaccine 1 2001 [id number] 24 [employer] ([facility]) complet ed anthrax vaccine DoD influenza virus vaccine, whole virus 2001 [id number] 16 sanofi pasteur complet ed influenza virus vaccine, whole virus 11/16/01 Given Ambulat ory Pharmac y influenza virus vaccine, whole virus 0 2001 [id number] 16 Sanofi Pasteur (PMC) complet ed influenza virus vaccine, whole virus DoD yellow fever vaccine 2001 [id number] 37 GlaxoSmithKli ne complet ed yellow fever vaccine 10/17/01 Given Ambulat ory Pharmac y yellow fever vaccine 0 2001 [id number] 37 Paratureine (SKB) complet ed yellow fever vaccine DoD typhoid Vi capsular polysaccharid e vac 2001 [id number] 101 sanofi pasteur complet ed typhoid Vi capsular polysacch aride vac 04/03/01 Given Ambulat ory Pharmac y tuberculin purified protein derivative 2001 zzLef t Arm [id number] 96 sanofi pasteur complet ed Patient Tolerance : Negative Ambulat ory Pharmac y tuberculin skin test; purified protein derivative solution, intradermal 1 2001 Unknown, Provider [id number] 96 Sanofi Pasteur (PMC) complet ed tuberculi n skin test; purified protein derivativ e solution, intraderm al DoD typhoid Vi capsular polysaccharid e vaccine 0 2001 [id number] 101 Sanofi Pasteur (PMC) complet ed typhoid Vi capsular polysacch aride vaccine DoD influenza virus vaccine, whole virus 2000 [id number] 16 sanofi pasteur complet ed influenza virus vaccine, whole virus 11/27/00 Given Ambulat ory Pharmac y influenza virus vaccine, whole virus 0 2000 [id number] 16 Sanofi Pasteur (PMC) complet ed influenza virus vaccine, whole virus DoD hepatitis A adult vaccine 2000 [id number] 52 Merck & Company Inc complet ed hepatitis A adult vaccine 04/05/00 Given Ambulat ory Pharmac y hepatitis A vaccine, adult dosage 2 2000 [id number] 52 Merck (MSD) complet ed hepatitis A vaccine, adult dosage DoD influenza virus vaccine, whole virus 1999 [id number] 16 [facility] complet ed influenza virus vaccine, whole virus 01/30/00 Given Ambulat ory Pharmac y influenza virus vaccine, whole virus 0 1999 [id number] 16 [facility] ([facility]) complet ed influenza virus vaccine, whole virus DoD influenza virus vaccine, whole virus [id number] 16 [facility] complet ed influenza virus vaccine, whole virus 12/03/98 Given Ambulat ory Pharmac y influenza virus vaccine, whole virus 0 19989551 [id number] 16 [facility] ([facility]) complet ed influenza virus vaccine, whole virus DoD hepatitis A adult vaccine 1998 [id number] 52 [employer] Inc complet ed hepatitis A adult vaccine 07/24/98 Given Ambulat ory Pharmac y poliovirus vaccine, live, oral 1998 [id number] 02 [facility] complet ed polioviru s vaccine, live, oral 07/24/98 Given Ambulat ory Pharmac y trivalent poliovirus vaccine, live, oral 0 1998 [id number] 02 [facility] ([facility]) comple t ed trivalent polioviru s vaccine, live, oral DoD hepatitis A vaccine, adult dosage 1 1998 [id number] 52 Merck (MSD) complet ed hepatitis A vaccine, adult dosage DoD meningococcal polysaccharid e (MPSV4) 19985052 [id number] [address] [facility] complet ed meningoco ccal polysacch aride (MPSV4) 07/17/98 Given Ambulat ory Pharmac y influenza virus vaccine, whole virus 19985066 [id number] 16 [facility] complet ed influenza virus vaccine, whole virus 07/17/98 Given Ambulat ory Pharmac y tetanus-dipht h toxoids (Td) adult/adol 1998 [id number] [address] [facility] complet ed tetanus-d iphth toxoids (Td) adult/ado [...] DoD influenza virus vaccine, whole virus 0 19984439 [id number] 16 [employer] (WAL) complet ed influenza virus vaccine, whole virus DoD meningococcal polysaccharid e vaccine (MPSV4) 0 [id number] 32 [place] (CON) complet ed meningoco ccal [...] June 30, 2023 01:01 PM Reporting Lab: [facility] [address] [place] [address] Performing Lab: [facility] [address] [place] [address] CBC ERYTHROCYTE S [#/VOLUME] IN BLOOD BY AUTOMATED COUNT 5.74 10*6/u L 4.10 - 5.70 06/29 H Specimen Type: BLOOD No comment entered. Ordering Provider: KENNETH POLANCO SA Report Released Date/Time: June 30, 2023 01:01 PM Reporting Lab: [facility] [address] [place] [address] Performing Lab: [facility] [address] [place] [address] CBC HEMOGLOBIN [MASS/VOLUM E] IN BLOOD 17.5 g/dL 13.1 - 16.8 06/29 H Specimen Type: BLOOD No comment entered. Ordering Provider: KENNETH POLANCO SA Report Released Date/Time: June 30, 2023 01:01 PM Reporting Lab: [facility] [address] [place] [phone] Performing Lab: [facility] [address] [place] [phone] [place] [address] CBC HEMATOCRIT [VOLUME FRACTION] OF BLOOD 50.2 38.2 - 48.4 06/29 H Specimen Type: BLOOD No comment entered. Ordering Provider: KENNETH POLANCO SA Report Released Date/Time: June 30, 2023 01:01 PM Reporting Lab: [address] [phone] Performing Lab: [place] [id number] CBC MCV [ENTITIC VOLUME] BY AUTOMATED COUNT 87.5 fL 80.0 - 100.0 06/29 Specimen Type: BLOOD No comment entered. Ordering Provider: KENNETH POLANCO SA Report Released Date/Time: June 30, 2023 01:01 PM Reporting Lab: [facility] [address] [place] [phone] Performing Lab: [facility] [address] [place] [address] [phone] CBC MCH [ENTITIC MASS] BY AUTOMATED COUNT 30.5 pg 27.0 - 34.0 06/29 Specimen Type: BLOOD No comment entered. Ordering Provider: KENNETH POLANCO SA Report Released Date/Time: June 30, 2023 01:01 PM Reporting Lab: [facility] [address] [place] [phone] Performing Lab: [address] [phone] CBC MCHC [MASS/VOLUM E] BY AUTOMATED COUNT 34.9 g/dL 33.0 - 36.0 06/29 Specimen Type: BLOOD No comment entered. Ordering Provider: KENNETH POLANCO SA Report Released Date/Time: June 30, 2023 01:01 PM Reporting Lab: [facility] [address] [place] [phone] Performing Lab: [facility] [address] [place] [phone] [facility] CBC PLATELETS [#/VOLUME] IN BLOOD BY AUTOMATED COUNT 221 10*3/u L 150 - 400 06/29 Specimen Type: BLOOD No comment entered. Ordering Provider: KENNETH POLANCO SA Report Released Date/Time: June 30, 2023 01:01 PM Reporting Lab: [facility] [address] [place] [address] Performing Lab: [facility] [address] [place] [phone] [facility] CBC PLATELET MEAN VOLUME [ENTITIC VOLUME] IN BLOOD BY AUTOMATED COUNT 9.6 fL 7.5 - 11.2 06/29 Specimen Type: BLOOD No comment entered. Ordering Provider: KENNETH POLANCO SA Report Released Date/Time: June 30, 2023 01:01 PM Reporting Lab: [facility] [address] [address] Performing Lab: [facility] [address] [place] [phone] [facility] CBC ERYTHROCYTE DISTRIBUTIO N WIDTH [RATIO] BY AUTOMATED COUNT 11.9 11.8 - 15.1 06/29 Specimen Type: BLOOD No comment entered. Ordering Provider: KENNETH POLANCO SA Report Released Date/Time: June 30, 2023 01:01 PM Reporting Lab: [facility] [address] [facility] [place] [address] Performing Lab: [facility] [address] [place] [phone] [facility] CBC LYMPHOCYTES /100 LEUKOCYTES IN BLOOD BY AUTOMATED COUNT 26 06/29 Specimen Type: BLOOD No comment entered. Ordering Provider: KENNETH POLANCO SA Report Released Date/Time: June 30, 2023 01:01 PM Reporting Lab: [facility] [address] [address] Performing Lab: [facility] [address] [place] [address] [facility] CBC MONOCYTES/1 00 LEUKOCYTES IN BLOOD BY AUTOMATED COUNT 8 06/29 Specimen Type: BLOOD No comment entered. Ordering Provider: KENNETH POLANCO SA Report Released Date/Time: June 30, 2023 01:01 PM Reporting Lab: [facility] [address] [place] [place] [address] Performing Lab: [facility] [address] [place] [address] [facility] CBC NEUTROPHILS /100 LEUKOCYTES IN BLOOD BY AUTOMATED COUNT 65 06/29 Specimen Type: BLOOD No comment entered. Ordering Provider: KENNETH POLANCO SA Report Released Date/Time: June 30, 2023 01:01 PM Reporting Lab: [facility] [address] [facility] [place] [address] Performing Lab: [facility] [address] [place] [address] [facility] CBC EOSINOPHILS /100 LEUKOCYTES IN BLOOD BY AUTOMATED COUNT 1 06/29 Specimen Type: BLOOD No comment entered. Ordering Provider: KENNETH POLANCO SA Report Released Date/Time: June 30, 2023 01:01 PM Reporting Lab: [facility] [address] [facility] [place] [address] Performing Lab: [facility] [address] [place] [address] [facility] CBC BASOPHILS/1 00 LEUKOCYTES IN BLOOD BY AUTOMATED COUNT 0 06/29 Specimen Type: BLOOD No comment entered. Ordering Provider: KENNETH POLANCO SA Report Released Date/Time: June 30, 2023 01:01 PM Reporting Lab: [facility] [address] [place] [address] Performing Lab: [facility] [address] [place] [address] [facility] CBC LYMPHOCYTES [#/VOLUME] IN BLOOD BY AUTOMATED COUNT 2.06 10*3/u L 0.77 - 4.50 06/29 Specimen Type: BLOOD No comment entered. Ordering Provider: KENNETH POLANCO SA Report Released Date/Time: June 30, 2023 01:01 PM Reporting Lab: [address] [address] Performing Lab: [address] [phone] [place] [address] CBC MONOCYTES [#/VOLUME] IN BLOOD BY AUTOMATED COUNT 0.66 10*3/u L 0.19 - 0.80 06/29 Specimen Type: BLOOD No comment entered. Ordering Provider: KENNETH POLANCO SA Report Released Date/Time: June 30, 2023 01:01 PM Reporting Lab: [address] [address] Performing Lab: [address] [address] [facility] CBC NEUTROPHILS [#/VOLUME] IN BLOOD BY AUTOMATED COUNT 5.16 10*3/u L 2.10 - 8.00 06/29 Specimen Type: BLOOD No comment entered. Ordering Provider: KENNETH POLANCO SA Report Released Date/Time: June 30, 2023 01:01 PM Reporting Lab: [address] [address] Performing Lab: [address] [address] [facility] CBC EOSINOPHILS [#/VOLUME] IN BLOOD BY AUTOMATED COUNT 0.06 10*3/u L 0.00 - 0.60 06/29 Specimen Type: BLOOD No comment entered. Ordering Provider: KENNETH POLANCO SA Report Released Date/Time: June 30, 2023 01:01 PM Reporting Lab: [address] [address] Performing Lab: [address] [place] [address] [facility] CBC BASOPHILS [#/VOLUME] IN BLOOD BY AUTOMATED COUNT 0.03 10*3/u L 0.00 - 0.20 06/29 Specimen Type: BLOOD No comment entered. Ordering Provider: KENNETH POLANCO SA Report Released Date/Time: June 30, 2023 01:01 PM Reporting Lab: [address] [address] Performing Lab: [address] [address] [facility] COMPREHENS MEGHNA METABOLIC PANEL CREATININE [MASS/VOLUM E] IN SERUM OR PLASMA 1.15 mg/dL 0.7 - 1.3 06/29 Specimen Type: PLASMA Comment: No hemolysis noted. Ordering Provider: KENNETH POLANCO SA Report Released Date/Time: June 30, 2023 01:01 PM Reporting Lab: [address] [address] Performing Lab: [place] [address] [address] [facility] COMPREHENS [place] METABOLIC PANEL UREA NITROGEN [MASS/VOLUM E] IN SERUM OR PLASMA 18.0 mg/dL 9.0 - 25.0 06/29 Specimen Type: PLASMA Comment: No hemolysis noted. Ordering Provider: KENNETH POLANCO SA Report Released Date/Time: June 30, 2023 01:01 PM Reporting Lab: [facility] [place] [address] Performing Lab: [address] [address] [facility] COMPREHENS [place] METABOLIC PANEL GLUCOSE [MASS/VOLUM E] IN SERUM OR PLASMA 81 mg/dL 72 - 99 06/29 Specimen Type: PLASMA Comment: No hemolysis noted. Ordering Provider: KENNETH POLANCO SA Report Released Date/Time: June 30, 2023 01:01 PM Reporting Lab: [facility] [address] [place] [address] Performing Lab: [facility] [address] [address] [facility] COMPREHENS [place] METABOLIC PANEL SODIUM [MOLES/VOLU ME] IN SERUM OR PLASMA 138 meq/L 136 - 145 06/29 Specimen Type: PLASMA Comment: No hemolysis noted. Ordering Provider: KENNETH POLANCO SA Report Released Date/Time: June 30, 2023 01:01 PM Reporting Lab: [facility] [address] [address] Performing Lab: [facility] [address] [place] [address] [facility] COMPREHENS [place] METABOLIC PANEL POTASSIUM [MOLES/VOLU ME] IN SERUM OR PLASMA 3.9 meq/L 3.5 - 5 06/29 Specimen Type: PLASMA Comment: No hemolysis noted. Ordering Provider: KENNETH POLANCO SA Report Released Date/Time: June 30, 2023 01:01 PM Reporting Lab: [facility] [address] [address] Performing Lab: [facility] [address] [address] [facility] COMPREHENS [place] METABOLIC PANEL CHLORIDE [MOLES/VOLU ME] IN SERUM OR PLASMA 103 meq/L 98 - 107 06/29 Specimen Type: PLASMA Comment: No hemolysis noted. Ordering Provider: KENNETH POLANCO SA Report Released Date/Time: June 30, 2023 01:01 PM Reporting Lab: [facility] [address] [address] Performing Lab: [facility] [address] [address] [facility] COMPREHENS [place] METABOLIC PANEL CARBON DIOXIDE, TOTAL [MOLES/VOLU ME] IN SERUM OR PLASMA 25 meq/L 22 - 31 06/29 Specimen Type: PLASMA Comment: No hemolysis noted. Ordering Provider: KENNETH POLANCO SA Report Released Date/Time: June 30, 2023 01:01 PM Reporting Lab: [facility] [address] [place] [address] Performing Lab: [facility] [address] [address] [facility] COMPREHENS [place] METABOLIC PANEL CALCIUM [MASS/VOLUM E] IN SERUM OR PLASMA 9.1 mg/dL 8.4 - 10.4 06/29 Specimen Type: PLASMA Comment: No hemolysis noted. Ordering Provider: KENNETH POLANCO SA Report Released Date/Time: June 30, 2023 01:01 PM Reporting Lab: [place] [address] [facility] [place] [address] Performing Lab: [place] [address] [facility] [address] [facility] COMPREHENS [place] METABOLIC PANEL PROTEIN [MASS/VOLUM E] IN SERUM OR PLASMA 7.4 g/dL 6 - 8.6 06/29 Specimen Type: PLASMA Comment: No hemolysis noted. Ordering Provider: KENNETH POLANCO SA Report Released Date/Time: June 30, 2023 01:01 PM Reporting Lab: [place] [address] [facility] [address] Performing Lab: [place] [address] [place] [address] [facility] COMPREHENS [place] METABOLIC PANEL ALBUMIN [MASS/VOLUM E] IN SERUM OR PLASMA 4.4 g/dL 3.4 - 5 06/29 Specimen Type: PLASMA Comment: No hemolysis noted. Ordering Provider: KENNETH POLANCO SA Report Released Date/Time: June 30, 2023 01:01 PM Reporting Lab: [place] [address] [facility] [place] [address] Performing Lab: [place] [address] [place] [address] [facility] COMPREHENS [place] METABOLIC PANEL BILIRUBIN.T OTAL [MASS/VOLUM E] IN SERUM OR PLASMA 0.5 mg/dL 0.2 - 1.2 06/29 Specimen Type: PLASMA Comment: No hemolysis noted. Ordering Provider: KENNETH POLANCO SA Report Released Date/Time: June 30, 2023 01:01 PM Reporting Lab: [facility] [address] [facility] [address] Performing Lab: [facility] [address] [facility] [address] [facility] COMPREHENS [place] METABOLIC PANEL ALKALINE PHOSPHATASE [ENZYMATIC ACTIVITY/VO LUME] IN SERUM OR PLASMA 75 U/L 40 - 150 06/29 Specimen Type: PLASMA Comment: No hemolysis noted. Ordering Provider: KENNETH POLACNO SA Report Released Date/Time: June 30, 2023 01:01 PM Reporting Lab: [facility] [address] [place] [address] [address]: [facility] [address] [place] [address] [facility] COMPREHENS [place] METABOLIC PANEL ASPARTATE AMINOTRANSF ERASE [ENZYMATIC ACTIVITY/VO LUME] IN SERUM OR PLASMA 34 U/L 5 - 34 06/29 Specimen Type: PLASMA Comment: No hemolysis noted. Ordering Provider: KENNETH POLANCO SA Report Released Date/Time: June 30, 2023 01:01 PM Reporting Lab: [facility] [address] [place] [address] Performing Lab: [facility] [address] [place] [address] [facility] COMPREHENS MEGH[place] METABOLIC PANEL ALANINE AMINOTRANSF ERASE [ENZYMATIC ACTIVITY/VO LUME] IN SERUM OR PLASMA 41 U/L 8 - 40 06/29 H Specimen Type: PLASMA Comment: No hemolysis noted. Ordering Provider: KENNETH POLANCO SA Report Released Date/Time: June 30, 2023 01:01 PM Reporting Lab: [facility] [address] [facility] [address] Performing Lab: [facility] [address] [place] [address] [facility] COMPREHENS [place] METABOLIC PANEL GLOMERULAR FILTRATION RATE/1.73 SQ M.PREDICTED [VOLUME RATE/AREA] IN SERUM, PLASMA OR BLOOD BY CREATININE- BASED FORMULA (CKD-EPI 2020) 78.0 60 06/29 Specimen Type: PLASMA Comment: No hemolysis noted. Ordering Provider: KENNETH POLANCO SA Report Released Date/Time: June 30, 2023 01:01 PM Reporting Lab: [facility] [address] [place] [place] [address] Performing Lab: [facility] [address] [place] [address] [facility] HGA1C HEMOGLOBIN A1C/HEMOGLO BIN.TOTAL IN BLOOD 5.2 4.0 - 6.0 06/29 Specimen Type: BLOOD No comment entered. Ordering Provider: KENNETH POLANCO SA Report Released Date/Time: June 30, 2023 01:01 PM Reporting Lab: [address] [address] Performing Lab: [facility] [address] [facility] [address] [facility] LIPID PANEL (STL) CHOLESTEROL [MASS/VOLUM E] IN SERUM OR PLASMA 211 mg/dL 0 - 200 06/29 H Specimen Type: PLASMA Comment: No hemolysis noted. Ordering Provider: KENNETH POLANCO SA Report Released Date/Time: June 30, 2023 01:01 PM Reporting Lab: [facility] [address] [facility] [address] Performing Lab: [facility] [address] [facility] [address] [facility] LIPID PANEL (STL) TRIGLYCERID E [MASS/VOLUM E] IN SERUM OR PLASMA 192 mg/dL 0 - 150 06/29 H Specimen Type: PLASMA Comment: No hemolysis noted. Ordering Provider: KENNETH POLANCO SA Report Released Date/Time: June 30, 2023 01:01 PM Reporting Lab: [facility] [address] [place] [address] Performing Lab: [facility] [address] [place] [address] [facility] LIPID PANEL (STL) CHOLESTEROL IN LDL [MASS/VOLUM E] IN SERUM OR PLASMA BY CALCULATION 135 mg/dL 06/29 Specimen Type: PLASMA Comment: No hemolysis noted. Ordering Provider: KENNETH POLANCO SA Report Released Date/Time: June 30, 2023 01:01 PM Reporting Lab: [address] [address] Performing Lab: [address] [phone] [place] [address] LIPID PANEL (STL) CHOLESTEROL IN HDL [MASS/VOLUM E] IN SERUM OR PLASMA 38 mg/dL 40 06/29 L Specimen Type: PLASMA Comment: No hemolysis noted. Ordering Provider: KENNETH POLANCO SA Report Released Date/Time: June 30, 2023 01:01 PM Reporting Lab: [address] [address] Performing Lab: [address] [address] [facility] PROST. SPECIFIC AG.(PB-STL ) PROSTATE SPECIFIC AG [...] June 30, 2023 01:01 PM Reporting Lab: [address] [address] Performing Lab: [address] [phone] [place] [address] Vital Signs Combined list of inpatient and outpatient Vital Signs from Department of Defense and Veterans Affairs, ranging from 12 months to all on record, depending upon the facility. Vital Sign Value Date Comments Source SYSTOLIC BLOOD PRESSURE 119 11/01/2023 12:41:17 [facility] DIASTOLIC BLOOD PRESSURE 82 11/01/2023 12:41:17 [facility] PULSE OXIMETRY 97 11/01/2023 12:41:17 S Sebastian BOGGS [facility] WEIGHT 247.6 11/01/2023 12:41:17 STDulce LOPEZ [facility] BMI 35 kg/m2 11/01/2023 12:41:17 ST[address] Jose LOPEZ [facility] PAIN 0 11/01/2023 12:41:17 ST[facility] C CHARLESR [facility] HEIGHT 71 11/01/2023 12:41:17 ST[address] Jose LOPEZ [facility] TEMPERATURE 98.3 11/01/2023 12:41:17 STDulce BOGGS [facility] PULSE 76 11/01/2023 12:41:17 [facility] RESPIRATION 18 11/01/2023 12:41:17 STDulce BOGGS [facility] Encounters Combined list of: 1) Encounters from Department of Veterans Affairs facilities going backup to the last 18 months, not all VA inpatient encounters are included; 2) Encounters from the Department of Defense facilities going backup to 280 months. Location Location Details Encounter Type Encounter Number Reason For Visit Attending Provider ADM Date DC Date Status Disposition Source EV [facility] Mental Health ([facility]) ) OUTPATIENT [id number] HARINDER AUSTIN 05/27 Released w/o Limitations EV Matos([facility] EV Morse([facility] Primary Care ([facility]) ) OUTPATIENT [id number] rolled 4-wheel er hand is swollen now CINDY BEAN 06/05 Released w/o Limitations EV [facility]os([facility] ([facility]) ) OUTPATIENT [id number] painful nodule in neck--w YORDAN Lau 06/14 Released w/o Limitations [place]([employer] [facility] ([facility] [address]([facility] fausto [employer], [employer] (inactive )) OUTPATIENT [id number] f/u cholest MARCELA Larsen 12/28 Released w/o Limitations [employer] [address]([facility] [employer], [employer] (inacti ve)) [place] [address]([facility] linical [facility] OUTPATIENT [id number] HLINGRID SINGH 07/06 Released w/o Limitations [place] [address]([facility]) [place] [address]([facility] fausto [employer], [employer] (inactive )) OUTPATIENT [id number] Pt c/o persist ant cough x 4-5 weeks MARILYN DUMONT 04/10 [facility]ased w/o Limitations [facility] [place] [address]([facility], [employer] (inacti ve)) [facility] Medical Group([facility]) OUTPATIENT [id number] skin issue ISABELL SLATER 07/23 Released w/o Limitations [facility] Medical [facility]) [facility] Medical [facility]) OUTPATIENT [id number] throat, ear issue, and the side of his face is sore. ISABELL SLATER 09/23 Sick at Home/Quarter s [employer]([facility]) [employer]([facility]) OUTPATIENT [id number] [place] [employer] medical record review BLUE CAMERON 05/30 Released w/o Limitations [facility] Medical Group([facility]) [facility] Medical Group([facility]) OUTPATIENT [id number] Annual PHA BLUE CAMERON 05/30 Released w/o Limitations [facility] Medical [facility]) [facility] Medical Group([facility] Immunizat ions [facility]) OUTPATIENT [id number] B, PPD BAILEE VÁSQUEZ *INACTIVE* 06/03 Released w/o Limitations [employer]([facility]) [employer]([facility] OUTPATIENT [id number] PRP determi ROEL Ramirez 08/20 Released w/o Limitations [employer] [employer]([facility] Immun[facility] ions [facility]) OUTPATIENT [id number] tdap b NASIM ANGELES JR. 08/25 Released w/o Limitations [employer]([facility]) [employer]([facility]) OUTPATIENT [id number] PHA BELINDA BERRIOS JR 06/25 Released w/o Limitations [employer](F amily Practic e) [facility]) TELE CONSULT [id number] ROBERT Sampson 07/02 Referred for Appointment [facility](F amily Practic e) [facility]) OUTPATIENT [id number] MARIXA JOVEL 10/30 Released w/o Limitations [employer](F amily Practic e) [facility]) OUTPATIENT [id number] SUSAN HINTON 03/16 Released w/o Limitations [facility](F amily Practic e) [facility]) OUTPATIENT [id number] walk-in /pre deploym ent STEPHANIE YAÑEZ R 03/16 Released w/o Limitations [facility](F amily Practic e) [facility] [place]a [facility] Integr[facility] rs) OUTPATIENT [id number] LATE ENTRY: Attende d cee [place] rs brief on Jul 17 ANATOLIY RIVERA 07/16 Released w/o Limitations [employer] [place]H ealthca re Integra tors) [facility] [place]Sco tt [facility] Res [facility]m Green) TELE CONSULT [id number] AD Pt. would like acute, no acutes - [facility] - [id number] - [facility] TAN SHORE 09/07 [facility] [place] [employer] [employer]) [facility] [place] [employer] [place] [place]) OUTPATIENT [id number] f/u knee pain CATHERINE WRIGHT 09/09 Released with Work/Duty Limitations [address] [place] [address] [place]S cott OF Fam Res [employer] [place]) [address] [place] [address] [place] F[employer] [place]) TELE CONSULT [id number] Anderso n ER F/U - Lorna - [phone] - tsg GEORGEOLU 01/[address] [place] [address] [place] [employer] [place]) [address] [place] [address] [place] [employer] [place]) OUTPATIENT [id number] shouldf er pain--f /u shoulde SHITAL Bradshaw 01/24 Released w/o Limitations [address] [place] [address] [place] [employer] [place]) [address] [place] [address] [place] [employer] [place]) OUTPATIENT [id number] Jose/CECILIO CUEVAS 03/21 Released w/o Limitations [address] [place] [address] [place] [employer] [place]) [address] [place] [address] [place] [employer] [place]) TELE CONSULT [id number] Notes Entered by: MATHEW CORREA 23 Mar 2012 0855 ------- ------- ------- ------- -- [facility]/CECILIO CUEVAS 03/[address] [place] [address] Group [place] ([facility]) [address] [place] [address] [place] [place]) OUTPATIENT [id number] 3 yr face to face appt [id number] DENYS JURADO 04/02 Released w/o Limitations [address] [place] [address] [place] [employer] [employer] [place]) [address] [place] [address] [place]) OUTPATIENT [id number] rolled left ankle while playing soccer last night [id number] YOUNG WILKINSONPENNY Munoz 06/28 Released w/o Limitations [address] [place] [address] [place] [facility] [facility]m [facility]) [address] [place] [address] [place] HERIBERTO [facility]Phy sical Therapy) OUTPATIENT [id number] ANKLE SPRAIN ALPESH RIVERA 07/12 Released w/o Limitations [address] [place] [address] [place] RIRICarlos Alberto [facility]P hysical Therapy ) [address] [place] [address] [place] RIRICarlos Alber[facility]Phy sical Therapy) OUTPATIENT [id number] ankle ELBA NIX 07/24 Released w/o Limitations [address] [place] [address] [place] RIRICarlos Alberto [facility] [place] ) [address] [place] [address] William RIRICarlos Alberto [facility] [place]) OUTPATIENT [id number] ankle ELBA NIX 08/01 Released w/o Limitations [address] [place] [address] William RIRICarlos Alberto [facility] [place] [address] [place] [address] [facility] [place]) OUTPATIENT [id number] fever congest ion cough OSCAR WILKINSON Tammy 12/26 Released w/o Limitations [address] [place] [address] [place] [facility]S [facility] [place]) [address] [place] [address] [facility]) OUTPATIENT [id number] predep KATIA TSANG 02/13 Released w/o Limitations [address] [place] [address] William RIRICarlos Alberto [facility]D [facility]) [address] [place] [address] William RIRICarlos Alberto [facility]Sco tt [facility] Res Tm Green) TELE CONSULT [id number] Notes Entered by: Carlos Alberto YAÑEZ 16 Feb 2013 0050 ------- ------- ------- ------- -- Jose/CECILIO CUEVAS 02/16[facility] William RIRICarlos Alberto [facility]S cott [place] [facility] [place]) [address] [place] [address] [facility]) OUTPATIENT [id number] Notes Entered by: HELEN IRVINQUEZADA LANE Vasquez 21 Feb 2013 1142 ------- ------- ------- ------- -- smallpo x KATIA TSANG 02/21 Released w/o Limitations [address] [place] [address] William [facility])(D eployme nt Health Assessm ents) [address] [place] [address] William [facility])(Dep [facility] ts) OUTPATIENT [id number] pre deploym ent SHARAN KATIA S 03/05 Released w/o Limitations [address] [place] [address] [facility]D eployme nt Health Assessm ents) [address] [place] [address])(Sco tt [facility] Fam Res Tm Red) OUTPATIENT [id number] Left ankle pain- hurt while doing PT this morning - [id number] [phone] VIKAS VAN 03/08 Released w/o Limitations [address] [place] [address] William [facility])(S cott [facility] Fam Res Tm Red) [address] [place] [address] William [facility])(Sco tt [facility] Fam Res Tm Red) TELE CONSULT [id number] Notes Entered by: SHITAL HESTER 03 Apr 2013 1022 ------- ------- ------- ------- -- Profile extensi on/Ranjeet s/256.5 064 or ELIZABETH PRESCOTT 04/[address] [place] [address] William [facility])(S cott [facility] Fam Res Tm Red) [address] [place] [address] William [facility])(Dep [facility]) TELE CONSULT [id number] Notes Entered by: Clary TSANG 03 Apr 2013 1432 ------- ------- ------- ------- -- BW/CW. 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 KATIA TSANG 04/[address] [place] [address] William [facility])(D eployme nt Health Assessm ents) [address] [place] [address] [facility])(Moo [facility] Fam Res Tm Red) OUTPATIENT [id number] f/u left ankle sprain: profile extenst CECILIO Barnes Clary 04/05 Released w/o Limitations [address] [place] [address] [place] [facility]S [facility] Fam Res Tm Red) [address] [place] [address] William [facility])([facility] Fam Res Tm Red) TELE CONSULT [id number] Notes Entered by: Jojo REYNOLDS 05 Apr 2013 1256 ------- ------- ------- ------- -- Profile Lorna CECILIO ENG 04/[address] [place] [address] William [facility])(S [facility] Fam Res Tm Red) [address] [place] [address])([facility] Fam Res Tm Red) TELE CONSULT [id number] Notes Entered by: Jose REYNOLDS 24 May 2013 0828 ------- ------- ------- ------- -- Sx Pain from popped right elbow/G ibbs/61 [id number] [phone] BRAYAN HENDRICKS 05/[address] [place] [address])(S [facility] Fam Res Tm Red) [address] [place] [address] William [facility])([facility] Fam Res Tm Gold) OUTPATIENT [id number] elbow pain in PT test. CLAUDIA SARGENT 05/24 Released w/o Limitations [address] [place] [address] William [facility])(S [facility] Fam Res Tm Gold) [address] [place] [address] William [facility])(Dep [facility] Ass[facility]men ts) OUTPATIENT [id number] EVELIO1 KATIA TSANG 08/06 Released w/o Limitations [address] [place] [address] William [facility])(Jaqueline elena Health Assessm ents) [address] [place] [address] William [facility])(Dep [facility] Health Assessmen ts) OUTPATIENT [id number] [facility] MELI [place]ILL 07/17 Released w/o Limitations [address] [facility])(D eployme nt Health Assessm ents) [address] [place] [address])(Moo tt [facility] Fam Res Tm Red) TELE CONSULT [id number] Notes Entered by: CARLOS SALEH 24 Jul 2014 0915 ------- ------- ------- ------- -- [facility]/CECILIO CUEVAS 07/[address] [place] [address])([facility] Fam Res Tm Red) [address] [place] [address])([facility] OUTPATIENT [id number] Notes Entered by: IZABELA LEACH 12 Aug 2015 0848 ------- ------- ------- ------- -- Member Andre LYN #4 Appoint MEL Seo 08/11 Released w/o Limitations [address] [place] [address])(D eployme nt Health Assessm ents) [address] [place] [address])(Bas e Operation al Medicine Clin) OUTPATIENT [id number] Notes Entered by: CHARLOTTE RAINEY V 02 Oct 2015 0850 ------- ------- ------- ------- -- [facility] CHARLOTTE BALDWIN V 10/01 Released w/o Limitations [address] [place] [address])(B ase Operati onal Medicin e Clin) [address] [place] [address])(Sco [facility]ly [facility] Fam Res Tm Red) OUTPATIENT [id number] left ankle pain AMAIRANI THOMASON 11/01 Released w/o Limitations [address] [place] [address])([facility] Fam Res Tm Red) [address] [place] [address])([facility]) OUTPATIENT [id number] Notes Entered by: RONY CORNELIUS 25 Nov 2015 1031 ------- ------- ------- ------- -- EBONI#5 APPOINT MENT DECLINE MEAGHAN JOSUE 11/24 Released w/o Limitations [address] [place] [address] William [facility])(Jaqueline eploymjs nt Health Assess ents) [address] [place] [address])(Moo tt [facility] Fam Res Tm Red) OUTPATIENT [id number] L Heel issues, R Arm Skin issues [id number] REJI WILKINS 04/04 Released w/o Limitations [address] [place] [address] William [facility])(S [facility] Fam Res Tm Red) [address] [place] [address])([facility] Fam Res Tm Red) TELE CONSULT [id number] Notes Entered by: SALLY TORRES RET 29 Apr 2016 1437 ------- ------- ------- ------- -- Biopsy Results /John/ ELIZABETH Rich 04/[address] [place] [address])(S [facility] Fam Res Tm Red) [address] [place] [address])(Phy sical Therapy) OUTPATIENT [id number] Plantar fascial fibroma JONAH Young 05/11 Released w/o Limitations [address] [place] [address])(P hysical Therapy ) [address] [place] [address])([facility] Fam Res Tm Red) OUTPATIENT [id number] Mole removal per Mayra n/40min REJI WILKINS 05/16 Released w/o Limitations [address] [place] [address])(S [facility] Fam Res Tm Red) [address] [place] [address])([facility] Fam Res Tm Red) TELE CONSULT [id number] Notes Entered by: Jose OLVERA 26 May 2016 1608 ------- ------- ------- ------- -- Patholo gy results for review. REJI WILKINS 05/[address] [place] [address])([facility] Fam Res Tm Red) [address] [place] [address])(Phy sical Therapy) OUTPATIENT [id number] left heel BRAYAN LIRIANOCOLM 05/30 Released w/o Limitations [address] [place] [address] Group William [facility] ([facility]P hysical Therapy ) [address] [place] [address] William [facility]ESB ([facility])(Phy sical Therapy) OUTPATIENT [id number] left heel BRAYAN LIRIANO 06/06 Released w/o Limitations [address] [place] [address] Group William [facility]B ([facility]P hysical Therapy ) [address] [place] [address] William MENEZESB ([facility])(Phy sical Therapy) OUTPATIENT [id number] left heel BRAYAN LIRIANO 06/13 Released w/o Limitations [address] [place] [address] Group William [facility] ([facility]P hysical Therapy ) [address] [place] [address] William [facility]ZESB ([facility])(Phy sical Therapy) OUTPATIENT [id number] heel BRAYAN LIRIANO 06/27 Released w/o Limitations [address] [place] [address] Group William [facility] ([facility]P hysical Therapy ) [address] [place] [address] William [facility]ESB ([facility]Sco tt [place] [facility] Tm Blue) TELE CONSULT [id number] Notes Entered by: Jaqueline YANES 28 Jun 2016 0843 ------- ------- ------- ------- -- Network results Dermato logy 7 DB CINDY BLANCO 06/[address] [place] [address] William RIRIB ([facility]S cott [place] [facility] Tm Blue) [address] [place] [address] William RIRIB ([facility])(Phy sical Therapy) OUTPATIENT [id number] heel LAURIJONAH 06/29 Released w/o Limitations [address] [place] [address] Group William [facility]IB ([facility]P hysical Therapy ) [address] [place] [address] William R[facility]IB ([facility]Bas e Operation al Medicine Clin) TELE CONSULT [id number] Notes Entered by: WARD SENA 06 Jul 2016 0948 ------- ------- ------- ------- -- Xray results JONAH CARREON 07/[address] [place] [address] [facility]B ase Operati onal Medicin e Clin) [address] [place] [address] William [facility]B [facility]Sco tt [place] [facility] Tm Blue) OUTPATIENT [id number] left plantar fasciit is/prof capri request / SAUL ZAYAS 09/21 Released w/o Limitations [address] [place] [address] William [facility]S cott [place] [facility] Tm Blue) [address] [place] [address] [facility]Sco tt [place] Fam Res [place]m [place]) OUTPATIENT [id number] stomach pain - [phone] IVANA ALVARADO 09/27 Released with Work/Duty Limitations [address] [place] [address] William [facility]S cott [place] [facility] [place]) [address] [place] [address] William [facility]Sco tt [facility] Res Tm Green) TELE CONSULT [id number] Notes Entered by: JORDAN APPIAH 28 Sep 2016 1231 ------- ------- ------- ------- -- Gely/ claudine Blanco - - tsg IVANA ALVARADO 09/28 Released to Self Care [address] [place] [address] William [facility]S cott [place] Fam Res [place]) [address] [place] [address] William [facility]Bas e Operation al Medicine Clin) OUTPATIENT [id number] Notes Entered by: Otto ALDANA 07 Oct 2016 1050 ------- ------- ------- ------- -- TRI SERVICE CINDY CAT 10/07 Released w/o Limitations [address] [place] [address] William HERIBERTO [facility]B ase Operati onal Medicin e Clin) [address] [place] [address] William RIRIB [facility])(Bas e Operation al Medicine Clin) TELE CONSULT [id number] Notes Entered by: RONY MCCARTHY 09 Dec 2016 0730 ------- ------- ------- ------- -- ELIJAH Bravo 12/09 Other Not Elsewhere Classified [address] [place] [address] [place] [employer] [facility])(B ase Operati onal Medicin e Clin) [address] [place] [address] William [facility]ENEZESB [facility])(Sco tt [place] Fam Res [place] [place]) OUTPATIENT [id number] Left knee / ankle pain [id number] / [id number] JENNIFER FORMAN 05/31 Released w/o Limitations [address] [place] [address] William [facility]B [facility]S cott [place] Fam Res [place]) [address] [place] [address] William [facility])(Phy sical Therapy) OUTPATIENT [id number] Pain in left ankle and joints of left foot COLLETTE ALBRECHT 06/14 Released w/o Limitations [address] [place] [address] William [facility]P hysical Therapy ) [address] [place] [address] William [facility])(Phy sical Therapy) OUTPATIENT [id number] ankle AMBROSIO ROMAHERIBERTO GAGNON 06/20 Released w/o Limitations [address] [place] [address] William [facility]P hysical Therapy ) [address] [place] [address] William [facility]ESB [facility])(Phy sical Therapy) OUTPATIENT [id number] L) ankle SILVERIO, CHINA Js 06/27 Released w/o Limitations [address] [place] [address] William MENEZ[facility]B [facility]P hysical Therapy ) [address] [place] [address] William [facility]B [facility])(Phy sical Therapy) OUTPATIENT [id number] L) ankle AMBROSIO ROMAKATHERINEAMANDA KALIN 06/29 Released w/o Limitations [address] [place] [address] William MENEZESB [facility]P hysical Therapy ) [address] [place] [address] William [facility]B [facility]Sco tt [place] Fam Res Tm [place]) TELE CONSULT [id number] Notes Entered by: MONALISA BALES 04 Jul 2017 0840 ------- ------- ------- ------- -- STAT Angelita munoz Request / ER F/Evonne / John / - sgj JENNIFER COSTA 07/[address] [place] [address] [employer] [facility]S cott [place] Fam Res [place]m [place]) [address] [place] [address] [employer] [facility]Sco tt [place] Fam Res [place] [place]) OUTPATIENT [id number] chest pain - 2 months - [phone] YOEL CROW 11/10 Released w/o Limitations [address] [place] [address])(S cott [place] Fam Res [place]) [address] [place] [address])(Opt ometry) OUTPATIENT [id number] Routine Eye Exam, ISABELL MORALES 11/22 Released w/o Limitations [address] [place] [address] William [facility])(O ptometr y) [address] [place] [address] William [facility])(Sco tt [facility] Res Tm Green) TELE CONSULT [id number] Notes Entered by: DAVE GORE 22 Dec 2017 0733 ------- ------- ------- ------- -- Emergen cy room update/ referra l request /john/ ELIZABETH Barron 12/22 Referred for Appointment [address] [place] [address])(S cott [place] Fam Res [place]m [place]) [address] [place] [address])(Sco tt [facility] Res Tm Green) TELE CONSULT [id number] Notes Entered by: SHREYA FRITZ 25 Dec 2017 1453 ------- ------- ------- ------- -- F/u after special ist (referr al request )/John / ELIZABETH PRESCOTT 12/25 Referred for Appointment [address] [place] [address] [facility]S cott [facility] Res Tm Green) [address] [place] [address] William [facility])(Sco tt [facility] Tm) TELE CONSULT [id number] Notes Entered by: IZABELA LEACH 09 Jan 2018 1440 ------- ------- ------- ------- -- MEL HIGGINS 01/[address] [place] [address] [facility]S cott [facility] Tm) [address] [place] [address] William [facility])(Bas e Operation al Medicine Clin) OUTPATIENT [id number] Notes Entered by: Js SOLANO 23 Mar 2018 1120 ------- ------- ------- ------- -- JENNIFER FLORENTINO 03/23 Released w/o Limitations [address] [place] [address])(B ase Operati onal Medicin e Clin) [address] [place] [address])(Sco tt [place] [facility] Tm Blue) OUTPATIENT [id number] 2 x/b - L ear pain, cough, [phone] .[phone] PEPE PAT 05/25 Released w/o Limitations [address] [place] [address])(S cott [place] [employer] Tm Blue) [address] [place] [address])(Sco tt [place] Fam Res [employer]m [place]) TELE CONSULT [id number] Notes Entered by: MEHDI CRISOSTOMO 06 Jun 2018 1132 ------- ------- ------- ------- -- Network Results SURG 8 JENNIFER COSTA 06/[address] [place] [address])(S cott [place] Fam Res [place]m [place]) [address] [place] [address])(Sco tt [place] Fam Res Tm [place]) OUTPATIENT [id number] family adoptio n paperwo rk to adopt new member CINDY BLANCO 06/07 Released w/o Limitations [address] [place] [address] William [facility])(S cott [place] Fam Res [place]) [address] [place] [address])(Sco tt [place] Fam Res [place] [place]) OUTPATIENT [id number] right knee pain [phone] ISAIAH SPARKS 06/25 Released with Work/Duty Limitations [address] [place] [address] William [facility])(S cott [place] Fam Res [place]m [place]) [address] [place] [address])(Sco tt [place] Fam Res Tm [place]) TELE CONSULT [id number] Notes Entered by: JEANE HERNÁNDEZ 26 Jun 2018 1237 ------- ------- ------- ------- -- Profile Not In System/ John/6 15.715. 3306/cl ELIZABETH Mason 06/26 Referred for Appointment [address] [place] [address] William RIRIB [facility]S cott [place] Fam Res [place]m [place]) [address] [place] [address] William [facility])(Sco tt [place] Fam Res [employer]m [place]) TELE CONSULT [id number] Notes Entered by: JORDAN APPAIH 03 Jul 2018 0740 ------- ------- ------- ------- -- Profile status - John - - [facility] ELIZABETH PRESCOTT 07/03 Referred for Appointment [address] [place] [address] William [facility])(S cott [place] Fam Res [place]m [place]) [address] [place] [address] William [facility])(Sco tt [place] Fam Res Tm [place]) TELE CONSULT [id number] Notes Entered by: Bere NOONAN 18 Jul 2018 1322 ------- ------- ------- ------- -- Network results OT 018 CINDY GOULD 07/[address] [place] [address] William B [facility]S cott [place] Fam Res [place]m [place]) [address] [place] [address] William B [facility]Sco tt [place] Fam Res [place]m [place]) OUTPATIENT [id number] Snoring ESCOBAR AMAYA 08/02 Released w/o Limitations [address] [place] [address] William [facility]B [facility]S cott [place] Fam Res Tm [place]) [address] [place] [address] [employer] [facility]Sco tt [place] Fam Res Tm [place]) OUTPATIENT [id number] Concern of bumps on both hands [id number] / [id number] BRAYAN SPRAGUE 10/09 Released w/o Limitations [address] [place] [address] [place] [employer] [facility]S cott [place] Fam Res Tm Green) [address] [place] [address] [facility]Sco tt [place] Fam Res [place]m [place]) OUTPATIENT [id number] Hearing issues [id number] / [id number] ESCOBAR AMAYA 10/19 Released w/o Limitations [address] [place] [address] [facility]S cott [place] Fam Res [place]m [place]) [address] [place] [address] [facility]Moo tt [place] Fam Res Tm Green) OUTPATIENT [id number] 1 low back pain x 1 wk (was TDY) -- [phone] .1145 KELLY CASTRO 12/27 Released w/o Limitations [address] [place] [address] [facility]S cott [place] Fam Res [place]m Green) [address] [place] [address] [facility]Moo tt [place] Fam Res Tm Green) OUTPATIENT [id number] Bumps on hand, Derm check on back, [phone] [phone] CHRISTIANOJESUSTOYA [facility] 02/20 Released w/o Limitations [address] [place] [address] William HERIBERTO [facility]S [facility] Fam Res Tm Green) [address] [place] [address] [facility]Moo tt [facility] ) TELE CONSULT [id number] Notes Entered by: MEL DE LUNA 12 Mar 2019 1146 ------- ------- ------- ------- -- Pedro - MEL SAENZ 03/[address] [place] [address] [facility]S [facility] Flight Medicin e Tm) [address] [place] [address] William RIRICarlos Alberto [facility]Moo tt [place] Fam Res Tm Green) OUTPATIENT [id number] 8 f/u hand CHRISTIANOJESUSTOYA [facility] 03/13 Released w/o Limitations [address] [place] [address] William RIRICarlos Alberto [facility]S [facility] Fam Res Tm Green) [address] [place] [address] William RIRICarlos Alberto [facility])(Bas e Operation al Medicine Clin) OUTPATIENT [id number] Notes Entered by: BRAYAN LITTLE 18 Mar 2019 1551 ------- ------- ------- ------- -- CINDY SANDERS 03/18 Released w/o Limitations [address] [place] [address] William [facility])(B ase Operati onal Medicin e Clin) [address] [place] [address])(Sco tt [place] [facility] Tm Blue) OUTPATIENT [id number] 1 X/B - Upper back pain [id number] / [id number] ISABELL SUAREZ 03/27 Released w/o Limitations [address] [place] [address])(S cott [place] [facility] Tm Blue) [address] [place] [address])([employer] matology) OUTPATIENT [id number] 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 dagmar. MANPREET SHETH 06/12 Released w/o Limitations [address] [place] [address])(D ermatol ogy) [address] [place] [address])(War rior Op Med Cln Tm A Ad) OUTPATIENT [id number] [facility] [id number] CARISA PARTIDA 06/19 Released w/o Limitations [address] [place] [address])(W arrior Op Med Cln Tm A Ad) [address] [place] [address])([employer] matology) OUTPATIENT [id number] Notes Entered by: LISSA MAZA 21 Jun 2019 1154 ------- ------- ------- ------- -- Suture removal MANPREET SHETH 06/20 Released w/o Limitations [address] [place] [address])(D ermatol ogy) [address] [place] [address])([employer]ixon matology) TELE CONSULT [id number] Notes Entered by: HANNAH SHETH 24 Jun 2019 1527 ------- ------- ------- ------- -- Culture result MANPREET SHETH 06/[address] [place] [address])(D ermatol ogy) [address] [place] [address])(War rior Op Med Cln Tm A Ad) TELE CONSULT [id number] Notes Entered by: NATHAN HARP 31 Jul 2019 1018 ------- ------- ------- ------- -- Referra tammy kinney/ [id number] JEANETTE MARTINEZ 07/30 Immediate Referral [address] [place] [address])(W arrior Op Med Cln Tm A Ad) [address] [place] [address])(War rior Op Med Cln Tm A Ad) TELE CONSULT [id number] Notes Entered by: JORDAN APPIAH 23 Aug 2019 0749 ------- ------- ------- ------- -- Possibl e KELLY Devriesur [facility] JEANETTE MARTINEZ 08/22 Released to Self Care [address] [place] [address])(W arrior Op Med Cln Tm A Ad) [address] [place] [address])(War rior Op Med Cln Tm A Ad) TELE CONSULT [id number] 1 Notes Entered by: Clary GAGNON 30 Aug 2019 1453 ------- ------- ------- ------- -- Retro Referra l needed from PCM team, retro date 2 019 JEANETTE MARTINEZ 08/29 Immediate Referral [address] [place] [address])(W arrior Op Med Cln Tm A Ad) [facility] Outpatient Encounter [id number] 06/29 [facility] Outpatient Encounter [id number] NISSA TAFOYA JANET Munoz 06/29 [facility] OFFICE O/P NEW MOD 45 MIN [id number] Diagnos is: ICD-10- CM R20.2 Paresth esia of skin MET UNA POLANCO 06/29 [facility] HC PRO PHONE CALL 5-10 MIN [id number] Diagnos is: ICD-10- CM Z71.9 Preparole Counseling Aide ing, unspeci fiJAYESH Walker 07/09 [facility] Outpatient Encounter [id number] 08/15 [facility] Outpatient Encounter [id number] AZIZA JUAREZ 08/15 [facility] Outpatient Encounter [id number] AZIZA JUAREZ 08/[address] [facility] [address] [facility] Outpatient Encounter [id number] AZIZA JUAREZ 08/[address] [facility] [address] [facility] Outpatient Encounter [id number] 08/28 [facility] No Facility Access History [id number] 09/20 No Facilit y Access Ambulator y [facility] [id number] 09/20 Ambulat ory Pharmac y [facility] OFF[facility] O/P EST LOW 20 MIN [id number] Diagnos is: ICD-10- CM M25.572 Pain in left ankle and joints of left foot ADITYA GIBBS 10/31 [facility] Outpatient Encounter [id number] 11/03 [facility] Outpatient Encounter [id number] 06/25 [facility] Outpatient Encounter [id number] 07/02 [facility] Procedures Combined list of: 1) Procedures from Department of Veterans Affairs facilities going back up to thelast 18 months, not all [place] non-surgical procedures are included; 2) All procedures from the Department of Defense facilities. Procedure Procedure Type Code Date Perfomer Comments Sourc e No data available for this section Ambulatory Pharmacy TETANUS, DIPHTHERIA TOXOIDS AND ACELLULAR PERTUSSIS VACCINE (TDAP), WHEN ADMINISTERED TO INDIVIDUALS 7 YEARS OR OLDER, FOR INTRAMUSCULAR USE 2008 [facility] SKIN TEST; TUBERCULOSIS, INTRADERMAL 2008 [facility] PSYCHIATRIC DIAGNOSTIC INTERVIEW EXAMINATION 2004 [facility] PSYCHIATRIC DIAGNOSTIC INTERVIEW EXAMINATION 2004 [facility] AVULSION OF NAIL PLATE, PARTIAL OR COMPLETE, SIMPLE; SINGLE 2003 [facility] OPHTHALMOLOGICAL SERVICES: MEDICAL EXAMINATION AND EVALUATION, WITH INITIATION OR CONTINUATION OF DIAGNOSTIC AND TREATMENT PROGRAM; COMPREHENSIVE, ESTABLISHED PATIENT, 1 OR MORE VISITS 2002 [facility] PSYCHIATRIC EVALUATION OF HOSPITAL RECORDS, OTHER PSYCHIATRIC REPORTS, PSYCHOMETRIC AND/OR PROJECTIVE TESTS, AND OTHER ACCUMULATED DATA FOR MEDICALDIAGNOSTIC PURPOSES 2010 [facility] PSYCHIATRIC EVALUATION OF HOSPITAL RECORDS, OTHER PSYCHIATRIC REPORTS, PSYCHOMETRIC AND/OR PROJECTIVE TESTS, AND OTHER ACCUMULATED DATA FOR MEDICALDIAGNOSTIC PURPOSES 2010 [facility] TELE ASSESS & MGT SRV PROV QUAL [...] PROVIDE W/IN THE PREV 7 DAYS,USE THE [employer] NETWORK 2019 DoD ARTHROCENTESIS, ASPIRATION AND/OR INJECTION, [...] PROVIDE W/IN THE PREV 7 DAYS,USE THE [employer] NET[employer] 2017 DoD FITTING OF SPECTACLES, EXCEPT [...] &/GUS ASSESS FUNC OUTCOME TYP,20 MIN SPENT OQIP-CA-ATZD W PAT&/FAM 2016 DoD MANUAL THERAPY TECHNIQUES [...] ADMINISTERED BY A COMPUTER, WITH QUALIFIED HEALTH BROTH MIXER INTERPRETATION AND REPORT 2013 [facility] MANUAL THERAPY TECHNIQUES (EG, MOBILIZATION/ MANIPULATION, MANUAL LYMPHATIC DRAINAGE, MANUAL TRACTION), 1 OR MORE REGIONS, EACH [address] [facility] APPLICATION OF A MODALITY TO 1 OR MORE AREAS; VASOPNEUMATIC DEVICES 2012 [facility] PSYCHOTHERAPY, 60 MINUTES WITH PATIENT 2012 [facility] CANE, INCLUDES CANES OF ALL [...] Ear Irrigation Cerumen Removal Left Ear Irrigation [address] [facility] Internet Med Svc Qual Nonphys Healthcare Prof Estab Patient Internet Med Svc Qual Nonphys Healthcare Prof Estab Patient [id number] [facility] Spectacles Services Fitting Bifocals (Not For Aphakia) Spectacles Services Fitting Bifocals (Not For Aphakia) [address] [facility] Determination Of Refractive State Determination Of Refractive State [address] [facility] Ophthalmological New Patient Start Comprehensive Care Ophthalmological New Patient Start Comprehensive Care [address] [facility] Non-Physician Phone Call To Pt/Provider Lengthy (21-30 min) Non-Physician Phone Call To Pt/Provider Lengthy (21-30 min) [address] [facility] Physical Therapy Mobilization Joint Physical Therapy Mobilization Joint [address] [facility] Physical Therapy Neuromuscular Re-education Physical Therapy Neuromuscular Re-education [address] [facility] Physical Therapy: ___ Se ion Segments, 15 Minutes Each Physical Therapy: ___ Session Segments, 15 Minutes Each [address] [facility] Physical Therapy Mobilization Joint Physical Therapy Mobilization Joint 00039 2017 SILVERIO [facility] Physical Therapy Neuromuscular Re-education Physical Therapy Neuromuscular Re-education 66674 2017 SILVERIO [facility] Physical Therapy: ___ Se ion Segments, 15 Minutes Each Physical Therapy: ___ Session Segments, 15 Minutes Each 72282 2017 SILVERIO [facility] Physical Therapy Mobilization Joint Physical Therapy Mobilization Joint [address] [facility] Physical Therapy Neuromuscular Re-education Physical Therapy Neuromuscular Re-education [address] [facility] Physical Therapy: ___ Se ion Segments, 15 Minutes Each Physical Therapy: ___ Session Segments, 15 Minutes Each [address] [facility] Physical Therapy: ___ Se ion Segments, 15 Minutes Each Physical Therapy: ___ Session Segments, 15 Minutes Each [address] [facility] Physical Medicine Physical Therapy Re-Evaluation Physical Medicine Physical Therapy Re-Evaluation [address] [facility] Mobilization Soft Ti ue Mobilization Soft Tissue [address] [facility] Physical Therapy: ___ Se ion Segments, 15 Minutes Each Physical Therapy: ___ Session Segments, 15 Minutes Each [address] [facility] Modalities Ultrasound Modalities Ultrasound [address] [facility] Mobilization Soft Ti ue Mobilization Soft Tissue 55843 2016 BRAYAN LIRIANOLUIS [place] Physical Therapy: ___ Se ion Segments, 15 Minutes Each Physical Therapy: ___ Session Segments, 15 Minutes Each 19803 2016 BRAYAN LIRIANOLUIS [place] Mobilization Soft Ti ue Mobilization Soft Tissue [address] [facility] Modalities Ultrasound Modalities Ultrasound 19336 2016 BRAYAN LIRIANOLUIS [place] Physical Therapy: ___ Se ion Segments, 15 Minutes Each Physical Therapy: ___ Session Segments, 15 Minutes Each [address] [facility] Modalities Ultrasound Modalities Ultrasound 45898 2016 BRAYAN LIRIANOFREDY [place] Mobilization Soft Ti ue Mobilization Soft Tissue 39263 2016 BRAYAN LIRIANOLUIS [place] Physical Therapy: ___ Se ion Segments, 15 Minutes Each Physical Therapy: ___ Session Segments, 15 Minutes Each [address] [facility] Biopsy Skin Biopsy Skin [address] [facility] Exercises A isted Exercises For ROM Exercises Assisted Exercises For ROM [address] [facility] Non-Physician Phone Call To Patient/Provider Brief (5-10min) Non-Physician Phone Call To Patient/Provider Brief (5-10min) [address] [facility] Shaving Of Lesion Forearms Up To .5cm Shaving Of Lesion Forearms Up To .5cm [address] [facility] Psychiatric Evaluation Review of Records and Reports Psychiatric Evaluation Review of Records and Reports [address] [facility] Non-Physician Phone Call To Patient/Provider Brief (5-10min) Non-Physician Phone Call To Patient/Provider Brief (5-10min) 32822 2013 ELIZABETH PRESCOTT Psychometric Neuropsych Testing Battery Admin By Computer Psychometric Neuropsych Testing Battery Admin By Computer [address] [facility] Physical Therapy Mobilization Joint Physical Therapy Mobilization Joint [address] [facility] Physical Therapy Gait Training Physical Therapy Gait Training [address] [facility] Physical Therapy: ___ Se ion Segments, 15 Minutes Each Physical Therapy: ___ Session Segments, 15 Minutes Each [address] [facility] Modalities Vasopneumatic Device Modalities Vasopneumatic Device [address] [facility] Physical Therapy Gait Training Physical Therapy Gait Training [address] [facility] Modalities Cryotherapy Cold Packs Modalities Cryotherapy Cold Packs [address] [facility] Physical Therapy Mobilization Joint Physical Therapy Mobilization Joint [address] [facility] Physical Therapy: ___ Se ion Segments, 15 Minutes Each Physical Therapy: ___ Session Segments, 15 Minutes Each [address] [facility] Cane, includes canes of all materials, adjustable or fixed, with tip [address] [facility] Orthopedic Strapping Ankle Orthopedic Strapping Ankle [address] [facility] Modalities Vasopneumatic Device Modalities Vasopneumatic Device [address] [facility] Exercises A isted Exercises For ROM Exercises Assisted Exercises For ROM [address] [facility] Physical Medicine Physical Therapy Evaluation Physical Medicine Physical Therapy Evaluation [address] [facility] Psychiatric Evaluation Comprehensive Examination Psychiatric Evaluation Comprehensive Examination [address] [facility] Non-Physician Phone Call To Patient/Provider Brief (5-10min) Non-Physician Phone Call To Patient/Provider Brief (5-10min) [address] [facility] Non-Physician Phone Call To Patient/Provider Brief (5-10min) Non-Physician Phone Call To Patient/Provider Brief (5-10min) [address] [facility] Psychiatric Evaluation Review of Records and Reports Psychiatric Evaluation Review of Records and Reports [address] [facility] Psychiatric Evaluation Review of Records and Reports Psychiatric Evaluation Review of Records and Reports [address] [facility] Tdap Vaccine Tdap Vaccine [address] [facility] Immunization Administration Each Additional Vaccine [address] [facility] Hepatitis B Vaccine (Active); 20 Years and Above [address] [facility] Immunization Administration One Vaccine Immunization Administration One Vaccine 76[address] [facility] Skin Test Anergy tuberculin Skin Test Anergy tuberculin 95047 2008 BAILEE VÁSQUEZ *INACTIVE* Ivon Hepatitis B Vaccine (Active); 20 Years and Above 2008 BAILEE VÁSQUEZ *INACTIVE* Ivon Immunization Administration One Vaccine Immunization Administration One Vaccine 38112 2008 BAILEE VÁSQUEZ *INACTIVE* [facility] Health And Behav Intervention, Each 15 Min Grp (2 Or More) Health And Behav Intervention, Each 15 Min Grp (2 Or More) [address] [facility] Psychiatric Evaluation Comprehensive Examination Psychiatric Evaluation Comprehensive Examination [address] [facility] Injection, triamcinolone acetonide, preservative free, 1 mg IVANA ALVARADO [facility] Corticosteroids Inj Right Fourth Carpometacarpal Joint Corticosteroids Inj Right Fourth Carpometacarpal Joint 64970 IVANA ALVARADO [facility] Internet Med Svc Qual Nonphys Healthcare Prof Estab Patient Internet Med Sv Qual Nonphys Healthcare Prof Estab Patient [address] [facility] Osteopathic Manip Treatment (OMT) 3-4 Body Regions Involved Osteopathic Manip Treatment (OMT) 3-4 Body Regions Involved [address] [facility] Destruction Of Premalignant Lesion By Any Method One Lesion Destruction Of Premalignant Lesion By Any Method One Lesion [address] [facility] Brief communication technology-based service, e.g. [...] minutes of medical discu ion TULIO PARTIDA [facility] Non-Physician Phone Call To Patient/Provider Brief (5-10min) Non-Physician Phone Call To Patient/Provider Brief (5-10min) [address] [facility] Social History Combined list of available smoking, tobacco, and other social history from Department of Defense and Veterans Affairs facilities. Social History Type Response Date Comment Sourc e Tobacco smoking status NHIS VA-TOBACCO NEVER USED CIGARETTES 06/25/2024 [facility] History of tobacco use VA-TOBACCO NEVER USED OTHER TYPE 06/25/2024 [facility] History of tobacco use VA-TOBACCO NEVER USED 06/30/2023 [facility] This section is an empty social history section. [facility] Assessment and Plan Combined list [...] at Department of Defense and Veterans Affairs ([place] Functional Williams Measurement (FIM) Scale: 1 = Total Assistance (Subject = 0% +), 2 = Maximal Assistance (Subject = 25% +), 3 = Moderate Assistance (Subject = 50% +), 4 = Minimal Assistance (Subject = 75% +), 5 = Supervision, 6 = Modified Williams (Device), 7 = Complete Williams (Timely, Safely). Assessment Date/Time Source Assessment Type Assessment Skill Assessment Score Assessment Details No data available for this section
--- OUTSIDE RECORDS SUMMARY | 2024-08-20 20:05 | XMS_ITS | Encounter Summary ---
Author Organization [facility] Address [facility]ly [facility], 1930[address] [place] [address] Care Team Providers Care Inverter And Clipper Name Role Phone Hank Hernandez Primary Care Provider [phone] Encounter Details Date Type Department Care Team [...] st Contact Info) Description 01/15/2025 3:20 PM ZIPPER SETTER LOCKSTITCH Office Visit [facility] Family Medicine - [address] [address] Hank Hernandez DO [address] [place], [place] [phone] documented as of this encounter Visit Diagnoses Not on filedocumented in this encounter Additional Health Concerns Assessment Noted Time PHQ-9 Depression Total Score: 0 01/15/20 10:48 AM ZIPPER SETTER LOCKSTITCH documented as of this encounter Care Teams Inverter And Clipper Relationship Specialty Start Date End Date Hank Hernandez DO [address] [place] [address] PCP - General FAMILY PRACTICE 11/22/23 documented as of this encounter
--- OUTSIDE RECORDS SUMMARY | 2024-08-20 20:05 | XMS_ITS | Clinical Summary ---
Author Organization [facility] Address [address] [place] [address] Care Team Providers Care Conveyor System Operator Name Role Phone Unavailable Primary Care Provider Unavailabl e Source Comments [facility],non-owned Affiliates and Associated Physician Practices is amultiple site organization consisting of ambulatory clinics and hospital sitesin [place], [place], [place] and [place]. This disclosure is being madepursuant to the Care Everywhere program and may not contain all information available regarding this patient. Last updated 17.[facility] Social History Tobacco Use Types Packs/Day Years [...]
--- OUTSIDE RECORDS SUMMARY | 2024-08-20 20:05 | XMS_ITS | Encounter Summary ---
Author Organization [facility] Address [address] [place] [address] Care Team Providers Care Waxer Tender Name Role Phone Deuce Hernandez DO Primary Care Provider [phone] Reason for Visit * Reason Comments ER F/U C/O of a lot of abdo safia pain Encounter Details Date Type Department Care Team (Late st Contact Info) Description 08/20/2024 11:40 AM CDT Office Visit [facility] Family Medicine [address] [phone] Deuce Hernandez DO [address] [place] [address] ER F/U (C/O of a lot [...] please go to the lab at the [facility] or other location discussed. If labs were requested to go to [facility], then be sure to bring your paper lab order with you. If a referral was placed, please allow 1-2 weeks for this to be processed. A referral in store marketing representative will reach out to schedule your appointment, so be on the lookout for this call. Ensure your voicemail is setup and not full. If youhave any questions, please contact our office at or reach out by [employer]. documented in this encounter Progress Notes * Deuce Hernandez DO - 08/20/2024 11:40 AM CDT Images from the original note were not included. GENERAL OFFICE VISIT Encounter Date: 08/20/2024 Chief Complaint: 48-year-old male presents for ER F/U (C/O of a lot of abdominal pain ) HPI: Robert presents for follow-up of ER visit last night at [facility]. 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 Will obtain records from [place]. Uncertain etiology, but does not appear infectious. [...] created with voice recognition software. Occasional wrong-wordor ???[id number]??? substitutions may have occurred due to the [...] st Contact Info) Description 01/15/2025 3:20 PM BLIND STITCH MACHINE OPERATOR Office Visit [facility] Family Medicine - [address] [address] Deuce Hernandez DO [address] [place] [address] documented as of this encounter Visit Diagnoses [...] Depression Total Score: 0 01/15/20 10:48 AM BLIND STITCH MACHINE OPERATOR documented as of this encounter Care Teams Waxer Tender Relationship Specialty Start Date End Date Deuce Hernandez DO [address] [place] [address] PCP - General FAMILY PRACTICE 11/22/23 documented as of this encounter
--- OUTSIDE RECORDS SUMMARY | 2024-08-20 20:05 | XMS_ITS | Encounter Summary ---
Author Organization [facility] Address [facility] [place] [address] Care Team Providers Care Seasonal Recruiter Name Role Phone Hank Hernandez DO Primary Care Provider [phone] Encounter Details Date Type Department Care Team (Late st Contact Info) Description 08/20/2024 MyChart Message Enc [facility] Family Medicine [facility] [address] [place] [address] Hank Hernandez DO [address] [place] [address] Follow up to 20 August appt Social [...] st Contact Info) Description 01/15/2025 3:20 PM SENIOR BUSINESS PROCESS ANALYST Office Visit [facility] Family Medicine [facility] [address] [facility] [place] [address] Hank Hernandez DO [address] [place] [address] documented as of this encounter Visit Diagnoses Not on filedocumented in this encounter Additional Health Concerns Assessment Noted Time PHQ-9 Depression Total Score: 0 01/15/20 10:48 AM SENIOR BUSINESS PROCESS ANALYST documented as of this encounter Care Teams Seasonal Recruiter Relationship Specialty Start Date End Date Hank Hernandez DO [address] [place] [address] PCP - General FAMILY PRACTICE 11/22/23 documented as of this encounter
--- OUTSIDE RECORDS SUMMARY | 2024-08-20 20:05 | XMS_ITS | Encounter Summary ---
Author Organization [facility] Address [facility]ly [facility] [place] [address] Care Team Providers Care Territory Account Manager Name Role Phone Hank Hernandez DO Primary Care Provider [phone] Encounter Details Date Type Department Care Team (Late st Contact Info) Description 08/20/2024 Telephone [facility] Family & Internal Medicine [facility] [address] [place] [address] Palmira Rdz APNP [address] [place], [place] [phone] Social History Tobacco Use Types Packs/Day Years [...] st Contact Info) Description 01/15/2025 3:20 PM RESIDENT INTERN Office Visit [facility] Family Medicine - [address] [address] Hank Hernandez DO [address] [place] [address] documented as of this encounter Visit Diagnoses Not on filedocumented in this encounter Additional Health Concerns Assessment Noted Time PHQ-9 Depression Total Score: 0 01/15/20 10:48 AM RESIDENT INTERN documented as of this encounter Care Teams Territory Account Manager Relationship Specialty Start Date [place] [address] PCP - General FAMILY PRACTICE 11/22/23 documented as of this encounter
--- OUTSIDE RECORDS SUMMARY | 2024-08-20 20:05 | XMS_ITS | Clinical Summary ---
Author Organization [facility] Address [facility] [place] [address] Care Team Providers Care Rv Servicer Name Role Phone Heena Durant OT Unavailable [phone] Allergies No known active allergies Medications testosterone cypionate (DEPO-TESTOTERO NE) 100 mg/mL injection Inject 1 mL (100 mg total) into the muscle as instructed every 14 (fourteen) days 100mg/0.5ml Active Active Problems Problem Noted Date Diagnosed Date Special screening for malignant neoplasms, colon 05/10/2022 Overview (05/10/2022): Added automatically from request for surgery [id number] Blood clot of left ear 05/04/2022 Psychophysiological [...] Costa Perkins, - 09/22/2022 7:24 AM CDT [facility] GI ENDOSCOPY Patient Name: Robert Carter Procedure Date: 09/22/2022 7:24 AM Date of : 1975 Admit Type: Outpatient Age: 46 Gender: Male Attending MD: Costa Perkins ,Jaqueline.O. Room: [facility] ENDOSCOPY ROOM 05 Note Status: Finalized [...] On: 09/22/2022 7:24 AM Recognized by the [place] [employer] for promoting quality [...] data last revised 21. Testing performed by: [facility], [address] [place] [address]., [id number] Blood 05/16/2022 7:49 AM CDT 05/16/2022 9:52 AM CDT Costa Perkins DO LAB BLOOD ORDERABLES Fin al Result Performing Organization Address City/State/[facility] Co de Phone Number MIKEY [address] [facility] Department [place] [address] from Last 3 Months or Most Recently Relevant to Health Maintenance Insurance [employer] [facility] Care Teams Rv Servicer Relationship Specialty Start Date End Date Heena Durant OT [address] [address] Occupational Therapist Occupational Therapy 07/14/17
--- OUTSIDE RECORDS SUMMARY | 2024-08-20 20:05 | XMS_ITS | Referral Summary ---
Author Organization [facility] Address [address] [place] [address] Care Team Providers Care Digitizer Name Role Phone Heena Durant OT Unavailable [phone] Allergies No known active allergies Medications testosterone cypionate (DEPO-TESTOTERO NE) 100 mg/mL injection Inject 1 mL (100 mg total) into the muscle as instructed every 14 (fourteen) days 100mg/0.5ml Active Active Problems Problem Noted Date Diagnosed Date Special screening for malignant neoplasms, colon 05/10/2022 Overview (05/10/2022): Added automatically from request for surgery [id number] Blood clot of left ear 05/04/2022 Psychophysiological [...] Costa Perkins, - 09/22/2022 7:24 AM CDT [facility] GI ENDOSCOPY Patient Name: Robert Carter Procedure Date: 09/22/2022 7:24 AM Date of : 1975 Admit Type: Outpatient Age: 46 Gender: Male Attending MD: Costa Perkins D.O. Room: [facility] ENDOSCOPY ROOM 05 Note Status: [...] On: 09/22/2022 7:24 AM Recognized by the [place] [employer] [employer] G[employer]intestinal [employer]oscopy for promoting quality [...] revised 21. Testing performed by: [facility], [address] [place] [address]., [id number] Blood 05/16/2022 7:49 AM CDT 05/16/2022 9:52 AM CDT Costa Perkins DO LAB BLOOD ORDERABLES Fin al Result MIKEY JIN [address] [facility] Department [place] [address] from Last 3 Months or Most Recently Relevant to Health Maintenance Insurance [facility] Care Teams Digitizer Relationship Specialty Start Date End Date Heena Durant OT [address] [address] Occupational Therapist Occupational Therapy 07/14/17
--- OUTSIDE RECORDS SUMMARY | 2024-08-20 20:05 | XMS_ITS | Encounter Summary ---
Author Organization [facility] Address [address] [place] [address] Care Team Providers Care Manager Resort Name Role Phone Unavailable Primary Care Provider Unavailabl e Encounter Details Date Type Department Care Team (Late st Contact Info) Description 08/03/2022 Lab Requisition [facility] - DermPath Lab [address] [facility], [place] [phone] Emelia Dee MD [address] [place] [address] [place] [phone] Other follicular cysts of the skin and [...] AM CDT) Case Report Dermatopathology Report Case: [id number] Authorizing Provider: Emelia Dee MD Collected: 08/03/2022 12:00 AM Ordering Location: [facility] DermPath Lab Received: 08/04/2022 04:00 PM Pathologist: [...] of a non-oriented ellipse of skin measuring [id number] mm. The epidermal surface is unremarkable. The [...] characteristic determined by the Dermatopathology Laboratory at [facility], directed by Dr. Terence Hurtado. These tests need not be, and therefore are not, approved by the [place] Food and Drug Administration. The tests are used for clinical purposes. Billing Codes Specimen Charges Stain Charges 50815 1 1:44 PM CDT DERMATOPATHOLOGY LABORATORY Embedded Images 1:44 PM CDT DERMATOPATHOLOGY LABORATORY Pathology/Cytolog y TISSUE SPECIMEN FROM SKIN / Unknown 08/03/2022 08/04/2022 4:00 PM CDT us Emelia Dee MD LAB - PATHOLOGY/CYTOLOGY ORDERAB LES Final Result DERMATOPATHOLOGY LABORATORY [facility] - Department of Dermatology [facility] Medicine [facility] [facility], [address]rd Floor [address] [phone] documented in this encounter Visit Diagnoses Diagnosis Other follicular cysts of the skin and subcutaneous tissue Other disturbances of skin sensation documented in this encounter
--- OUTSIDE RECORDS SUMMARY | 2024-08-20 20:05 | XMS_ITS | Clinical Summary ---
Author Organization [facility] Address [address] [place] [address] Care Team Providers Care Parking Lot Attendant And Cashier Name Role Phone Hank Hernandez DO Primary Care Provider [phone] Allergies No known active allergies Medications Multiple [...] Description 08/20/2024 11:40 AM CDT Office Visit [facility] Family Medicine [address] [address] Hank Hernandez, ER F/U (C/O of a lot of abdominal pain ) 08/20/2024 Telephone [facility] Family Medicine [address] [address] Hank Hernandez, Advice (Nurse Triage - After Hours ([id number])/) 08/20/2024 Telephone [facility] Family & Internal Medicine [address] [address] Palmira Rdz APNP 08/20/2024 MyChart Message Enc [facility] Family [address] [address] Hank Hernandez, DO Follow up to 20 August appt 08/20/2024 Travel 08/18/2024 Results Follow-Up [facility] [address] [place] [phone] Hank Hrenandez, DO CBC W/AUTO DIFF, COMPREHENSIVE METABOLIC PANEL, TESTOSTERONE, FREE & TOTAL, PSA, TOTAL AND FREE 08/08/2024 Orders Only [address] [address] aHnk Hernandez, 07/02/2024 Scan [facility] HEALTH INFO SRVCS [...] st Contact Info) Description 01/15/2025 3:20 PM HEALTH EDUCATION ASSISTANT Office Visit [facility] Family Medicine - [address] [phone] Hank [place] [address] Health Maintenance Due Date Last Done Comments [...] topic Hepatitis C Completed 02/06/2024 PHQ-2 (Physician [place]) Completed 08/20/2024 Meningococcal B Vaccine Aged Out [...] W/RFX TO HCV RNA 02/06/2024 8:20 AM HEALTH EDUCATION ASSISTANT from Last 3 Months or Most Recently [...] have assigned CBC with Differential/Platelet, Test Code #411456 to this request. If this is not the testing you wished to receive on this specimen, please contact the [facility] Technical Services Department to clarify the test order. We appreciate your business. 08/08/2024 9:24 AM CDT 08/08/2024 Narrative [facility] - 08/11/2024 2:08 PM CDT Performed at: [address] [place] [id number] Senior Procurement Specialist: Everett Hernandez PhD, Phone: [phone] Hnak Hernandez DO LABORATORY Final Resul t Performing Organization Address [facility] de Phone Number [facility] [address] [place] [address] [facility] 1 * (ABNORMAL) TESTOSTERONE, FREE & TOTAL (08/08/2024 9:24 AM CDT) TESTOSTERONE 1,340(H) 264 - 916 ng/dL [facility] 1 Comment: Adult male reference interval is based on a population of healthy nonobese males (BMI <30) between 19 and 39 years old. Serg et.al. JCEM 2017,102;0892-7977. PMID: [id number]. TESTOSTERONE FREE 27.5(H) 7.2 - 24.0 pg/mL [facility] 2 08/08/2024 9:24 AM CDT 08/08/2024 Narrative [facility] - 08/11/2024 2:08 PM CDT Performed at: 01 [address] [id number] Senior Procurement Specialist: Everett Hernandez PhD, Phone: [phone] Performed at: [address] [id number] Senior Procurement Specialist: Fanta Garcia MD, Phone: [phone] Hank Hernandez DO LABORATORY Final Resul t Performing Organization Address [facility] de Phone Number [facility] [address] [place] [address] [facility] 1 [facility] 2 * COMPREHENSIVE METABOLIC [...] - 08/11/2024 2:08 PM CDT Performed at: [address] [place] [id number] Senior Procurement Specialist: Everett Hernandez PhD, Phone: [phone] Hank Hernandez DO LABORATORY Final Resul t [facility] [address] [place] [address] [facility] 1 * PSA, TOTAL AND FREE (08/08/2024 9:24 AM CDT) Pathologist [facility] PSA 1.8 0.0 - 4.0 ng/mL [facility] 1 Comment: Mandeep ECLIA methodology. According to the [employer] [place] [employer], Serum PSA should decrease and [...] - 08/11/2024 2:08 PM CDT Performed at: [address] [place] [id number] Senior Procurement Specialist: Everett Hernandez PhD, Phone: [phone] Hank Hernandez DO LABORATORY Final Resul t Performing Organization Address [facility] de Phone Number [facility] [address] [place] [address] [facility] 1 * HEPATITIS C ANTIBODY W/RFX TO HCV RNA (02/06/2024 8:20 AM HEALTH EDUCATION ASSISTANT) Pathologist [facility] HEPATITIS C AB Non Reactive Non Reacti [facility] 1 INTERPRETATION Comment [facility] 1 Comment: Not infected with HCV unless early or acute infection is suspected (which may be delayed in an immunocompromised individual), or other evidence exists to indicate HCV infection. 02/06/2024 8:20 AM HEALTH EDUCATION ASSISTANT 02/06/2024 Narrative [facility] - 02/10/2024 4:07 AM HEALTH EDUCATION ASSISTANT Performed at: [facility] [id number] Senior Procurement Specialist: Everett Hernandez PhD, Phone: [phone] Hank Hernandez DO LABORATORY Final Resul t Performing Organization Address [facility] de Phone Number [facility] [address] [place], [place] [id number] [facility] 1 from Last 3 Months or Most Recently Relevant to Health Maintenance Insurance Member Subscriber Plan / Payer (Ef fective 2024-Present) Name:Robert Carter Relation to Subscriber:Self Name:Robert Carter Payer ID:[id number] (NAIC) Group ID:Not on file Type:Indemnity Address: [address] [place] [address] Care Teams Parking Lot Attendant And Cashier Relationship Specialty Start Date End Date Hank Hernandez [place] [address] PCP - General FAMILY PRACTICE 11/22/23
--- OUTSIDE RECORDS SUMMARY | 2024-08-20 20:05 | XMS_ITS | Encounter Summary ---
Author Organization [facility] Address [facility] [place] [address] Care Team Providers Care Clinical Massage Therapist Name Role Phone Hank Hernandez DO Primary Care Provider [phone] Reason for Visit * Reason Onset Date Comments Advice 08/20/2024 Nurse Triage - A fter Hours ([id number]) Encounter Details Date Type Department Care Team (Late st Contact Info) Description 08/20/2024 Telephone [facility] Family Medicine [address] [phone] Hank Hernandez DO [address] [place] [address] Advice (Nurse Triage - After Hours ([id number])/) Social History Tobacco Use Types Packs/Day Years [...] PM CDT Nurse Triage - After Hours ([id number]) Comments Patient Is Having A. Fever With [...] st Contact Info) Description 01/15/2025 3:20 PM MARKETING PRODUCTION SPECIALIST Office Visit [facility] Family Medicine - [address] [address] Hank Hernandez DO [address] [place], [place] [phone] documented as of this encounter Visit Diagnoses Not on filedocumented in this encounter Additional Health Concerns Assessment Noted Time PHQ-9 Depression Total Score: 0 01/15/20 24 10:48 AM MARKETING PRODUCTION SPECIALIST documented as of this encounter Care Teams Clinical Massage Therapist Relationship Specialty Start Date End Date Hank Hernandez DO [address] [place] [address] PCP - General FAMILY PRACTICE 11/22/23 documented as of this encounter
[2024-08-20] MEDS: SODIUM CHLORIDE 0.9% IV 1,000 ML 999 ML IV CONT (20:23)
[2024-08-20 20:25] VITALS: BP 128/89; PULSE 85; RESP 17; TEMP 37.1; O2SAT 97
[2024-08-20 20:34] LABS: Hematocrit 48.1 % (42.0-52.0); Hemoglobin 16.7 g/dL (14.0-18.0); Immature Granulocyte Percent A 0.6 % (0-0.5); Lymphocytes Absolute Auto 1.48 K/mm3 (0.9-3.2); Mean Corpuscular HGB Conc 34.7 g/dl (32-36); Mean Corpuscular Hemoglobin 30.1 pg (26-34); Mean Corpuscular Volume 86.7 fl (80-100); Nucleated Red Blood Cells Absolute Auto 0.000 K/mm3 (0.0-0.012); Nucleated Red Blood Cells Perc 0.0 % (0.0-0.2); Platelet Count Result 185 k/mm3 (150-375); Red Blood Count 5.55 M/mm3 (4.6-6.20); White Blood Count 11.9 K/mm3 (4.5-10.0)
[2024-08-20 20:48] LABS: Alanine Aminotransferase 28 U/L (6-50); Albumin Level 4.2 g/dL (3.5-5.1); Alkaline Phosphatase 54 U/L (38-126); Anion Gap 11 mmol/L (4-12); Aspartate Amino Transferase 34 U/L (17-59); Bilirubin,Total 0.7 mg/dL (0.2-1.3); Blood Urea Nitrogen 19 mg/dL (9-20); Calcium 9.0 mg/dL (8.4-10.2); Carbon Dioxide 26 mmol/L (22-30); Chloride 100 mmol/L (98-107); Estimated CRCL calculation 83 ml/min; Estimated Glomerular Filt Rate > 60; Glucose 107 mg/dL (65-110); Lipase 118 U/L (23-300); Potassium 3.6 mmol/L (3.4-5.0); Sodium 137 mmol/L (137-145); Total Protein 7.3 g/dL (6.3-8.2)
--- NOTE | 2024-08-20 21:18 | ED_ITS ---
HPI - General Adult General Chief complaint: Fever Stated complaint: fever, chills Time Seen by Provider: 08/20/24 19:53 History of Present Illness HPI narrative: Patient is a 48-year-old male who presents ER with fever. Recently diagnosed with mesenteric panniculitis. He followed up with his PCP he thought it might be related to some his testosterone. However he developed a fever today and his PCP recommended he come to the ER as he may require antibiotic therapy. No diarrhea. No vomiting. Related Data Allergies Allergy/AdvReac Type Severity Reaction Status Date / Time No Known Allergies Allergy Unknown Verified 08/20/24 19:40 Review of Systems 2 Review of Systems: All systems reviewed & are unremarkable except as noted in HPI and below Constitutional: Constitutional: Reports no additional constitutional complaints Cardiovascular: Cardiovascular: Reports no additional cardiovascular complaints Respiratory: Respiratory: Reports no additional respiratory complaints Gastrointestinal: Gastrointestinal: Reports no additional gastrointestinal complaints Musculoskeletal: Musculoskeletal: Reports no additional musculoskeletal complaints PMF Family History Family History Mother Hypertension Other Diabetes mellitus Social History Social History Smoking status: Never smoker Alcohol intake: never Exam 2 Narrative: GENERAL: Well-appearing, well-nourished, and in no acute distress. HEAD: Normocephalic, atraumatic. ENT: Mucous membranes moist. CHEST: Clear to auscultation. No respiratory distress. HEART: Regular rate and rhythm. Normal peripheral pulses. ABDOMEN: Soft, nontender, nondistended. EXTREMITIES: Normal range of motion. No edema. SKIN: Warm, dry, no rash. NEURO: Alert and oriented x3. PSYCH: Normal mood and affect. Course Course Emergency Course: Patient resting comfortably. Informed of results. White blood cell count trending down. Will prescribe Augmentin in case there is secondary infection given new fever. Vital Signs Vital signs: Vital Signs Temperature 98.8 F 08/20/24 19:48 Pulse Rate 94 08/20/24 19:48 Respiratory Rate 18 08/20/24 19:48 Blood Pressure 157/98 H 08/20/24 19:48 Pulse Oximetry 97 08/20/24 19:48 Oxygen Delivery Room Air 08/20/24 19:48 Temperature 98.7 F 08/20/24 20:25 Pulse Rate 85 08/20/24 20:25 Respiratory Rate 17 08/20/24 20:25 Blood Pressure 128/89 08/20/24 20:25 Pulse Oximetry 97 08/20/24 20:25 Oxygen Delivery Room Air 08/20/24 20:25 Medical Decision Making Vital Signs Vital Signs: Vital Signs Temperature 98.8 F 08/20/24 19:48 Pulse Rate 94 08/20/24 19:48 Respiratory Rate 18 08/20/24 19:48 Blood Pressure 157/98 H 08/20/24 19:48 Pulse Oximetry 97 08/20/24 19:48 Oxygen Delivery Room Air 08/20/24 19:48 Temperature 98.7 F 08/20/24 20:25 Pulse Rate 85 08/20/24 20:25 Respiratory Rate 17 08/20/24 20:25 Blood Pressure 128/89 08/20/24 20:25 Pulse Oximetry 97 08/20/24 20:25 Oxygen Delivery Room Air 08/20/24 20:25 Lab Data 08/20/24 20:28 08/20/24 20:28 Labs: Lab Results 08/20/24 Range/Units 20:28 WBC 11.9 H (4.5-10.0) K/mm3 RBC 5.55 (4.6-6.20) M/mm3 Hgb 16.7 (14.0-18.0) g/dL Hct 48.1 (42.0-52.0) % MCV 86.7 (80-100) fl MCH 30.1 (26-34) pg MCHC 34.7 (32-36) g/dl RDW 12.4 (11.5-14.5) % Plt Count 185 (150-375) k/mm3 MPV 9.0 (7.4-10.4) fl Immature Gran % (Auto) 0.6 H (0-0.5) % Neut % (Auto) 76.9 H (45.5-73.1) % Lymph % (Auto) 12.4 L (18.3-44.2) % [place] % (Auto) 9.3 H (2.6-8.5) % Eos % (Auto) 0.5 (0-4.4) % Baso % (Auto) 0.3 (0.2-1.2) % Lymph # (Auto) 1.48 (0.9-3.2) K/mm3 [place] # (Auto) 1.1 H (0.1-0.6) K/mm3 Eos # (Auto) 0.1 (0-0.3) K/mm3 Baso # (Auto) 0.0 (0.0-0.1) K/mm3 Abs Immat Gran (auto) 0.07 H (0.00-0.031) K/mm3 Absolute Neuts (auto) 9.1 H (1.3-6.7) K/mm3 Absolute Nucleated RBC 0.000 (0.0-0.012) K/mm3 Nucleated RBC % 0.0 (0.0-0.2) % Sodium 137 (137-145) mmol/L Potassium 3.6 (3.4-5.0) mmol/L Chloride 100 (98-107) mmol/L Carbon Dioxide 26 (22-30) mmol/L Anion Gap 11 (4-12) mmol/L BUN 19 (9-20) mg/dL Creatinine 1.22 (0.7-1.3) mg/dL Estim Creat Clear Calc 83 ml/min Estimated GFR > 60 (59 - ) Glucose 107 (65-110) mg/dL Calcium 9.0 (8.4-10.2) mg/dL Total Bilirubin 0.7 (0.2-1.3) mg/dL AST 34 (17-59) U/L ALT 28 (6-50) U/L Alkaline Phosphatase 54 (38-126) U/L Total Protein 7.3 (6.3-8.2) g/dL Albumin 4.2 (3.5-5.1) g/dL Lipase 118 (23-300) U/L Discharge Plan Discharge Clinical Impression: Mesenteric panniculitis Patient Disposition: Home Condition: Stable Additional Instructions: You have inflammation of the mesenteric fat of your abdomen, this may be related to infection in your being prescribed antibiotics. Patient Language: Chinese Prescriptions: New amoxicillin-pot clavulanate 875-125 mg tablet 1 tablet PO Q12H Qty: 14 0RF No Action lorazepam [Ativan] 0.5 mg tablet 0.5 mg PO HS PRN (Reason: sleep) 2 Days Qty: 2 0RF cephalexin 500 mg capsule 500 mg PO Q6H 7 Days Qty: 28 0RF sulfamethoxazole-trimethoprim [Bactrim DS] 800-160 mg tablet 1 tablet PO Q12H 7 Days Qty: 14 0RF ondansetron 4 mg tablet,disintegrating 4 mg PO Q8H Qty: 14 0RF famotidine 20 mg tablet 20 mg PO DAILY Qty: 14 0RF acetaminophen 500 mg capsule 500 mg PO Q6H PRN (Reason: pain) Qty: 14 0RF Follow-up/Referrals: UNKNOWN,DOCTOR [Primary Care Provider] - 1 Week
[2024-08-20 21:37] VITALS: BP 130/91; PULSE 80; RESP 18; O2SAT 95
== END 2024-08-20 21:38 | disposition home or self-care (01) ==
PROVIDERS: Emergency Provider Emergency Medicine
DX: K65.4 Sclerosing mesenteritis (principal)
CPT/HCPCS: 36415; 80053; 83690; 85025; 96360; 99283; A9270; J7030